=== PATIENT | female | born 1945 | race Hispanic/Latino ===

== ENCOUNTER 2017-12-24 01:28 | Inpatient (IN) | payer MEDICARE, OTHER ==
[2017-12-24 02:33] LABS: #Basophils 0.1 thou/uL (0.0-0.2); #Eosinphils 0.2 thou/uL (0.0-0.7); #Lymphocytes 1.8 thou/uL (1.20-3.40); #Monocytes 0.4 thou/uL (0.11-0.59); #Neutrophils 2.5 thou/uL (1.40-6.50); %Basophils 1.9 % (0.0-1.0); %Eosinophils 3.7 % (0.0-10.0); %Lymphocytes 36.5 % (21.0-51.0); %Monocytes 8.5 % (0.0-10.0); %Neutrophils 49.5 % (42.0-75.0); Hemoglobin 9.4 g/dL (12.0-16.0); Mean Corpuscular HGB CONC 31.2 g/dL (32.0-36.0); Mean Corpuscular Hemoglobin 26.5 pg (27.0-31.0); Mean Platelet Volume 8.2 fL (7.4-10.4); Platelet Count 305 thou/uL (130-400); RBC Distribution Width 16.6 % (11.5-14.5); Red Blood Cell (RBC) Count 3.54 mill/uL (4.20-5.40)
[2017-12-24 02:55] LABS: ALT (SGPT) 16 U/L (8-55); AST (SGOT) 25 U/L (5-34); Albumin 3.8 g/dL (3.4-4.8); Alkaline Phosphatase 61 U/L (40-150); Anion Gap 10 mmol/L (10-20); BUN (Urea Nitrogen) 20 mg/dL (9.8-20.1); Bilirubin, Total 0.5 mg/dL (0.2-1.2); CK (CPK) 26 U/L (29-168); Calc. Creatinine Clearance 0 mL/min (70-130); Calcium 9.4 mg/dL (7.8-10.44); Carbon Dioxide 34 mmol/L (23-31); Chloride 95 mmol/L (98-107); Estimated GFR-MDRD 44; Globulin 2.7 g/dL (2.4-3.5); Glucose 250 mg/dL (80-115); Lipase 6 U/L (8-78); Protein, Total 6.5 g/dL (6.0-8.3); Sodium 135 mmol/L (136-145)
[2017-12-24 02:57] LABS: CKMB 0.7 ng/mL (0-6.6); Troponin I 0.013 ng/mL (< 0.028)
[2017-12-24] MEDS ORDERED: Furosemide 40 MG/4 ML VIAL ONE (03:51)
[2017-12-24] MEDS ORDERED: Nitroglycerin 2% Ointment 1 INCH/1 GM Packet ONE (03:51)
[2017-12-24 05:57] LABS: Troponin I 0.018 ng/mL (< 0.028)
[2017-12-24] MEDS ORDERED: Dextrose 5% in Water 1,000 ML IV PRN (07:30)
[2017-12-24] MEDS ORDERED: Dextrose 50% Abboject 50 ML SYRINGE SLOW IVP PRN (07:30)
[2017-12-24] MEDS ORDERED: Milk Of Magnesia 30 ML UDCUP PO PRN (07:31)
--- NOTE | 2017-12-24 08:40 | RAD ---
CHEST 1 VIEW: Date: 12/24/17 HISTORY: Chest pain. COMPARISON: 08/22/16. FINDINGS: Cardiac silhouette is magnified and enlarged. Pulmonary vasculature is upper limits of normal with mi ld patchy bibasilar infiltrates. Mediastinum is midline with aortic calcification. No lobar consolida tion or evidence of pneumothorax. IMPRESSION: Cardiomegaly. Mild pulmonary vascular congestion. POS: OFF
[2017-12-24 09:01] LABS: Troponin I 0.016 ng/mL (< 0.028)
--- NOTE | 2017-12-24 11:18 | HP ---
PRIMARY CARE PHYSICIAN: Cait Osuna M.D. PRESENTING COMPLAINT: Chest pain. HISTORY OF PRESENT ILLNESS: Ms. Arvin Monroe is a 71-year-old female with a past medical history of diabetes mellitus, hypertension, hyperlipidemia, who presents to the emergency room with a 2-day history of intermittent chest pain, described as tightness, retrosternal, does not radiate, rated 8-10/10, and associated with diaphoresis and easy fatigability. Denies shortness of breath, nausea, or vomiting. She also reports lower extremity edema, for which she went to see her primary care physician. She was told to start taking diuretics and to reports to the emergency room if her symptoms persist. PAST MEDICAL HISTORY: Type 2 diabetes mellitus, hypertension, and hyperlipidemia. PAST SURGICAL HISTORY: None. FAMILY HISTORY: Both parents had "heart problems." The patient not really sure what type. SOCIAL HISTORY: She does not smoke cigarettes or drink alcohol or use illicit drugs. ALLERGIES: None. HOME MEDICATIONS: Acetaminophen with codeine 1-2 tablets p.o. q.6 hours, amitriptyline 25 mg daily, aspirin 325 mg daily, atenolol 25 mg daily, fenofibrate 48 mg daily, furosemide 20 mg daily, hydralazine 10 mg t.i.d., lisinopril/hydrochlorothiazide one tablet daily, multivitamin 1 daily, potassium chloride 10 mEq daily, pravastatin 40 mg daily, sertraline 50 mg at bedtime, sitagliptin/metformin 1 tablet b.i.d. with meals, and Zantac 150 mg daily. REVIEW OF SYSTEMS: Twelve-point review of systems conducted and negative except as stated in the HPI. PHYSICAL EXAMINATION: GENERAL: Not in acute distress, lying comfortably in bed. HEENT: Normocephalic, atraumatic, nonpale, anicteric. PERRLA. EOMI. Moist mucous membranes. NECK: Supple, no JVD. Full range of movement. RESPIRATORY: Vesicular breath sounds bilaterally with minimal. Bibasilar crackles. CARDIOVASCULAR: S1 and S2. No murmurs, rubs, or gallops. Regular rate and rhythm. No peripheral edema. ABDOMEN: Bowel sounds normoactive. Soft, nontender, nondistended. No hepatosplenomegaly. MUSCULOSKELETAL: Full range of movement in all extremities, moves them spontaneously. NEUROLOGIC: Alert and well oriented to time, place, and person. No focal deficits. SKIN: Warm, dry, well perfused. No rashes or lesion. PSYCHIATRIC: Normal mood and affect. LABORATORY DATA: CBC significant for mild normocytic anemia (9.4), serial chemistry with creatinine of 1.22, blood glucose of 250. Initial troponin 0.013. BNP 4800. Chest x-ray shows cardiomegaly with mild pulmonary vascular congestion. EKG: No signs of acute ischemia. ASSESSMENT AND PLAN: 1. Chest pain with easy fatigability: The patient likely has new onset heart failure causing her chest pain. She will be admitted to telemetry, started on IV furosemide, will also trend the cardiac enzymes, obtain Cardiology consult. Input/output will be monitored as well as daily weights. Home medications will be restarted. We will get an echocardiogram and TSH. Home atenolol will need to be switched for her beta chandler that improves mortality by carvedilol or metoprolol XL. We will defer to Cardiology. We will also continue lisinopril and hold hydrochlorothiazide for now. 2. Diabetes mellitus, type 2: Uncontrolled. We will hold sitagliptin/ metformin and placed on sliding scale insulin while in hospital, as well as a diabetic diet, fingerstick glucose before meals and at bedtime and hypoglycemia protocol, last A1c was 6.0 in 12/2017. 3. Hypertensive Urgency: No signs of end organ dysfunction. Has not been compliant with her medications and unsure what she takes at home. Will place on IV hydralazine PRN and start carvedilol. Continue Lisinopril. Hold atenolol and hydrochlorothiazide. Monitor BP closely. 4. Hyperlipidemia. We will resume statin and obtain a fasting lipid profile. [facility] CENTERMartha
[2017-12-24] MEDS: Acetaminophen 325 MG TAB PO PRN ×3 (11:24→21:22)
[2017-12-24] MEDS: Potassium Chloride 20 MEQ TAB PO SCH (11:24)
[2017-12-24] MEDS: Docusate 100 MG CAP PO SCH ×2 (11:24→17:02)
[2017-12-24] MEDS ORDERED: Lisinopril 20 MG TAB PO SCH (12:00)
[2017-12-24] MEDS ORDERED: hydrALAZINE 20 MG/ML VIAL SLOW IVP SCH (12:00)
[2017-12-24] MEDS ORDERED: hydrALAZINE 25 MG TAB PO SCH (13:30)
[2017-12-24] MEDS ORDERED: hydrALAZINE 20 MG/ML VIAL SLOW IVP PRN (14:45)
[2017-12-24] MEDS ORDERED: Carvedilol 25 MG TAB PO SCH (15:00)
[2017-12-24] MEDS ORDERED: Amlodipine 5 MG TAB PO SCH (17:00)
--- NOTE | 2017-12-24 17:01 | CON ---
DATE OF CONSULTATION: 12/24/2017 REASON FOR CONSULTATION: Acute systolic heart failure. HISTORY OF PRESENT ILLNESS: Ms. Sheridan is a 71-year-old woman, who I have seen and evaluated in t he past. She has missed several followups. She has been seen and evaluated as well in the hospital. Her last stress study was performed on 08/23/2016. At that time her LVEF was estimated at 55%. Sh e had no significant ischemia present. She has been lost to followup. She was last seen in the [facility] in 2014. She recently presented with chest pain. She states the pain lasted for 30 minutes. It was moderate- to-severe in nature. It then slowly improved and resolved. She then proceeded to the emergency room with the above. PAST MEDICAL HISTORY: Diabetes mellitus, hypertension, hyperlipidemia. SOCIAL HISTORY: No current tobacco or alcohol use. ALLERGIES: None. MEDICATIONS: Include codeine, amitriptyline, aspirin, atenolol, fenofibrate, Lasix, hydralazine, lis inopril/hydrochlorothiazide, multivitamin, potassium, pravastatin, sertraline, and Zantac. REVIEW OF SYSTEMS: Ten-point review of systems reviewed and as above, otherwise negative. PHYSICAL EXAMINATION: GENERAL: Patient is a pleasant female who is in no acute distress. The patient appears her stated a ge. VITAL SIGNS: Blood pressure 206/98, pulse 65, temperature afebrile. NEUROLOGIC: The patient is alert and oriented times 3 with no focal neurologic deficits. HEENT: Sclerae without icterus. Mouth has moist mucous membranes with normal pallor. NECK: No JVD. Carotid upstroke brisk. No bruits bilaterally. LUNGS: Clear to auscultation with unlabored respirations. BACK: No scoliosis or kyphosis. CARDIAC: Regular rate and rhythm with normal S1 and S2. No S3 or S4 noted. No significant rubs, mu rmurs, thrills, or gallops noted throughout the precordium. PMI is not displaced. There is no almaz ternal heave. ABDOMEN: Soft, nontender, nondistended. No peritoneal signs present. No hepatosplenomegaly. No ab normal striae. EXTREMITIES: 2+ femoral and 2+ dorsalis pedis pulses. No cyanosis, clubbing, or edema. SKIN: No gross abnormalities. PERTINENT LABORATORY DATA: Hemoglobin 9.4, creatinine 1.22 with [place]FR [place] 44. [place] 4809. Echo with Doppler shows LVEF 25%-30%. LV appears dilated. IMPRESSION: 1. Chest pain. 2. Malignant hypertension. 3. New onset cardiomyopathy of unknown etiology. 4. Chronic kidney disease. 5. Anemia. RECOMMENDATIONS: Ms. Sheridan' situation is currently complex. She does have renal insufficiency a s well as anemia. Her LVEF is markedly diminished with LVEF as described above. Given her anemia an d chronic kidney disease, I am recommending a noninvasive stress test to assess for any areas of isch emia. If this is felt to be negative or low risk, we would then recommend a LifeVest with continued medical therapy and aggressive blood pressure management. Her LVEF appears to have diminished over t he last 2 years and likely related, if nonischemic, to malignant hypertension. Final recommendation pending the above.
[2017-12-24] MEDS: Furosemide 40 MG/4 ML VIAL SLOW IVP SCH (17:02)
[2017-12-24] MEDS: hydrALAZINE 25 MG TAB PO SCH (21:15)
[2017-12-24] MEDS: HumaLOG 300 UNITS/3 ML VIAL SC PRN (21:18)
[2017-12-25 04:49] LABS: #Eosinphils 0.1 thou/uL (0.0-0.7); #Lymphocytes 1.3 thou/uL (1.20-3.40); #Monocytes 0.3 thou/uL (0.11-0.59); #Neutrophils 2.6 thou/uL (1.40-6.50); %Eosinophils 2.5 % (0.0-10.0); %Lymphocytes 30.3 % (21.0-51.0); %Monocytes 6.8 % (0.0-10.0); %Neutrophils 59.5 % (42.0-75.0); Hemoglobin 9.3 g/dL (12.0-16.0); Mean Corpuscular HGB CONC 31.9 g/dL (32.0-36.0); Mean Corpuscular Hemoglobin 26.8 pg (27.0-31.0); Mean Corpuscular Volume 84.1 fl (81.0-99.0); Mean Platelet Volume 8.3 fL (7.4-10.4); Platelet Count 271 thou/uL (130-400); RBC Distribution Width 16.3 % (11.5-14.5); Red Blood Cell (RBC) Count 3.46 mill/uL (4.20-5.40); White Blood Cell (WBC) Count 4.3 thou/uL (4.8-10.8)
[2017-12-25 05:01] LABS: Anion Gap 11 mmol/L (10-20); BUN (Urea Nitrogen) 19 mg/dL (9.8-20.1); Calc. Creatinine Clearance 64 mL/min (70-130); Calcium 9.7 mg/dL (7.8-10.44); Carbon Dioxide 35 mmol/L (23-31); Chloride 96 mmol/L (98-107); Estimated GFR-MDRD 55; Glucose 123 mg/dL (80-115); Potassium 3.2 mmol/L (3.5-5.1); Sodium 139 mmol/L (136-145)
[2017-12-25] MEDS: Furosemide 40 MG/4 ML VIAL SLOW IVP SCH ×2 (06:04→15:46)
[2017-12-25] MEDS ORDERED: Lidocaine 1% (PF) 30 ML VIAL ONE (07:28)
[2017-12-25] MEDS ORDERED: Nitroglycerin 100MG/250ML BOT 250 ML ONE (07:29)
[2017-12-25] MEDS ORDERED: Verapamil 5 MG/2 ML VIAL ONE (07:29)
[2017-12-25] MEDS ORDERED: Heparin 10,000 UNITS/1 ML VIAL ONE (07:29)
[2017-12-25] MEDS ORDERED: hydrALAZINE 20 MG/ML VIAL ONE (07:54)
[2017-12-25] MEDS ORDERED: Fentanyl 250 MCG/5 ML VIAL ONE (07:57)
[2017-12-25] MEDS ORDERED: Midazolam HCl 2 mg/2 ml Vial ONE (07:57)
--- NOTE | 2017-12-25 07:59 | PRG ---
DATE OF SERVICE: 12/25/2017 Ms. Sheridan is doing well. Blood pressure remains elevated. Her creatinine did improve and is now within normal limits. Hemoglobin remains low. Given that her creatinine has improved and her hemoglobin is stable, recommend coronary angiography o nly. I would like to assess her coronary anatomy. Her LVEF is diminished. We will not proceed with intervention if needed. We will need to stage the procedure. I have discussed the procedure in ful l detail with Ms. Sheridan. The risks include, but are not limited to the following; , stroke, LA, need for emergency surgery, loss of limb, bleeding and infection as well as reaction to medicati on. All questions were answered. Given the above, the patient agreed to proceed with the above proc edure. We will approach radially to minimize bleeding.
[2017-12-25] MEDS ORDERED: traMADol HCl 50 MG TAB PO PRN (08:09)
[2017-12-25] MEDS ORDERED: Acetaminophen/Codeine 30-300mg Tablet PO PRN ×2 (08:09)
[2017-12-25] MEDS ORDERED: Nitroglycerin 0.4 MG TAB (25 Tab Bottle) SL PRN (08:09)
[2017-12-25] MEDS ORDERED: Sodium Chloride 0.9% 200 ML IV SCH (08:15)
[2017-12-25] MEDS ORDERED: Sodium Chloride 0.9% 1,000 ML IV SCH (08:15)
[2017-12-25] MEDS ORDERED: Non-Formulary Item 1 EACH (Omeprazole [Omeprazole] 20 MG) PO SCH (09:00)
[2017-12-25] MEDS ORDERED: Non-Formulary Item 1 EACH (Zantac 150 MG) PO SCH (09:00)
[2017-12-25] MEDS ORDERED: Pravastatin Sodium 40 MG TAB PO SCH (09:00)
[2017-12-25] MEDS ORDERED: Non-Formulary Item 1 EACH (Insulin Glargine,Hum.Rec.Anlog 5 UNIT) SQ SCH (09:00)
[2017-12-25] MEDS ORDERED: Lisinopril 20 MG TAB PO SCH (09:00)
[2017-12-25] MEDS ORDERED: Non-Formulary Item 1 EACH (Sertraline Hcl [Zoloft] 50 MG) PO SCH (09:00)
[2017-12-25 09:17] VITALS: BMI 30.2
[2017-12-25] MEDS: cloNIDine 0.1 MG TAB PO SCH ×2 (09:22→20:01)
[2017-12-25] MEDS: hydrALAZINE 25 MG TAB PO SCH ×3 (09:22→20:00)
[2017-12-25] MEDS: Famotidine 20 MG TAB PO SCH ×2 (09:22→20:01)
[2017-12-25] MEDS: Amitriptyline HCl 25 MG TAB PO SCH (09:22)
[2017-12-25] MEDS: Carvedilol 25 MG TAB PO SCH ×3 (09:22→18:39)
[2017-12-25] MEDS: Fenofibrate Nanocrystallized 145 MG TAB PO SCH (09:23)
[2017-12-25] MEDS: Potassium Chloride 20 MEQ TAB PO SCH (09:23)
[2017-12-25] MEDS: Ferrous Sulfate 325 MG TAB PO SCH (09:23)
[2017-12-25] MEDS: Docusate 100 MG CAP PO SCH ×2 (09:23→20:01)
[2017-12-25] MEDS: Amlodipine 5 MG TAB PO SCH (09:24)
[2017-12-25] MEDS ORDERED: Iopamidol 370 76% 100 ML VIAL ONE (10:42)
[2017-12-25] MEDS: Insulin Detemir 100 UNITS/ML 5 UNITS in Pre-Filled Syringe 1 EACH SC SCH (12:41)
[2017-12-25] MEDS: HumaLOG 300 UNITS/3 ML VIAL SC PRN ×2 (12:42→18:33)
[2017-12-25] MEDS ORDERED: Potassium Chloride 20 MEQ TAB PO SCH (13:00)
--- NOTE | 2017-12-25 13:33 | PDOC.PN ---
- Subjective Encounter Start Date: 12/25/17 Encounter Start Time: 13:40 Subjective: No complaints today. She reports feeling well. -: No acute events overnight. - Objective Resuscitation Status: Resuscitation Status FULL:Full Resuscitation MAR Reviewed: Yes Vital Signs & Weight: Vital Signs (12 hours) Temp Pulse Resp BP BP Pulse Ox 12/25/17 12:00 97.2 F L 68 18 171/74 H 96 12/25/17 09:24 58 L 163/67 H 12/25/17 09:23 163/67 H 12/25/17 09:22 58 L 163/67 H 12/25/17 08:25 9.2 F L 51 L 19 170/72 H 96 12/25/17 07:58 96.4 F L 58 L 18 94 L 12/25/17 07:30 96.4 F L 58 L 18 195/89 H 94 L 12/25/17 04:00 98.5 F 47 L 20 187/80 H 97 Weight Admit Weight 169 lb 1.6 oz Weight 165 lb 6 oz I&O: 12/24/17 12/25/17 12/26/17 06:59 06:59 06:59 Intake Total 240 Output Total 1100 Balance -860 Result Diagrams: 12/25/17 04:19 12/25/17 04:19 Additional Labs: Accuchecks 12/25/17 12/25/17 12/24/17 12:19 06:08 20:27 POC Glucose 238 H 136 H 350 H Phys Exam - Physical Examination Constitutional: NAD HEENT: PERRLA, moist MMs, sclera anicteric, oral pharynx no lesions Neck: no JVD, supple, full ROM Respiratory: no wheezing, no rales, no rhonchi, clear to auscultation bilateral Cardiovascular: RRR, no significant murmur, no rub Gastrointestinal: soft, non-tender, no distention, positive bowel sounds Musculoskeletal: pulses present, edema present (minimal b/l lower extremities) Neurological: non-focal, moves all 4 limbs Psychiatric: normal affect, A&O x 3 Skin: no rash, normal turgor Dx/Plan (1) Acute systolic CHF (congestive heart failure), NYHA class 3 Code(s): I50.21 - ACUTE SYSTOLIC (CONGESTIVE) HEART FAILURE Status: Acute Comment: Likely 2/2 ischemic cardiomyopathy. EF 25-30% per ECHO. Scheduled for cath 12/25/17. (2) Hypertensive urgency Code(s): I16.0 - HYPERTENSIVE URGENCY Status: Acute Comment: Achieving better control. 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 -: Continue IV diuresis for today. * . Review of Systems - Medications/Allergies Allergies/Adverse Reactions: Allergies Allergy/AdvReac Type Severity Reaction Status Date / Time No Known Allergies Allergy Verified 11/09/16 06:10 Medications: Current Medications Acetaminophen (Tylenol) 650 mg PO Q4H PRN PRN Reason: Headache/Fever or Pain Last Admin: 12/24/17 21:22 Dose: 650 mg Acetaminophen/Codeine Phosphate (Tylenol #3) 1 tab PO Q4H PRN PRN Reason: Mild Pain (1-3) Acetaminophen/Codeine Phosphate (Tylenol #3) 2 tab PO Q4H PRN PRN Reason: Moderate Pain (4-6) Amitriptyline HCl (Elavil) 25 mg PO DAILY [facility] Last Admin: 12/25/17 09:22 Dose: 25 mg Amlodipine Besylate (Norvasc) 5 mg PO DAILY [facility] Last Admin: 12/25/17 09:24 Dose: 5 mg Atorvastatin Calcium (Lipitor) 10 mg PO HS [facility] Carvedilol (Coreg) 12.5 mg PO BID-[facility] Clonidine (Catapres) 0.1 mg PO BID [facility] Last Admin: 12/25/17 09:22 Dose: 0.1 mg Dextrose/Water (Dextrose 50%) 25 gm SLOW IVP PRN PRN PRN Reason: Hypoglycemia Docusate Sodium (Colace) 100 mg PO BID [facility] Last Admin: 12/25/17 09:23 Dose: 100 mg Famotidine (Pepcid) 20 mg PO BID [facility] Last Admin: 12/25/17 09:22 Dose: 20 mg Fenofibrate (Tricor) 145 mg PO DAILY [facility] Last Admin: 12/25/17 09:23 Dose: 145 mg Ferrous Sulfate (Feosol) 325 mg PO DAILY [facility] Last Admin: 12/25/17 09:23 Dose: 325 mg Furosemide (Lasix) 40 mg SLOW IVP 0600,1400 [facility] Last Admin: 12/25/17 06:04 Dose: 40 mg Glucagon (Glucagon) 1 mg IM PRN PRN PRN Reason: Hypoglycemia Hydralazine HCl (Apresoline) 25 mg PO BID [facility] Last Admin: 12/25/17 09:22 Dose: 25 mg Hydralazine HCl (Apresoline) 10 mg SLOW IVP Q4H PRN PRN Reason: Hypertension Dextrose/Water (D5w) 1,000 mls @ 0 mls/hr IV .Q0M PRN; As Directed PRN Reason: Hypoglycemia Insulin Detemir 5 units/ (Miscellaneous Medication) 0.05 mls @ 0 mls/hr SC DAILY [facility] Last Admin: 12/25/17 12:41 Dose: 0.05 mls Sodium Chloride (Normal Saline 0.9%) 1,000 mls @ 100 mls/hr IV .Q10H [facility] Stop: 12/25/17 14:16 Last Admin: 12/25/17 09:21 Dose: 1,000 mls Insulin Human Lispro (Humalog) 0 units SC .MILD SLIDING SCALE PRN PRN Reason: Mild Correctional Scale Last Admin: 12/25/17 12:42 Dose: 4 unit Lisinopril (Zestril) 40 mg PO DAILY [facility] Magnesium Hydroxide (Milk Of Magnesium) 30 ml PO DAILYPRN PRN PRN Reason: Constipation Nitroglycerin (Nitrostat) 0.4 mg SL Q5MIN PRN PRN Reason: Chest Pain Pantoprazole Sodium (Protonix) 40 mg PO DAILY [facility] Last Admin: 12/25/17 09:23 Dose: 40 mg Potassium Chloride (K-Dur) 20 meq PO QAM-WM [facility] Last Admin: 12/25/17 09:23 Dose: 20 meq Potassium Chloride (K-Dur) 40 meq PO 1300 [facility] Stop: 12/25/17 16:00 Last Admin: 12/25/17 12:39 Dose: 40 meq Sertraline HCl (Zoloft) 50 mg PO DAILY [facility] Last Admin: 12/25/17 09:23 Dose: 50 mg Sodium Chloride (Flush - Normal Saline) 10 ml IVF PRN PRN PRN Reason: Saline Flush Tramadol HCl (Ultram) 50 mg PO Q6H PRN PRN Reason: Moderate Pain (4-6)
[2017-12-25] MEDS: Atorvastatin Calcium 10 MG TAB PO SCH (20:02)
[2017-12-25] MEDS: Zolpidem Tartrate 5 MG TAB PO PRN (21:41)
[2017-12-26 05:18] LABS: Cardiac Risk 3.8 (Less than 4.5)
[2017-12-26] MEDS: Furosemide 40 MG/4 ML VIAL SLOW IVP SCH ×2 (05:34→13:33)
[2017-12-26] MEDS: Lisinopril 20 MG TAB PO SCH (09:22)
[2017-12-26] MEDS: Potassium Chloride 20 MEQ TAB PO SCH (09:22)
[2017-12-26] MEDS: Carvedilol 25 MG TAB PO SCH ×2 (09:23→21:04)
[2017-12-26] MEDS: cloNIDine 0.1 MG TAB PO SCH ×2 (09:24→21:05)
[2017-12-26] MEDS: hydrALAZINE 25 MG TAB PO SCH ×3 (09:24→21:05)
[2017-12-26] MEDS: Docusate 100 MG CAP PO SCH ×2 (09:24→21:06)
[2017-12-26] MEDS: Amitriptyline HCl 25 MG TAB PO SCH (09:24)
[2017-12-26] MEDS: Ferrous Sulfate 325 MG TAB PO SCH (09:24)
[2017-12-26] MEDS: Famotidine 20 MG TAB PO SCH (09:24)
[2017-12-26] MEDS: Fenofibrate Nanocrystallized 145 MG TAB PO SCH (09:24)
[2017-12-26] MEDS: Amlodipine 5 MG TAB PO SCH (09:25)
[2017-12-26] MEDS: Insulin Detemir 100 UNITS/ML 5 UNITS in Pre-Filled Syringe 1 EACH SC SCH (09:29)
[2017-12-26] MEDS: HumaLOG 300 UNITS/3 ML VIAL SC PRN ×2 (09:29→13:34)
--- NOTE | 2017-12-26 16:45 | PDOC.PN ---
- Subjective Encounter Start Date: 12/26/17 Encounter Start Time: 16:43 Ms. Sheridan was seen today in follow-up of CHF exacerbation. She says she is breathing better, and denies any chest pain. - Objective Resuscitation Status: Resuscitation Status FULL:Full Resuscitation MAR Reviewed: Yes Vital Signs & Weight: Vital Signs (12 hours) Temp Pulse Pulse Pulse Resp BP BP 12/26/17 15:16 98.2 F 61 17 12/26/17 15:15 61 153/69 H 12/26/17 12:35 65 63 153/69 H 12/26/17 12:00 98.4 F 63 19 12/26/17 09:25 62 12/26/17 09:24 62 196/88 H 12/26/17 09:22 196/88 H 12/26/17 09:00 98.2 F 62 18 12/26/17 08:00 98.2 F 62 18 BP BP Pulse Ox Pulse Ox Pulse Ox 12/26/17 15:16 153/69 H 96 12/26/17 15:15 12/26/17 12:35 140/66 98 98 12/26/17 12:00 140/66 97 12/26/17 09:25 12/26/17 09:24 12/26/17 09:22 12/26/17 09:00 196/88 H 96 12/26/17 08:00 96 Weight Admit Weight 169 lb 1.6 oz Weight 162 lb 0.636 oz I&O: 12/25/17 12/26/17 12/27/17 06:59 06:59 06:59 Intake Total 240 2640 480 Output Total 1100 900 Balance -860 1740 480 Result Diagrams: 12/25/17 04:19 12/25/17 04:19 Additional Labs: Accuchecks 12/26/17 12/26/17 12/25/17 10:57 05:43 22:06 POC Glucose 333 H 217 H 254 H 12/25/17 12/25/17 20:03 16:28 POC Glucose 319 H 230 H Phys Exam - Physical Examination HEENT: PERRLA, sclera anicteric Respiratory: no wheezing, no rales, no rhonchi, clear to auscultation bilateral Cardiovascular: RRR, no significant murmur, no rub Gastrointestinal: soft, non-tender, positive bowel sounds Musculoskeletal: no edema Dx/Plan (1) Acute systolic CHF (congestive heart failure), NYHA class 3 Code(s): I50.21 - ACUTE SYSTOLIC (CONGESTIVE) HEART FAILURE Status: Acute Comment: Likely 2/2 ischemic cardiomyopathy. EF 25-30% per ECHO. Scheduled for cath 12/25/17. (2) Diabetes type 2, controlled Code(s): E11.9 - TYPE 2 DIABETES MELLITUS WITHOUT COMPLICATIONS Status: Chronic (3) Dyslipidemia Code(s): E78.5 - HYPERLIPIDEMIA, UNSPECIFIED Status: Chronic (4) Hypertension Code(s): I10 - ESSENTIAL (PRIMARY) HYPERTENSION Status: Chronic Qualifiers: Hypertension type: essential hypertension Qualified Code(s): I10 - Essential (primary) hypertension - Plan * Acute on chronic systolic heart failure- continue to diurese- consider change to oral lasix in am * Still awaiting the Echo results * DM- blood glucose is not optimally controlled- will increase the dose of Levemir. * HTN- blood pressure continues to be elevated- will increase Amlodipine, and monitor over the next few days- Lisinopril, and Hydralazine have already been increased * Continue to monitor electrolytes while on Lasix
--- NOTE | 2017-12-26 18:28 | PRG ---
DATE OF SERVICE: 12/26/2017 SUBJECTIVE: Ms. Sheridan is doing well. No current complaints of chest pain, pressure or shortness of breath is improved. Her blood pressure also appears improved. PHYSICAL EXAMINATION: VITAL SIGNS: Blood pressure 170/69, pulse 61, temperature 98.2, weight 169 down to 162. LUNGS: Clear to auscultation. HEART: Regular rate and rhythm. ABDOMEN: Soft, nontender, nondistended. EXTREMITIES: No edema. PERTINENT LABORATORY DATA: Hemoglobin 9.3. IMPRESSION: Nonischemic cardiomyopathy. RECOMMENDATIONS: Ms. Sheridan symptom is likely related to malignant hypertension. Her blood press ure appears to be improving. Given her LVEF of 20%-30%, I would also recommend LifeVest. I have als o decreased her Lasix from IV dosing to p.o. dosing. Continue Coreg in addition to SOFI inhibitor the rapy. Anticipate discharge in a.m.
[2017-12-26] MEDS: Zolpidem Tartrate 5 MG TAB PO PRN (21:05)
[2017-12-26] MEDS: Atorvastatin Calcium 10 MG TAB PO SCH (21:06)
[2017-12-26] MEDS ORDERED: HumaLOG 300 UNITS/3 ML VIAL SC PRN (21:47)
[2017-12-27 05:08] LABS: Anion Gap 12 mmol/L (10-20); BUN (Urea Nitrogen) 21 mg/dL (9.8-20.1); Calc. Creatinine Clearance 51 mL/min (70-130); Calcium 9.3 mg/dL (7.8-10.44); Carbon Dioxide 32 mmol/L (23-31); Chloride 94 mmol/L (98-107); Estimated GFR-MDRD 45; Glucose 199 mg/dL (80-115); Potassium 3.1 mmol/L (3.5-5.1); Sodium 135 mmol/L (136-145)
[2017-12-27] MEDS: Lisinopril 20 MG TAB PO SCH (09:14)
[2017-12-27] MEDS: Docusate 100 MG CAP PO SCH ×2 (09:14→20:07)
[2017-12-27] MEDS: Ferrous Sulfate 325 MG TAB PO SCH (09:14)
[2017-12-27] MEDS: Fenofibrate Nanocrystallized 145 MG TAB PO SCH (09:14)
[2017-12-27] MEDS: cloNIDine 0.1 MG TAB PO SCH ×2 (09:14→20:03)
[2017-12-27] MEDS: Carvedilol 25 MG TAB PO SCH ×2 (09:15→17:28)
[2017-12-27] MEDS: hydrALAZINE 25 MG TAB PO SCH ×3 (09:15→20:03)
[2017-12-27] MEDS: Furosemide 40 MG TAB PO SCH ×2 (09:15→13:28)
[2017-12-27] MEDS: Potassium Chloride 20 MEQ TAB PO SCH (09:15)
[2017-12-27] MEDS: Amitriptyline HCl 25 MG TAB PO SCH (09:16)
[2017-12-27] MEDS: Insulin Detemir 100 UNITS/ML 10 UNITS in Pre-Filled Syringe 1 EACH SC SCH (09:16)
[2017-12-27] MEDS: Amlodipine 10 MG TAB PO SCH (09:16)
--- NOTE | 2017-12-27 10:00 | PDOC.CTH ---
Cardiology Progress Note - Subjective Patient without complaints. Feels much better. Denies any CP, SOB, KRUSE or edema. No PND or orthopnea. Still hypetensive, but improved overall. Pulse rate down to 48 while sleeping. - Objective Vital Signs Temp Pulse Resp BP BP BP Pulse Ox 12/27/17 09:16 64 12/27/17 09:15 64 12/27/17 09:14 186/79 H 12/27/17 08:00 98.4 F 64 18 186/79 H 96 12/27/17 04:00 98.8 F 53 L 18 161/70 H 94 L 12/27/17 00:00 98.5 F 72 18 168/71 H 96 Admit Weight 169 lb 1.6 oz Weight 158 lb 12/26/17 12/27/17 12/28/17 06:59 06:59 06:59 Intake Total 2640 1525 Output Total 900 800 Balance 1740 725 - Physical Examination General/Neuro: alert & oriented x3, NAD Neck: carotid US brisk Lungs: CTA Heart: PMI normal, RRR Abdomen: NT/ND, soft Extremities: other: (no edema) - Telemetry Telemetry Rhythm: SR; SBrady 48-50s - Labs Result Diagrams: 12/25/17 04:19 12/27/17 04:28 Troponin/CKMB CK-MB (CK-2) 0.7 ng/mL (0-6.6) 12/24/17 02:09 Troponin I 0.016 ng/mL (< 0.028) 12/24/17 08:05 - Assessment/Plan 1. Acute/chronic systolic and diastolic CHF - most likely related to malignant HTN. Improved after diuresis. Ok for d/c today. Needs f/u with CHF clinic and LifeVest. 2. malignant HTN - Improved. Continue to titrate meds as outpatient. 3. Bradycardia - would not increase Coreg further. 4. DM - II - Managed by PCP
[2017-12-27] MEDS ORDERED: Potassium Chloride 20 MEQ TAB PO SCH (11:30)
--- NOTE | 2017-12-27 11:31 | PDOC.PN ---
- Subjective Encounter Start Date: 12/27/17 Encounter Start Time: 11:30 Ms. Sheridan was seen today in follow-up. She does not have any complaints. She denies chest pain or shortness of breath. - Objective Resuscitation Status: Resuscitation Status FULL:Full Resuscitation MAR Reviewed: Yes Vital Signs & Weight: Vital Signs (12 hours) Temp Pulse Resp BP BP BP Pulse Ox 12/27/17 09:16 64 12/27/17 09:15 64 12/27/17 09:14 186/79 H 12/27/17 08:00 98.4 F 64 18 186/79 H 96 12/27/17 04:00 98.8 F 53 L 18 161/70 H 94 L 12/27/17 00:00 98.5 F 72 18 168/71 H 96 Weight Admit Weight 169 lb 1.6 oz Weight 158 lb I&O: 12/26/17 12/27/17 12/28/17 06:59 06:59 06:59 Intake Total 2640 1525 Output Total 900 800 Balance 1740 725 Result Diagrams: 12/25/17 04:19 12/27/17 04:28 Additional Labs: Accuchecks 12/27/17 12/26/17 12/26/17 06:09 20:55 16:34 POC Glucose 190 H 351 H 66 L 12/26/17 10:57 POC Glucose 333 H Phys Exam - Physical Examination HEENT: PERRLA Respiratory: no wheezing, no rales Cardiovascular: RRR, no significant murmur Gastrointestinal: soft, non-tender, positive bowel sounds Musculoskeletal: no edema Dx/Plan (1) Acute systolic CHF (congestive heart failure), NYHA class 3 Code(s): I50.21 - ACUTE SYSTOLIC (CONGESTIVE) HEART FAILURE Status: Acute Comment: Likely 2/2 ischemic cardiomyopathy. EF 25-30% per ECHO. Scheduled for cath 12/25/17. (2) Diabetes type 2, controlled Code(s): E11.9 - TYPE 2 DIABETES MELLITUS WITHOUT COMPLICATIONS Status: Chronic (3) Dyslipidemia Code(s): E78.5 - HYPERLIPIDEMIA, UNSPECIFIED Status: Chronic (4) Hypertension Code(s): I10 - ESSENTIAL (PRIMARY) HYPERTENSION Status: Chronic Qualifiers: Hypertension type: essential hypertension Qualified Code(s): I10 - Essential (primary) hypertension - Plan * Acute on chronic systolic heart failure- compensated * Patient will need a life vest- this will be arranged by Cardiology * Hypokalemia- replace- and check her magnesium level * DM- blood glucose is improved. * HTN- blood pressure is still elevated- she has had recent changes in the doses of her medications- will monitor, and it may take some time before she gets the full benefit from the antihypertensives * Home when life vest arranged
[2017-12-27] MEDS: HumaLOG 300 UNITS/3 ML VIAL SC PRN ×2 (13:27→17:27)
[2017-12-27] MEDS: Acetaminophen 325 MG TAB PO PRN (17:26)
[2017-12-27] MEDS ORDERED: HumaLOG 300 UNITS/3 ML VIAL SC PRN (18:26)
[2017-12-27] MEDS: Atorvastatin Calcium 10 MG TAB PO SCH (20:04)
[2017-12-27] MEDS: Zolpidem Tartrate 5 MG TAB PO PRN (20:04)
[2017-12-28] MEDS: Acetaminophen 325 MG TAB PO PRN (07:00)
[2017-12-28] MEDS: cloNIDine 0.1 MG TAB PO SCH (09:08)
[2017-12-28] MEDS: Carvedilol 25 MG TAB PO SCH ×2 (09:09→17:30)
[2017-12-28] MEDS: Docusate 100 MG CAP PO SCH (09:09)
[2017-12-28] MEDS: Fenofibrate Nanocrystallized 145 MG TAB PO SCH (09:09)
[2017-12-28] MEDS: Ferrous Sulfate 325 MG TAB PO SCH (09:10)
[2017-12-28] MEDS: hydrALAZINE 25 MG TAB PO SCH ×2 (09:10→15:32)
[2017-12-28] MEDS: Lisinopril 20 MG TAB PO SCH (09:10)
[2017-12-28] MEDS: Furosemide 40 MG TAB PO SCH ×2 (09:10→15:33)
[2017-12-28] MEDS: Amitriptyline HCl 25 MG TAB PO SCH (09:11)
[2017-12-28] MEDS: Insulin Detemir 100 UNITS/ML 10 UNITS in Pre-Filled Syringe 1 EACH SC SCH (09:11)
[2017-12-28] MEDS: Amlodipine 10 MG TAB PO SCH (09:11)
[2017-12-28] MEDS: Potassium Chloride 20 MEQ TAB PO SCH (09:13)
--- NOTE | 2017-12-28 11:55 | PDOC.PN ---
- Subjective Encounter Start Date: 12/28/17 Encounter Start Time: 11:54 Ms. Sheridan was seen today in follow-up of CHF exacerbation. She does not have any complaints this morning. She denies shortness of breath. She ambulated in the [place] some with assistance without difficulty. - Objective Resuscitation Status: Resuscitation Status FULL:Full Resuscitation MAR Reviewed: Yes Vital Signs & Weight: Vital Signs (12 hours) Temp Pulse Resp BP BP BP Pulse Ox 12/28/17 09:11 68 12/28/17 09:10 61 184/81 H 12/28/17 09:08 184/81 H 12/28/17 08:00 96.9 F L 68 18 184/81 H 95 12/28/17 07:17 98.3 F 61 18 95 12/28/17 03:48 98.3 F 61 18 163/73 H 99 12/28/17 00:00 98.7 F 62 20 138/61 98 Weight Admit Weight 169 lb 1.6 oz Weight 162 lb 11.2 oz I&O: 12/27/17 12/28/17 12/29/17 06:59 06:59 06:59 Intake Total 1525 1320 360 Output Total 800 1900 Balance 725 -580 360 Result Diagrams: 12/25/17 04:19 12/27/17 04:28 Additional Labs: Accuchecks 12/28/17 12/28/17 12/27/17 10:50 06:12 20:54 POC Glucose 267 H 162 H 329 H 12/27/17 16:43 POC Glucose 214 H Phys Exam - Physical Examination HEENT: PERRLA Respiratory: no wheezing, no rales, no rhonchi, clear to auscultation bilateral Cardiovascular: RRR, no significant murmur, no rub Gastrointestinal: soft, non-tender, no distention, positive bowel sounds Musculoskeletal: no edema Dx/Plan (1) Acute systolic CHF (congestive heart failure), NYHA class 3 Code(s): I50.21 - ACUTE SYSTOLIC (CONGESTIVE) HEART FAILURE Status: Acute Comment: Likely 2/2 ischemic cardiomyopathy. EF 25-30% per ECHO. Scheduled for cath 12/25/17. (2) Diabetes type 2, controlled Code(s): E11.9 - TYPE 2 DIABETES MELLITUS WITHOUT COMPLICATIONS Status: Chronic (3) Dyslipidemia Code(s): E78.5 - HYPERLIPIDEMIA, UNSPECIFIED Status: Chronic (4) Hypertension Code(s): I10 - ESSENTIAL (PRIMARY) HYPERTENSION Status: Chronic Qualifiers: Hypertension type: essential hypertension Qualified Code(s): I10 - Essential (primary) hypertension - Plan * Acute on chronic systolic heart failure- compensated * HTN- blood pressure is elevated- will monitor , it may take a few days for it to stabilize after the new BP medications were started * DM- also a bit labile- fine tuning can be done as an outpatient * Awaiting Life Vest.
[2017-12-28] MEDS: HumaLOG 300 UNITS/3 ML VIAL SC PRN ×2 (12:38→17:31)
--- NOTE | 2017-12-28 14:08 | PDOC.CTH ---
<Adela Hernandez - Last Filed: 12/28/17 15:18> Cardiology Progress Note - Subjective Awake, no overnight events. Awaiting lifevest fitting today, ready to go home. Denies chest pain, shortness of breath. Ambulating in halls without difficulty. Spoke with primary nurse re: lifevest, states [employer] is wanting EF to be dictated into cath report. Echocardiogram contains most updated EF, all required info sent to [employer]. - Objective Vital Signs Temp Pulse Pulse Pulse Resp BP BP 12/28/17 12:07 69 62 185/79 H 12/28/17 12:00 97.2 F L 59 L 17 12/28/17 09:11 68 12/28/17 09:10 61 184/81 H 12/28/17 09:08 184/81 H 12/28/17 08:00 96.9 F L 68 18 12/28/17 07:17 98.3 F 61 18 12/28/17 03:48 98.3 F 61 18 BP BP BP Pulse Ox Pulse Ox Pulse Ox 12/28/17 12:07 185/81 H 99 97 12/28/17 12:00 153/69 H 96 12/28/17 09:11 12/28/17 09:10 12/28/17 09:08 12/28/17 08:00 184/81 H 95 12/28/17 07:17 95 12/28/17 03:48 163/73 H 99 Admit Weight 169 lb 1.6 oz Weight 162 lb 11.2 oz 12/27/17 12/28/17 12/29/17 06:59 06:59 06:59 Intake Total 1525 1320 720 Output Total 800 1900 Balance 725 -580 720 - Physical Examination General/Neuro: alert & oriented x3, NAD Neck: no JVD present (supple) Lungs: CTA, unlabored respirations Heart: RRR Abdomen: NT/ND, soft - Telemetry Telemetry Rhythm: SR 60s - Labs Result Diagrams: 12/25/17 04:19 12/27/17 04:28 Troponin/CKMB CK-MB (CK-2) 0.7 ng/mL (0-6.6) 12/24/17 02:09 Troponin I 0.016 ng/mL (< 0.028) 12/24/17 08:05 - Assessment/Plan 1.Acute on chronic systolic heart failure- compensated. EF 25-30%, awaiting LifeVest placement, okay for discharge once fitted, home on furosemide 40mg BID 2.HTN, malignant-remains elevated, continue clonidine, amlodipine, lisinopril as ordered, titrate as outpatient 3.Bradycardia-stable now, would not increase carvedilol <Tim Garnica - Last Filed: 12/28/17 15:21> Cardiology Progress Note - Objective Vital Signs Temp Pulse Pulse Pulse Resp BP BP 12/28/17 12:07 69 62 185/79 H 12/28/17 12:00 97.2 F L 59 L 17 12/28/17 09:11 68 12/28/17 09:10 61 184/81 H 12/28/17 09:08 184/81 H 12/28/17 08:00 96.9 F L 68 18 12/28/17 07:17 98.3 F 61 18 12/28/17 03:48 98.3 F 61 18 BP BP BP Pulse Ox Pulse Ox Pulse Ox 12/28/17 12:07 185/81 H 99 97 12/28/17 12:00 153/69 H 96 12/28/17 09:11 12/28/17 09:10 12/28/17 09:08 12/28/17 08:00 184/81 H 95 12/28/17 07:17 95 12/28/17 03:48 163/73 H 99 Admit Weight 169 lb 1.6 oz Weight 162 lb 11.2 oz 12/27/17 12/28/17 12/29/17 06:59 06:59 06:59 Intake Total 1525 1320 720 Output Total 800 1900 Balance 725 -580 720 - Labs Result Diagrams: 12/25/17 04:19 12/27/17 04:28 Troponin/CKMB CK-MB (CK-2) 0.7 ng/mL (0-6.6) 12/24/17 02:09 Troponin I 0.016 ng/mL (< 0.028) 12/24/17 08:05 Attending Addendum - Attending Addendum Date/Time: 12/28/17 1521 I personally evaluated the patient and discussed the management with Dr. [] I agree with the History, Examination, Assessment and Plan documented above with any addition or exceptions noted below.
[2017-12-28 15:34] VITALS: BP 160/72
[2017-12-28 18:09] VITALS: TEMP 97
--- NOTE | 2017-12-28 21:16 | DIS ---
PRIMARY CARE PHYSICIAN: Dr. Osuna. DATE OF ADMISSION: 12/24/2017 DATE OF DISCHARGE: 12/28/2017 DISCHARGE DISPOSITION: Home. PRIMARY DISCHARGE DIAGNOSES: 1. Acute on chronic systolic heart failure. 2. Diabetes mellitus, type 2. 3. Hypertension. 4. Hyperlipidemia. DISCHARGE MEDICATIONS: Include Zantac 150 mg twice a day, Zoloft 50 mg daily, pravastatin 40 mg temi y, omeprazole 20 mg daily, multivitamin 1 tablet daily, lisinopril 40 mg daily, Lantus insulin 5 unit s daily, Apresoline 25 mg twice a day, Lasix 40 mg twice daily, iron sulfate 325 mg daily, fenofibrat e 145 mg daily, clonidine 0.1 mg twice daily, amlodipine 10 mg daily, amitriptyline 25 mg daily, Tyle nol No. 3 one to two tablets q.6 hours as needed. PROCEDURES DONE DURING ADMISSION: The patient had an echocardiogram in which the ejection fraction w as estimated at 25%-30%. There was some hypokinetic motion in the inferior wall of the left ventricl e and a restrictive filling pattern suggestive of restrictive diastolic function. There was severe m itral regurgitation present. CODE STATUS: FULL CODE. ALLERGIES: No known drug allergies. HOSPITAL COURSE: Ms. Sheridan is a pleasant 72-year-old female that presented to the emergency room with complaints of chest pain. She stated that it was about an 8-10/10 and was associated with some diaphoresis. She was admitted and ruled out. The patient had a repeat echocardiogram, which reveal ed a significant reduction in her left ventricular ejection fraction, it was estimated at 20% to 30%. She underwent cardiac catheterization and there was no evidence of any coronary artery disease. It was recommended that she go home with a LifeVest and then be reevaluated in the near future. During the hospital course, her antihypertensive medication was adjusted, as she did have blood pressure el evation and bordering on hypertensive urgency. When she was clinically stabilized, she was able to b e discharged home and to have close outpatient followup.
== END 2017-12-28 19:11 | disposition home or self-care (01) | DRG 286 ==
LOC: ERS 01:28 → 2NO 04:03
PROVIDERS: ADMIT Internal Medicine Infectious Disease; ATTEND Internal Medicine Infectious Disease
PROC: 4A023N7 Measurement of Cardiac Sampling and Pressure, Left Heart, Percutaneous Approach (ICD-10-PCS; principal; 2017-12-25)
PROC: B2111ZZ Fluoroscopy of Multiple Coronary Arteries using Low Osmolar Contrast (ICD-10-PCS; 2017-12-25)
PROC: B2151ZZ Fluoroscopy of Left Heart using Low Osmolar Contrast (ICD-10-PCS; 2017-12-25)
DX: I13.0 Hypertensive heart and chronic kidney disease with heart failure and stage 1 through stage 4 chronic kidney disease, or unspecified chronic kidney disease (principal); I50.23 Acute on chronic systolic (congestive) heart failure; E11.22 Type 2 diabetes mellitus with diabetic chronic kidney disease; I42.9 Cardiomyopathy, unspecified; N18.9 Chronic kidney disease, unspecified; E78.5 Hyperlipidemia, unspecified; E11.65 Type 2 diabetes mellitus with hyperglycemia; I16.0 Hypertensive urgency; I25.5 Ischemic cardiomyopathy; D64.9 Anemia, unspecified; E87.6 Hypokalemia
CPT/HCPCS: 36415; 36416; 71045; 80048; 80053; 80061; 82550; 82553; 83690; 83735; 83880; 84443; 84484; 85025; 93005; 93306; 93458; 93798; 94760; 96374; 99152; C1769; J0360; J1644; J1815; J1940; J2001; J2250; J3010

== ENCOUNTER 2018-04-08 10:41 | Emergency (ER) | payer MEDICARE ==
--- NOTE | 2018-04-08 11:23 | CT ---
HEAD CT WITHOUT CONTRAST: 04/08/2018 HISTORY: Headache for 2-3 days. COMPARISON: 11/09/2016 TECHNIQUE: Serial axial CT imaging at 5 mm intervals, from the vertex through the skull base, without contrast. FINDINGS: Stable, small, circumscribed, lytic lesion noted within the calvarium, laterally, on the right, on im age 19, suggesting a hemangioma, in the absence of known malignancy. The paranasal sinuses/mastoid a ir cells appear grossly unremarkable. There is atherosclerotic calcification involving the distal ri ght vertebral artery and the bilateral cavernous carotid arteries. There is no intracranial hemorrhage, midline shift, or mass effect seen. There is mild periventricular hypodensity, suggesting small vessel disease. IMPRESSION: No acute findings. POS: [facility]
[2018-04-08] MEDS ORDERED: diphenhydrAMINE 50 MG/ML VIAL ONE (11:53)
[2018-04-08] MEDS ORDERED: Metoclopramide HCl 10 MG/2 ML VIAL ONE (11:53)
[2018-04-08 11:59] LABS: #Eosinphils 0.2 thou/uL (0.0-0.7); #Lymphocytes 1.4 thou/uL (1.20-3.40); #Monocytes 0.5 thou/uL (0.11-0.59); #Neutrophils 4.5 thou/uL (1.40-6.50); %Basophils 0.7 % (0.0-1.0); %Eosinophils 2.4 % (0.0-10.0); %Lymphocytes 21.8 % (21.0-51.0); %Neutrophils 68.1 % (42.0-75.0); Hemoglobin 10.5 g/dL (12.0-16.0); Mean Corpuscular HGB CONC 33.8 g/dL (32.0-36.0); Mean Corpuscular Hemoglobin 28.4 pg (27.0-31.0); Mean Platelet Volume 8.7 fL (7.4-10.4); Platelet Count 289 thou/uL (130-400); RBC Distribution Width 16.8 % (11.5-14.5); Red Blood Cell (RBC) Count 3.72 mill/uL (4.20-5.40); White Blood Cell (WBC) Count 6.6 thou/uL (4.8-10.8)
[2018-04-08 12:25] LABS: ALT (SGPT) 8 U/L (8-55); AST (SGOT) 16 U/L (5-34); Albumin 3.5 g/dL (3.4-4.8); Alkaline Phosphatase 70 U/L (40-150); Anion Gap 12 mmol/L (10-20); BUN (Urea Nitrogen) 17 mg/dL (9.8-20.1); Bilirubin, Total 0.5 mg/dL (0.2-1.2); Calc. Creatinine Clearance 0 mL/min (70-130); Calcium 9.3 mg/dL (7.8-10.44); Carbon Dioxide 31 mmol/L (23-31); Chloride 101 mmol/L (98-107); Estimated GFR-MDRD 59; Glucose 181 mg/dL (80-115); Protein, Total 6.5 g/dL (6.0-8.3); Sodium 141 mmol/L (136-145)
[2018-04-08] MEDS ORDERED: Potassium Chloride 20 MEQ TAB ONE (13:03)
== END 2018-04-08 14:50 | disposition home or self-care (01) ==
LOC: ERS 10:41
DX: R51 Headache (principal); R03.0 Elevated blood-pressure reading, without diagnosis of hypertension; E87.6 Hypokalemia; I11.0 Hypertensive heart disease with heart failure; I50.9 Heart failure, unspecified; F03.90 Unspecified dementia, unspecified severity, without behavioral disturbance, psychotic disturbance, mood disturbance, and anxiety; K21.9 Gastro-esophageal reflux disease without esophagitis; E11.9 Type 2 diabetes mellitus without complications; F32.9 Major depressive disorder, single episode, unspecified; Z79.899 Other long term (current) drug therapy; Z79.84 Long term (current) use of oral hypoglycemic drugs
CPT/HCPCS: 70450; 80053; 85025; 96365; 96375; J1200; J2765

== ENCOUNTER 2018-09-19 14:54 | Outpatient (CLI) | payer MEDICARE, OTHER | END 2018-09-19 14:55 | disposition home or self-care (01) | LOC: BICMAMMO 14:54 | PROVIDERS: ATTEND Family Medicine | DX: Z12.31 Encounter for screening mammogram for malignant neoplasm of breast (principal); R92.1 Mammographic calcification found on diagnostic imaging of breast | CPT/HCPCS: 77063; 77067 ==

== ENCOUNTER 2018-12-31 13:20 | Emergency (ER) | payer MEDICARE ==
[2018-12-31] MEDS ORDERED: Acetaminophen 325 MG TAB ONE (16:12)
[2018-12-31] MEDS ORDERED: Ketorolac Tromethamine 60 MG/2 ML VIAL ONE (16:12)
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
== END 2018-12-31 17:06 | disposition home or self-care (01) ==
LOC: ERS 13:20
DX: S00.83XA Contusion of other part of head, initial encounter (principal); I50.9 Heart failure, unspecified; K21.9 Gastro-esophageal reflux disease without esophagitis; E11.9 Type 2 diabetes mellitus without complications; I11.0 Hypertensive heart disease with heart failure; F03.90 Unspecified dementia, unspecified severity, without behavioral disturbance, psychotic disturbance, mood disturbance, and anxiety; F32.9 Major depressive disorder, single episode, unspecified; Z79.899 Other long term (current) drug therapy; Z79.84 Long term (current) use of oral hypoglycemic drugs; W50.0XXA Accidental hit or strike by another person, initial encounter
CPT/HCPCS: 70110; 72040; 96372; J1885

== ENCOUNTER 2019-08-19 12:27 | Outpatient (CLI) | payer MEDICARE ==
--- NOTE | 2019-08-19 13:31 | RAD ---
2 views right knee: 08/19/2019 COMPARISON: None HISTORY: Acute right-sided knee pain FINDINGS: There is prominent patellofemoral joint space narrowing with posterior patellar osteophyte formation and enthesophyte formation at the insertion of the quadriceps tendon. Small knee joint effusion. There is atherosclerotic calcification posterior to the right knee. There is moderate/sever e lateral compartment narrowing with associated osteophyte formation involving the lateral femoral condyle and lateral tibial plateau. No displaced fracture or evidence of dislocation is seen. IMPRESSION: Prominent degenerative change. No acute fracture or dislocation.
--- NOTE | 2019-08-19 13:33 | RAD ---
Left knee 2 views: 08/19/2019 HISTORY: Pain FINDINGS: There is mild/moderate lateral compartment narrowing and moderate/severe medial compartment narrowing with osteophyte formation involving the medial and lateral femoral condyle as well as the medial and lateral tibial plateau. There is prominent patellofemoral joint space narrowing. There is atherosclerotic calcification posterior to the left knee. No knee joint effusion, displaced fracture, or evidence of dislocation. Round calcifications are seen overlying the soft tissues uke operator ior to the left knee which could represent intra-articular loose bodies within a Hilliard's cyst. IMPRESSION: Chronic findings as above. No acute fracture or dislocation.
== END 2019-08-19 12:28 | disposition home or self-care (01) ==
LOC: BICRAD 12:27
PROVIDERS: ATTEND Family Medicine
DX: M25.561 Pain in right knee (principal); M17.0 Bilateral primary osteoarthritis of knee; M25.762 Osteophyte, left knee; I70.90 Unspecified atherosclerosis

== ENCOUNTER 2019-09-16 12:58 | Outpatient (CLI) | payer MEDICARE ==
--- NOTE | 2019-09-16 13:22 | RAD ---
PA AND LATERAL CHEST: HISTORY: Bronchitis. Cough. COMPARISON: 12/24/2017 FINDINGS: The heart size is enlarged. The lungs are well expanded without lobar consolidation, pneumothoraces o r pleural effusions. There are degenerative changes in the spine. There is mild infiltrate in the rig ht lower lung. The possibility of pneumonia should be considered. POS: [facility]
== END 2019-09-16 12:59 | disposition home or self-care (01) ==
LOC: BICRAD 12:58
PROVIDERS: ATTEND Family Medicine
DX: J40 Bronchitis, not specified as acute or chronic (principal)
CPT/HCPCS: 71046

== ENCOUNTER 2019-11-18 18:17 | Emergency (ER) | payer MEDICARE ==
[2019-11-18] MEDS ORDERED: Ketorolac Tromethamine 30 MG/ML VIAL ONE (19:12)
[2019-11-18] MEDS ORDERED: diphenhydrAMINE 50 MG/ML VIAL ONE (19:12)
[2019-11-18] MEDS ORDERED: Metoclopramide HCl 10 MG/2 ML VIAL ONE (19:12)
--- NOTE | 2019-11-18 19:26 | RAD ---
PORTABLE CHEST: 11/18/19 HISTORY: Fall. Shoulder pain, hypertension. COMPARISON: 12/24/17 study. Heart size is enlarged. There are atherosclerotic changes of the aorta. The lungs are clear of infilt rates. The bones are demineralized. No signs of failure. IMPRESSION: Cardiomegaly. POS: [facility]
[2019-11-18 19:54] LABS: #Eosinphils 0.1 thou/uL (0.0-0.7); #Lymphocytes 1.6 thou/uL (1.20-3.40); #Monocytes 0.3 thou/uL (0.11-0.59); #Neutrophils 4.2 thou/uL (1.40-6.50); %Basophils 0.4 % (0.0-1.0); %Eosinophils 0.8 % (0.0-10.0); %Lymphocytes 25.1 % (21.0-51.0); %Monocytes 5.1 % (0.0-10.0); %Neutrophils 68.6 % (42.0-75.0); Hemoglobin 9.6 g/dL (12.0-16.0); Mean Corpuscular HGB CONC 33.7 g/dL (32.0-36.0); Mean Corpuscular Hemoglobin 30.8 pg (27.0-31.0); Mean Corpuscular Volume 91.4 fL (78.0-98.0); Mean Platelet Volume 8.4 fL (7.4-10.4); Platelet Count 287 thou/uL (130-400); RBC Distribution Width 13.3 % (11.5-14.5); Red Blood Cell (RBC) Count 3.12 mill/uL (4.20-5.40); White Blood Cell (WBC) Count 6.2 thou/uL (4.8-10.8)
[2019-11-18 20:15] LABS: ALT (SGPT) 8 U/L (8-55); AST (SGOT) 16 U/L (5-34); Albumin 3.9 g/dL (3.4-4.8); Alkaline Phosphatase 124 U/L (40-110); Anion Gap 15 mmol/L (10-20); BUN (Urea Nitrogen) 47 mg/dL (9.8-20.1); Bilirubin, Total 0.4 mg/dL (0.2-1.2); Calc. Creatinine Clearance 0 mL/min (70-130); Calcium 8.7 mg/dL (7.8-10.44); Carbon Dioxide 21 mmol/L (23-31); Chloride 104 mmol/L (98-107); Estimated GFR-MDRD 19; Globulin 2.7 g/dL (2.4-3.5); Glucose 243 mg/dL (83-110); Potassium 4.4 mmol/L (3.5-5.1); Protein, Total 6.6 g/dL (6.0-8.3); Sodium 136 mmol/L (136-145)
[2019-11-18] MEDS ORDERED: Acetaminophen 325 MG TAB ONE (21:28)
== END 2019-11-18 21:37 | disposition home or self-care (01) ==
LOC: ERS 18:17
DX: I11.0 Hypertensive heart disease with heart failure (principal); I50.9 Heart failure, unspecified; E11.9 Type 2 diabetes mellitus without complications; R07.9 Chest pain, unspecified; F03.90 Unspecified dementia, unspecified severity, without behavioral disturbance, psychotic disturbance, mood disturbance, and anxiety; K21.9 Gastro-esophageal reflux disease without esophagitis; F32.9 Major depressive disorder, single episode, unspecified; Z79.899 Other long term (current) drug therapy; Z79.4 Long term (current) use of insulin
CPT/HCPCS: 71045; 80053; 84484; 85025; 93005; 96365; 96366; 96375; J1200; J1885; J2765

== ENCOUNTER 2020-02-01 12:11 | Inpatient (IN) | payer MEDICARE ==
[2020-02-01 12:48] LABS: #Eosinphils 0.2 thou/uL (0.0-0.7); #Lymphocytes 0.9 thou/uL (1.20-3.40); #Monocytes 0.4 thou/uL (0.11-0.59); #Neutrophils 2.8 thou/uL (1.40-6.50); %Basophils 0.6 % (0.0-1.0); %Eosinophils 4.3 % (0.0-10.0); %Lymphocytes 21.5 % (21.0-51.0); %Monocytes 10.1 % (0.0-10.0); %Neutrophils 63.6 % (42.0-75.0); Hemoglobin 9.6 g/dL (12.0-16.0); Mean Corpuscular HGB CONC 31.1 g/dL (32.0-36.0); Mean Corpuscular Hemoglobin 30.8 pg (27.0-31.0); Mean Corpuscular Volume 99.1 fL (78.0-98.0); Platelet Count 225 thou/uL (130-400); Red Blood Cell (RBC) Count 3.12 mill/uL (4.20-5.40); White Blood Cell (WBC) Count 4.3 thou/uL (4.8-10.8)
[2020-02-01] MEDS ORDERED: Nitroglycerin 2% Ointment 1 INCH/1 GM Packet ONE (12:52)
[2020-02-01 12:57] LABS: ALT (SGPT) 12 U/L (8-55); AST (SGOT) 17 U/L (5-34); Albumin 3.2 g/dL (3.4-4.8); Alkaline Phosphatase 94 U/L (40-110); Anion Gap 14 mmol/L (10-20); BUN (Urea Nitrogen) 37 mg/dL (9.8-20.1); Bilirubin, Total 0.5 mg/dL (0.2-1.2); Calc. Creatinine Clearance 0 mL/min (70-130); Calcium 8.6 mg/dL (7.8-10.44); Carbon Dioxide 22 mmol/L (23-31); Chloride 106 mmol/L (98-107); Estimated GFR-MDRD 35; Globulin 2.6 g/dL (2.4-3.5); Glucose 189 mg/dL (83-110); Lipase 10 U/L (8-78); Potassium 3.8 mmol/L (3.5-5.1); Protein, Total 5.8 g/dL (6.0-8.3); Sodium 138 mmol/L (136-145)
--- NOTE | 2020-02-01 13:35 | RAD ---
Chest one view HISTORY: Chest pain. COMPARISON: 11/18/2019. FINDINGS: Cardiac silhouette is magnified and enlarged. Pulmonary vasculature is upper limits of normal and accentuated by shallow inspiration. Mediastinum is midline. No confluent airspace consolidation or evidence of pneumothorax. There is subtle irregularity of the far anterior margin of the right fifth rib. pvc monitor leads overlie the chest. IMPRESSION : Cardiomegaly with mild pulmonary vascular congestion. Subtle cortical irregularity involving the far anterior margin of the right fifth rib. Possibly an ac [place] injury.
[2020-02-01] MEDS ORDERED: Furosemide 40 MG/4 ML VIAL ONE (14:29)
[2020-02-01 16:08] LABS: Troponin I 0.021 ng/mL (< 0.028)
[2020-02-01 16:27] VITALS: BMI 33.1
[2020-02-01] MEDS ORDERED: Ondansetron PF 4 MG/2 ML Vial IVP PRN (16:58)
[2020-02-01] MEDS ORDERED: Dextrose 5% in Water 1,000 ML IV PRN (16:58)
[2020-02-01] MEDS ORDERED: Dextrose 50% Abboject 50 ML SYRINGE SLOW IVP PRN (16:58)
[2020-02-01] MEDS ORDERED: Bisacodyl 5 MG TAB PO PRN (16:58)
[2020-02-01] MEDS: Acetaminophen 325 MG TAB PO PRN ×2 (17:35→22:43)
[2020-02-01] MEDS: HumaLOG 300 UNITS/3 ML VIAL SC PRN (17:35)
--- NOTE | 2020-02-01 18:02 | HP ---
PRIMARY CARE PROVIDER: Dr. Cait Osuna. CHIEF COMPLAINT: Shortness of breath. HISTORY OF PRESENT ILLNESS: Ms. Sheridan is a pleasant 74-year-old lady, who was seen at [facility] on February 01, 2020. She was hospitalized at this facility from December 24, 2017 to December 28, 2017 for acute on chronic systolic heart failure. 2D echocardiogram showed left ventricular ejection fraction of 25% to 30% at that time. She also underwent cardiac catheterization, there was no evidence of any significant coronary artery disease. She reports that she has occasional shortness of breath. Yesterday, she started having shortness of breath. She had shortness of breath with exertion. She could not sleep because of shortness of breath. She also reports left-sided chest tightness that occurred last night as well as this morning. She describes it as a sensation of tightness, 7/10 at its worst, nonradiating, no known aggravating or relieving factors, accompanied by shortness of breath. She denies any cough or fevers. She reports that she has chronic bilateral lower extremity swelling. REVIEW OF SYSTEMS: All systems were reviewed and found to be negative except for the pertinent positives mentioned above. PAST MEDICAL HISTORY: Diabetes mellitus, hypertension, dyslipidemia, systolic congestive heart failure, gastroesophageal reflux disease, chronic kidney disease stage 3. PAST SURGICAL HISTORY: Pins in the right foot, tubal ligation. SOCIAL HISTORY: The patient denies tobacco use, alcohol use, or recreational drug use. FAMILY HISTORY: Cardiac disease in both parents. ALLERGIES: NO KNOWN DRUG ALLERGIES. CURRENT MEDICATIONS: 1. Tylenol No. 3 p.r.n. 2. Norvasc 5 mg daily. 3. Catapres 0.1 mg at bedtime. 4. Lasix 20 mg two times a day. 5. Hydralazine 50 mg two times a day. 6. Tresiba 100 units subcutaneously two times a day. 7. Lisinopril 20 mg daily. CODE STATUS: I discussed her code status. She is full code. PHYSICAL EXAMINATION: GENERAL: On examination, Ms. Sheridan is awake and alert, not in acute distress. She is obese, with a BMI of 33.1. VITAL SIGNS: Blood pressure is 171/74, pulse 76, respiratory rate 20, and oxygen saturations 98% on room air. She is afebrile. EYES: No scleral icterus, no conjunctival pallor. ENT: Moist mucosal membranes. No oropharyngeal erythema or exudates. NECK: Supple, nontender. She has jugular venous distention. Trachea is midline. RESPIRATORY: Accessory muscles of breathing are not active. Chest wall movements are symmetric bilaterally. She has bibasilar crackles. CARDIOVASCULAR: S1 and S2 are heard, regular. Peripheral pulses palpable. ABDOMEN: Soft, nontender, bowel sounds are heard. NEUROLOGIC: Cranial nerves 2 through 12 are intact, deep tendon reflexes 2+. MUSCULOSKELETAL: Power is 5/5 in all 4 extremities. SKIN: She has bilateral lower extremity pitting edema. LYMPHATIC: No cervical lymphadenopathy. PSYCHIATRIC: Normal mood, normal affect. The patient is oriented to person, place, and time. LABORATORY DATA: Ms. Angulo labs and investigations were reviewed. I reviewed her electrocardiogram, which shows normal sinus rhythm, no ST changes to suggest an acute coronary syndrome. I also reviewed her chest x-ray, which shows cardiomegaly and pulmonary vascular congestion. She has decreased WBC of 4300, macrocytic anemia with hemoglobin 9.6, normal platelet count. Normal sodium, normal potassium, elevated blood urea nitrogen of 37, elevated creatinine of 1.47, decreased albumin of 3.2. Elevated BNP of 2427 and normal troponin I x2. Lactic acid level is normal. ASSESSMENT AND PLAN: Ms. Angulo is a pleasant 74-year-old lady, who was seen at [facility] on February 01, 2020. Her problem list includes: 1. Acute on chronic systolic congestive heart failure, NYHA class 3: She is presenting with congestive heart failure exacerbation. She will be admitted to the hospital for further management. She will be treated with intravenous furosemide. We will check 2D echocardiogram. We will consult Cardiology Service for opinion and help with management. 2. Diabetes mellitus type 2: We will continue her on insulin, start Accu-Cheks and insulin sliding scale. 3. Hypertension: We will hold amlodipine given bilateral lower extremity swelling, also pending 2D echocardiogram report to evaluate cardiac function. We will continue the rest of her home medications, monitor vital signs and titrate antihypertensives as needed. 4. Chronic kidney disease stage 3: This appears to be stable. We will recheck electrolytes and creatinine since she will be receiving intravenous diuretics. Many thanks for allowing me to participate in your patient's care. Please feel free to contact me with any questions or concerns. LEVEL OF RISK: High. LEVEL OF COMPLEXITY: High. Job ID: [id number]
[2020-02-01 19:12] LABS: Troponin I 0.028 ng/mL (< 0.028)
[2020-02-01] MEDS ORDERED: Insulin Glargine 50 UNITS in Pre-Filled Syringe 1 EACH SC SCH (21:00)
[2020-02-01] MEDS ORDERED: Furosemide 40 MG/4 ML VIAL SLOW IVP SCH (21:00)
[2020-02-01] MEDS ORDERED: Non-Formulary Item 1 EACH (Insulin Degludec [Tresiba Flextouch U-100] 100 UNIT) SQ SCH (21:00)
[2020-02-01] MEDS: cloNIDine 0.1 MG TAB PO SCH (21:42)
[2020-02-01] MEDS: hydrALAZINE 25 MG TAB PO SCH (21:43)
[2020-02-01] MEDS: Insulin Glargine 5 UNITS in Pre-Filled Syringe 1 EACH SC SCH (21:46)
[2020-02-02 04:40] LABS: #Basophils 0.1 thou/uL (0.0-0.2); #Eosinphils 0.2 thou/uL (0.0-0.7); #Lymphocytes 1.3 thou/uL (1.20-3.40); #Monocytes 0.4 thou/uL (0.11-0.59); #Neutrophils 2.2 thou/uL (1.40-6.50); %Basophils 1.7 % (0.0-1.0); %Eosinophils 5.9 % (0.0-10.0); %Lymphocytes 30.2 % (21.0-51.0); %Monocytes 8.7 % (0.0-10.0); %Neutrophils 53.5 % (42.0-75.0); Hemoglobin 9.2 g/dL (12.0-16.0); Mean Corpuscular HGB CONC 31.1 g/dL (32.0-36.0); Mean Corpuscular Hemoglobin 30.8 pg (27.0-31.0); Mean Corpuscular Volume 99.2 fL (78.0-98.0); Mean Platelet Volume 9.2 fL (7.4-10.4); Platelet Count 212 thou/uL (130-400); RBC Distribution Width 15.9 % (11.5-14.5); Red Blood Cell (RBC) Count 2.99 mill/uL (4.20-5.40); White Blood Cell (WBC) Count 4.2 thou/uL (4.8-10.8)
[2020-02-02 04:54] LABS: Anion Gap 13 mmol/L (10-20); BUN (Urea Nitrogen) 40 mg/dL (9.8-20.1); Calc. Creatinine Clearance 45 mL/min (70-130); Calcium 8.4 mg/dL (7.8-10.44); Carbon Dioxide 26 mmol/L (23-31); Chloride 105 mmol/L (98-107); Estimated GFR-MDRD 35; Glucose 190 mg/dL (83-110); Potassium 4.1 mmol/L (3.5-5.1); Sodium 140 mmol/L (136-145)
[2020-02-02] MEDS: Furosemide 40 MG/4 ML VIAL SLOW IVP SCH ×2 (05:52→13:52)
[2020-02-02] MEDS: Acetaminophen 325 MG TAB PO PRN ×2 (05:55→13:59)
[2020-02-02] MEDS: HumaLOG 300 UNITS/3 ML VIAL SC PRN ×2 (06:03→17:07)
[2020-02-02] MEDS: hydrALAZINE 25 MG TAB PO SCH ×3 (08:20→20:57)
[2020-02-02] MEDS: Enoxaparin Sodium 30 MG/0.3 ML SYRINGE SC SCH (08:20)
[2020-02-02] MEDS: Insulin Glargine 5 UNITS in Pre-Filled Syringe 1 EACH SC SCH ×2 (08:21→21:01)
[2020-02-02] MEDS ORDERED: Non-Formulary Item 1 EACH (Insulin Glargine,Hum.Rec.Anlog [Lantus Solostar] 5 UNIT) SQ SCH (09:00)
[2020-02-02] MEDS ORDERED: Lisinopril 20 MG TAB PO SCH (09:00)
[2020-02-02] MEDS ORDERED: hydrALAZINE 25 MG TAB PO SCH (15:00)
[2020-02-02] MEDS: Carvedilol 3.125 MG TAB PO SCH (16:00)
[2020-02-02] MEDS ORDERED: Acetaminophen/Codeine 30-300mg Tablet PO PRN (17:17)
--- NOTE | 2020-02-02 18:11 | PDOC.HOSPP ---
- Subjective Encounter Date: 02/02/20 Encounter Time: 07:40 Subjective: Pt seen for followup re: CHF exacerbation. Feels better today. - Objective Vital Signs & Weight: Vital Signs (12 hours) Temp Pulse Pulse Pulse Resp BP BP 02/02/20 15:45 97.8 F 81 14 02/02/20 13:53 77 02/02/20 11:01 98.3 F 70 18 02/02/20 10:42 02/02/20 10:12 75 73 193/77 H 191/85 H 02/02/20 07:20 97.2 F L 63 18 BP BP Pulse Ox Pulse Ox Pulse Ox 02/02/20 15:45 169/72 H 98 02/02/20 13:53 178/82 H 02/02/20 11:01 171/77 H 97 02/02/20 10:42 97 02/02/20 10:12 96 97 02/02/20 07:20 165/64 H 97 Weight Weight 178 lb Result Diagrams: 02/02/20 04:06 02/02/20 04:06 Additional Labs: Accuchecks 02/02/20 02/02/20 02/02/20 17:06 10:51 05:32 POC Glucose 169 H 131 H 193 H 02/01/20 20:35 POC Glucose 110 Labs and MARs reviewed by me EKG Reviewed by me: Yes (Tele: NSR) Hospitalist ROS - Review of Systems Constitutional: denies: fever, chills, sweats, weakness, malaise Respiratory: reports: SOB with excertion. denies: cough, shortness of breath, pleuritic pain, wheezing Cardiovascular: reports: edema. denies: chest pain, palpitations, orthopnea, paroxysmal noc. dyspnea, light headedness Gastrointestinal: denies: nausea, vomiting, abdominal pain, diarrhea, constipation, melena, hematochezia Genitourinary: denies: dysuria, frequency, incontinence, hematuria, retention - Medication Medications: Active Medications Generic Name Dose Route Start Last Admin Trade Name Freq PRN Reason Stop Dose Admin Acetaminophen 650 mg 02/01/20 16:30 02/02/20 13:59 Tylenol PO 650 mg Q6H PRN Administration Pain Acetaminophen/Codeine Phosphate 1 tab 02/02/20 17:17 02/02/20 18:06 Tylenol #3 PO 1 tab Q6H PRN Administration Mild-Moderate Pain (1-5) Carvedilol 3.125 mg 02/02/20 17:00 02/02/20 16:00 Coreg PO 3.125 mg BID-WM ABHILASH Administration Clonidine 0.1 mg 02/01/20 21:00 02/01/20 21:42 Catapres PO 0.1 mg HS ABHILASH Administration Enoxaparin Sodium 30 mg 02/02/20 09:00 02/02/20 08:20 Lovenox SC 30 mg 0900 ABHILASH Administration Furosemide 40 mg 02/02/20 06:00 02/02/20 13:52 Lasix SLOW IVP 40 mg 0600,1400 ABHILASH Administration Hydralazine HCl 50 mg 02/02/20 15:00 02/02/20 12:33 Apresoline PO 50 mg TID ABHILASH Administration Insulin Glargine 5 units/ 0.05 mls @ 0 mls/hr 02/01/20 21:00 02/02/20 08:21 Miscellaneous Medication SC 0.05 mls BID ABHILASH Administration Insulin Human Lispro 0 units 02/01/20 16:58 02/02/20 17:07 Humalog SC 2 unit .MILD SLIDING SCALE PRN Administration Mild Correctional Scale - Exam General Appearance: awake alert Eye: anicteric sclera ENT: moist mucosa Neck: supple, symmetric, no thyromegaly, no lymphadenopathy, JVD Heart: RRR, no gallops, no rubs, normal peripheral pulses Respiratory: no wheezes, no ronchi, normal chest expansion Respiratory - other findings: Angel crackles Gastrointestinal: soft, non-tender, non-distended, normal bowel sounds Extremities: 2+ LE edema Psychiatric: normal affect, normal behavior, A&O x 3 Hosp A/P (1) Acute on chronic systolic and diastolic heart failure, NYHA class 3 Code(s): I50.43 - ACUTE ON CHRONIC COMBINED SYSTOLIC AND DIASTOLIC HRT FAIL Status: Acute (2) DM type 2 (diabetes mellitus, type 2) Status: Chronic Qualifiers: 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: without intermodal owner operator truck driver use Diabetes mellitus complication status: without complication Qualified Code(s): E11.9 - Type 2 diabetes mellitus without complications (3) Dyslipidemia Code(s): E78.5 - HYPERLIPIDEMIA, UNSPECIFIED Status: Chronic (4) Hypertension Code(s): I10 - ESSENTIAL (PRIMARY) HYPERTENSION Status: Chronic Qualifiers: Hypertension type: essential hypertension Qualified Code(s): I10 - Essential (primary) hypertension (5) Chronic kidney disease, stage 3 Code(s): N18.3 - CHRONIC KIDNEY DISEASE, STAGE 3 (MODERATE) Status: Chronic - Plan Pt started on Coreg and Entresto. CKD stable. Continue IV furosemide. Blood sugars high, switch to moderate insulin sliding scale. Cardiac Rehab.
--- NOTE | 2020-02-02 18:36 | CON ---
DATE OF CONSULTATION: 02/02/2020 REASON FOR CONSULTATION: Congestive heart failure. PRIMARY STAFF GENETIC COUNSELOR: Rohit Unger MD HISTORY OF PRESENT ILLNESS: Ms. Sheridan is a 74-year-old woman, who was admitted to the hospital with progressive difficulty breathing and chest discomfort. The patient has been having progressive trouble breathing for the last few days and finally came to the emergency room. She has been given intravenous diuretics and is breathing better. Her blood pressure is still very high. She does have a past history of diagnosis of nonischemic cardiomyopathy. She has not been following up in clinic with us. PAST MEDICAL HISTORY: 1. Diabetes. 2. Hypertension. 3. Dyslipidemia. 4. Systolic congestive heart failure. She had ejection fraction of 25% to 30% in 2018. SOCIAL HISTORY: No tobacco or alcohol. FAMILY HISTORY: Both parents had heart disease. MEDICATIONS: At home; 1. Norvasc 5 mg a day. 2. Catapres 0.1 mg a day. 3. Hydralazine 50 mg twice a day. 4. Lasix 20 mg twice a day. 5. Lisinopril 20 mg a day. 6. Tresiba. PHYSICAL EXAMINATION: GENERAL: This is a pleasant elderly woman, in no distress. She is hypertensive. VITAL SIGNS: Her blood pressure is 171/77, pulse 70. LUNGS: Clear. CARDIAC: Normal S1, normal S2. ABDOMEN: Obese, nontender. EXTREMITIES: There is moderate peripheral edema. LABORATORY DATA: Hemoglobin is 9.2, creatinine is 1.46. Chest x-ray shows marked cardiomegaly. BNP is 2427. ASSESSMENT: 1. Congestive heart failure, systolic, acute on chronic. 2. Hypertension, severe. 3. Renal insufficiency, stage III. 4. Diabetes. PLAN: 1. Start beta blockers in the form of carvedilol. 2. Consider changing from lisinopril to Entresto. 3. In view of anemia, check iron levels, may need intravenous iron. 4. Consideration for defibrillator implantation. 5. Repeat echocardiogram. 6. Dr. Unger will resume care tomorrow. Job ID: [id number]
[2020-02-02] MEDS: cloNIDine 0.1 MG TAB PO SCH (20:57)
[2020-02-02] MEDS ORDERED: Amlodipine 10 MG TAB PO SCH (23:15)
[2020-02-02] MEDS: Acetaminophen/Codeine 30-300mg Tablet PO PRN (23:37)
[2020-02-02] MEDS: diphenhydrAMINE 25 MG CAP PO PRN (23:38)
[2020-02-03 04:59] LABS: #Basophils 0.1 thou/uL (0.0-0.2); #Eosinphils 0.2 thou/uL (0.0-0.7); #Lymphocytes 1.5 thou/uL (1.20-3.40); #Monocytes 0.5 thou/uL (0.11-0.59); #Neutrophils 2.6 thou/uL (1.40-6.50); %Basophils 1.2 % (0.0-1.0); %Eosinophils 3.7 % (0.0-10.0); %Lymphocytes 31.5 % (21.0-51.0); %Monocytes 9.3 % (0.0-10.0); %Neutrophils 54.4 % (42.0-75.0); Hemoglobin 9.1 g/dL (12.0-16.0); Mean Corpuscular HGB CONC 31.2 g/dL (32.0-36.0); Mean Corpuscular Hemoglobin 30.6 pg (27.0-31.0); Mean Corpuscular Volume 97.9 fL (78.0-98.0); Mean Platelet Volume 8.7 fL (7.4-10.4); Platelet Count 201 thou/uL (130-400); RBC Distribution Width 15.6 % (11.5-14.5); Red Blood Cell (RBC) Count 2.96 mill/uL (4.20-5.40); White Blood Cell (WBC) Count 4.8 thou/uL (4.8-10.8)
[2020-02-03 05:19] LABS: Anion Gap 10 mmol/L (10-20); BUN (Urea Nitrogen) 37 mg/dL (9.8-20.1); Calc. Creatinine Clearance 50 mL/min (70-130); Calcium 8.6 mg/dL (7.8-10.44); Carbon Dioxide 29 mmol/L (23-31); Chloride 104 mmol/L (98-107); Estimated GFR-MDRD 41; Glucose 110 mg/dL (83-110); Potassium 3.8 mmol/L (3.5-5.1); Sodium 139 mmol/L (136-145)
[2020-02-03] MEDS: Furosemide 40 MG/4 ML VIAL SLOW IVP SCH ×2 (05:59→13:56)
[2020-02-03] MEDS: Amlodipine 10 MG TAB PO SCH (07:19)
[2020-02-03] MEDS: Carvedilol 3.125 MG TAB PO SCH ×2 (07:19→16:24)
[2020-02-03] MEDS: hydrALAZINE 25 MG TAB PO SCH ×4 (07:22→20:40)
[2020-02-03] MEDS: Enoxaparin Sodium 30 MG/0.3 ML SYRINGE SC SCH (07:22)
[2020-02-03] MEDS: Acetaminophen/Codeine 30-300mg Tablet PO PRN ×2 (07:23→13:52)
[2020-02-03] MEDS: Insulin Glargine 5 UNITS in Pre-Filled Syringe 1 EACH SC SCH ×2 (09:29→20:40)
[2020-02-03] MEDS ORDERED: Iron, Sodium Ferric Gluconate 250 MG, Admixture Fee 1 EACH in Sodium Chloride 0.9% 250 ... IVPB SCH (11:15)
[2020-02-03] MEDS ORDERED: Iron Sucrose Complex 200 MG in Sodium Chloride 0.9% 250 ML 250 ML IVPB SCH (11:15)
[2020-02-03] MEDS: HumaLOG 300 UNITS/3 ML VIAL SC PRN ×2 (11:57→17:13)
--- NOTE | 2020-02-03 14:09 | PDOC.HOSPP ---
- Subjective Encounter Date: 02/03/20 Encounter Time: 07:20 Subjective: Pt seen for followup re: CHF exacerbation. Feels better today. Lost 5 lb since admission. - Objective Vital Signs & Weight: Vital Signs (12 hours) Temp Pulse Pulse Pulse Resp BP BP 02/03/20 13:55 83 184/79 H 02/03/20 11:54 97.9 F 72 18 02/03/20 10:00 78 63 199/78 H 02/03/20 09:34 02/03/20 07:11 98.1 F 71 16 02/03/20 06:49 02/03/20 03:42 97.8 F 64 20 BP BP BP Pulse Ox Pulse Ox 02/03/20 13:55 02/03/20 11:54 171/76 H 97 02/03/20 10:00 162/61 H 97 02/03/20 09:34 156/70 H 02/03/20 07:11 183/80 H 96 02/03/20 06:49 96 02/03/20 03:42 188/77 H 96 Weight Weight 176 lb I&O: 02/02/20 02/03/20 02/04/20 06:59 06:59 06:59 Intake Total 1440 Output Total 800 Balance 640 Result Diagrams: 02/03/20 04:42 02/03/20 04:42 Additional Labs: Accuchecks 02/03/20 02/03/20 02/02/20 11:12 06:00 20:32 POC Glucose 201 H 117 H 177 H 02/02/20 17:06 POC Glucose 169 H Labs and MARs reviewed by me EKG Reviewed by me: Yes (Tele: NSR) Hospitalist ROS - Review of Systems Cardiovascular: reports: edema. denies: chest pain, palpitations, orthopnea, paroxysmal noc. dyspnea, light headedness Gastrointestinal: denies: nausea, vomiting, abdominal pain, diarrhea, constipation, melena, hematochezia - Medication Medications: Active Medications Generic Name Dose Route Start Last Admin Trade Name Freq PRN Reason Stop Dose Admin Acetaminophen 650 mg 02/01/20 16:30 02/02/20 13:59 Tylenol PO 650 mg Q6H PRN Administration Pain Acetaminophen/Codeine Phosphate 1 tab 02/02/20 17:17 02/02/20 18:06 Tylenol #3 PO 1 tab Q6H PRN Administration Mild-Moderate Pain (1-5) Acetaminophen/Codeine Phosphate 2 tab 02/02/20 17:17 02/03/20 13:52 Tylenol #3 PO 2 tab Q6H PRN Administration Moderate to Severe Pain (6-10) Amlodipine Besylate 5 mg 02/03/20 09:00 02/03/20 07:19 Norvasc PO 5 mg DAILY ABHILASH Administration Carvedilol 3.125 mg 02/02/20 17:00 02/03/20 07:19 Coreg PO 3.125 mg BID-WM ABHILASH Administration Clonidine 0.1 mg 02/01/20 21:00 02/02/20 20:57 Catapres PO 0.1 mg HS ABHILASH Administration Diphenhydramine HCl 25 mg 02/02/20 23:06 02/02/20 23:38 Benadryl PO 25 mg HSPRN PRN Administration Itching & Insomnia Enoxaparin Sodium 30 mg 02/02/20 09:00 02/03/20 07:22 Lovenox SC 30 mg 0900 ABHILASH Administration Furosemide 40 mg 02/02/20 06:00 02/03/20 13:56 Lasix SLOW IVP 40 mg 0600,1400 ABHILASH Administration Hydralazine HCl 50 mg 02/02/20 15:00 02/03/20 13:55 Apresoline PO 50 mg TID ABHILASH Administration Insulin Glargine 5 units/ 0.05 mls @ 0 mls/hr 02/01/20 21:00 02/03/20 09:29 Miscellaneous Medication SC 0.05 mls BID ABHILASH Administration Ferric Sodium Gluconate 270 mls @ 129.808 mls/hr 02/03/20 11:15 02/03/20 11: 57 Complex 250 mg/ Miscellaneous IVPB 02/03/20 15:00 270 mls Medication 1 each/ Sodium NOW ABHILASH Administration Chloride Insulin Human Lispro 0 units 02/02/20 18:18 02/03/20 11:57 Humalog SC 4 unit .MODERATE SLIDING SC PRN Administration Moderate Correctional Scale - Exam General - other findings: Obese Eye: anicteric sclera ENT: moist mucosa Neck: supple, no lymphadenopathy Heart: RRR Respiratory: CTAB Gastrointestinal: soft, non-tender Psychiatric: normal affect, normal behavior Hosp A/P (1) Acute on chronic systolic and diastolic heart failure, NYHA class 3 Code(s): I50.43 - ACUTE ON CHRONIC COMBINED SYSTOLIC AND DIASTOLIC HRT FAIL Status: Acute (2) Hypertension Code(s): I10 - ESSENTIAL (PRIMARY) HYPERTENSION Status: Chronic Qualifiers: Hypertension type: essential hypertension Qualified Code(s): I10 - Essential (primary) hypertension (3) DM type 2 (diabetes mellitus, type 2) Status: Chronic Qualifiers: Diabetes mellitus snf insulin use: without ferry terminal supervisor use Diabetes mellitus complication status: without complication Qualified Code(s): E11.9 - Type 2 diabetes mellitus without complications (4) Chronic kidney disease, stage 3 Code(s): N18.3 - CHRONIC KIDNEY DISEASE, STAGE 3 (MODERATE) Status: Chronic - Plan Pt started on Coreg and Entresto. BP still high, will increase hydralazine to 75 mg TID. Continue IV furosemide. CKD stable. Blood sugars reasonably controlled. Appreciate cardiology input.
[2020-02-03] MEDS ORDERED: hydrALAZINE 25 MG TAB PO SCH (14:30)
[2020-02-03] MEDS: Ferrous Sulfate 325 MG TAB PO SCH (16:24)
--- NOTE | 2020-02-03 17:44 | PRG ---
DATE OF SERVICE: 02/03/2020 SUBJECTIVE: Ms. Sheridan feels much better. She has less shortness of breath. She has been diuresed. Her LVEF is estimated at 35% to 40%. OBJECTIVE: VITAL SIGNS: Blood pressure 162/74, pulse 71, temperature 98. LUNGS: Clear to auscultation. HEART: Regular rate and rhythm. ABDOMEN: Soft, nontender, nondistended. EXTREMITIES: 2+ pitting edema. PERTINENT LABORATORY DATA: Hemoglobin 9.1. IMPRESSION: 1. Acute on chronic systolic heart failure. 2. Renal insufficiency. 3. Anemia. RECOMMENDATIONS: Ms. Sheridan likely has underlying coronary artery disease as the etiology to her cardiomyopathy. I discussed this in full detail with Ms. Sheridan. We have talked about proceeding with coronary angiography in the past. She has deferred in the past. Again, I discussed risks and benefits of proceeding with coronary angiography. She again has deferred. She would like to be treated with medical therapy. There is certainly an increased risk due to renal insufficiency. Ms. Sheridan is currently on amlodipine in addition to carvedilol. Avoid ARB and SOFI inhibitor therapy due to renal insufficiency. We will continue hydralazine. May also benefit from Imdur. Also continue Lasix. May switch to p.o. in a.m. Job ID: [id number]
[2020-02-03] MEDS: cloNIDine 0.1 MG TAB PO SCH (20:39)
[2020-02-03] MEDS: diphenhydrAMINE 25 MG CAP PO PRN (20:43)
[2020-02-03] MEDS: Acetaminophen 325 MG TAB PO PRN (20:51)
[2020-02-03] MEDS ORDERED: Sacubitril 24.5 MG/Valsartan 25.5 MG TABLET PO SCH (21:00)
[2020-02-04 04:44] LABS: Anion Gap 13 mmol/L (10-20); BUN (Urea Nitrogen) 34 mg/dL (9.8-20.1); Calc. Creatinine Clearance 49 mL/min (70-130); Carbon Dioxide 27 mmol/L (23-31); Chloride 99 mmol/L (98-107); Estimated GFR-MDRD 40; Glucose 108 mg/dL (83-110); Potassium 4.2 mmol/L (3.5-5.1); Sodium 135 mmol/L (136-145)
[2020-02-04 04:49] LABS: #Basophils 0.1 thou/uL (0.0-0.2); #Eosinphils 0.2 thou/uL (0.0-0.7); #Lymphocytes 1.7 thou/uL (1.20-3.40); #Monocytes 0.5 thou/uL (0.11-0.59); #Neutrophils 3.2 thou/uL (1.40-6.50); %Eosinophils 2.8 % (0.0-10.0); %Lymphocytes 30.5 % (21.0-51.0); %Monocytes 9.4 % (0.0-10.0); %Neutrophils 56.3 % (42.0-75.0); Hemoglobin 9.9 g/dL (12.0-16.0); Mean Corpuscular HGB CONC 30.5 g/dL (32.0-36.0); Mean Corpuscular Volume 98.4 fL (78.0-98.0); Mean Platelet Volume 9.2 fL (7.4-10.4); Platelet Count 220 thou/uL (130-400); RBC Distribution Width 15.5 % (11.5-14.5); White Blood Cell (WBC) Count 5.7 thou/uL (4.8-10.8)
[2020-02-04] MEDS: Furosemide 40 MG/4 ML VIAL SLOW IVP SCH ×2 (06:21→14:19)
[2020-02-04] MEDS: Acetaminophen 325 MG TAB PO PRN (06:26)
[2020-02-04] MEDS: hydrALAZINE 25 MG TAB PO SCH ×3 (08:42→21:08)
[2020-02-04] MEDS: Ferrous Sulfate 325 MG TAB PO SCH ×2 (08:43→17:24)
[2020-02-04] MEDS: Amlodipine 10 MG TAB PO SCH (08:43)
[2020-02-04] MEDS: Carvedilol 3.125 MG TAB PO SCH ×2 (08:44→17:23)
[2020-02-04] MEDS: Enoxaparin Sodium 30 MG/0.3 ML SYRINGE SC SCH (08:44)
[2020-02-04] MEDS: Insulin Glargine 5 UNITS in Pre-Filled Syringe 1 EACH SC SCH ×2 (08:46→21:08)
[2020-02-04] MEDS: Acetaminophen/Codeine 30-300mg Tablet PO PRN ×2 (10:49→17:29)
--- NOTE | 2020-02-04 15:59 | PDOC.HOSPP ---
- Subjective Encounter Date: 02/04/20 Encounter Time: 08:40 Subjective: Pt seen for followup re: CHF exacerbation. Feels better. Dyspnea has improved. - Objective Vital Signs & Weight: Vital Signs (12 hours) Temp Pulse Pulse Resp BP BP BP 02/04/20 14:18 67 152/68 H 02/04/20 12:01 97.9 F 67 20 02/04/20 10:13 68 174/71 H 155/68 H 02/04/20 09:55 90 02/04/20 08:43 70 183/81 H 02/04/20 08:42 70 183/81 H 02/04/20 08:00 02/04/20 07:00 97.9 F 70 16 02/04/20 06:56 BP BP Pulse Ox Pulse Ox 02/04/20 14:18 02/04/20 12:01 152/68 H 97 02/04/20 10:13 98 02/04/20 09:55 154/67 H 02/04/20 08:43 02/04/20 08:42 02/04/20 08:00 95 02/04/20 07:00 183/81 H 95 02/04/20 06:56 96 Weight Weight 173 lb 11.2 oz I&O: 02/03/20 02/04/20 02/05/20 06:59 06:59 06:59 Intake Total 1440 1440 Output Total 800 Balance 640 1440 Result Diagrams: 02/04/20 04:10 02/04/20 04:10 Additional Labs: Accuchecks 02/04/20 02/03/20 02/03/20 05:38 20:27 16:05 POC Glucose 107 224 H 156 H Labs and MARs reviewed by me EKG Reviewed by me: Yes (Tele; NSR) Hospitalist ROS - Review of Systems Cardiovascular: reports: edema. denies: chest pain, palpitations, orthopnea, paroxysmal noc. dyspnea, light headedness Gastrointestinal: denies: nausea, vomiting, abdominal pain, diarrhea, constipation, melena, hematochezia - Medication Medications: Active Medications Generic Name Dose Route Start Last Admin Trade Name Freq PRN Reason Stop Dose Admin Acetaminophen 650 mg 02/01/20 16:30 02/04/20 06:26 Tylenol PO 650 mg Q6H PRN Administration Pain Acetaminophen/Codeine Phosphate 1 tab 02/02/20 17:17 02/02/20 18:06 Tylenol #3 PO 1 tab Q6H PRN Administration Mild-Moderate Pain (1-5) Acetaminophen/Codeine Phosphate 2 tab 02/02/20 17:17 02/04/20 10:49 Tylenol #3 PO 2 tab Q6H PRN Administration Moderate to Severe Pain (6-10) Amlodipine Besylate 5 mg 02/03/20 09:00 02/04/20 08:43 Norvasc PO 5 mg DAILY ABHILASH Administration Carvedilol 3.125 mg 02/02/20 17:00 02/04/20 08:44 Coreg PO 3.125 mg BID-WM ABHILASH Administration Clonidine 0.1 mg 02/01/20 21:00 02/03/20 20:39 Catapres PO 0.1 mg HS ABHILASH Administration Diphenhydramine HCl 25 mg 02/02/20 23:06 02/03/20 20:43 Benadryl PO 25 mg HSPRN PRN Administration Itching & Insomnia Ferrous Sulfate 325 mg 02/03/20 17:00 02/04/20 08:43 Feosol PO 325 mg BID-WM ABHILASH Administration Hydralazine HCl 75 mg 02/03/20 15:00 02/04/20 14:18 Apresoline PO 75 mg TID ABHILASH Administration Insulin Glargine 5 units/ 0.05 mls @ 0 mls/hr 02/01/20 21:00 02/04/20 08:46 Miscellaneous Medication SC 0.05 mls BID ABHILASH Administration Insulin Human Lispro 0 units 02/02/20 18:18 02/03/20 17:13 Humalog SC 2 unit .MODERATE SLIDING SC PRN Administration Moderate Correctional Scale Sacubitril/Valsartan 1 tab 02/03/20 21:00 02/04/20 08:44 Entresto 24 Mg-26 Mg Tablet PO 1 tab BID ABHILASH Administration Sodium Chloride 10 ml 02/03/20 21:00 02/04/20 08:46 Flush - Normal Saline IVF Not Given Q12HR ABHILASH - Exam General Appearance: awake alert Eye: anicteric sclera ENT: moist mucosa Neck: supple Heart: RRR, no rubs Respiratory: CTAB Gastrointestinal: soft, non-tender Extremities: 2+ LE edema Psychiatric: normal affect, normal behavior Hosp A/P (1) Acute on chronic systolic and diastolic heart failure, NYHA class 3 Code(s): I50.43 - ACUTE ON CHRONIC COMBINED SYSTOLIC AND DIASTOLIC HRT FAIL Status: Acute (2) DM type 2 (diabetes mellitus, type 2) Status: Chronic Qualifiers: Diabetes mellitus half-way insulin use: without half-way use Diabetes mellitus complication status: without complication Qualified Code(s): E11.9 - Type 2 diabetes mellitus without complications (3) Chronic kidney disease, stage 3 Code(s): N18.3 - CHRONIC KIDNEY DISEASE, STAGE 3 (MODERATE) Status: Chronic (4) Hypertension Code(s): I10 - ESSENTIAL (PRIMARY) HYPERTENSION Status: Chronic Qualifiers: Hypertension type: essential hypertension Qualified Code(s): I10 - Essential (primary) hypertension - Plan BP still high, will increase Coreg to 6.25 mg BID. Switch to oral furosemide. CKD stable. Blood sugars reasonably controlled.
[2020-02-04] MEDS: Carvedilol 6.25 MG TAB PO SCH (17:23)
[2020-02-04] MEDS: cloNIDine 0.1 MG TAB PO SCH (21:08)
[2020-02-05] MEDS: diphenhydrAMINE 25 MG CAP PO PRN (00:34)
[2020-02-05] MEDS: Acetaminophen/Codeine 30-300mg Tablet PO PRN ×3 (01:23→17:07)
--- NOTE | 2020-02-05 08:08 | PRG ---
DATE OF SERVICE: 02/05/2020 SUBJECTIVE: Ms. Sheridan is doing better. She states she has less shortness of breath and lower extremity edema. She has not had significant diuresis. Her weight has gone from 178 to 175. She has been on IV Lasix, which was discontinued yesterday and switched to p.o. Lasix. Current CV medications include Coreg 6.25 b.i.d., Lasix. OBJECTIVE: LUNGS: Clear to auscultation with minimal crackles in the bases bilaterally. HEART: Regular rate and rhythm. ABDOMEN: Soft, nontender, nondistended. EXTREMITIES: No edema. LVEF has been 35% to 40%. IMPRESSION: 1. Cardiomyopathy of unknown etiology. 2. Renal insufficiency. RECOMMENDATIONS: 1. Discussed the importance of daily weights and decreased salt intake and decreased fluid intake. 2. Continue Coreg. 3. Avoid SOFI inhibitor therapy and ARB due to renal insufficiency. 4. Continue Lasix at 40 mg one p.o. q.a.m. and add potassium 10 mEq q.a.m. 5. Follow up with Dr. Unger in one week. 6. The patient not interested in proceeding with coronary angiography. There are increased risks due to renal insufficiency. She has been adamant in the past about not proceeding with coronary angiography and wanted to be treated medically. From my standpoint, I have no further recommendations. Job ID: [id number]
[2020-02-05] MEDS: hydrALAZINE 25 MG TAB PO SCH ×2 (08:56→14:42)
[2020-02-05] MEDS: Carvedilol 6.25 MG TAB PO SCH ×2 (08:56→17:07)
[2020-02-05] MEDS: Insulin Glargine 5 UNITS in Pre-Filled Syringe 1 EACH SC SCH (08:57)
[2020-02-05] MEDS: Ferrous Sulfate 325 MG TAB PO SCH ×2 (08:57→17:07)
[2020-02-05] MEDS: Furosemide 40 MG TAB PO SCH ×2 (08:57→13:16)
[2020-02-05] MEDS ORDERED: Enoxaparin Sodium 40 MG/0.4 ML SYRINGE SC SCH (09:00)
--- NOTE | 2020-02-05 12:56 | DIS ---
DATE OF ADMISSION: 02/01/2020 DATE OF DISCHARGE: 02/05/2020 PRIMARY CARE PROVIDER: Cait Osuna MD DISCHARGE DIAGNOSES: 1. Acute on chronic combined systolic and diastolic heart failure, [place] Heart Association class III. 2. Cardiomyopathy. 3. Hyponatremia. 4. Chronic kidney disease, stage 3. CONDITION: Condition of the patient on the day of discharge: Stable. I assessed Ms. Sheridan on the day of discharge. She denies any chest pain or shortness of breath. Vital signs are stable. S1 and S2 are heard, regular. Lungs are clear to auscultation bilaterally. DISCHARGE MEDICATIONS: Lisinopril was discontinued. Her discharge medications are; 1. Clonidine 0.1 mg at bedtime. 2. Lasix 20 mg 2 times a day. 3. Lantus insulin 5 units 2 times a day. 4. Coreg 6.25 mg 2 times a day. 5. Ferrous sulfate 325 mg 2 times a day. 6. Hydralazine 75 mg 3 times a day. 7. Entresto 24/26 mg one tablet 2 times a day. 8. Tylenol No. 3 p.r.n. CONSULTATIONS DURING THIS HOSPITALIZATION: Cardiology, Dr. Garnica. The patient was also seen by Dr. Unger. HOSPITAL COURSE: Ms. Sheridan is a pleasant 74-year-old lady, who was admitted to [facility] on February 01, 2020, for congestive heart failure exacerbation. Please refer to my history and physical note dated February 01, 2020, for further details. Amlodipine was discontinued. 2D echocardiogram showed left ventricular ejection fraction of 35% to 40%, mildly increased left ventricular size, mild paradoxical septal wall motion, [id number] dilated left atrium, [id number] mitral regurgitation, and mild tricuspid regurgitation. She was seen by Cardiology Service. She improved with intravenous diuretics and was subsequently transitioned to oral diuretics. Her renal function remained stable. She has been started on beta-chandler. SOFI inhibitor was discontinued and Entresto was started. She is being discharged home in a stable condition with home health. On January 31, she had sodium 135, potassium 4.2, creatinine 1.32, and blood urea nitrogen 34. White count 5700, hemoglobin 9.9, and platelet count 220,000. DISCHARGE DESTINATION: Home. DIET: Heart-healthy, low-sodium, and diabetic diet. ACTIVITY: No restrictions. TIME SPENT: Total amount of time spent in coordinating this discharge: 31 minutes. Job ID: [id number]
[2020-02-05] MEDS: Acetaminophen 325 MG TAB PO PRN (13:16)
[2020-02-05 18:37] VITALS: BP 148/67; TEMP 98.2
== END 2020-02-05 18:35 | disposition home health service (06) | DRG 291 ==
LOC: ERS 12:11 → 2NO 13:53
PROVIDERS: ADMIT Internal Medicine; ATTEND Internal Medicine
DX: I13.0 Hypertensive heart and chronic kidney disease with heart failure and stage 1 through stage 4 chronic kidney disease, or unspecified chronic kidney disease (principal); I50.43 Acute on chronic combined systolic (congestive) and diastolic (congestive) heart failure; E87.1 Hypo-osmolality and hyponatremia; N18.3 Chronic kidney disease, stage 3 (moderate); I42.9 Cardiomyopathy, unspecified; E11.22 Type 2 diabetes mellitus with diabetic chronic kidney disease; E78.5 Hyperlipidemia, unspecified; K21.9 Gastro-esophageal reflux disease without esophagitis; I25.10 Atherosclerotic heart disease of native coronary artery without angina pectoris; D63.1 Anemia in chronic kidney disease; Z79.4 Long term (current) use of insulin; Z79.899 Other long term (current) drug therapy
CPT/HCPCS: 36415; 36416; 71045; 80048; 80053; 82728; 83540; 83605; 83690; 83880; 84484; 85025; 93005; 93010; 93306; 93798; 94760; 96374; J1650; J1815; J1940; J2405; J2916; J7050; Q0163

== ENCOUNTER 2020-02-08 23:52 | Emergency (ER) | payer MEDICARE ==
[2020-02-09 00:25] LABS: #Basophils 0.1 thou/uL (0.0-0.2); #Eosinphils 0.2 thou/uL (0.0-0.7); #Lymphocytes 1.2 thou/uL (1.20-3.40); #Monocytes 0.5 thou/uL (0.11-0.59); #Neutrophils 3.3 thou/uL (1.40-6.50); %Basophils 1.2 % (0.0-1.0); %Lymphocytes 23.3 % (21.0-51.0); %Monocytes 9.9 % (0.0-10.0); %Neutrophils 62.7 % (42.0-75.0); Hemoglobin 8.9 g/dL (12.0-16.0); Mean Corpuscular HGB CONC 32.7 g/dL (32.0-36.0); Mean Corpuscular Volume 97.9 fL (78.0-98.0); Mean Platelet Volume 8.5 fL (7.4-10.4); Platelet Count 192 thou/uL (130-400); Red Blood Cell (RBC) Count 2.78 mill/uL (4.20-5.40); White Blood Cell (WBC) Count 5.3 thou/uL (4.8-10.8)
[2020-02-09 00:46] LABS: ALT (SGPT) 11 U/L (8-55); AST (SGOT) 18 U/L (5-34); Albumin 3.3 g/dL (3.4-4.8); Alkaline Phosphatase 99 U/L (40-110); Anion Gap 13 mmol/L (10-20); BUN (Urea Nitrogen) 53 mg/dL (9.8-20.1); Bilirubin, Total 0.3 mg/dL (0.2-1.2); Calc. Creatinine Clearance 0 mL/min (70-130); Calcium 8.5 mg/dL (7.8-10.44); Carbon Dioxide 27 mmol/L (23-31); Chloride 94 mmol/L (98-107); Estimated GFR-MDRD 24; Globulin 2.5 g/dL (2.4-3.5); Potassium 4.4 mmol/L (3.5-5.1); Protein, Total 5.8 g/dL (6.0-8.3); Sodium 130 mmol/L (136-145)
[2020-02-09 00:50] LABS: Glucose 57 mg/dL (83-110)
[2020-02-09] MEDS ORDERED: Dextrose 50% Abboject 50 ML SYRINGE ONE (00:53)
--- NOTE | 2020-02-09 08:38 | RAD ---
PORTABLE CHEST: Date: 02/09/2020 HISTORY: Shortness of breath. COMPARISON: 02/01/2020 exam. FINDINGS: Heart size is enlarged. Pulmonary vessels are slightly engorged. Overall appearance is similar to the prior examination. Minimally increased markings in the right base could be related to atelectasis. IMPRESSION: Essentially stable exam. POS: KATJA
--- NOTE | 2020-02-13 11:54 | EKG ---
Test Reason : Blood Pressure : / mmHG Vent. Rate : 077 BPM Atrial Rate : 077 BPM P-R Int : 160 ms QRS Dur : 102 ms QT Int : 376 ms P-R-T Axes : -14 -15 167 degrees QTc Int : 425 ms Normal sinus rhythm Abnormal ECG Confirmed by SOCORRO VERDE ([id number]), editor map KIRILL CHO ([id number]) on 02/13/2020 11:54:19 AM Referred By: Confirmed By:SOCORRO VERDE
== END 2020-02-09 02:46 | disposition home or self-care (01) ==
LOC: ERS 23:52
DX: E11.649 Type 2 diabetes mellitus with hypoglycemia without coma (principal); I11.0 Hypertensive heart disease with heart failure; I50.9 Heart failure, unspecified; K21.9 Gastro-esophageal reflux disease without esophagitis; F32.9 Major depressive disorder, single episode, unspecified; Z79.4 Long term (current) use of insulin; Z79.899 Other long term (current) drug therapy
CPT/HCPCS: 36415; 36416; 71045; 80053; 83880; 84484; 85025; 93005; 96374

== ENCOUNTER 2020-03-02 04:04 | Inpatient (IN) | payer MEDICARE ==
[2020-03-02] MEDS ORDERED: Nitroglycerin 2% Ointment 1 INCH/1 GM Packet ONE ×2 (04:36→05:44)
[2020-03-02 04:55] LABS: #Eosinphils 0.1 thou/uL (0.0-0.7); #Monocytes 0.5 thou/uL (0.11-0.59); #Neutrophils 8.7 thou/uL (1.40-6.50); %Basophils 0.2 % (0.0-1.0); %Eosinophils 0.7 % (0.0-10.0); %Lymphocytes 9.8 % (21.0-51.0); %Monocytes 4.7 % (0.0-10.0); %Neutrophils 84.7 % (42.0-75.0); Hemoglobin 9.5 g/dL (12.0-16.0); Mean Corpuscular HGB CONC 32.9 g/dL (32.0-36.0); Mean Corpuscular Volume 94.1 fL (78.0-98.0); Mean Platelet Volume 8.8 fL (7.4-10.4); Platelet Count 224 thou/uL (130-400); RBC Distribution Width 15.4 % (11.5-14.5); Red Blood Cell (RBC) Count 3.05 mill/uL (4.20-5.40); White Blood Cell (WBC) Count 10.2 thou/uL (4.8-10.8)
[2020-03-02 05:14] LABS: ALT (SGPT) 11 U/L (8-55); AST (SGOT) 16 U/L (5-34); Albumin 3.7 g/dL (3.4-4.8); Alkaline Phosphatase 107 U/L (40-110); Anion Gap 17 mmol/L (10-20); BUN (Urea Nitrogen) 31 mg/dL (9.8-20.1); Bilirubin, Total 0.7 mg/dL (0.2-1.2); Calc. Creatinine Clearance 0 mL/min (70-130); Calcium 9.5 mg/dL (7.8-10.44); Carbon Dioxide 19 mmol/L (23-31); Chloride 103 mmol/L (98-107); Estimated GFR-MDRD 37; Glucose 190 mg/dL (83-110); Potassium 4.1 mmol/L (3.5-5.1); Protein, Total 6.7 g/dL (6.0-8.3); Sodium 135 mmol/L (136-145)
[2020-03-02 05:37] LABS: CKMB 1.9 ng/mL (0-6.6)
[2020-03-02] MEDS ORDERED: Furosemide 40 MG/4 ML VIAL ONE (05:54)
[2020-03-02] MEDS ORDERED: HumaLOG 300 UNITS/3 ML VIAL SC PRN (06:41)
[2020-03-02] MEDS ORDERED: Ondansetron PF 4 MG/2 ML Vial IVP PRN (06:41)
[2020-03-02] MEDS ORDERED: Dextrose 50% Abboject 50 ML SYRINGE SLOW IVP PRN (06:41)
[2020-03-02] MEDS ORDERED: Guaifenesin DM 100-10/5 ML UDCUP PO PRN (06:41)
[2020-03-02] MEDS ORDERED: Bisacodyl 10 MG SUPP PR PRN (06:41)
[2020-03-02] MEDS ORDERED: Dextrose 5% in Water 1,000 ML IV PRN (06:41)
[2020-03-02] MEDS ORDERED: Senokot S 8.6-50 MG TAB PO PRN (06:41)
--- NOTE | 2020-03-02 07:19 | RAD ---
CHEST 1 VIEW: INDICATION: History of audible wheezing and dyspnea. COMPARISON: Prior exam dated 02/09/2020. FINDINGS: There is cardiomegaly with pulmonary vascular congestion and perihilar airspace opacities. There are tiny pleural effusions. No pneumothorax is evident. No acute osseous abnormality is noted. IMPRESSION: Findings suspicious for worsening congestive heart failure. POS: BH
--- NOTE | 2020-03-02 07:53 | HP ---
REASON FOR ADMISSION: CHF exacerbation. HISTORY OF PRESENTING ILLNESS: The patient gives history of having severe nausea and vomiting from yesterday evening. She also developed a frontal headache. She has been having shortness of breath, which has been progressively getting worse to the point she had to call EMS this branch service associate. She has had some left-sided chest pain, which is 2/10 with no radiation of this pain. Currently, it has resolved in the ER. No cough or expectoration. No fever. The patient says she is not exposed to COVID. No diarrhea. PAST MEDICAL AND SURGICAL HISTORY: History of nonischemic cardiomyopathy with EF of around 35%; diabetes mellitus, type 2; hypertension; GERD; right foot surgery; and tubal ligation. CURRENT MEDICATIONS: The patient is on, 1. Amitriptyline 25 mg p.o. at bedtime. 2. Amlodipine 5 mg p.o. daily. 3. Aspirin 81 mg p.o. daily. 4. Clonidine 0.1 mg twice daily. 5. Tresiba 5 units subcu daily. 6. Trazodone 50 mg p.o. at bedtime. 7. Carvedilol 6.25 mg twice daily. 8. Ferrous sulfate 325 mg twice daily. 9. Lasix 40 mg at 9 a.m. and 2 p.m. 10. Hydralazine 75 mg 3 times daily. 11. Entresto 24/26 mg one tablet twice daily. ALLERGIES: NO KNOWN DRUG ALLERGIES. PERSONAL HISTORY: Does not abuse alcohol or drugs. No history of smoking. FAMILY HISTORY: The patient is . Her boyfriend currently is in [facility]ci. Mother at the age of 72, she of diabetes and its complication. Father at the age of 69, he had history of coronary artery disease. CODE STATUS: Full. Power of state's attorney is her eldest daughter. REVIEW OF SYSTEMS: CONSTITUTIONAL: Negative for weight loss or gain, ability to conduct usual activities. SKIN: Negative for rash, itching. EYES: Negative for double vision, pain. ENT/MOUTH: Negative for nose bleeding, neck stiffness, pain, tenderness. CARDIOVASCULAR: Negative for palpitations, dyspnea on exertion, orthopnea. RESPIRATORY: Negative for shortness of breath, wheezing, cough, hemoptysis, fever or night sweats. GASTROINTESTINAL: Negative for poor appetite, abdominal pain, heartburn, nausea , vomiting, constipation, or diarrhea. GENITOURINARY: Negative for urgency, frequency, dysuria, nocturia. MUSCULOSKELETAL: Negative for pain, swelling. NEUROLOGIC/PSYCHIATRIC: Negative for anxiety, depression. ALLERGY/IMMUNOLOGIC: Negative for skin rash, bleeding tendency. PHYSICAL EXAMINATION: GENERAL: The patient is a 74-year-old female, who is currently in mild respiratory distress. VITAL SIGNS: Blood pressure 156/94, pulse 96 per minute, respiratory rate 22 per minute, temperature 98.3 degrees Fahrenheit, and saturating 97% on 2 L nasal cannula. NECK: Supple. There is elevated JVD. HEENT: Eyes; extraocular muscles are intact. Pupils are reacting to light. Oral cavity; mucous membranes are moist. No exudates or congestion. CARDIOVASCULAR SYSTEM: S1 and S2 heard. Regular rhythm. RESPIRATORY SYSTEM: Air entry 1+ bilateral. Scattered rales plus in the infrascapular area. ABDOMEN: Soft. Bowel sounds heard. No tenderness, rigidity, or guarding. EXTREMITIES: There is 2+ peripheral edema, worse in the left lower extremity than right. No calf tenderness. VASCULAR SYSTEM: Peripheral pulses are 1+ bilateral. No ischemic ulcerations or gangrene. CENTRAL NERVOUS SYSTEM: No gross focal deficits noted. The patient is alert, awake, and oriented well. PSYCHIATRIC: The patient's mood is euthymic. No hallucinations or delusions. LABORATORY DATA: EKG done shows sinus rhythm at 96 beats per minute. There is nonspecific ST-T wave changes. White count of 10, H and H of 9 and 28, platelet count 224, MCV is 94 with 84% neutrophils. Serum bicarb 19, BUN 31, creatinine 1.4, and serum glucose 190. Liver enzymes within normal limits. Troponin I 0.05. Albumin is 3.7. BNP is 9819. IMAGING DATA: Chest x-ray shows pulmonary vascular congestion with cardiomegaly. CLINICAL IMPRESSION AND PLAN: The patient will be admitted to telemetry for acute on chronic congestive heart failure exacerbation with systolic dysfunction. She is noncompliant with medication and fluid intake. She will be gently diuresed with Lasix 40 mg at 6 a.m. and 2 p.m. We will also continue her Entresto, Coreg, aspirin, Tresiba, trazodone, amitriptyline, and Norvasc as before. We will obtain consultation from Dr. Unger, her Ski Base Trimmer. Job ID: [id number] LILY
[2020-03-02] MEDS ORDERED: Carvedilol 6.25 MG TAB PO SCH (08:00)
[2020-03-02 08:06] LABS: Troponin I 0.081 ng/mL (< 0.028)
[2020-03-02] MEDS: Aspirin Chewable 81 MG TAB PO SCH (08:22)
[2020-03-02] MEDS: Acetaminophen 325 MG TAB PO PRN ×2 (08:22→11:58)
[2020-03-02] MEDS: Ferrous Sulfate 325 MG TAB PO SCH ×2 (08:22→16:39)
[2020-03-02] MEDS: Enoxaparin Sodium 40 MG/0.4 ML SYRINGE SC SCH (08:23)
[2020-03-02] MEDS ORDERED: INSULIN DEGLUDEC 5 UNIT SC SCH (09:00)
[2020-03-02] MEDS ORDERED: Amlodipine 5 MG TAB PO SCH (09:00)
[2020-03-02] MEDS ORDERED: Famotidine 20 MG TAB PO SCH (09:00)
[2020-03-02] MEDS: Insulin Glargine 5 UNITS in Pre-Filled Syringe 1 EACH SC SCH (09:47)
[2020-03-02 10:59] LABS: Troponin I 0.102 ng/mL (< 0.028)
[2020-03-02] MEDS: HumaLOG 300 UNITS/3 ML VIAL SC PRN (11:55)
[2020-03-02] MEDS: Furosemide 40 MG/4 ML VIAL SLOW IVP SCH (15:03)
--- NOTE | 2020-03-02 15:14 | CON ---
DATE OF CONSULTATION: HISTORY: Ms. Sheridan is a 74-year-old female, who has been seen and evaluated by Dr. Unger in the past in 06/2015. She was initially evaluated in the office and felt to have diastolic heart failure. She also had chest pain and underwent Cardiolite testing, which revealed mild anterior ischemia and it was felt best to treat her medically. She did not return to the office since that time for any followup. She also states that approximately 5 years ago, she underwent cardiac catheterization by Dr. Bray at [facility]. She states she was only told that her heart was enlarged and that her coronary arteries were normal. She was admitted here in December 2017 with chest discomfort. She also had an ejection fraction of 25% to 30% at that time. During that admission, she underwent cardiac catheterization, had a 40% mid LAD stenosis and a 60% distal right coronary artery stenosis. On the catheterization report, I do not see the ejection fraction, although a pigtail catheter was used during the catheterization. Her echo ejection fraction was 25% to 30%. She was sent home with a LifeVest. Again she has never returned to the office for followup, but somewhere along the line the LifeVest was discontinued. She then was again admitted here in January 2020. Echo ejection fraction was 35% to 40% with moderate to severe mitral regurgitation, mild tricuspid regurgitation, mild paradoxical septal wall motion. During that admission, lisinopril and amlodipine were discontinued and she was placed on Entresto. Her dyspnea improved. She now returns complaining of increased chest discomfort, increased shortness of breath as well as increased peripheral edema over the last 3 to 4 days. She denies running out of any of her medications. However, in looking through her medicines with her, she was taking lisinopril 40 mg as well as the Entresto 24/ b.i.d. She also is taking amlodipine 5 mg daily. Both the lisinopril and amlodipine were discontinued last admission. She received Lasix intravenously in the emergency room. Her breathing has improved. PAST MEDICAL HISTORY: Hypertension; diabetes; hypercholesterolemia, currently not on a statin, and in July 2018, her LDL was 263; GERD. PAST SURGICAL HISTORY: Right foot surgery and tubal ligation. SOCIAL HISTORY: She does not smoke or drink. FAMILY HISTORY: Father had coronary artery disease. MEDICATIONS: 1. Amlodipine 5 mg daily. 2. Lisinopril 20 mg two tablets q.a.m. (both of these should have been stopped after her last admission). 3. Amitriptyline 25 at bedtime. 4. Aspirin 81 daily. 5. Carvedilol 6.25 b.i.d. 6. Clonidine 0.1 b.i.d. 7. Iron sulfate 325 b.i.d. 8. Furosemide 40 mg b.i.d. 9. Hydralazine 75 mg t.i.d. 10. Tresiba. 11. KCl 10 mEq daily. 12. Entresto b.i.d. 13. Trazodone 50 at bedtime. ALLERGIES: NONE. REVIEW OF SYSTEMS: A 10-point review of systems is otherwise unremarkable. PHYSICAL EXAMINATION: Vital Signs: Blood pressure 176/83, pulse of 104. HEENT: PERRL. NECK: Supple. CHEST: Reveals crackles at the right base. CARDIOVASCULAR: S1 and S2 normal without any S3, S4, or murmurs. Carotid upstrokes normal without bruits. ABDOMEN: Normal bowel sounds without tenderness or organomegaly. ABDOMEN: Obese. EXTREMITIES: Reveal no clubbing or cyanosis. There is 2+ pretibial edema. NEUROLOGIC: Grossly intact. SKIN: Warm and dry. LABORATORY DATA: EKG reveals normal sinus rhythm with PVCs, nonspecific ST and T-wave changes. Troponin I 0.102. Sodium 135, potassium 4.1, chloride 103, carbon dioxide 19, BUN 31, and creatinine 1.40 (creatinine was as high as 2.05 last admission). BNP 9819.1. Liver function tests were normal. Hemoglobin 9.5, hematocrit 28.7, white count 03357, platelets 224,000. On February 12, COVID was negative. IMPRESSION: 1. Acute on chronic systolic heart failure. 2. Nonischemic cardiomyopathy with ejection fraction of 35% to 40% on last echo. 3. Mild coronary artery disease with catheterization in December 2017 revealing 40 % mid LAD, 60% distal RCA. 4. Noncompliance with medications-amlodipine and lisinopril were discontinued last admission and she is still taking them. 5. Hypertension, poorly controlled. 6. Hypercholesterolemia, currently not on a statin. 7. Diabetes. 8. Obesity. PLAN: Amlodipine will be discontinued. Her Entresto will be gradually increased, watching renal function closely. However, current creatinine is the best it has been in almost 18 months. Lisinopril also will be discontinued at home and this was reinforced to her. Carvedilol dose will also be increased to 12.5 mg b.i.d. Echocardiogram will be repeated. She will be treated with intravenous diuretics. Her TSH and fasting lipid profile will be obtained. Job ID: [id number] [id number]
[2020-03-02] MEDS ORDERED: Acetaminophen 500 MG TAB PO PRN (15:22)
[2020-03-02] MEDS: Carvedilol 6.25 MG TAB PO SCH (16:39)
[2020-03-02] MEDS ORDERED: HYDROcodone/Acetaminophen 5/325 mg Tablet PO SCH (21:15)
[2020-03-02] MEDS: Amitriptyline HCl 25 MG TAB PO SCH (21:25)
[2020-03-02] MEDS: traZODone HCl 50 MG TAB PO SCH (21:25)
[2020-03-03] MEDS: Acetaminophen 325 MG TAB PO PRN ×4 (02:56→21:23)
[2020-03-03 04:59] LABS: #Eosinphils 0.1 thou/uL (0.0-0.7); #Lymphocytes 1.4 thou/uL (1.20-3.40); #Monocytes 0.6 thou/uL (0.11-0.59); #Neutrophils 5.3 thou/uL (1.40-6.50); %Basophils 0.2 % (0.0-1.0); %Eosinophils 1.8 % (0.0-10.0); %Lymphocytes 19.1 % (21.0-51.0); %Monocytes 7.8 % (0.0-10.0); Hemoglobin 8.4 g/dL (12.0-16.0); Mean Corpuscular HGB CONC 32.6 g/dL (32.0-36.0); Mean Corpuscular Hemoglobin 30.9 pg (27.0-31.0); Mean Corpuscular Volume 94.7 fL (78.0-98.0); Mean Platelet Volume 8.8 fL (7.4-10.4); Platelet Count 202 thou/uL (130-400); RBC Distribution Width 15.4 % (11.5-14.5); Red Blood Cell (RBC) Count 2.72 mill/uL (4.20-5.40); White Blood Cell (WBC) Count 7.5 thou/uL (4.8-10.8)
[2020-03-03 05:24] LABS: Anion Gap 15 mmol/L (10-20); BUN (Urea Nitrogen) 40 mg/dL (9.8-20.1); Calc. Creatinine Clearance 39 mL/min (70-130); Calcium 8.9 mg/dL (7.8-10.44); Carbon Dioxide 21 mmol/L (23-31); Cardiac Risk 2.5 (Less than 4.5); Chloride 102 mmol/L (98-107); Cholesterol 155 mg/dl (< 200 Desired); Estimated GFR-MDRD 32; Glucose 104 mg/dL (83-110); HDL Cholesterol 63 mg/dL (>60 Neg Risk); LDL Cholesterol, Calculated 72 mg/dL; Potassium 4.3 mmol/L (3.5-5.1); Sodium 134 mmol/L (136-145); Triglycerides 98 mg/dL (Less than 150)
[2020-03-03] MEDS: Furosemide 40 MG/4 ML VIAL SLOW IVP SCH ×2 (05:45→14:57)
[2020-03-03] MEDS: Carvedilol 6.25 MG TAB PO SCH ×4 (08:03→21:23)
[2020-03-03] MEDS: Ferrous Sulfate 325 MG TAB PO SCH ×2 (08:03→17:11)
[2020-03-03] MEDS: Enoxaparin Sodium 40 MG/0.4 ML SYRINGE SC SCH (08:04)
[2020-03-03] MEDS: Aspirin Chewable 81 MG TAB PO SCH (08:04)
[2020-03-03] MEDS: Insulin Glargine 5 UNITS in Pre-Filled Syringe 1 EACH SC SCH (08:04)
[2020-03-03] MEDS: Sacubitril 49 MG/Valsartan 51 MG TABLET PO SCH ×2 (09:15→21:23)
[2020-03-03] MEDS ORDERED: Communication Order-Pharmacy FS SCH (09:30)
[2020-03-03] MEDS: HumaLOG 300 UNITS/3 ML VIAL SC PRN (11:01)
[2020-03-03] MEDS: Nitroglycerin 2% Ointment 1 INCH/1 GM Packet TOP SCH ×2 (11:04→17:10)
--- NOTE | 2020-03-03 11:54 | PDOC.HOSPP ---
- Subjective Encounter Date: 03/03/20 Encounter Time: 10:00 Subjective: no overnight events. this morning, headache improved, has no other complaints. - Objective Vital Signs & Weight: Vital Signs (12 hours) Temp Pulse Resp BP BP Pulse Ox 03/03/20 07:27 97.6 F 78 16 174/77 H 94 L 03/03/20 03:29 98.2 F 80 20 159/77 H 95 03/03/20 00:28 93 L Weight Weight 172 lb 1.6 oz I&O: 03/02/20 03/03/20 03/04/20 06:59 06:59 06:59 Intake Total 1560 Output Total 1250 Balance 310 Result Diagrams: 03/03/20 04:23 03/03/20 04:23 Additional Labs: Accuchecks 03/03/20 03/03/20 03/02/20 10:45 06:06 20:19 POC Glucose 160 H 119 H 140 H 03/02/20 16:51 POC Glucose 116 H Hospitalist ROS - Review of Systems Constitutional: denies: fever, chills, sweats, weakness, malaise, other Respiratory: denies: cough, dry, shortness of breath, hemoptysis, SOB with excertion, pleuritic pain, sputum, wheezing, other Cardiovascular: denies: chest pain, palpitations, orthopnea, paroxysmal noc. dyspnea, edema, light headedness, other Gastrointestinal: denies: nausea, vomiting, abdominal pain, diarrhea, constipation, melena, hematochezia, other Genitourinary: denies: dysuria, frequency, incontinence, hematuria, retention, other - Medication Medications: Active Medications Generic Name Dose Route Start Last Admin Trade Name Freq PRN Reason Stop Dose Admin Acetaminophen 650 mg 03/02/20 21:06 03/03/20 11:01 Tylenol PO 650 mg Q4H PRN Administration Headache/Fever/Mild Pain (1-3) Amitriptyline HCl 25 mg 03/02/20 21:00 03/02/20 21:25 Elavil PO 25 mg HS ABHILASH Administration Aspirin 81 mg 03/02/20 09:00 03/03/20 08:04 Aspirin Chewable PO 81 mg DAILY ABHILASH Administration Carvedilol 12.5 mg 03/03/20 09:00 03/03/20 09:14 Coreg PO Not Given TID ABHILASH Enoxaparin Sodium 40 mg 03/02/20 09:00 03/03/20 08:04 Lovenox SC 03/03/20 23:00 40 mg 0900 [facility] Administration Ferrous Sulfate 325 mg 03/02/20 08:00 03/03/20 08:03 Feosol PO 325 mg BID-WM ABHILASH Administration Furosemide 40 mg 03/02/20 14:00 03/03/20 05:45 Lasix SLOW IVP 40 mg 0600,1400 [facility] Administration Insulin Glargine 5 units/ 0.05 mls @ 0 mls/hr 03/02/20 09:00 03/03/20 08:04 Miscellaneous Medication SC 03/04/20 03:00 0.05 mls QAM [facility] Administration Insulin Human Lispro 0 units 03/02/20 06:41 03/03/20 11:01 Humalog SC 03/04/20 03:00 2 unit .MODERATE SLIDING SC PRN Administration Moderate Correctional Scale Nitroglycerin 1 inch 03/03/20 12:00 03/03/20 11:04 Nitro-Bid 2% Ointment TOP Not Given Q6HR [facility] Ondansetron HCl 4 mg 03/02/20 06:41 03/03/20 02:58 Zofran IVP 4 mg Q6H PRN Administration Nausea/Vomiting Sacubitril/Valsartan 1 tab 03/03/20 09:00 03/03/20 09:15 Entresto 49 Mg-51 Mg Tablet PO Not Given BID ABHILASH Senna/Docusate Sodium 2 tab 03/02/20 06:41 03/03/20 08:04 Senokot S PO 2 tab BID PRN Administration Constipation Sodium Chloride 10 ml 03/02/20 09:00 03/03/20 08:04 Flush - Normal Saline IVF 10 ml Q12HR [facility] Administration Trazodone HCl 50 mg 03/02/20 21:00 03/02/20 21:25 Desyrel PO 50 mg HS [facility] Administration - Exam General Appearance: NAD, awake alert Eye: PERRL Neck: no JVD Heart: RRR, no murmur, no rubs Heart - other findings: S3 appreciated Respiratory: CTAB, no wheezes, no ronchi, rales Respiratory - other findings: rales bibasilar Gastrointestinal: soft, non-tender, non-distended, normal bowel sounds Extremities: 2+ LE edema Extremities - other findings: unchanged Psychiatric: normal affect, normal behavior, A&O x 3 Hosp A/P - Plan #HFrEF NYHA III -EF <35%, QRS <150, used to have lifevest -pending [facility] -defer to cardiology #HTN -beta chandler and entresto increased per cardiology Dispo/ppx full code DVT PPx: lovenox GI PPx: no Ix
[2020-03-03] MEDS: Atorvastatin Calcium 10 MG TAB PO SCH (21:23)
[2020-03-03] MEDS: traZODone HCl 50 MG TAB PO SCH (21:23)
[2020-03-03] MEDS: Amitriptyline HCl 25 MG TAB PO SCH (21:23)
[2020-03-04] MEDS: Nitroglycerin 2% Ointment 1 INCH/1 GM Packet TOP SCH ×3 (00:20→11:55)
[2020-03-04] MEDS: Acetaminophen 325 MG TAB PO PRN ×2 (01:09→07:43)
[2020-03-04 04:39] LABS: Anion Gap 16 mmol/L (10-20); BUN (Urea Nitrogen) 50 mg/dL (9.8-20.1); Calc. Creatinine Clearance 33 mL/min (70-130); Calcium 8.6 mg/dL (7.8-10.44); Carbon Dioxide 18 mmol/L (23-31); Chloride 99 mmol/L (98-107); Estimated GFR-MDRD 26; Glucose 134 mg/dL (83-110); Iron 22 ug/dL (50-170); Iron Binding Capacity, Total 258 mcg/dL (265-497); Magnesium 1.8 mg/dL (1.6-2.6); Potassium 4.4 mmol/L (3.5-5.1); Sodium 129 mmol/L (136-145)
[2020-03-04] MEDS: Furosemide 40 MG/4 ML VIAL SLOW IVP SCH (05:46)
[2020-03-04] MEDS ORDERED: Sodium Chloride 0.9% 1,000 ML IV SCH ×2 (06:00→13:43)
[2020-03-04] MEDS: Aspirin Chewable 81 MG TAB PO SCH (07:46)
[2020-03-04] MEDS: Carvedilol 6.25 MG TAB PO SCH (07:46)
[2020-03-04] MEDS: Sacubitril 49 MG/Valsartan 51 MG TABLET PO SCH (07:46)
[2020-03-04] MEDS: Ferrous Sulfate 325 MG TAB PO SCH ×2 (07:46→20:52)
[2020-03-04] MEDS ORDERED: hydrALAZINE 25 MG TAB PO SCH (09:00)
[2020-03-04] MEDS ORDERED: Furosemide 40 MG/4 ML VIAL SLOW IVP SCH ×4 (09:43→14:00)
[2020-03-04] MEDS ORDERED: Iopamidol 370 76% 100 ML VIAL ONE (09:58)
[2020-03-04] MEDS ORDERED: Heparin 10,000 UNITS/1 ML VIAL ONE (11:49)
[2020-03-04] MEDS ORDERED: Midazolam HCl 2 mg/2 ml Vial ONE (12:31)
[2020-03-04] MEDS ORDERED: Fentanyl 100 MCG/2 ML VIAL ONE (12:31)
[2020-03-04] MEDS ORDERED: Adenosine 6 MG/2 ML VIAL ONE (13:05)
[2020-03-04] MEDS ORDERED: Bivalirudin 250 MG VIAL ONE (13:05)
[2020-03-04] MEDS ORDERED: Nitroglycerin 0.4 MG TAB (25 Tab Bottle) SL PRN (13:41)
[2020-03-04] MEDS ORDERED: Morphine 2 MG/ML SYRINGE SLOW IVP PRN (13:41)
--- NOTE | 2020-03-04 14:07 | PQF ---
CLINICAL DOCUMENTATION IMPROVEMENT CLARIFICATION FORM: ICD-10 Updated PLEASE DO AN ADDENDUM TO THE PROGRESS NOTE WITH ANY DOCUMENTATION UPDATES OR ADDITIONS AND CARRY THROUGH TO DC SUMMARY. THANK YOU. DATE: 03/04/20 ATTN: DR. WATERS Please exercise your independent, professional judgment in responding to the clarification form. Clinical indicators are provided on the bottom of this form for your review Please check appropriate box(s): [ ] Acute Renal Failure/WILIAM with Acute Tubular Necrosis (ATN) [ ] Acute Renal Failure/WILIAM without Acute Tubular Necrosis (ATN) [ x ] Acute on Chronic Renal Failure please specify Stage of CKD _III (see below) [ ] CKD without ARF/WILIAM please specify Stage of CKD [ ] ESRD [ ] Other diagnosis [ ] Unable to determine In addition, please specify: Present on Admission (POA): [ x ] Yes [ ] No [ ] Unable to determine National Kidney Foundation Guidelines for CKD Staging Stage I Kidney damage with normal or increased GFRGFR > 90 Stage IIKidney damage with mildly decreased GFRGFR 60-89 Stage III Kidney damage with moderately decreased GFRGFR 30-59 Stage IVKidney damage with severely decreased GFRGFR 16-29 Stage VKidney failureGFR<15 ESRDEnd Stage Renal DiseaseOn dialysis Acute Renal Failure/Acute Kidney Failure defined as: Increases in SCr by (>) 0.3 mg/dl within 48 hours OR- Increases in SCr by (>) 1.5 times baseline, known or presumed to have occurred within the prior 7 days OR- Urine volume < 0.5 ml/kg/hour for 6 hours (KDIGO supplement 2012 for RIFLE/CHRISTINE criteria) For continuity of documentation, please document condition throughout progress notes and discharge summary. Thank You. CLINICAL INDICATORS - SIGNS / SYMPTOMS / LABS / RESULTS AND LOCATION IN MR SAP Statistician Applied Crystal Reports Winform Viewer 03/02: BUN 31 / CREAT 1.40 03/03: BUN 40 / CREAT 1.60 03/04 BUN 50 / CREAT 1.91 RISKS: H/O CKD (ER) HYPERTENSION (H&P) TREATMENT: CARDIOLOGY NOTE 03/02: "WATCHING RENAL FUNCTION CLOSELY" / DC HOME LISINOPRIL IV LASIX (ER-PRESENT) SERIAL LABS (This form is maintained as a part of the permanent medical record) 2014 [employer]. All Rights Reserved SNEHAL [email or web address] [facility]
[2020-03-04] MEDS ORDERED: Acetaminophen 325 MG TAB ONE (14:41)
--- NOTE | 2020-03-04 15:04 | ULT ---
US Abdominal Aorta: 03/04/2020 1:55 PM CLINICAL HISTORY: Abdominal aortic aneurysm suspected on cardiac catheterization exam. STUDY: Limited abdominal ultrasound of the aorta. TECHNIQUE: A limited ultrasound of the abdominal aorta was performed. Spectral analysis of the Dopple r waveform was performed. COMPARISON: None. FINDINGS: The aorta is normal in caliber without evidence of aneurysmal dilatation and measures 2.1 cm in great est dimension. The common iliac arteries are unable to be seen secondary to bowel gas. IMPRESSION: No evidence of abdominal aortic aneurysm.
[2020-03-04] MEDS ORDERED: Morphine 2 MG/ML SYRINGE ONE ×2 (15:19→19:39)
[2020-03-04] MEDS ORDERED: HYDROcodone/Acetaminophen 5/325 mg Tablet PO SCH (16:30)
[2020-03-04] MEDS ORDERED: HYDROcodone/Acetaminophen 5/325 mg Tablet ONE (16:32)
[2020-03-04] MEDS: hydrALAZINE 25 MG TAB PO SCH ×2 (17:53→21:54)
[2020-03-04] MEDS: Atorvastatin Calcium 10 MG TAB PO SCH (20:39)
[2020-03-04] MEDS: Amitriptyline HCl 25 MG TAB PO SCH (20:39)
[2020-03-04] MEDS: traZODone HCl 50 MG TAB PO SCH (20:39)
[2020-03-04] MEDS: Carvedilol 25 MG TAB PO SCH (20:55)
--- NOTE | 2020-03-04 21:22 | CON ---
DATE OF CONSULTATION: 03/04/2020 Electrophysiology marketing consultant report. HISTORY OF PRESENT ILLNESS: I am seeing Mrs. Sheridan at our [facility] as an electrophysiology marketing consultant. Her problems are: 1. Chronic systolic congestive heart failure with acute exacerbation and fluid overload. a. History of nonischemic cardiomyopathy with LVEF 35% to 40% in January 2000, now worsening to 25% to 30% on echocardiogram on 03/02/2020. b. Also moderate left atrial enlargement, severe [id number] AI and pgnmvyud-wc-ilvmyp TR is seen. c. Current admission with markedly elevated BNP in 9000 range. 2. Nonocclusive coronary artery disease. a. Repeated left heart catheterization on 03/04/2020 shows 60% mid LAD with normal FFR, also nonocclusive RCA stenosis of 50% is noted. LVEF is reduced. b. Hypertension. c. Diabetes. d. Hypercholesteremia. ALLERGIES: NONE. MEDICATIONS: At home included: 1. Tylenol with codeine. 2. Clonidine. 3. Coreg 6.25 mg twice daily. 4. Feosol. 5. Entresto 24/26 mg twice daily. 6. Hydralazine 75 mg three times daily. 7. Amlodipine 5 mg daily. 8. Trazodone. 9. Aspirin. 10. Amitriptyline. 11. Insulin. 12. Furosemide. 13. Lisinopril. 14. Potassium. SUBJECTIVE: Mrs. Sheridan came, admitted on the with complaints of chest pains. She was noted to have borderline troponin levels and marked fluid overload on chest x-ray and with elevated BNP. She was evaluated by ab Low and eventually underwent left heart catheterization today. She was noted to have nonocclusive coronary artery disease with 60% mid LAD stenosis and distal RCA stenosis with normal FFR in the LAD noted. No intervention was necessary. I was consulted for consideration for ICD implant. She is doing well currently post heart catheterization. She has headaches, but denies angina. No CHF like symptoms. She is lying flat comfortably. No fever, chills, or cough, and rest of 12-point system otherwise unremarkable. PAST MEDICAL HISTORY: As above. Also includes GERD, prior right foot surgery, and tubal ligation. SOCIAL HISTORY: She is . Her had a pacemaker. Her significant other is in fci. Mother at age of 72 of diabetes. Father of age 69. She currently denies smoking, EtOH, or drug abuse. OBJECTIVE DATA: VITAL SIGNS: Blood pressure 165/78, heart rate 76, respirations 20, temperature 98.3 degrees Fahrenheit. GENERAL: Alert and oriented woman, with elevated BMI, in no apparent distress. NECK: Supple. Jugular veins are not distended. CHEST: Coarse without crackles. HEART: Sounds are regular to rate and rhythm. No murmur or gallop. ABDOMEN: Benign. Bowel sounds are positive. EXTREMITIES: Lower extremities without edema, clubbing, or cyanosis. Pulses are adequate. NEUROLOGIC: The patient is nonfocal. MUSCULOSKELETAL: Without joint swelling or deformities. SKIN: Without rash. DATABASE: The EKG is reviewed initially revealing sinus rhythm, rate of 96 beats per minute. Occasional PVCs, narrow QRS is noted at 98 milliseconds, QTc is 427 milliseconds, nonspecific ST changes are seen. Telemetry strips reveals sinus rhythm, sinus tachycardia with intermittent PVCs. No ventricular arrhythmia runs are seen. LABORATORY DATA: White count is 7.5, hemoglobin 8.4, platelet count is 202. Sodium 129, potassium 4.4, BUN is 50, creatinine 1.91. Her baseline creatinine is 1.4. ASSESSMENT AND PLAN: Mrs. Sheridan is a 74-year-old woman with history of congestive heart failure and likely nonischemic cardiomyopathy with nonocclusive coronary disease documented repeatedly on left heart catheterizations including this admit. No intervention was necessary for these lesions. Her borderline troponin elevations likely represents her cardiomyopathy process. She clearly was fluid overloaded significantly on admit and now improved with diuresis. She is already on adequate medical therapy and her LVEF has been noted in a severely decreased range. She transiently wore a LifeVest in the past, but has not been following up since 2 years ago. We have discussed the utility of pacemaker defibrillator in her case as a primary prevention device for sudden cardiac . She understands the concept, also understands its benefits in the decision-making process. She understands the risk of infection, bleeding, pneumothorax, tamponade, device malfunctions and recalls. She is interested in proceeding with ICD implant. We will consider for next week. Thank you for allowing me to participate in the care of your patient. Job ID: [id number]
--- NOTE | 2020-03-04 22:35 | PDOC.HOSPP ---
- Subjective Encounter Date: 03/04/20 Encounter Time: 09:00 Subjective: no overnight events. This morning, endorses some improvement in headache. lower extremity swelling improved. Has no complaints. Pending [facility] - Objective Vital Signs & Weight: Vital Signs (12 hours) Temp Pulse Resp BP BP Pulse Ox 03/04/20 21:54 76 161/70 H 03/04/20 20:15 98.6 F 75 18 131/59 L 95 Weight Admit Weight 172 lb 3.2 oz Weight 171 lb I&O: 03/03/20 03/04/20 03/05/20 06:59 06:59 06:59 Intake Total 1560 942.2 1800 Output Total 1250 700 850 Balance 310 242.2 950 Result Diagrams: 03/03/20 04:23 03/04/20 03:42 Additional Labs: Accuchecks 03/04/20 03/04/20 03/04/20 20:21 16:54 10:56 POC Glucose 125 H 160 H 131 H 03/04/20 05:25 POC Glucose 144 H Hospitalist ROS - Review of Systems Constitutional: denies: fever, chills, sweats, weakness, malaise, other Eyes: denies: vision change Respiratory: denies: cough, dry, shortness of breath, hemoptysis, SOB with excertion, pleuritic pain, sputum, wheezing, other Cardiovascular: denies: chest pain, palpitations, orthopnea, paroxysmal noc. dyspnea, edema, light headedness, other Gastrointestinal: denies: nausea, vomiting, abdominal pain, diarrhea, constipation, melena, hematochezia, other - Medication Medications: Active Medications Generic Name Dose Route Start Last Admin Trade Name Freq PRN Reason Stop Dose Admin Acetaminophen 650 mg 03/02/20 21:06 03/04/20 07:43 Tylenol PO 650 mg Q4H PRN Administration Headache/Fever/Mild Pain (1-3) Amitriptyline HCl 25 mg 03/02/20 21:00 03/04/20 20:39 Elavil PO 25 mg HS ABHILASH Administration Aspirin 81 mg 03/02/20 09:00 03/04/20 07:46 Aspirin Chewable PO 81 mg DAILY ABHILASH Administration Atorvastatin Calcium 10 mg 03/03/20 21:00 03/04/20 20:39 Lipitor PO 10 mg HS ABHILASH Administration Carvedilol 25 mg 03/04/20 17:00 03/04/20 20:55 Coreg PO 25 mg BID-WM ABHILASH Administration Ferrous Sulfate 325 mg 03/02/20 08:00 03/04/20 20:52 Feosol PO 325 mg BID-WM ABHILASH Administration Hydralazine HCl 75 mg 03/04/20 15:00 03/04/20 21:54 Apresoline PO 75 mg TID ABHILASH Administration Ondansetron HCl 4 mg 03/02/20 06:41 03/03/20 02:58 Zofran IVP 4 mg Q6H PRN Administration Nausea/Vomiting Sacubitril/Valsartan 1 tab 03/04/20 09:00 03/04/20 21:56 Entresto 24 Mg-26 Mg Tablet PO 1 tab BID ABHILASH Administration Senna/Docusate Sodium 2 tab 03/02/20 06:41 03/03/20 08:04 Senokot S PO 2 tab BID PRN Administration Constipation Sodium Chloride 10 ml 03/02/20 09:00 03/04/20 20:41 Flush - Normal Saline IVF 10 ml Q12HR ABHILASH Administration Trazodone HCl 50 mg 03/02/20 21:00 03/04/20 20:39 Desyrel PO 50 mg HS ABHILASH Administration - Exam General Appearance: NAD, awake alert Neck - other findings: 3rd heart sound appreciated Heart: RRR, no murmur, no rubs Respiratory: CTAB, no wheezes, no rales Gastrointestinal: soft, non-tender, non-distended, normal bowel sounds Extremities: 2+ LE edema Extremities - other findings: unchanged Psychiatric: normal affect, normal behavior, A&O x 3 Hosp A/P - Plan #HFrEF NYHA III -EF <35%, QRS <150, used to have lifevest -per nurse, output greater than that logged in EMR (as of around noon, 800cc output since 7am); apply strict I/O -pending [facility] #HTN -poorly controlled; defer to cardiology Dispo/ppx full code DVT PPx: lovenox GI PPx: no Ix ELOS: cardiology clearance
[2020-03-05] MEDS: Aspirin Chewable 81 MG TAB PO SCH (09:14)
[2020-03-05] MEDS: hydrALAZINE 25 MG TAB PO SCH ×3 (09:14→20:11)
[2020-03-05] MEDS: Furosemide 40 MG TAB PO SCH ×2 (09:14→15:59)
[2020-03-05] MEDS: Ferrous Sulfate 325 MG TAB PO SCH ×2 (09:15→16:00)
[2020-03-05] MEDS: Carvedilol 25 MG TAB PO SCH ×2 (09:19→15:56)
--- NOTE | 2020-03-05 11:23 | PDOC.HOSPP ---
- Subjective Encounter Date: 03/05/20 Encounter Time: 07:00 Subjective: Pt seen for followup re: CHF exacerbation. Feels better today. - Objective Vital Signs & Weight: Vital Signs (12 hours) Temp Pulse Resp BP BP Pulse Ox 03/05/20 09:14 71 185/79 H 03/05/20 08:45 98.1 F 71 16 185/79 H 94 L 03/05/20 03:00 98.0 F 63 16 162/73 H 94 L 03/04/20 23:45 71 18 155/68 H Weight Admit Weight 172 lb 3.2 oz Weight 174 lb 4.8 oz I&O: 03/04/20 03/05/20 03/06/20 06:59 06:59 06:59 Intake Total 942.2 2200 Output Total 700 1275 Balance 242.2 925 Result Diagrams: 03/03/20 04:23 03/04/20 03:42 Additional Labs: Accuchecks 03/05/20 03/05/20 03/04/20 10:57 05:32 20:21 POC Glucose 299 H 153 H 125 H 03/04/20 16:54 POC Glucose 160 H Labs and MARs reviewed by me EKG Reviewed by me: Yes (Tele: NSR) Hospitalist ROS - Review of Systems Cardiovascular: reports: edema. denies: chest pain, palpitations, orthopnea, paroxysmal noc. dyspnea, light headedness Gastrointestinal: denies: nausea, vomiting, abdominal pain, diarrhea, constipation, melena, hematochezia - Medication Medications: Active Medications Generic Name Dose Route Start Last Admin Trade Name Freq PRN Reason Stop Dose Admin Acetaminophen 650 mg 03/02/20 21:06 03/04/20 07:43 Tylenol PO 650 mg Q4H PRN Administration Headache/Fever/Mild Pain (1-3) Amitriptyline HCl 25 mg 03/02/20 21:00 03/04/20 20:39 Elavil PO 25 mg HS ABHILASH Administration Aspirin 81 mg 03/02/20 09:00 03/05/20 09:14 Aspirin Chewable PO 81 mg DAILY ABHILASH Administration Atorvastatin Calcium 10 mg 03/03/20 21:00 03/04/20 20:39 Lipitor PO 10 mg HS ABHILASH Administration Carvedilol 25 mg 03/04/20 17:00 06/27/20 09:19 Coreg PO 25 mg BID-WM ABHILASH Administration Ferrous Sulfate 325 mg 03/02/20 08:00 03/05/20 09:15 Feosol PO 325 mg BID-WM ABHILASH Administration Furosemide 40 mg 03/05/20 09:00 03/05/20 09:14 Lasix PO 40 mg 0900,1400 ABHILASH Administration Hydralazine HCl 75 mg 03/04/20 15:00 03/05/20 09:14 Apresoline PO 75 mg TID ABHILASH Administration Ondansetron HCl 4 mg 03/02/20 06:41 03/03/20 02:58 Zofran IVP 4 mg Q6H PRN Administration Nausea/Vomiting Sacubitril/Valsartan 1 tab 03/04/20 09:00 03/05/20 09:15 Entresto 24 Mg-26 Mg Tablet PO 1 tab BID ABHILASH Administration Senna/Docusate Sodium 2 tab 03/02/20 06:41 03/03/20 08:04 Senokot S PO 2 tab BID PRN Administration Constipation Sodium Chloride 10 ml 03/02/20 09:00 03/05/20 09:19 Flush - Normal Saline IVF 10 ml Q12HR ABHILASH Administration Trazodone HCl 50 mg 03/02/20 21:00 03/04/20 20:39 Desyrel PO 50 mg HS AB[facility]ILASH Administration - Exam General Appearance: awake alert Eye: anicteric sclera ENT: moist mucosa Neck: supple Heart: RRR Respiratory: rales Gastrointestinal: soft, non-tender, normal bowel sounds Extremities: 2+ LE edema Psychiatric: normal affect, normal behavior Hosp A/P - Plan Assessment/Plan: #acute on chronic systolic heart failure NYHA III -clinically improving - continue IV furosemide #HTN -monitor vital signs and titrate antihypertensives as needed -hydralazine dose increased yesterday #nonischemic cardiomyopathy -for ICD placement -EF < 35%
[2020-03-05] MEDS: HumaLOG 300 UNITS/3 ML VIAL SC PRN ×2 (12:26→18:48)
--- NOTE | 2020-03-05 16:27 | PDOC.CPN ---
- Subjective Date: 03/05/20 Time: 16:25 Interval history: No new issues. Breathing better. - Review of Systems General: denies: fever/chills, weight/appetite/sleep changes, night sweats, fatigue Respiratory: denies: cough, congestion, shortness of breath, exercise intolerance Cardiovascular: denies: chest pain, palpitation, edema, paroxysmal nocturnal dyspnea, orthopnea Gastrointestinal: denies: nausea, vomiting, diarrhea, constipation, abd pain, GI bleeding Musculoskeletal: denies: pain, tenderness, stiffness, swelling, arthritis/ arthralgias Neurological: denies: numbness, syncope, seizure, weakness - Objective Allergies/Adverse Reactions: Allergies Allergy/AdvReac Type Severity Reaction Status Date / Time No Known Allergies Allergy Verified 02/09/20 22:45 Visit Medications: Current Medications Acetaminophen (Tylenol) 650 mg PO Q4H PRN PRN Reason: Headache/Fever/Mild Pain (1-3) Last Admin: 03/04/20 07:43 Dose: 650 mg Amitriptyline HCl (Elavil) 25 mg PO [facility] Last Admin: 03/04/20 20:39 Dose: 25 mg Aspirin (Aspirin Chewable) 81 mg PO DAILY [facility] Last Admin: 03/05/20 09:14 Dose: 81 mg Atorvastatin Calcium (Lipitor) 10 mg PO [facility] Last Admin: 03/04/20 20:39 Dose: 10 mg Bisacodyl (Dulcolax) 10 mg MS DAILYPRN PRN PRN Reason: Constipation Carvedilol (Coreg) 25 mg PO BID-[facility] Last Admin: 03/05/20 15:56 Dose: 25 mg Dextrose/Water (Dextrose 50%) 25 gm SLOW IVP PRN PRN PRN Reason: Hypoglycemia Ferrous Sulfate (Feosol) 325 mg PO BID-[facility] Last Admin: 03/05/20 16:00 Dose: 325 mg Furosemide (Lasix) 40 mg PO 0900,1400 [facility] Last Admin: 03/05/20 15:59 Dose: 40 mg Glucagon (Glucagon) 1 mg IM PRN PRN PRN Reason: Hypoglycemia Guaifenesin/Dextromethorphan (Robitussin Dm) 15 ml PO Q4H PRN PRN Reason: Cough Hydralazine HCl (Apresoline) 75 mg PO TID [facility] Last Admin: 03/05/20 15:56 Dose: 75 mg Dextrose/Water (D5w) 1,000 mls @ 0 mls/hr IV .Q0M PRN PRN Reason: Hypoglycemia Insulin Human Lispro (Humalog) 0 units SC .MODERATE SLIDING SC PRN; Protocol PRN Reason: MODERATE SLIDING SCALE Last Admin: 03/05/20 12:26 Dose: 6 unit Morphine Sulfate (Morphine) 2 mg SLOW IVP Q4H PRN PRN Reason: Moderate Chest Pain (4-6) Nitroglycerin (Nitrostat) 0.4 mg SL Q5MIN PRN PRN Reason: Chest Pain Ondansetron HCl (Zofran) 4 mg IVP Q6H PRN PRN Reason: Nausea/Vomiting Last Admin: 03/03/20 02:58 Dose: 4 mg Sacubitril/Valsartan (Entresto 24 Mg-26 Mg Tablet) 1 tab PO BID [facility] Last Admin: 03/05/20 09:15 Dose: 1 tab Senna/Docusate Sodium (Senokot S) 2 tab PO BID PRN PRN Reason: Constipation Last Admin: 03/03/20 08:04 Dose: 2 tab Sodium Chloride (Flush - Normal Saline) 10 ml IVF Q12HR [facility] Last Admin: 03/05/20 09:19 Dose: 10 ml Sodium Chloride (Flush - Normal Saline) 10 ml IVF PRN PRN PRN Reason: Saline Flush Trazodone HCl (Desyrel) 50 mg PO HS [facility] Last Admin: 03/04/20 20:39 Dose: 50 mg Vital Signs & Weight: Vital Signs Temp Pulse Resp BP BP BP Pulse Ox 03/05/20 15:56 67 153/76 H 03/05/20 15:37 97.6 F 67 16 153/76 H 98 03/05/20 12:00 97.6 F 68 15 149/67 H 96 03/05/20 09:14 71 185/79 H 03/05/20 08:50 94 L 03/05/20 08:45 98.1 F 71 16 185/79 H 94 L Admit Weight 172 lb 3.2 oz Weight 174 lb 4.8 oz - Physical Exam General: alert & oriented x3 HEENT: mucus membranes moist Neck: supple neck Cardiac: regular rate and rhythm Lungs: clear to auscultation Neuro: grossly intact Abdomen: active bowel sounds Extremities: 2+ LE edema Skin: clear Musculoskeletal: no pain - Labs Result Diagrams: 03/03/20 04:23 03/04/20 03:42 Troponin/CKMB CK-MB (CK-2) 1.9 ng/mL (0-6.6) 03/02/20 04:31 Troponin I 0.170 ng/mL (< 0.028) H 03/02/20 13:38 - Telemetry Sinus rhythms and dysrhythmias: sinus rhythm - Assessment/Plan Assessment/Plan: 1. Non ischemic CM. 2. Moderate CAD. 3. Acute on chronic systolic heart failure. 4. Medication non compliance. 5. HTN 6. HLP 7. Type 2 DM PLAN: - Continue PO lasix - Continue other meds. - ICD next week. - Will increase Entresto as her BP still high.
[2020-03-05] MEDS: traZODone HCl 50 MG TAB PO SCH (20:11)
[2020-03-05] MEDS: Amitriptyline HCl 25 MG TAB PO SCH (20:11)
[2020-03-05] MEDS: Atorvastatin Calcium 10 MG TAB PO SCH (20:11)
[2020-03-05] MEDS: Sacubitril 49 MG/Valsartan 51 MG TABLET PO SCH (20:11)
[2020-03-05] MEDS: Melatonin 3 MG TAB PO PRN (22:37)
[2020-03-06] MEDS ORDERED: diphenhydrAMINE 25 MG CAP PO PRN (00:22)
[2020-03-06] MEDS ORDERED: ALPRAZolam 0.25 MG TAB PO SCH (03:45)
[2020-03-06] MEDS: HumaLOG 300 UNITS/3 ML VIAL SC PRN ×3 (06:10→17:48)
[2020-03-06] MEDS: Furosemide 40 MG TAB PO SCH ×2 (09:32→15:16)
[2020-03-06] MEDS: Ferrous Sulfate 325 MG TAB PO SCH ×2 (09:32→17:48)
[2020-03-06] MEDS: Carvedilol 25 MG TAB PO SCH ×2 (09:32→17:48)
[2020-03-06] MEDS: Aspirin Chewable 81 MG TAB PO SCH (09:32)
[2020-03-06] MEDS: hydrALAZINE 25 MG TAB PO SCH ×3 (09:33→20:03)
[2020-03-06] MEDS: Sacubitril 49 MG/Valsartan 51 MG TABLET PO SCH ×2 (09:33→20:04)
--- NOTE | 2020-03-06 10:17 | EKG ---
Test Reason : Blood Pressure : / mmHG Vent. Rate : 096 BPM Atrial Rate : 096 BPM P-R Int : 150 ms QRS Dur : 098 ms QT Int : 338 ms P-R-T Axes : -06 -14 185 degrees QTc Int : 427 ms Sinus rhythm with sinus arrhythmia with frequent Premature ventricular complexes Abnormal ECG Confirmed by SOCORRO VERDE ([id number]), editor & co founder KIRILL CHO ([id number]) on 03/06/2020 10:17:40 AM Referred By: Confirmed By:SOCORRO VERDE
[2020-03-06] MEDS: ALPRAZolam 0.25 MG TAB PO PRN ×2 (11:16→23:11)
--- NOTE | 2020-03-06 12:46 | PDOC.HOSPP ---
- Subjective Encounter Date: 03/06/20 Encounter Time: 07:20 Subjective: Pt seen for followup re: CHF exacerbation. Feels anxious. No chest pain or shortness of breath. - Objective Vital Signs & Weight: Vital Signs (12 hours) Temp Pulse Resp BP BP Pulse Ox 03/06/20 11:22 97.7 F 62 20 149/69 H 95 03/06/20 09:33 72 03/06/20 07:40 97 03/06/20 07:35 97.7 F 72 18 164/81 H 97 03/06/20 03:34 98.4 F 72 18 186/77 H 98 Weight Admit Weight 172 lb 3.2 oz Weight 178 lb 1.6 oz I&O: 03/05/20 03/06/20 03/07/20 06:59 06:59 06:59 Intake Total 2200 1410 Output Total 1275 1550 Balance 925 -140 Result Diagrams: 03/03/20 04:23 03/04/20 03:42 Additional Labs: Accuchecks 03/06/20 03/06/20 03/05/20 10:11 05:46 20:19 POC Glucose 259 H 195 H 232 H 03/05/20 16:46 POC Glucose 160 H Labs and MARs reviewed by me EKG Reviewed by me: Yes (Tele: NSR) Hospitalist ROS - Review of Systems Constitutional: reports: other (anxiety) Cardiovascular: denies: chest pain, palpitations, orthopnea, paroxysmal noc. dyspnea, edema, light headedness Gastrointestinal: denies: nausea, vomiting, abdominal pain, diarrhea, constipation, melena, hematochezia - Medication Medications: Active Medications Generic Name Dose Route Start Last Admin Trade Name Freq PRN Reason Stop Dose Admin Acetaminophen 650 mg 03/02/20 21:06 03/04/20 07:43 Tylenol PO 650 mg Q4H PRN Administration Headache/Fever/Mild Pain (1-3) Alprazolam 0.25 mg 03/06/20 07:33 03/06/20 11:16 Xanax PO 0.25 mg BIDPRN PRN Administration Anxiety Amitriptyline HCl 25 mg 03/02/20 21:00 03/05/20 20:11 Elavil PO 25 mg HS [facility] Administration Aspirin 81 mg 03/02/20 09:00 03/06/20 09:32 Aspirin Chewable PO 81 mg DAILY [facility] Administration Atorvastatin Calcium 10 mg 03/03/20 21:00 03/05/20 20:11 Lipitor PO 10 mg HS AB[facility]ILASH Administration Carvedilol 25 mg 03/04/20 17:00 03/06/20 09:32 Coreg PO 25 mg BID-WM [facility] Administration Diphenhydramine HCl 25 mg 03/06/20 00:22 03/06/20 00:35 Benadryl PO 25 mg HSPRN PRN Administration Itching & Insomnia Ferrous Sulfate 325 mg 03/02/20 08:00 03/06/20 09:32 Feosol PO 325 mg BID-WM [facility]ASH Administration Furosemide 40 mg 03/05/20 09:00 03/06/20 09:32 Lasix PO 40 mg 0900,1400 [facility] Administration Hydralazine HCl 75 mg 03/04/20 15:00 03/06/20 09:33 Apresoline PO 75 mg TID [facility] Administration Insulin Human Lispro 0 units 03/05/20 12:18 03/06/20 11:16 Humalog SC 6 unit .MODERATE SLIDING SC PRN Administration MODERATE SLIDING SCALE Protocol Melatonin 3 mg 03/05/20 22:18 03/05/20 22:37 Melatonin PO 3 mg HS PRN Administration Insomnia Ondansetron HCl 4 mg 03/02/20 06:41 03/03/20 02:58 Zofran IVP 4 mg Q6H PRN Administration Nausea/Vomiting Sacubitril/Valsartan 1 tab 03/05/20 21:00 03/06/20 09:33 Entresto 49 Mg-51 Mg Tablet PO 1 tab BID [facility] Administration Senna/Docusate Sodium 2 tab 03/02/20 06:41 03/03/20 08:04 Senokot S PO 2 tab BID PRN Administration Constipation Sodium Chloride 10 ml 03/02/20 09:00 03/06/20 09:33 Flush - Normal Saline IVF 10 ml Q12HR [facility] Administration Trazodone HCl 50 mg 03/02/20 21:00 03/05/20 20:11 Desyrel PO 50 mg HS [facility] Administration - Exam General Appearance: awake alert Eye: anicteric sclera ENT: normocephalic atraumatic Neck: supple Heart: RRR Respiratory: CTAB Gastrointestinal: soft, non-tender Extremities: 1+ LE edema Psychiatric: normal affect, normal behavior Hosp A/P - Plan Assessment/Plan: #acute on chronic systolic heart failure NYHA III -Improved - Pt is on PO furosemide 40 mg 2x/day #HTN -monitor vital signs and titrate antihypertensives as needed -hydralazine dose increased yesterday #nonischemic cardiomyopathy -for ICD placement -EP following
--- NOTE | 2020-03-06 14:39 | PDOC.CPN ---
- Subjective Date: 03/06/20 Time: 14:33 Interval history: She feels more tired today as she could not sleep well. She is still diuresing. - Review of Systems General: reports: weight/appetite/sleep changes, fatigue. denies: fever/chills , night sweats Respiratory: denies: cough, congestion, shortness of breath, exercise intolerance Cardiovascular: denies: chest pain, palpitation, edema, paroxysmal nocturnal dyspnea, orthopnea Gastrointestinal: denies: nausea, vomiting, diarrhea, constipation, abd pain, GI bleeding Musculoskeletal: denies: pain, tenderness, stiffness, swelling, arthritis/ arthralgias Neurological: denies: numbness, syncope, seizure, weakness - Objective Allergies/Adverse Reactions: Allergies Allergy/AdvReac Type Severity Reaction Status Date / Time No Known Allergies Allergy Verified 02/09/20 22:45 Visit Medications: Current Medications Acetaminophen (Tylenol) 650 mg PO Q4H PRN PRN Reason: Headache/Fever/Mild Pain (1-3) Last Admin: 03/04/20 07:43 Dose: 650 mg Alprazolam (Xanax) 0.25 mg PO BIDPRN PRN PRN Reason: Anxiety Last Admin: 03/06/20 11:16 Dose: 0.25 mg Amitriptyline HCl (Elavil) 25 mg PO [facility] Last Admin: 03/05/20 20:11 Dose: 25 mg Aspirin (Aspirin Chewable) 81 mg PO DAILY [facility] Last Admin: 03/06/20 09:32 Dose: 81 mg Atorvastatin Calcium (Lipitor) 10 mg PO [facility] Last Admin: 03/05/20 20:11 Dose: 10 mg Bisacodyl (Dulcolax) 10 mg [place] DAILYPRN PRN PRN Reason: Constipation Carvedilol (Coreg) 25 mg PO BID-[facility] Last Admin: 03/06/20 09:32 Dose: 25 mg Dextrose/Water (Dextrose 50%) 25 gm SLOW IVP PRN PRN PRN Reason: Hypoglycemia Diphenhydramine HCl (Benadryl) 25 mg PO HSPRN PRN PRN Reason: Itching & Insomnia Last Admin: 03/06/20 00:35 Dose: 25 mg Ferrous Sulfate (Feosol) 325 mg PO BID-[facility] Last Admin: 03/06/20 09:32 Dose: 325 mg Furosemide (Lasix) 40 mg PO 0900,1400 [facility] Last Admin: 03/06/20 09:32 Dose: 40 mg Glucagon (Glucagon) 1 mg IM PRN PRN PRN Reason: Hypoglycemia Guaifenesin/Dextromethorphan (Robitussin Dm) 15 ml PO Q4H PRN PRN Reason: Cough Hydralazine HCl (Apresoline) 75 mg PO TID [facility] Last Admin: 03/06/20 09:33 Dose: 75 mg Dextrose/Water (D5w) 1,000 mls @ 0 mls/hr IV .Q0M PRN PRN Reason: Hypoglycemia Insulin Human Lispro (Humalog) 0 units SC .MODERATE SLIDING SC PRN; Protocol PRN Reason: MODERATE SLIDING SCALE Last Admin: 03/06/20 11:16 Dose: 6 unit Melatonin (Melatonin) 3 mg PO HS PRN PRN Reason: Insomnia Last Admin: 03/05/20 22:37 Dose: 3 mg Morphine Sulfate (Morphine) 2 mg SLOW IVP Q4H PRN PRN Reason: Moderate Chest Pain (4-6) Nitroglycerin (Nitrostat) 0.4 mg SL Q5MIN PRN PRN Reason: Chest Pain Ondansetron HCl (Zofran) 4 mg IVP Q6H PRN PRN Reason: Nausea/Vomiting Last Admin: 03/03/20 02:58 Dose: 4 mg Sacubitril/Valsartan (Entresto 49 Mg-51 Mg Tablet) 1 tab PO BID [facility] Last Admin: 03/06/20 09:33 Dose: 1 tab Senna/Docusate Sodium (Senokot S) 2 tab PO BID PRN PRN Reason: Constipation Last Admin: 03/03/20 08:04 Dose: 2 tab Sodium Chloride (Flush - Normal Saline) 10 ml IVF Q12HR [facility] Last Admin: 03/06/20 09:33 Dose: 10 ml Sodium Chloride (Flush - Normal Saline) 10 ml IVF PRN PRN PRN Reason: Saline Flush Trazodone HCl (Desyrel) 50 mg PO HS [facility] Last Admin: 03/05/20 20:11 Dose: 50 mg Vital Signs & Weight: Vital Signs Temp Pulse Resp BP BP Pulse Ox 03/06/20 11:22 97.7 F 62 20 149/69 H 95 06/28/20 09:33 72 03/06/20 07:40 97 03/06/20 07:35 97.7 F 72 18 164/81 H 97 03/06/20 03:34 98.4 F 72 18 186/77 H 98 Admit Weight 172 lb 3.2 oz Weight 178 lb 1.6 oz - Physical Exam General: alert & oriented x3 HEENT: mucus membranes moist Neck: supple neck Cardiac: regular rate and rhythm Lungs: clear to auscultation Neuro: grossly intact Abdomen: active bowel sounds Extremities: 1+ LE edema Skin: clear Musculoskeletal: no pain - Labs Result Diagrams: 03/03/20 04:23 03/04/20 03:42 Troponin/CKMB CK-MB (CK-2) 1.9 ng/mL (0-6.6) 03/02/20 04:31 Troponin I 0.170 ng/mL (< 0.028) H 03/02/20 13:38 - Telemetry Sinus rhythms and dysrhythmias: sinus rhythm - Assessment/Plan Assessment/Plan: 1. Non ischemic CM. 2. Moderate CAD. 3. Acute on chronic systolic heart failure. 4. Medication non compliance. 5. HTN 6. HLP 7. Type 2 DM PLAN: - Continue PO lasix - Continue other meds. - ICD next week. - Will add isordil for BP and CHF. - Repeat BM to see renal function.
[2020-03-06] MEDS: Acetaminophen 325 MG TAB PO PRN (14:40)
[2020-03-06 17:55] LABS: Anion Gap 13 mmol/L (10-20); BUN (Urea Nitrogen) 55 mg/dL (9.8-20.1); Calc. Creatinine Clearance 29 mL/min (70-130); Calcium 8.6 mg/dL (7.8-10.44); Carbon Dioxide 23 mmol/L (23-31); Chloride 101 mmol/L (98-107); Estimated GFR-MDRD 21; Glucose 176 mg/dL (83-110); Potassium 4.3 mmol/L (3.5-5.1); Sodium 133 mmol/L (136-145)
[2020-03-06] MEDS: Atorvastatin Calcium 10 MG TAB PO SCH (20:03)
[2020-03-06] MEDS: Amitriptyline HCl 25 MG TAB PO SCH (20:03)
[2020-03-06] MEDS: Isosorbide Dinitrate 5 MG TAB PO SCH (20:04)
[2020-03-06] MEDS: traZODone HCl 50 MG TAB PO SCH (20:04)
[2020-03-07 03:57] LABS: #Eosinphils 0.2 thou/uL (0.0-0.7); #Lymphocytes 1.5 thou/uL (1.20-3.40); #Monocytes 0.4 thou/uL (0.11-0.59); #Neutrophils 1.5 thou/uL (1.40-6.50); %Basophils 1.4 % (0.0-1.0); %Eosinophils 4.3 % (0.0-10.0); %Lymphocytes 41.1 % (21.0-51.0); %Monocytes 11.4 % (0.0-10.0); %Neutrophils 41.8 % (42.0-75.0); Hemoglobin 7.6 g/dL (12.0-16.0); Mean Corpuscular HGB CONC 32.1 g/dL (32.0-36.0); Mean Corpuscular Hemoglobin 30.4 pg (27.0-31.0); Mean Corpuscular Volume 94.8 fL (78.0-98.0); Mean Platelet Volume 8.6 fL (7.4-10.4); Platelet Count 200 thou/uL (130-400); RBC Distribution Width 15.7 % (11.5-14.5); Red Blood Cell (RBC) Count 2.48 mill/uL (4.20-5.40); White Blood Cell (WBC) Count 3.5 thou/uL (4.8-10.8)
[2020-03-07 04:23] LABS: Anion Gap 11 mmol/L (10-20); BUN (Urea Nitrogen) 57 mg/dL (9.8-20.1); Calc. Creatinine Clearance 29 mL/min (70-130); Calcium 8.2 mg/dL (7.8-10.44); Carbon Dioxide 24 mmol/L (23-31); Chloride 103 mmol/L (98-107); Estimated GFR-MDRD 21; Glucose 184 mg/dL (83-110); Potassium 4.1 mmol/L (3.5-5.1); Sodium 134 mmol/L (136-145)
[2020-03-07] MEDS: Ferrous Sulfate 325 MG TAB PO SCH ×2 (08:17→17:48)
[2020-03-07] MEDS: Carvedilol 25 MG TAB PO SCH ×2 (08:17→17:48)
[2020-03-07] MEDS: Isosorbide Dinitrate 5 MG TAB PO SCH ×2 (08:18→20:17)
[2020-03-07] MEDS: hydrALAZINE 25 MG TAB PO SCH ×3 (08:18→20:17)
[2020-03-07] MEDS: Sacubitril 49 MG/Valsartan 51 MG TABLET PO SCH ×2 (08:18→20:17)
[2020-03-07] MEDS: Aspirin Chewable 81 MG TAB PO SCH (08:18)
[2020-03-07] MEDS: Furosemide 40 MG TAB PO SCH ×2 (08:18→13:01)
[2020-03-07] MEDS ORDERED: Iopamidol 370 76% 50 ML VIAL FS ONE (09:30)
[2020-03-07] MEDS ORDERED: hydrALAZINE 20 MG/ML VIAL SLOW IVP SCH (11:30)
[2020-03-07] MEDS: ALPRAZolam 0.25 MG TAB PO PRN ×2 (11:36→22:02)
[2020-03-07] MEDS ORDERED: PROPOFOL 200 MG/20 ML VIAL ONE (11:41)
[2020-03-07] MEDS ORDERED: Fentanyl 100 MCG/2 ML VIAL ONE (16:17)
[2020-03-07] MEDS ORDERED: Propofol 1,000 MG/100 ML VIAL IV ONE (16:17)
[2020-03-07] MEDS ORDERED: Gentamicin 80 MG/2 ML VIAL ONE (16:21)
[2020-03-07] MEDS ORDERED: CEFAZOLIN 1 GM VIAL ONE (16:21)
[2020-03-07] MEDS ORDERED: Midazolam HCl 2 mg/2 ml Vial ONE (16:51)
--- NOTE | 2020-03-07 17:45 | PDOC.HOSPP ---
- Subjective Encounter Date: 03/07/20 Encounter Time: 10:40 Subjective: Pt seen for followup for heart failure exacerbation. Reports anxiety is better. Feels better today. - Objective Vital Signs & Weight: Vital Signs (12 hours) Temp Pulse Resp BP Pulse Ox 03/07/20 12:35 168/71 H 03/07/20 11:00 97.6 F 62 20 173/81 H 96 03/07/20 07:31 97.5 F L 60 16 180/77 H 96 03/07/20 07:07 96 Weight Admit Weight 172 lb 3.2 oz Weight 176 lb 1.6 oz I&O: 03/06/20 03/07/20 03/08/20 06:59 06:59 06:59 Intake Total 1410 1170 300 Output Total 1550 2500 1550 Balance -140 -1330 -1250 Result Diagrams: 03/07/20 03:32 03/07/20 03:32 Additional Labs: Accuchecks 03/07/20 03/07/20 03/06/20 10:44 05:18 20:27 POC Glucose 230 H 205 H 189 H Labs and MARs reviewed by me EKG Reviewed by me: Yes (Tele: NSR) Hospitalist ROS - Review of Systems Constitutional: denies: fever, chills, sweats, weakness, malaise Cardiovascular: denies: chest pain, palpitations, orthopnea, paroxysmal noc. dyspnea, edema, light headedness - Medication Medications: Active Medications Generic Name Dose Route Start Last Admin Trade Name Freq PRN Reason Stop Dose Admin Acetaminophen 650 mg 03/02/20 21:06 03/06/20 14:40 Tylenol PO 650 mg Q4H PRN Administration Headache/Fever/Mild Pain (1-3) Alprazolam 0.25 mg 03/06/20 07:33 03/07/20 11:36 Xanax PO 0.25 mg BIDPRN PRN Administration Anxiety Amitriptyline HCl 25 mg 03/02/20 21:00 03/06/20 20:03 Elavil PO 25 mg HS [facility]ILASH Administration Aspirin 81 mg 03/02/20 09:00 03/07/20 08:18 Aspirin Chewable PO 81 mg DAILY [facility]ILASH Administration Atorvastatin Calcium 10 mg 03/03/20 21:00 03/06/20 20:03 Lipitor PO 10 mg HS [facility] Administration Carvedilol 25 mg 03/04/20 17:00 03/07/20 08:17 Coreg PO 25 mg BID-WM [facility] Administration Diphenhydramine HCl 25 mg 03/06/20 00:22 03/06/20 00:35 Benadryl PO 25 mg HSPRN PRN Administration Itching & Insomnia Ferrous Sulfate 325 mg 03/02/20 08:00 03/07/20 08:17 Feosol PO 325 mg BID-WM [facility] Administration Furosemide 40 mg 03/05/20 09:00 03/07/20 13:01 Lasix PO Not Given 0900,1400 [facility] Hydralazine HCl 75 mg 03/04/20 15:00 03/07/20 16:05 Apresoline PO Not Given TID [facility] Insulin Human Lispro 0 units 03/05/20 12:18 03/06/20 17:48 Humalog SC 4 unit .MODERATE SLIDING SC PRN Administration MODERATE SLIDING SCALE Protocol Isosorbide Dinitrate 5 mg 03/06/20 21:00 03/07/20 08:18 Isordil PO 5 mg BID [facility] Administration Melatonin 3 mg 03/05/20 22:18 03/05/20 22:37 Melatonin PO 3 mg HS PRN Administration Insomnia Ondansetron HCl 4 mg 03/02/20 06:41 03/03/20 02:58 Zofran IVP 4 mg Q6H PRN Administration Nausea/Vomiting Sacubitril/Valsartan 1 tab 03/05/20 21:00 03/07/20 08:18 Entresto 49 Mg-51 Mg Tablet PO 1 tab BID [facility] Administration Senna/Docusate Sodium 2 tab 03/02/20 06:41 03/03/20 08:04 Senokot S PO 2 tab BID PRN Administration Constipation Sodium Chloride 10 ml 03/02/20 09:00 03/07/20 08:18 Flush - Normal Saline IVF 10 ml Q12HR ABHILASH Administration Trazodone HCl 50 mg 03/02/20 21:00 03/06/20 20:04 Desyrel PO 50 mg HS ABHILASH Administration - Exam General - other findings: Obesity Eye: anicteric sclera ENT: normocephalic atraumatic, moist mucosa Neck: supple, no thyromegaly Heart: RRR, no rubs Respiratory: CTAB Gastrointestinal: soft, non-tender Musculoskeletal: no muscle wasting Psychiatric: normal affect, normal behavior Hosp A/P - Plan Assessment/Plan: #acute on chronic systolic heart failure NYHA III -Improved -Continue oral furosemide #HTN -monitor vital signs and titrate antihypertensives as needed -hydralazine dose increased to 100 mg TID today #nonischemic cardiomyopathy -for ICD placement today
--- NOTE | 2020-03-07 18:14 | RAD ---
ONE VIEW CHEST: Comparison: 03-02-2020 History: Status post defibrillator placement. FINDINGS: Portable upright chest radiograph demonstrates an enlarged cardiac silhouette. There is atheroscleros is of the aorta. Pulmonary vessels and hilum are normal. Costophrenic angles are clear. No consolidat ion or mass. Interval placement of a single lead left sided defibrillator with lead termination in the region of t he right ventricle. No pneumothorax. IMPRESSION: Interval placement of a left sided transvenous defibrillator. No pneumothorax. POS: PPP
[2020-03-07] MEDS: Amitriptyline HCl 25 MG TAB PO SCH (20:17)
[2020-03-07] MEDS: Atorvastatin Calcium 10 MG TAB PO SCH (20:17)
[2020-03-07] MEDS: traZODone HCl 50 MG TAB PO SCH (20:18)
[2020-03-07] MEDS: Acetaminophen 325 MG TAB PO PRN (20:18)
[2020-03-07] MEDS ORDERED: HumaLOG 300 UNITS/3 ML VIAL SC PRN (22:07)
[2020-03-08] MEDS: CEFAZOLIN 2 GM in Premix Bag 1 BAG IVPB SCH ×2 (00:53→08:54)
[2020-03-08] MEDS: Acetaminophen 325 MG TAB PO PRN ×3 (01:24→08:53)
[2020-03-08] MEDS: Ferrous Sulfate 325 MG TAB PO SCH ×2 (08:53→15:26)
[2020-03-08] MEDS: Isosorbide Dinitrate 5 MG TAB PO SCH ×2 (08:53→20:11)
[2020-03-08] MEDS: Aspirin Chewable 81 MG TAB PO SCH (08:53)
[2020-03-08] MEDS: Furosemide 40 MG TAB PO SCH ×2 (08:53→15:24)
[2020-03-08] MEDS: ALPRAZolam 0.25 MG TAB PO PRN (08:53)
[2020-03-08] MEDS: hydrALAZINE 25 MG TAB PO SCH ×3 (08:53→20:11)
[2020-03-08] MEDS: Carvedilol 25 MG TAB PO SCH ×2 (08:53→15:27)
[2020-03-08] MEDS: Sacubitril 49 MG/Valsartan 51 MG TABLET PO SCH (08:53)
--- NOTE | 2020-03-08 10:10 | PDOC.EP ---
- Subjective Date: 03/08/20 Time: 08:00 Interval History: Follow-up for ICD implant on 03/07/2020. Patient is reporting incision pain . Otherwise she voices no complaints. - Review of Systems Constitutional: denies: chills, fever, malaise, sweats, weakness Respiratory: denies: cough, pleuritic pain, shortness of breath Cardiology: denies: chest pain, heart racing, light headedness, palpitations, passing out Gastrointestinal: denies: abdominal pain, constipation Musculoskeletal: reports: unstable gait ( Using a walker while in the hospital) . denies: falls, neck pain, leg pain - Objective Allergies/Adverse Reactions: Allergies Allergy/AdvReac Type Severity Reaction Status Date / Time No Known Allergies Allergy Verified 02/09/20 22:45 Current Medications Acetaminophen (Tylenol) 650 mg PO Q4H PRN PRN Reason: Headache/Fever/Mild Pain (1-3) Last Admin: 03/08/20 08:53 Dose: 650 mg Alprazolam (Xanax) 0.25 mg PO BIDPRN PRN PRN Reason: Anxiety Last Admin: 03/08/20 08:53 Dose: 0.25 mg Amitriptyline HCl (Elavil) 25 mg PO [facility] Last Admin: 03/07/20 20:17 Dose: 25 mg Aspirin (Aspirin Chewable) 81 mg PO DAILY [facility] Last Admin: 03/08/20 08:53 Dose: 81 mg Atorvastatin Calcium (Lipitor) 10 mg PO [facility] Last Admin: 03/07/20 20:17 Dose: 10 mg Bisacodyl (Dulcolax) 10 mg [place] DAILYPRN PRN PRN Reason: Constipation Carvedilol (Coreg) 25 mg PO BID-[facility] Last Admin: 03/08/20 08:53 Dose: 25 mg Cephalexin (Keflex) 500 mg PO 0300,0900,1500,2100 [facility] Stop: 03/15/20 09:01 Dextrose/Water (Dextrose 50%) 25 gm SLOW IVP PRN PRN PRN Reason: Hypoglycemia Diphenhydramine HCl (Benadryl) 25 mg PO HSPRN PRN PRN Reason: Itching & Insomnia Last Admin: 03/06/20 00:35 Dose: 25 mg Ferrous Sulfate (Feosol) 325 mg PO BID-[facility] Last Admin: 03/08/20 08:53 Dose: 325 mg Furosemide (Lasix) 40 mg PO 0900,1400 [facility] Last Admin: 03/08/20 08:53 Dose: 40 mg Glucagon (Glucagon) 1 mg IM PRN PRN PRN Reason: Hypoglycemia Guaifenesin/Dextromethorphan (Robitussin Dm) 15 ml PO Q4H PRN PRN Reason: Cough Hydralazine HCl (Apresoline) 100 mg PO TID [facility] Last Admin: 03/08/20 08:53 Dose: 100 mg Dextrose/Water (D5w) 1,000 mls @ 0 mls/hr IV .Q0M PRN PRN Reason: Hypoglycemia Insulin Human Lispro (Humalog) 0 units SC .MODERATE SLIDING SC PRN; Protocol PRN Reason: MODERATE SLIDING SCALE Last Admin: 03/06/20 17:48 Dose: 4 unit Insulin Human Lispro (Humalog) 0 units [place] .BEDTIME SLIDING SC PRN PRN Reason: Bedtime Correctional Scale Last Admin: 03/07/20 22:20 Dose: 4 unit Isosorbide Dinitrate (Isordil) 5 mg PO BID [facility] Last Admin: 03/08/20 08:53 Dose: 5 mg Melatonin (Melatonin) 3 mg PO HS PRN PRN Reason: Insomnia Last Admin: 03/05/20 22:37 Dose: 3 mg Morphine Sulfate (Morphine) 2 mg SLOW IVP Q4H PRN PRN Reason: Moderate Chest Pain (4-6) Nitroglycerin (Nitrostat) 0.4 mg SL Q5MIN PRN PRN Reason: Chest Pain Ondansetron HCl (Zofran) 4 mg IVP Q6H PRN PRN Reason: Nausea/Vomiting Last Admin: 03/03/20 02:58 Dose: 4 mg Sacubitril/Valsartan (Entresto 49 Mg-51 Mg Tablet) 1 tab PO BID [facility] Last Admin: 03/08/20 08:53 Dose: 1 tab Senna/Docusate Sodium (Senokot S) 2 tab PO BID PRN PRN Reason: Constipation Last Admin: 03/03/20 08:04 Dose: 2 tab Sodium Chloride (Flush - Normal Saline) 10 ml IVF Q12HR [facility] Last Admin: 03/08/20 08:53 Dose: 10 ml Sodium Chloride (Flush - Normal Saline) 10 ml IVF PRN PRN PRN Reason: Saline Flush Trazodone HCl (Desyrel) 50 mg PO HS [facility] Last Admin: 03/07/20 20:18 Dose: 50 mg Vital Signs & Weight: Vital Signs Temp Pulse Resp BP Pulse Ox 03/08/20 08:52 98.2 F 70 17 172/75 H 95 03/08/20 08:33 94 L 03/08/20 03:42 98.1 F 58 L 18 150/67 H 94 L 03/08/20 00:53 56 L 133/56 L Admit Weight 172 lb 3.2 oz Weight 177 lb I/O: I/O 03/07/20 03/08/20 03/09/20 06:59 06:59 06:59 Intake Total 1170 720 Output Total 2500 2400 Balance -1330 -1680 - Physical Exam General: alert & oriented x3, appears well, no apparent distress, speech clear, affect appropriate HEENT: mucus membranes moist, normocephaly Neck: supple neck, midline trachea, no JVD/HJR, no masses, no bruit, no lymphadenopathy, no thromegaly Cardiology: regular rate and rhythm, PMI nondisplaced Lungs: clear to auscultation, normal breath sounds, no wheeze, rales, rhonchi Neurology: cranial nerve 2-12 intact, grossly intact, motor function intact, coordination normal, no lateralizing findings Abdomen: unremarkable, active bowel sounds, no pulsations/bruits Extremities: dry, strong pulses, warm Skin: device site stable w/o swelling, bruising, left sided device ( device implant site is stable with minimal bruising and swelling. Edges are well approximated.). negative: drainage, hematoma - Labs Result Diagrams: 03/07/20 03:32 03/07/20 03:32 - EKG Interpretation EKG Method: Telemetry EKG shows: Sinus rhythm - Assessment/Plan Assessment/Plan: 1. Single-chamber ICD, [employer] - post implant chest x-ray stable no evidence of pneumothorax - post implant device check is stable with normal device function - post implant incisional pain, no p.r.n. medications administered despite reporting 7/10 pain. 2. cardiomyopathy, severely reduced LVEF device function and chest x-ray are stable post implant. Will order p.r.n. pain medications and may also use intermittent ice pack to address her discomfort. She will require 7 days antibiotic post implant and when check in 2 weeks. Once her pain is controlled she is cleared to discharge by EP.
[2020-03-08] MEDS ORDERED: Acetaminophen/Codeine 30-300mg Tablet PO SCH (10:30)
[2020-03-08] MEDS: HumaLOG 300 UNITS/3 ML VIAL SC PRN (12:33)
[2020-03-08 13:19] VITALS: BMI 32.3
[2020-03-08] MEDS: Cephalexin 250 MG CAP PO SCH ×2 (15:24→20:11)
[2020-03-08 17:36] LABS: Anion Gap 11 mmol/L (10-20); BUN (Urea Nitrogen) 54 mg/dL (9.8-20.1); Calc. Creatinine Clearance 31 mL/min (70-130); Calcium 8.3 mg/dL (7.8-10.44); Carbon Dioxide 23 mmol/L (23-31); Chloride 104 mmol/L (98-107); Estimated GFR-MDRD 23; Glucose 123 mg/dL (83-110); Sodium 134 mmol/L (136-145)
[2020-03-08] MEDS: traZODone HCl 50 MG TAB PO SCH (20:11)
[2020-03-08] MEDS: Atorvastatin Calcium 10 MG TAB PO SCH (20:11)
[2020-03-08] MEDS: Amitriptyline HCl 25 MG TAB PO SCH (20:12)
[2020-03-08] MEDS: Acetaminophen/Codeine 30-300mg Tablet PO PRN ×2 (20:14→23:42)
[2020-03-08] MEDS: Melatonin 3 MG TAB PO PRN (23:42)
[2020-03-08] MEDS: Albumin 25% 25 GM/100 ML BOT IVPB SCH (23:43)
[2020-03-09] MEDS: Albumin 25% 25 GM/100 ML BOT IVPB SCH
[2020-03-09 00:42] LABS: Bacteria/HPF None Seen HPF (None Seen); Bilirubin Negative (Negative); Blood, Urine Negative (Negative); Clarity Clear (Clear); Glucose, Urine (Dipstick) Normal (Negative); Ketone, Urine Negative (Negative); Leukocyte Negative Leu/uL (Negative); Nitrite Negative (Negative); Protein, Urine (Dipstick) 50 mg/dL (Neg-Trace); RBC/HPF 0-3 HPF (0-3); Specific Gravity, Urine 1.008 (1.002-1.036); Squamous Epithelial None Seen HPF (0-3); Urobilinogen Normal mg/dL (Less than 2); WBC/HPF 0-3 HPF (0-3)
[2020-03-09 00:44] LABS: Urine Culture Reflex No No
[2020-03-09 01:03] LABS: Creatinine, Urine Less than 20.00 mg/dL (47-110); Protein, Urine Random Quant 52 mg/dL (1-14); Sodium, Urine 75 mmol/L (Not Available); Urea Nitrogen, Random Urine 191 mg/dl
[2020-03-09 04:14] LABS: #Eosinphils 0.3 thou/uL (0.0-0.7); #Lymphocytes 1.5 thou/uL (1.20-3.40); #Monocytes 0.6 thou/uL (0.11-0.59); #Neutrophils 1.7 thou/uL (1.40-6.50); %Eosinophils 7.4 % (0.0-10.0); %Lymphocytes 36.4 % (21.0-51.0); %Monocytes 14.4 % (0.0-10.0); %Neutrophils 40.8 % (42.0-75.0); Hemoglobin 7.8 g/dL (12.0-16.0); Mean Corpuscular HGB CONC 32.4 g/dL (32.0-36.0); Mean Corpuscular Hemoglobin 30.6 pg (27.0-31.0); Mean Corpuscular Volume 94.5 fL (78.0-98.0); Mean Platelet Volume 8.2 fL (7.4-10.4); Platelet Count 209 thou/uL (130-400); RBC Distribution Width 15.5 % (11.5-14.5); Red Blood Cell (RBC) Count 2.53 mill/uL (4.20-5.40); White Blood Cell (WBC) Count 4.1 thou/uL (4.8-10.8)
[2020-03-09 04:32] LABS: Anion Gap 13 mmol/L (10-20); BUN (Urea Nitrogen) 57 mg/dL (9.8-20.1); Calc. Creatinine Clearance 29 mL/min (70-130); Calcium 8.5 mg/dL (7.8-10.44); Carbon Dioxide 25 mmol/L (23-31); Chloride 103 mmol/L (98-107); Estimated GFR-MDRD 22; Glucose 172 mg/dL (83-110); Potassium 3.9 mmol/L (3.5-5.1); Sodium 137 mmol/L (136-145)
[2020-03-09] MEDS: Cephalexin 250 MG CAP PO SCH ×4 (05:15→21:04)
[2020-03-09] MEDS: HumaLOG 300 UNITS/3 ML VIAL SC PRN ×3 (06:25→18:08)
[2020-03-09] MEDS: Carvedilol 25 MG TAB PO SCH ×2 (08:07→18:08)
[2020-03-09] MEDS: Ferrous Sulfate 325 MG TAB PO SCH ×2 (08:07→18:09)
[2020-03-09] MEDS: Acetaminophen/Codeine 30-300mg Tablet PO PRN ×2 (08:08→21:06)
[2020-03-09] MEDS: Isosorbide Dinitrate 5 MG TAB PO SCH (08:08)
[2020-03-09] MEDS: Aspirin Chewable 81 MG TAB PO SCH (08:08)
[2020-03-09] MEDS: hydrALAZINE 25 MG TAB PO SCH ×3 (08:08→21:04)
[2020-03-09] MEDS: Furosemide 40 MG TAB PO SCH ×2 (08:08→14:08)
[2020-03-09] MEDS ORDERED: Albumin 25% 25 GM/100 ML BOT IVPB SCH (11:25)
--- NOTE | 2020-03-09 11:26 | PDOC.EP ---
- Subjective Date: 03/09/20 Time: 11:24 Interval History: Follow up s/p ICD implant. + headache, incision discomfort. - Review of Systems Respiratory: denies: cough, shortness of breath, wheezing Cardiology: denies: chest pain, heart racing, light headedness, palpitations, passing out Gastrointestinal: denies: abdominal pain, constipation, nausea, vomitting Musculoskeletal: denies: unstable gait, falls, neck pain, shoulder pain Neurological: reports: headache - Objective Allergies/Adverse Reactions: Allergies Allergy/AdvReac Type Severity Reaction Status Date / Time No Known Allergies Allergy Verified 02/09/20 22:45 Current Medications Acetaminophen (Tylenol) 650 mg PO Q4H PRN PRN Reason: Headache/Fever/Mild Pain (1-3) Last Admin: 03/08/20 08:53 Dose: 650 mg Acetaminophen/Codeine Phosphate (Tylenol #3) 1 tab PO Q4H PRN PRN Reason: Moderate to Severe Pain (6-10) Last Admin: 03/09/20 08:08 Dose: 1 tab Alprazolam (Xanax) 0.25 mg PO BIDPRN PRN PRN Reason: Anxiety Last Admin: 03/08/20 08:53 Dose: 0.25 mg Amitriptyline HCl (Elavil) 25 mg PO [facility] Last Admin: 03/08/20 20:12 Dose: 25 mg Aspirin (Aspirin Chewable) 81 mg PO DAILY [facility] Last Admin: 03/09/20 08:08 Dose: 81 mg Atorvastatin Calcium (Lipitor) 10 mg PO [facility] Last Admin: 03/08/20 20:11 Dose: 10 mg Bisacodyl (Dulcolax) 10 mg [place] DAILYPRN PRN PRN Reason: Constipation Carvedilol (Coreg) 25 mg PO BID-[facility] Last Admin: 03/09/20 08:07 Dose: 25 mg Cephalexin (Keflex) 500 mg PO 0300,0900,1500,2100 [facility] Stop: 03/15/20 09:01 Last Admin: 03/09/20 08:08 Dose: 500 mg Dextrose/Water (Dextrose 50%) 25 gm SLOW IVP PRN PRN PRN Reason: Hypoglycemia Diphenhydramine HCl (Benadryl) 25 mg PO HSPRN PRN PRN Reason: Itching & Insomnia Last Admin: 03/06/20 00:35 Dose: 25 mg Ferrous Sulfate (Feosol) 325 mg PO BID-[facility] Last Admin: 03/09/20 08:07 Dose: 325 mg Furosemide (Lasix) 40 mg PO 0900,1400 [facility] Last Admin: 03/09/20 08:08 Dose: 40 mg Glucagon (Glucagon) 1 mg IM PRN PRN PRN Reason: Hypoglycemia Guaifenesin/Dextromethorphan (Robitussin Dm) 15 ml PO Q4H PRN PRN Reason: Cough Hydralazine HCl (Apresoline) 100 mg PO TID [facility] Last Admin: 03/09/20 08:08 Dose: 100 mg Dextrose/Water (D5w) 1,000 mls @ 0 mls/hr IV .Q0M PRN PRN Reason: Hypoglycemia Insulin Human Lispro (Humalog) 0 units SC .MODERATE SLIDING SC PRN; Protocol PRN Reason: MODERATE SLIDING SCALE Last Admin: 03/09/20 06:25 Dose: 2 unit Insulin Human Lispro (Humalog) 0 units [place] .BEDTIME SLIDING SC PRN PRN Reason: Bedtime Correctional Scale Last Admin: 03/07/20 22:20 Dose: 4 unit Isosorbide Dinitrate (Isordil) 5 mg PO BID [facility] Last Admin: 03/09/20 08:08 Dose: 5 mg Melatonin (Melatonin) 3 mg PO HS PRN PRN Reason: Insomnia Last Admin: 03/08/20 23:42 Dose: 3 mg Morphine Sulfate (Morphine) 2 mg SLOW IVP Q4H PRN PRN Reason: Moderate Chest Pain (4-6) Nitroglycerin (Nitrostat) 0.4 mg SL Q5MIN PRN PRN Reason: Chest Pain Ondansetron HCl (Zofran) 4 mg IVP Q6H PRN PRN Reason: Nausea/Vomiting Last Admin: 03/03/20 02:58 Dose: 4 mg Senna/Docusate Sodium (Senokot S) 2 tab PO BID PRN PRN Reason: Constipation Last Admin: 03/03/20 08:04 Dose: 2 tab Sodium Chloride (Flush - Normal Saline) 10 ml IVF Q12HR [facility] Last Admin: 03/09/20 08:10 Dose: 10 ml Sodium Chloride (Flush - Normal Saline) 10 ml IVF PRN PRN PRN Reason: Saline Flush Trazodone HCl (Desyrel) 50 mg PO HS [facility] Last Admin: 03/08/20 20:11 Dose: 50 mg Vital Signs & Weight: Vital Signs Temp Pulse Resp BP BP Pulse Ox 03/09/20 08:08 67 168/73 H 03/09/20 08:06 98.5 F 67 16 168/73 H 98 03/09/20 07:37 96 03/09/20 03:31 98.6 F 70 18 161/66 H 96 Admit Weight 172 lb 3.2 oz Weight 178 lb 9.6 oz I/O: I/O 03/08/20 03/09/20 03/10/20 06:59 06:59 06:59 Intake Total 720 1820 Output Total 2400 1800 Balance -1680 20 - Physical Exam General: alert & oriented x3, appears well, no apparent distress, speech clear, affect appropriate, other (poor memory) HEENT: mucus membranes moist Neck: supple neck, midline trachea, no lymphadenopathy Cardiology: regular rate and rhythm, PMI nondisplaced Lungs: clear to auscultation, normal breath sounds, no wheeze, rales, rhonchi Neurology: cranial nerve 2-12 intact, grossly intact, no lateralizing findings Abdomen: unremarkable, active bowel sounds, no pulsations/bruits Skin: device site stable w/o swelling - Labs Result Diagrams: 03/09/20 04:04 03/09/20 04:04 - EKG Interpretation EKG Method: Telemetry EKG shows: Sinus rhythm - Assessment/Plan Assessment/Plan: 1. Single-chamber ICD, [employer] - post implant chest x-ray stable no evidence of pneumothorax - post implant device check is stable with normal device function - post implant incisional pain, no p.r.n. medications administered despite reporting 3/10 pain. 2. cardiomyopathy, severely reduced LVEF device function and chest x-ray are stable post implant. PRN pain meds while in hospital. Tylenol should be adequate upon DC. She will require 7 days antibiotic post implant and wound check in 2 weeks (appt in [place] paperwork). cleared to discharge by EP Signing off
--- NOTE | 2020-03-09 12:58 | PDOC.HOSPP ---
- Subjective Encounter Date: 03/09/20 Encounter Time: 07:00 Subjective: Pt seen for followup re: WILIAM. She denies chest pain. - Objective Vital Signs & Weight: Vital Signs (12 hours) Temp Pulse Resp BP BP Pulse Ox 03/09/20 08:08 67 168/73 H 03/09/20 08:06 98.5 F 67 16 168/73 H 98 03/09/20 07:37 96 03/09/20 03:31 98.6 F 70 18 161/66 H 96 Weight Admit Weight 172 lb 3.2 oz Weight 178 lb 9.6 oz I&O: 03/08/20 03/09/20 03/10/20 06:59 06:59 06:59 Intake Total 720 1820 Output Total 2400 1800 Balance -1679 20 Result Diagrams: 03/09/20 04:04 03/09/20 04:04 Additional Labs: Accuchecks 03/09/20 03/09/20 03/08/20 10:30 05:46 20:42 POC Glucose 235 H 180 H 292 H 03/08/20 16:32 POC Glucose 129 H Labs and MARs reviewed by me EKG Reviewed by me: Yes (Tele: NSR) Hospitalist ROS - Review of Systems Cardiovascular: denies: chest pain, palpitations, orthopnea, paroxysmal noc. dyspnea, edema, light headedness Gastrointestinal: denies: nausea, vomiting, abdominal pain, diarrhea, constipation, melena, hematochezia - Medication Medications: Active Medications Generic Name Dose Route Start Last Admin Trade Name Freq PRN Reason Stop Dose Admin Acetaminophen 650 mg 03/02/20 21:06 03/08/20 08:53 Tylenol PO 650 mg Q4H PRN Administration Headache/Fever/Mild Pain (1-3) Acetaminophen/Codeine Phosphate 1 tab 03/08/20 14:30 03/09/20 08:08 Tylenol #3 PO 1 tab Q4H PRN Administration Moderate to Severe Pain (6-10) Albumin Human 25 gm 03/09/20 11:25 03/09/20 12:09 Albumin 25% IVPB 03/09/20 13:35 25 gm NOW ABHILASH Administration Alprazolam 0.25 mg 03/06/20 07:33 03/08/20 08:53 Xanax PO 0.25 mg BIDPRN PRN Administration Anxiety Amitriptyline HCl 25 mg 03/02/20 21:00 03/08/20 20:12 Elavil PO 25 mg HS ABHILASH Administration Aspirin 81 mg 03/02/20 09:00 03/09/20 08:08 Aspirin Chewable PO 81 mg DAILY ABHILASH Administration Atorvastatin Calcium 10 mg 03/03/20 21:00 03/08/20 20:11 Lipitor PO 10 mg HS ABHILASH Administration Carvedilol 25 mg 03/04/20 17:00 03/09/20 08:07 Coreg PO 25 mg BID-WM ABHILASH Administration Cephalexin 500 mg 03/08/20 15:00 03/09/20 08:08 Keflex PO 03/15/20 09:01 500 mg 0300,0900,1500,2100 ABHILASH Administration Diphenhydramine HCl 25 mg 03/06/20 00:22 03/06/20 00:35 Benadryl PO 25 mg HSPRN PRN Administration Itching & Insomnia Ferrous Sulfate 325 mg 03/02/20 08:00 03/09/20 08:07 Feosol PO 325 mg BID-WM ABHILASH Administration Furosemide 40 mg 03/05/20 09:00 03/09/20 08:08 Lasix PO 40 mg 0900,1400 ABHILASH Administration Hydralazine HCl 100 mg 03/07/20 21:00 03/09/20 08:08 Apresoline PO 100 mg TID ABHILASH Administration Insulin Human Lispro 0 units 03/05/20 12:18 03/09/20 12:09 Humalog SC 4 unit .MODERATE SLIDING SC PRN Administration MODERATE SLIDING SCALE Protocol Insulin Human Lispro 0 units 03/07/20 22:07 03/07/20 22:20 Humalog SC 4 unit .BEDTIME SLIDING SC PRN Administration Bedtime Correctional Scale Melatonin 3 mg 03/05/20 22:18 03/08/20 23:42 Melatonin PO 3 mg HS PRN Administration Insomnia Ondansetron HCl 4 mg 03/02/20 06:41 03/03/20 02:58 Zofran IVP 4 mg Q6H PRN Administration Nausea/Vomiting Senna/Docusate Sodium 2 tab 03/02/20 06:41 03/03/20 08:04 Senokot S PO 2 tab BID PRN Administration Constipation Sodium Chloride 10 ml 03/02/20 09:00 03/09/20 08:10 Flush - Normal Saline IVF 10 ml Q12HR ABHILSAH Administration Trazodone HCl 50 mg 03/02/20 21:00 03/08/20 20:11 Desyrel PO 50 mg HS ABHILASH Administration - Exam General Appearance: NAD Eye: PERRL ENT: no oropharyngeal lesions Neck: supple Heart: RRR Respiratory: CTAB Gastrointestinal: soft, non-tender Skin: no rashes Psychiatric: normal affect, normal behavior Hosp A/P - Plan Assessment/Plan: #acute on chronic stage 3 renal failure -albumin infusion. -Hold Entresto #acute on chronic systolic heart failure NYHA III -Improved -Continue oral furosemide #HTN -monitor vital signs and titrate antihypertensives as needed -hydralazine dose increased to 100 mg TID today #nonischemic cardiomyopathy -for ICD placement today
[2020-03-09] MEDS: Isosorbide Dinitrate 20 MG TAB PO SCH ×2 (14:08→21:05)
[2020-03-09] MEDS ORDERED: Metolazone 5 MG TAB PO SCH (14:30)
--- NOTE | 2020-03-09 18:03 | CON ---
DATE OF CONSULTATION: 03/08/2020 SERVICE: Nephrology. REASON FOR CONSULTATION: Acute increase in creatinine and generalized edema. REQUESTING PHYSICIAN: Dr. Manny Pathak. CHIEF COMPLAINT: Worsening shortness of breath. HISTORY OF PRESENT ILLNESS: A 74-year-old female with known history of cardiomyopathy with chronic systolic heart failure, diabetes, and others, who was admitted on March 02 due to worsening shortness of breath associated with worsening edema as well as nausea and vomiting and chest pain. Impression of CHF exacerbation was made and the patient was started on diuretic therapy. She later also had a cardiac catheterization and ICD placement on March 04. The patient, with recurrent acute kidney injury in the past, had a creatinine of 1.40 on admission, which has increased to 2.26 hence Nephrology consult. The patient has been getting diuretics since admission and has good diuresis as well. She denied nausea or vomiting currently. There is also no history of fever. Of note, the patient was on lisinopril as well as Entresto prior to hospitalization, which was however a mistake that she was supposed to have stopped lisinopril. Lisinopril was discontinued since admission. PAST MEDICAL HISTORY: 1. Nonischemic cardiomyopathy with reduced systolic function. 2. Diabetes mellitus type 2. 3. Hypertension. 4. Gastroesophageal reflux disease. 5. Obesity. 6. Noncompliance. PAST SURGICAL HISTORY: 1. Right foot surgery. 2. Prior cardiac catheterization. 3. Tubal ligation. FAMILY HISTORY: Significant for diabetes in mother and coronary artery disease in father. SOCIAL HISTORY: The patient is . She denied recreational drug abuse or alcohol use. There is also no history of smoking. ALLERGIES: NO KNOWN DRUG ALLERGIES REPORTED. PRIOR TO HOSPITAL MEDICATIONS: 1. Acetaminophen with Codeine 300/30 mg tablet 1 to 2 q.6h p.r.n. for pain. 2. Amitriptyline 25 mg p.o. daily at bedtime. 3. Aspirin 81 mg p.o. daily. 4. Tresiba 5 units subcutaneously daily. 5. Potassium chloride 8 mEq tablet daily. 6. Trazodone 50 mg daily at bedtime. 7. Lipitor 10 mg p.o. daily. 8. Carvedilol 25 mg p.o. b.i.d. 9. .. 10. Ferrous sulfate 325 mg b.i.d. 11. Hydralazine 75 mg p.o. t.i.d. 12. Entresto b.i.d. 13. Clonidine 0.1 mg b.i.d. 14. Amlodipine 5 mg p.o. daily. CURRENT HOSPITAL MEDICATIONS: 1. Amitriptyline 25 mg p.o. daily at bedtime. 2. Aspirin 81 mg p.o. daily. 3. Lipitor 10 mg daily at bedtime. 4. Carvedilol 25 mg p.o. b.i.d. 5. Keflex 500 mg q.i.d. 6. Ferrous sulfate 325 p.o. b.i.d. 7. Furosemide 40 mg p.o. b.i.d. 8. Hydralazine 100 mg p.o. t.i.d. 9. Isosorbide mononitrate 5 mg p.o. b.i.d. 10. Trazodone 50 mg daily at bedtime. 11. Sublingual nitroglycerin as needed. 12. Acetaminophen as needed. 13. Xanax as needed. 14. The patient was on Entresto of . This was discontinued earlier today. REVIEW OF SYSTEMS: A 12-point review of systems performed was negative other than pertinent positives and negatives included in the history of present illness. PHYSICAL EXAMINATION: VITAL SIGNS: Temperature 98.7, pulse 72, respiratory rate 18, SpO2 of 97% on room air, and blood pressure is 155/67. I and O in the last 24 hours showed total intake of somewhere around with total output of 2400. The patient's weight is up from 174 on admission to 177 today. GENERAL: Obese female, in no obvious distress. Afebrile. Anicteric. Acyanotic. HEENT: Normocephalic and atraumatic. Oral mucosa is moist. NECK: Supple with no obvious JVD. CARDIOVASCULAR: Regular rhythm and rate with normal heart sounds one and two. RESPIRATORY: Fair air entry bilaterally with few transmitted breath sounds. No obvious crackle, rhonchi, or use of accessory muscles appreciated. GASTROINTESTINAL: Obese, soft, nontender, and nondistended with normal bowel sounds. MUSCULOSKELETAL: Left upper chest ICD noted with well-apposed surgical incision. [id number] bilateral lower extremity edema noted. Abdominal wall edema also is noted. 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 Cranial nerves 2 through 12 are grossly intact. DIAGNOSTIC DATA: CBC showed WBC count of 3.5, hemoglobin of 7.6, MCV of 94.8, and platelets of 200. Chemistry showed sodium 134, potassium 4.0, chloride 104, CO2 of 23, BUN 54, creatinine 2.09, glucose 123, and calcium 8.3. Most recent chest x-ray performed on March 07 showed interval placement of left-sided transvenous defibrillator with no pneumothorax. Pulmonary vessels and hilum are normal, and the costophrenic angles are clear with no consolidation or mass. ASSESSMENT: 1. Acute kidney injury: Due to hemodynamic factors related to cardiac decompensation and aggressive diuresis. Contribution from medication cannot be ruled out. Contrast-induced nephropathy is another concern. The patient had contrast study on March 04. However, creatinine trending down a little bit from peak of 2.26 to 2.06 is not consistent with contrast-induced nephropathy. 2. Chronic kidney disease, stage 3/4: Due to diabetes, cardiorenal syndrome, and hypertension. Baseline creatinine seems to range from 1.3 to 1.6. 3. Nonischemic cardiomyopathy with ejection fraction around 25 to 30. Status post ICD placement. 4. Anasarca/volume overload: Due to cardiac decompensation and fluid overload. 5. Hypertension: Control is suboptimal. 6. Obesity. 7. Diabetes mellitus. PLAN: 1. Agree with holding of Entresto at this point due to worsening renal function. 2. We will give a dose of albumin and continue with diuretics to help mobilize third-space fluid. 3. Mild hyponatremia also is consistent with intravascular contraction with appropriate ADH secretion. 4. We will also get urinalysis as well as urine electrolytes and urine protein-creatinine ratio. 5. We will monitor vitals overnight with a view to adjust antihypertensives medications. Many thanks for involving us in the care of this patient. We will follow along with you. Further treatment to follow depending on hospital course. Job ID: [id number]
--- NOTE | 2020-03-09 18:03 | PRG ---
DATE OF SERVICE: 03/09/2020 SERVICE: Nephrology. SUBJECTIVE: A 74-year-old female with CKD, diabetes, acute on chronic heart failure, seen in followup for acute on chronic kidney disease and volume overload. The patient reports feeling better. Still complaining of neck pain and edema. Denied shortness of breath, nausea, or vomiting. OBJECTIVE: VITAL SIGNS: Temperature 98.6, pulse 70, respiratory rate 18, SpO2 of 96% on room air, blood pressure is 161/66. I's and O's in the last 24 hours showed total intake of 1820 with total output of 1800. GENERAL: Obese female, in no obvious distress. Afebrile. Anicteric. Acyanotic. HEENT: Normocephalic, atraumatic. Oral mucosa is moist. NECK: Supple with no obvious JVD. CARDIOVASCULAR: Regular rhythm and rate with normal heart sounds. RESPIRATORY: Fair air entry bilaterally with few transmitted breath sounds. No obvious rhonchi or use of accessory muscles appreciated. GI: Obese, soft, nontender, nondistended with normal bowel sounds. MUSCULOSKELETAL: Mild to moderate edema of both lower extremity extending to the thigh noted. 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 DIAGNOSTIC DATA: CBC today showed WBC count of 4.1, hemoglobin of 7.8, platelet of 208. Chemistry showed serum creatinine 2.21, BUN 57, sodium 137, potassium 3.9, chloride 103, CO2 of 25, glucose 172, calcium 8.5. Urinalysis earlier today showed clear colorless urine with pH of 6.0, specific gravity of 1.008, urine protein 50, negative ketone, blood, nitrite, bilirubin, urobilinogen, and leukocyte esterase. Microscopy showed 0 to 3 rbc and 0 to 3 wbc. Urine protein to creatinine ratio is 2.5 g of protein per g of creatinine. Urine sodium is 75 and urine urea nitrogen is 191 with fractional excretion of sodium and urea, not suggestive of prerenal. ASSESSMENT: 1. Acute kidney injury: Due to cardiorenal syndrome with possible contribution from intravascular contraction. 2. Chronic kidney disease stage 3-4. 3. Volume overload: Due to CHF exacerbation with possible contribution from hypoalbuminemia. 4. Proteinuria with UPC of 2.5 g/g of creatinine. 5. Hypertension: Control is suboptimal. 6. Nonischemic cardiomyopathy with ejection fraction of about 25% to 30%, status post ICD placement. PLAN: 1. We will continue diuretics. We will however add another dose of albumin to help mobilize third-space fluid. We will also increase the isosorbide dinitrate to 20 to help get better BP control. 2. We will give a dose of metolazone. 3. We will recheck renal function in the morning. Further treatment to follow depending on hospital course. Job ID: [id number]
[2020-03-09] MEDS: Atorvastatin Calcium 10 MG TAB PO SCH (21:05)
[2020-03-09] MEDS: Amitriptyline HCl 25 MG TAB PO SCH (21:05)
[2020-03-09] MEDS: traZODone HCl 50 MG TAB PO SCH (21:05)
[2020-03-09] MEDS: Melatonin 3 MG TAB PO PRN (21:06)
[2020-03-10] MEDS: Acetaminophen 325 MG TAB PO PRN (00:36)
[2020-03-10] MEDS: Cephalexin 250 MG CAP PO SCH ×2 (03:59→08:27)
[2020-03-10 04:59] LABS: #Basophils 0.1 thou/uL (0.0-0.2); #Eosinphils 0.3 thou/uL (0.0-0.7); #Lymphocytes 1.6 thou/uL (1.20-3.40); #Monocytes 0.5 thou/uL (0.11-0.59); #Neutrophils 1.9 thou/uL (1.40-6.50); %Basophils 1.2 % (0.0-1.0); %Eosinophils 7.7 % (0.0-10.0); %Lymphocytes 36.2 % (21.0-51.0); %Monocytes 11.8 % (0.0-10.0); %Neutrophils 43.2 % (42.0-75.0); Hemoglobin 7.9 g/dL (12.0-16.0); Mean Corpuscular HGB CONC 32.7 g/dL (32.0-36.0); Mean Corpuscular Hemoglobin 30.9 pg (27.0-31.0); Mean Corpuscular Volume 94.4 fL (78.0-98.0); Mean Platelet Volume 8.7 fL (7.4-10.4); Platelet Count 216 thou/uL (130-400); RBC Distribution Width 15.2 % (11.5-14.5); Red Blood Cell (RBC) Count 2.56 mill/uL (4.20-5.40); White Blood Cell (WBC) Count 4.5 thou/uL (4.8-10.8)
[2020-03-10 05:22] LABS: Albumin 3.1 g/dL (3.4-4.8); Anion Gap 12 mmol/L (10-20); BUN (Urea Nitrogen) 56 mg/dL (9.8-20.1); BUN/Creatinine Ratio 30.11; Calc. Creatinine Clearance 35 mL/min (70-130); Calcium 8.8 mg/dL (7.8-10.44); Carbon Dioxide 25 mmol/L (23-31); Chloride 101 mmol/L (98-107); Estimated GFR-MDRD 27; Glucose 140 mg/dL (83-110); Phosphorus 3.9 mg/dL (2.3-4.7); Potassium 3.8 mmol/L (3.5-5.1); Sodium 134 mmol/L (136-145)
[2020-03-10] MEDS: HumaLOG 300 UNITS/3 ML VIAL SC PRN ×2 (06:14→12:09)
[2020-03-10] MEDS ORDERED: Metolazone 5 MG TAB PO SCH (07:00)
[2020-03-10] MEDS ORDERED: Albumin 25% 25 GM/100 ML BOT IVPB SCH (07:00)
[2020-03-10] MEDS: Carvedilol 25 MG TAB PO SCH (08:26)
[2020-03-10] MEDS: hydrALAZINE 25 MG TAB PO SCH (08:27)
[2020-03-10] MEDS: Isosorbide Dinitrate 20 MG TAB PO SCH (08:27)
[2020-03-10] MEDS: Furosemide 40 MG TAB PO SCH ×2 (08:27→14:48)
[2020-03-10] MEDS: Ferrous Sulfate 325 MG TAB PO SCH (08:27)
[2020-03-10] MEDS: Aspirin Chewable 81 MG TAB PO SCH (08:27)
[2020-03-10] MEDS ORDERED: Morphine 2 MG/ML VIAL SLOW IVP PRN (09:04)
[2020-03-10] MEDS ORDERED: Bisacodyl 5 MG TAB PO SCH (11:15)
[2020-03-10 11:50] VITALS: BP 144/65; TEMP 98.3
--- NOTE | 2020-03-10 14:23 | PRG ---
DATE OF SERVICE: SERVICE: Nephrology. SUBJECTIVE: A 74-year-old female, seen in followup for acute kidney injury and volume overload as well as anasarca. Patient with cardiomyopathy, was admitted due to worsening shortness of breath and edema. Clinically improved, off oxygen. Still complaining of leg pain, but also reported that swelling has improved. No fever, shortness of breath, or chest pain. OBJECTIVE: VITAL SIGNS: Temperature 98.2, pulse 99, respiratory rate 18, SpO2 of 96% on room air, and blood pressure is 166/73. I and O in the last 24 hours showed total intake of 1170 with total output of 1250. GENERAL: Obese female, in no obvious distress. Afebrile, anicteric, acyanotic. HEENT: Normocephalic, atraumatic. Oral mucosa is moist. CARDIOVASCULAR: Regular rhythm and rate with normal heart sounds 1 and 2. RESPIRATORY: Fair air entry bilaterally with few transmitted breath sounds. Air entry is mildly decreased at both bases. GI: Obese, soft, nontender with normal bowel sounds. EXTREMITIES: Mild bilateral leg edema noted. No erythema appreciated. 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 Cranial nerves 2 through 12 are grossly intact. DIAGNOSTIC DATA: CBC showed WBC count of 4.5, hemoglobin of 7.9, platelets of 216. Renal function panel showed sodium 134, potassium 3.8, chloride 101, CO2 of 25, BUN 56, creatinine 1.86, glucose 140, calcium 8.8, phosphorus 3.9, albumin 3.1. ASSESSMENT: 1. Acute kidney injury: Due to hemodynamic factors related to intravascular contraction as well as cardiorenal syndrome. Creatinine is trending down to 1.86 with mobilization of fluid with albumin and diuresis. 2. Volume overload/generalized edema: Improved with diuresis. Albumin addition helped. 3. Hypoalbuminemia. 4. Obesity. 5. Acute on chronic heart failure. 6. Ischemic cardiomyopathy, status post ICD placement. 7. Mild hyponatremia: Most likely due to congestive heart failure exacerbation. 8. Chronic kidney disease, stage 3-4. PLAN: 1. We will continue diuretics. 2. We will also expand intravascular space with albumin to help mobilize third space fluid. 3. We will give additional dose of metolazone for improved diuresis with furosemide. 4. We will recheck renal function test in the morning. 5. Discharge contemplated tomorrow. Job ID: [id number]
--- NOTE | 2020-03-10 15:21 | DIS ---
DATE OF ADMISSION: 03/02/2020 DATE OF DISCHARGE: 03/10/2020 PRIMARY CARE PROVIDER: [facility]. DISCHARGE DIAGNOSES: 1. Acute on chronic systolic congestive heart failure, [place] Heart Association class III. 2. Nonischemic cardiomyopathy. 3. Acute on chronic stage 3 renal failure. 4. Hyponatremia. CONDITION OF THE PATIENT ON THE DAY OF DISCHARGE: Stable. I assessed Ms. Sheridan on the day of discharge. She denies any chest pain. Vital signs are stable. S1 and S2 are heard, regular. Lungs are clear to auscultation bilaterally. CONSULTATIONS DURING THIS HOSPITALIZATION: Cardiology, Dr. Mehta. Electrophysiology, Dr. Ellis. Nephrology, Dr. Walker. DISCHARGE MEDICATIONS: 1. Tylenol No. 3 p.r.n. 2. Amitriptyline 25 mg at bedtime. 3. Aspirin 81 mg daily. 4. Tresiba 5 units daily. 5. Potassium chloride 8 mEq daily. 6. Trazodone 50 mg at bedtime. 7. Lipitor 10 mg at bedtime. 8. Coreg 25 mg 2 times a day. 9. Cephalexin 500 mg every 6 hours for 5 days. 10. Ferrous sulfate 325 mg 2 times a day. 11. Lasix 40 mg 2 times a day. 12. Hydralazine 100 mg 3 times a day. 13. Isosorbide dinitrate 20 mg 3 times a day. The patient has also been advised to follow up with her supervisor fiberglass boat assembly for consideration for Entresto once her renal function stabilizes. HOSPITAL COURSE: Ms. Sheridan is a pleasant 74-year-old lady who was admitted to [facility] on March 02, 2020, for congestive heart failure exacerbation. Please refer to Dr. Jacobson's history and physical note, dated March 02, 2020, for further details. She received intravenous diuretics. She was seen by Cardiology Service. 2D echocardiogram on March 02 showed a trivial pericardial effusion, mildly increased left ventricular size, left ventricular ejection fraction of 25% to 30%, moderately dilated left atrium, severe mitral regurgitation, [id number] aortic regurgitation and [id number]-[id number] tricuspid regurgitation. She had mild pulmonic regurgitation. She underwent cardiac catheterization on March 04, 2020. She was found to have 2-vessell coronary artery disease in LAD and RCA and normal mid LAD FFR. She had abdominal aortic ultrasound, which did not show any aortic aneurysm. She was seen by Electrophysiology Service and was recommended ICD placement. She underwent ICD placement on March 07, 2020. She developed acute on chronic renal insufficiency. She was seen by Nephrology Service. Entresto was held. Her renal function improved, and she is being discharged home in a stable condition. LABORATORY DATA: On the day of discharge, she has sodium 134, potassium 3.8, creatinine 1.86. White count 4500, hemoglobin 7.9, and platelet count 216,000. Many thanks for allowing me to participate in your patient's care. Please feel free to contact me with any questions or concerns. POST-ACUTE CARE FOLLOWUP: With primary care provider on March 15, 2020 at 1 p.m., with [facility] on March 24, 2020 at 2:20 p.m., with Cardiac Rehab on March 14, 2020 at 1:15 p.m., with her supervisor fiberglass boat assembly in 2 to 3 weeks, with body painter on March 24, 2020 at 10 a.m. DIET: Diabetic, heart healthy, low-sodium, and renal. ACTIVITY: No restrictions. Many thanks for allowing me to participate in your patient's care. Please feel free to contact me with any questions or concerns. DISCHARGE DESTINATION: Home. TIME SPENT: Total amount of time spent coordinating this discharge: 33 minutes. Job ID: [id number]
== END 2020-03-10 14:50 | disposition home or self-care (01) | DRG 222 ==
LOC: ERS 04:04 → 2NO 06:14
PROVIDERS: ADMIT Internal Medicine; ATTEND Internal Medicine
PROC: 4A023N7 Measurement of Cardiac Sampling and Pressure, Left Heart, Percutaneous Approach (ICD-10-PCS; 2020-03-04)
PROC: B2111ZZ Fluoroscopy of Multiple Coronary Arteries using Low Osmolar Contrast (ICD-10-PCS; 2020-03-04)
PROC: 0JH608Z Insertion of Defibrillator Generator into Chest Subcutaneous Tissue and Fascia, Open Approach (ICD-10-PCS; principal; 2020-03-07)
PROC: 02HK3KZ Insertion of Defibrillator Lead into Right Ventricle, Percutaneous Approach (ICD-10-PCS; 2020-03-07)
DX: I13.0 Hypertensive heart and chronic kidney disease with heart failure and stage 1 through stage 4 chronic kidney disease, or unspecified chronic kidney disease (principal); I50.23 Acute on chronic systolic (congestive) heart failure; N17.9 Acute kidney failure, unspecified; E87.1 Hypo-osmolality and hyponatremia; N18.3 Chronic kidney disease, stage 3 (moderate); I42.8 Other cardiomyopathies; I08.3 Combined rheumatic disorders of mitral, aortic and tricuspid valves; E11.22 Type 2 diabetes mellitus with diabetic chronic kidney disease; K21.9 Gastro-esophageal reflux disease without esophagitis; I25.10 Atherosclerotic heart disease of native coronary artery without angina pectoris; E66.9 Obesity, unspecified; E78.5 Hyperlipidemia, unspecified; Z91.14 Patient's other noncompliance with medication regimen; Z98.51 Tubal ligation status; Z79.82 Long term (current) use of aspirin; Z79.899 Other long term (current) drug therapy; Z68.31 Body mass index [BMI] 31.0-31.9, adult
CPT/HCPCS: 33249; 36005; 36415; 36416; 36600; 71045; 75820; 76775; 76942; 80048; 80053; 80061; 80069; 81001; 82553; 82570; 82607; 82746; 83540; 83550; 83735; 83880; 84156; 84300; 84443; 84484; 84540; 85025; 85347; 93005; 93306; 93454; 93571; 93641; 96374; 97139; 99152; 99153; C1722; C1769; C1777; J0153; J0360; J0583; J0690; J1580; J1644; J1650; J1815; J1940; J2250; J2270; J2405; J2704; J3010; P9047; Q0163; Q9967

== ENCOUNTER 2020-03-20 14:16 | Emergency (ER) | payer MEDICARE ==
[2020-03-20 15:03] LABS: #Eosinphils 0.1 thou/uL (0.0-0.7); #Monocytes 0.4 thou/uL (0.11-0.59); #Neutrophils 4.3 thou/uL (1.40-6.50); %Basophils 0.7 % (0.0-1.0); %Eosinophils 1.1 % (0.0-10.0); %Lymphocytes 17.3 % (21.0-51.0); %Neutrophils 73.9 % (42.0-75.0); Mean Corpuscular HGB CONC 32.6 g/dL (32.0-36.0); Mean Corpuscular Hemoglobin 30.2 pg (27.0-31.0); Mean Corpuscular Volume 92.5 fL (78.0-98.0); Mean Platelet Volume 8.6 fL (7.4-10.4); Platelet Count 236 thou/uL (130-400); Red Blood Cell (RBC) Count 2.97 mill/uL (4.20-5.40); White Blood Cell (WBC) Count 5.9 thou/uL (4.8-10.8)
[2020-03-20 15:23] LABS: ALT (SGPT) 97 U/L (8-55); AST (SGOT) 141 U/L (5-34); Albumin 3.7 g/dL (3.4-4.8); Alkaline Phosphatase 109 U/L (40-110); Anion Gap 14 mmol/L (10-20); BUN (Urea Nitrogen) 53 mg/dL (9.8-20.1); Bilirubin, Total 0.8 mg/dL (0.2-1.2); Calc. Creatinine Clearance 0 mL/min (70-130); Calcium 8.9 mg/dL (7.8-10.44); Carbon Dioxide 23 mmol/L (23-31); Chloride 100 mmol/L (98-107); Estimated GFR-MDRD 24; Globulin 2.3 g/dL (2.4-3.5); Glucose 153 mg/dL (83-110); Lipase 16 U/L (8-78); Potassium 3.4 mmol/L (3.5-5.1); Sodium 134 mmol/L (136-145)
[2020-03-20] MEDS ORDERED: Ondansetron PF 4 MG/2 ML Vial ONE ×2 (16:23→18:52)
[2020-03-20] MEDS ORDERED: Lidocaine Viscous Sol 2% 15 ml UD Cup ONE (16:28)
[2020-03-20] MEDS ORDERED: Mag-Al 1200 mg/1200 mg/30 ML UDCUP ONE (16:28)
--- NOTE | 2020-03-20 17:22 | RAD ---
CHEST ONE VIEW PORTABLE: History: Cough, nausea, abdominal pain, positive Covid test. FINDINGS: Cardiomegaly. Left ICD. Bilateral vascular congestion. No overt confluent pneumonia. IMPRESSION: Cardiomegaly with bilateral vascular congestion, stable from prior study. No evidence for overt pneum onia. POS: RRE
[2020-03-20] MEDS ORDERED: Furosemide 40 MG/4 ML VIAL ONE (18:52)
--- NOTE | 2020-03-20 19:02 | CT ---
CT OF THE ABDOMEN AND PELVIS: Date: 03-20-2020 Comparison: None History: Abdominal pain and vomiting. Technique: Axial CT imaging at 5 mm intervals from the lung bases through the pubic symphysis without contrast. Coronal and sagittal reformatted imaging obtained. FINDINGS: Evaluation of the viscera bowel vascular structures and for lymphadenopathy is limited on noncontrast enhanced imaging. There is a small right pleural effusion and a small pericardial effusion. Multicha mber cardiac enlargement present. There is a transvenous pacing device noted. No free intraperitoneal air. Diffuse stranding of the subcutaneous fat suggests a degree of diffuse a nasarca. Limited evaluation of the liver without contrast appears grossly unremarkable. The gallbladder is not optimally assessed on this examination. There is suggestion of possible gallbl adder wall thickening and small volume fluid adjacent to the gallbladder. Findings may be related to cholecystitis. The spleen, pancreas, adrenal glands, and kidneys demonstrate no acute findings. There is a vague hyperdensity within the anterior midpole of the left kidney measuring 5 mm, too small to characterize. No evidence for hydronephrosis is noted on either side. Limited assessment of the bowel without contrast media demonstrates no focal area of inflammatory radu nge or evidence of obstruction. The appendix appears grossly unremarkable. Evaluation of the vascular structures of the abdomen/pelvis demonstrates extensive atherosclerotic ca lcification of the arterial branches throughout the abdomen and pelvis. There is a small sliding type hiatal hernia present. Review of the osseous structures demonstrates multilevel lumbar spine degenerative change with multil evel disc space narrowing and vacuum disc formation as well as prominent lower lumbar spine facet hyp ertrophic change. IMPRESSION: 1. Small right pleural effusion and small pericardial effusion. 2. Diffuse atherosclerotic disease. 3. Findings suggesting anasarca. 4. The gallbladder demonstrates probable wall thickening and there is stranding adjacent to the gallb ladder within the pericholecystic fat. Findings are suspicious for possible cholecystitis. Correlatio n with right upper quadrant ultrasound is suggested. POS: MANUEL
== END 2020-03-20 19:30 | disposition home or self-care (01) ==
LOC: ERS 14:16
DX: E87.70 Fluid overload, unspecified (principal); R11.2 Nausea with vomiting, unspecified; R10.84 Generalized abdominal pain; I11.0 Hypertensive heart disease with heart failure; I50.9 Heart failure, unspecified; K21.9 Gastro-esophageal reflux disease without esophagitis; F32.9 Major depressive disorder, single episode, unspecified; Z79.899 Other long term (current) drug therapy; E11.9 Type 2 diabetes mellitus without complications; Z79.4 Long term (current) use of insulin
CPT/HCPCS: 36415; 71045; 74176; 80053; 83605; 83690; 83880; 84484; 85025; 93005; 96361; 96374; 96375; 96376; J1940; J2405

== ENCOUNTER 2020-03-25 13:48 | Observation (INO) | payer MEDICARE ==
[2020-03-25 14:18] LABS: #Eosinphils 0.1 thou/uL (0.0-0.7); #Lymphocytes 1.1 thou/uL (1.20-3.40); #Monocytes 0.3 thou/uL (0.11-0.59); #Neutrophils 2.7 thou/uL (1.40-6.50); %Eosinophils 1.6 % (0.0-10.0); %Lymphocytes 26.3 % (21.0-51.0); %Monocytes 7.4 % (0.0-10.0); %Neutrophils 64.7 % (42.0-75.0); Mean Corpuscular HGB CONC 31.5 g/dL (32.0-36.0); Mean Corpuscular Hemoglobin 29.4 pg (27.0-31.0); Mean Corpuscular Volume 93.5 fL (78.0-98.0); Mean Platelet Volume 8.1 fL (7.4-10.4); Platelet Count 226 thou/uL (130-400); RBC Distribution Width 16.3 % (11.5-14.5); Red Blood Cell (RBC) Count 3.06 mill/uL (4.20-5.40); White Blood Cell (WBC) Count 4.2 thou/uL (4.8-10.8)
--- NOTE | 2020-03-25 14:21 | RAD ---
EXAM: Single view of the chest HISTORY: Shortness of breath for one hour COMPARISON: 03/20/2020 FINDINGS: Single view of the chest shows an enlarged but stable cardiomediastinal silhouette. The pa cemaker is unchanged in position. There is no evidence of consolidation, mass, or pleural effusion. The bones are unremarkable IMPRESSION: Stable cardiomegaly
[2020-03-25] MEDS ORDERED: Nitroglycerin 2% Ointment 1 INCH/1 GM Packet ONE (14:25)
[2020-03-25 14:53] LABS: ALT (SGPT) 35 U/L (8-55); AST (SGOT) 15 U/L (5-34); Albumin 3.5 g/dL (3.4-4.8); Alkaline Phosphatase 85 U/L (40-110); Anion Gap 13 mmol/L (10-20); BUN (Urea Nitrogen) 42 mg/dL (9.8-20.1); Bilirubin, Total 0.5 mg/dL (0.2-1.2); Calc. Creatinine Clearance 0 mL/min (70-130); Calcium 9.1 mg/dL (7.8-10.44); Carbon Dioxide 23 mmol/L (23-31); Chloride 106 mmol/L (98-107); Estimated GFR-MDRD 30; Glucose 207 mg/dL (83-110); Lipase 13 U/L (8-78); Potassium 3.8 mmol/L (3.5-5.1); Protein, Total 5.5 g/dL (6.0-8.3); Sodium 138 mmol/L (136-145)
[2020-03-25 15:05] LABS: CKMB 1.3 ng/mL (0-6.6)
[2020-03-25] MEDS ORDERED: Aspirin Chewable 81 MG TAB ONE (15:19)
[2020-03-25] MEDS ORDERED: Furosemide 40 MG/4 ML VIAL ONE (15:57)
[2020-03-25] MEDS ORDERED: Lorazepam 2 MG/ML VIAL ONE (17:08)
[2020-03-25] MEDS ORDERED: Acetaminophen 325 MG TAB PO PRN (17:42)
[2020-03-25] MEDS ORDERED: Bisacodyl 5 MG TAB PO PRN ×2 (17:42→21:40)
[2020-03-25 17:52] LABS: Troponin I 0.054 ng/mL (< 0.028)
[2020-03-25] MEDS ORDERED: Dextrose 5% in Water 1,000 ML IV PRN ×2 (17:58→21:40)
[2020-03-25] MEDS ORDERED: Dextrose 50% Abboject 50 ML SYRINGE SLOW IVP PRN ×2 (17:58→21:40)
[2020-03-25] MEDS ORDERED: HumaLOG 300 UNITS/3 ML VIAL SC PRN ×2 (17:58→21:41)
[2020-03-25] MEDS ORDERED: hydrALAZINE 20 MG/ML VIAL SLOW IVP PRN (18:14)
--- NOTE | 2020-03-25 18:39 | HP ---
PRIMARY CARE PROVIDER: Dr. Erasmo Crawford. CHIEF COMPLAINT: Shortness of breath. HISTORY OF PRESENT ILLNESS: Ms. Sheridna is a pleasant 74-year-old lady, who was seen at [facility] on March 25, 2020. The patient was hospitalized at this facility from March 02 to March 10 of this year for acute on chronic systolic congestive heart failure. During that hospitalization, she also had a cardiac catheterization. She was found to have 2-vessel coronary artery disease and normal mid LAD FFR. The patient reports that she started having shortness of breath over the last day or so. She also reports chest discomfort, retrosternal, dull, radiating to the back, 9/10 at its worst, no known aggravating or relieving factors, accompanied by shortness of breath. The patient presented to the emergency room with above complaints. In the emergency room, she had an elevated troponin. Her troponins have always been elevated, but the last troponin done prior to today's number was in the normal range. REVIEW OF SYSTEMS: All systems were reviewed and found to be negative except for the pertinent positives mentioned above. PAST MEDICAL HISTORY: Nonischemic cardiomyopathy, diabetes mellitus type 2, hypertension, gastroesophageal reflux disease. SURGICAL HISTORY: Right foot surgery and tubal ligation. ALLERGIES: NO KNOWN DRUG ALLERGIES. CURRENT MEDICATIONS: As dictated in my discharge summary dated March 10, 2020. SOCIAL HISTORY: The patient denies tobacco use, alcohol use, or recreational drug use. FAMILY HISTORY: Coronary artery disease in her father, diabetes mellitus in her mother. CODE STATUS: I discussed her code status. She is full code. PHYSICAL EXAMINATION: GENERAL: On examination, Ms. Sheridan is awake and alert, not in acute distress. VITAL SIGNS: Blood pressure is 203/101, pulse 82, respiratory rate 18, and oxygen saturations 98% on room air. She is afebrile. EYES: No scleral icterus, no conjunctival pallor. ENT: Moist mucosal membranes. No oropharyngeal erythema or exudates. NECK: Supple, nontender, trachea is midline. RESPIRATORY: Accessory muscles of breathing are not active. Chest wall movements are symmetric bilaterally. Lung examination reveals bibasilar crackles. CARDIOVASCULAR: S1 and S2 are heard, regular. Peripheral pulses palpable. ABDOMEN: Soft, nontender, bowel sounds are heard. NEUROLOGIC: Cranial nerves 2 through 12 are intact. MUSCULOSKELETAL: Power is 5/5 in all 4 extremities. SKIN: Bilateral lower extremity edema. PSYCHIATRIC: Normal mood, normal affect, the patient is oriented to person, place, and time. LYMPHATIC: No cervical lymphadenopathy. LABORATORY DATA: Ms. Sheridan' labs and investigations were reviewed. I reviewed her electrocardiogram, which shows normal sinus rhythm, ST and T wave changes in the lateral leads. I also reviewed her chest x-ray, which shows cardiomegaly, no pulmonary infiltrates or interstitial edema. She has leukopenia with 4200 white cells, normocytic anemia with hemoglobin 9.0, normal platelet count. Normal sodium, normal potassium, elevated blood urea nitrogen of 42, elevated creatinine of 1.10, last known creatinine was 2.05 on March 20, 2020, unremarkable LFTs. Indeterminate troponin I x2, [place] [address].8. Last known BNP was 6733 on March 20, 2020. COVID-19 rapid PCR test was negative. ASSESSMENT AND PLAN: Ms. Sheridan is a pleasant 74-year-old lady, who was seen at [facility] on March 25, 2020. Her problem list includes: 1. Shortness of breath: Given her clinical picture, she appears to be presenting with acute on chronic systolic congestive heart failure exacerbation, [place] Heart Association class III. She will be admitted to the hospital and treated with intravenous diuretics. Further management depending on her clinical course. 2. Chest pain: The patient had recent cardiac catheterization, we will monitor on telemetry and trend troponins. Further management depending on clinical course. 3. Diabetes mellitus type 2: We will start the patient on Accu-Cheks and insulin sliding scale. 4. Hypertensive urgency: The patient is also presenting with hypertensive urgency. We will resume the patient's home medications, monitor vital signs and titrate antihypertensives as needed. Many thanks for allowing me to participate in your patient's care. Please feel free to contact me with any questions or concerns. LEVEL OF RISK: High. LEVEL OF COMPLEXITY: High. Job ID: [id number]
[2020-03-25] MEDS ORDERED: Isosorbide Dinitrate 20 MG TAB PO SCH ×2 (21:00→22:00)
[2020-03-25] MEDS ORDERED: hydrALAZINE 25 MG TAB PO SCH ×2 (21:00→22:00)
[2020-03-25] MEDS ORDERED: Atorvastatin Calcium 10 MG TAB PO SCH ×2 (21:00→22:00)
[2020-03-25] MEDS ORDERED: Heparin 5,000 UNITS/ML VIAL SC SCH ×2 (21:00→22:00)
[2020-03-25 21:27] VITALS: BMI 30.1
[2020-03-25] MEDS: Acetaminophen 325 MG TAB PO PRN (22:04)
[2020-03-26] MEDS: Melatonin 3 MG TAB PO PRN (00:21)
[2020-03-26] MEDS: hydrALAZINE 20 MG/ML VIAL SLOW IVP PRN ×2 (00:26→23:53)
[2020-03-26] MEDS: Furosemide 40 MG/4 ML VIAL SLOW IVP SCH ×2 (05:05→15:11)
[2020-03-26] MEDS ORDERED: Furosemide 40 MG/4 ML VIAL SLOW IVP SCH (06:00)
[2020-03-26] MEDS ORDERED: Furosemide 20 MG/2 ML VIAL SLOW IVP SCH (06:00)
[2020-03-26] MEDS ORDERED: Ferrous Sulfate 325 MG TAB PO SCH (08:00)
[2020-03-26] MEDS ORDERED: Carvedilol 25 MG TAB PO SCH (08:00)
[2020-03-26] MEDS: hydrALAZINE 25 MG TAB PO SCH ×3 (08:16→19:56)
[2020-03-26] MEDS: Carvedilol 25 MG TAB PO SCH ×2 (08:16→18:05)
[2020-03-26] MEDS: Isosorbide Dinitrate 20 MG TAB PO SCH ×3 (08:17→19:57)
[2020-03-26] MEDS: Ferrous Sulfate 325 MG TAB PO SCH ×2 (08:17→18:05)
[2020-03-26] MEDS: Heparin 5,000 UNITS/ML VIAL SC SCH ×3 (08:17→19:57)
[2020-03-26] MEDS: Aspirin 81 mg Enteric Coated Tablet PO SCH (08:17)
[2020-03-26] MEDS ORDERED: Insulin Glargine 5 UNITS in Pre-Filled Syringe 1 EACH SC SCH (09:00)
[2020-03-26] MEDS ORDERED: Aspirin 81 mg Enteric Coated Tablet PO SCH (09:00)
[2020-03-26] MEDS ORDERED: INSULIN DEGLUDEC 5 UNIT SC SCH (09:00)
[2020-03-26] MEDS: Acetaminophen 325 MG TAB PO PRN ×2 (15:18→23:39)
--- NOTE | 2020-03-26 15:39 | PDOC.HOSPP ---
- Subjective Encounter Date: 03/26/20 Encounter Time: 10:00 Subjective: no overnight events. this morning, feeling and breathing better on RA. Has no complaints. - Objective Vital Signs & Weight: Vital Signs (12 hours) Temp Pulse Pulse Pulse Resp BP BP 03/26/20 15:08 97.7 F 67 16 03/26/20 12:05 97.8 F 66 18 03/26/20 11:00 65 65 152/72 H 156/74 H 03/26/20 08:11 97.7 F 75 18 03/26/20 05:07 03/26/20 04:20 98.2 F 77 16 BP Pulse Ox Pulse Ox Pulse Ox 03/26/20 15:08 186/84 H 98 03/26/20 12:05 164/82 H 98 03/26/20 11:00 98 98 03/26/20 08:11 189/91 H 97 03/26/20 05:07 174/80 H 03/26/20 04:20 189/83 H 97 Weight Weight 265 lb 1.6 oz I&O: 03/25/20 03/26/20 03/27/20 06:59 06:59 06:59 Intake Total 400 Balance 400 Result Diagrams: 03/25/20 14:11 03/25/20 14:11 Hospitalist ROS - Review of Systems Constitutional: denies: fever, chills, sweats, weakness, malaise, other Respiratory: denies: cough, dry, shortness of breath, hemoptysis, SOB with excertion, pleuritic pain, sputum, wheezing, other Cardiovascular: denies: chest pain, palpitations, orthopnea, paroxysmal noc. dyspnea, edema, light headedness, other Gastrointestinal: denies: nausea, vomiting, abdominal pain, diarrhea, constipation, melena, hematochezia, other Genitourinary: denies: dysuria, frequency, incontinence, hematuria, retention, other - Medication Medications: Active Medications Generic Name Dose Route Start Last Admin Trade Name Freq PRN Reason Stop Dose Admin Acetaminophen 650 mg 03/25/20 21:40 03/26/20 15:18 Tylenol PO 650 mg Q4H PRN Administration Headache/Fever/Mild Pain (1-3) Aspirin 81 mg 03/26/20 09:00 03/26/20 08:17 Ecotrin PO 81 mg DAILY ABHILASH Administration Carvedilol 25 mg 03/26/20 08:00 03/26/20 08:16 Coreg PO 25 mg BID-WM ABHILASH Administration Ferrous Sulfate 325 mg 03/26/20 08:00 03/26/20 08:17 Feosol PO 325 mg BID-WM ABHILASH Administration Furosemide 40 mg 03/26/20 06:00 03/26/20 15:11 Lasix SLOW IVP 40 mg 0600,1400 ABHILASH Administration Heparin Sodium (Porcine) 5,000 units 03/26/20 09:00 03/26/20 15:11 Heparin SC 5,000 units TID ABHILASH Administration Hydralazine HCl 100 mg 03/26/20 09:00 03/26/20 15:11 Apresoline PO 100 mg TID ABHILASH Administration Hydralazine HCl 10 mg 03/25/20 21:42 03/26/20 00:26 Apresoline SLOW IVP 10 mg Q6H PRN Administration SBP Greater Than 170 Insulin Glargine 5 units/ 0.05 mls @ 0 mls/hr 03/26/20 09:00 03/26/20 09:18 Miscellaneous Medication SC 0.05 mls QAM ABHILASH Administration Isosorbide Dinitrate 20 mg 03/26/20 09:00 03/26/20 15:11 Isordil PO 20 mg TID ABHILASH Administration Melatonin 3 mg 03/26/20 00:00 03/26/20 00:21 Melatonin PO 3 mg HSPRN PRN Administration Insomnia Sacubitril/Valsartan 1 tab 03/26/20 09:00 03/26/20 09:18 Entresto 24 Mg-26 Mg Tablet PO 1 tab BID ABHILASH Administration - Exam General Appearance: NAD, awake alert Eye: PERRL Neck: no JVD Heart: RRR, no murmur, no gallops, no rubs Respiratory: CTAB, no wheezes, no ronchi Respiratory - other findings: inspiratory rales up to midfields bilaterally Gastrointestinal: soft, non-tender, non-distended, normal bowel sounds Extremities: 2+ LE edema Extremities - other findings: pitting, midtibial level bilaterally Psychiatric: normal affect, normal behavior, A&O x 3 Hosp A/P - Plan # acute on chronic systolic congestive heart failure exacerbation, [place] Heart Association class III. clinically improving; continue diuresis started entresto #HTN -poorly controlled -added entresto; IVP PRN antiHTN > 180/120 #T2DM poorly controlled; increased lantus to 10u ELOS: 1 night
[2020-03-26] MEDS ORDERED: Isosorbide Dinitrate 20 MG TAB PO SCH (15:50)
[2020-03-26] MEDS ORDERED: Mirtazapine 15 MG TAB PO SCH (21:00)
[2020-03-26] MEDS ORDERED: Amitriptyline HCl 25 MG TAB PO SCH (21:00)
[2020-03-26] MEDS ORDERED: traZODone HCl 50 MG TAB PO SCH (21:00)
[2020-03-26] MEDS ORDERED: Atorvastatin Calcium 10 MG TAB PO SCH (21:00)
[2020-03-27] MEDS: Melatonin 3 MG TAB PO PRN (01:12)
[2020-03-27] MEDS ORDERED: cloNIDine 0.1 MG TAB PO PRN (01:48)
[2020-03-27] MEDS ORDERED: traMADol HCl 50 MG TAB PO PRN (01:55)
[2020-03-27 05:04] LABS: Anion Gap 14 mmol/L (10-20); BUN (Urea Nitrogen) 41 mg/dL (9.8-20.1); Calc. Creatinine Clearance 57 mL/min (70-130); Calcium 8.7 mg/dL (7.8-10.44); Carbon Dioxide 20 mmol/L (23-31); Chloride 103 mmol/L (98-107); Estimated GFR-MDRD 30; Glucose 261 mg/dL (83-110); Magnesium 1.6 mg/dL (1.6-2.6); Potassium 3.4 mmol/L (3.5-5.1); Sodium 134 mmol/L (136-145)
[2020-03-27] MEDS: Furosemide 40 MG/4 ML VIAL SLOW IVP SCH (05:16)
[2020-03-27] MEDS: Isosorbide Dinitrate 20 MG TAB PO SCH (08:02)
[2020-03-27] MEDS: Heparin 5,000 UNITS/ML VIAL SC SCH (08:02)
[2020-03-27] MEDS: hydrALAZINE 25 MG TAB PO SCH (08:02)
[2020-03-27] MEDS: Ferrous Sulfate 325 MG TAB PO SCH (08:02)
[2020-03-27] MEDS: Aspirin 81 mg Enteric Coated Tablet PO SCH (08:03)
[2020-03-27] MEDS: Carvedilol 25 MG TAB PO SCH (08:03)
[2020-03-27] MEDS ORDERED: Insulin Glargine 10 UNITS in Pre-Filled Syringe 1 EACH SC SCH (09:00)
[2020-03-27] MEDS ORDERED: Chlorthalidone 25 MG TAB PO SCH (09:00)
[2020-03-27 11:29] VITALS: BP 164/77; TEMP 97.4
[2020-03-27] MEDS: Acetaminophen 325 MG TAB PO PRN (11:33)
--- NOTE | 2020-03-27 22:58 | DIS ---
DATE OF ADMISSION: 03/25/2020 DATE OF DISCHARGE: 03/27/2020 HOSPITAL COURSE: Ms. Sheridan is a 74-year-old female with a medical history of heart failure with reduced ejection fraction, who presented with shortness of breath. She was diagnosed with decompensated heart failure due to dietary nonadherence and hypertensive urgency. She was started on diuresis and improved promptly. As for hypertensive urgency, the patient required addition of chlorthalidone as well as Entresto for heart failure and hypertension. On the day of discharge, the patient's blood pressure was better controlled despite antihypertensive not reaching full affect. She was discharged home with followup appointments with Cardiology and her primary care physician. PHYSICAL EXAMINATION: VITAL SIGNS: Blood pressure was 164/77, pulse 58, respiratory rate 15, oxygen saturation 98% on room air, and temperature 97.4 Fahrenheit. GENERAL: Lying comfortably in bed, in no apparent distress. HEENT: PERRL. EOMI. NECK: No JVD. HEART: Regular rate and rhythm. No murmurs, gallops, or rubs. RESPIRATORY: Clear to auscultation bilaterally. No wheezing or rhonchi and she had expiratory rales in the lower field which has improved considering compared to admission. GI: Soft, nontender, and nondistended. Normal bowel sounds. EXTREMITIES: Bilateral equal pitting edema up to mid tibial level, which has improved compared to admission. PSYCHIATRIC: Proper mood and affect. Alert and oriented x3. MEDICATION LIST: New medications; 1. Entresto. 2. Chlorthalidone. Continued medications; 1. Ferrous sulfate. 2. Trazodone. 3. Aspirin. 4. Amitriptyline. 5. Potassium chloride. 6. Hydralazine. 7. Lasix. 8. Isosorbide dinitrate. 9. Mirtazapine. Discontinued medications, Keflex. The patient was extensively educated regarding her medications, as well as lifestyle modifications in order to adhere to optimal management of heart failure. Job ID: [id number]
== END 2020-03-27 12:34 | disposition home or self-care (01) ==
LOC: ERS 13:48 → 2NO 16:19 → ERS 19:32
PROVIDERS: ADMIT Internal Medicine; ATTEND Internal Medicine
DX: I11.0 Hypertensive heart disease with heart failure (principal); I50.23 Acute on chronic systolic (congestive) heart failure; I16.0 Hypertensive urgency; I42.8 Other cardiomyopathies; E11.9 Type 2 diabetes mellitus without complications; K21.9 Gastro-esophageal reflux disease without esophagitis; Z79.82 Long term (current) use of aspirin; Z79.899 Other long term (current) drug therapy
CPT/HCPCS: 71045; 80048; 80053; 82553; 82962 ×3; 83690; 83735; 83880; 84484 ×2; 85025; 93005; 93798; 94760; 96374; 96375; 99285; U0002; 36415; 36416; 96372; 96376; G0378; J0360; J1644; J1815; J1940; J2060

== ENCOUNTER 2020-03-28 12:31 | Emergency (ER) | payer MEDICARE ==
--- NOTE | 2020-03-28 12:51 | RAD ---
Chest one view HISTORY: Chest pain. Weakness. COMPARISON: 03/25/2020. FINDINGS: Cardiac silhouette is magnified and projection and enlarged. Mediastinum is midline. Single lead left subclavian cardiac electronic device in place. Pulmonary vas culature is upper limits of normal and accentuated by shallow inspiration. No lobar consolidation or evidence of pneumothorax. IMPRESSION : Cardiomegaly. No active cardiopulmonary abnormalities are demonstrated.
[2020-03-28 13:14] LABS: #Eosinphils 0.1 thou/uL (0.0-0.7); #Lymphocytes 1.3 thou/uL (1.20-3.40); #Monocytes 0.3 thou/uL (0.11-0.59); #Neutrophils 2.5 thou/uL (1.40-6.50); %Basophils 0.7 % (0.0-1.0); %Eosinophils 1.4 % (0.0-10.0); %Lymphocytes 31.2 % (21.0-51.0); %Monocytes 8.1 % (0.0-10.0); %Neutrophils 58.6 % (42.0-75.0); Hemoglobin 9.6 g/dL (12.0-16.0); Mean Corpuscular Hemoglobin 30.3 pg (27.0-31.0); Mean Corpuscular Volume 94.7 fL (78.0-98.0); Mean Platelet Volume 8.4 fL (7.4-10.4); Platelet Count 231 thou/uL (130-400); RBC Distribution Width 16.4 % (11.5-14.5); Red Blood Cell (RBC) Count 3.17 mill/uL (4.20-5.40); White Blood Cell (WBC) Count 4.2 thou/uL (4.8-10.8)
[2020-03-28 13:37] LABS: ALT (SGPT) 19 U/L (8-55); AST (SGOT) 15 U/L (5-34); Albumin 3.4 g/dL (3.4-4.8); Alkaline Phosphatase 84 U/L (40-110); Anion Gap 15 mmol/L (10-20); BUN (Urea Nitrogen) 49 mg/dL (9.8-20.1); Bilirubin, Total 0.5 mg/dL (0.2-1.2); Calc. Creatinine Clearance 0 mL/min (70-130); Calcium 8.7 mg/dL (7.8-10.44); Carbon Dioxide 21 mmol/L (23-31); Chloride 101 mmol/L (98-107); Estimated GFR-MDRD 26; Globulin 2.1 g/dL (2.4-3.5); Glucose 114 mg/dL (83-110); Protein, Total 5.5 g/dL (6.0-8.3); Sodium 133 mmol/L (136-145)
[2020-03-28 13:56] LABS: CKMB 1.7 ng/mL (0-6.6)
[2020-03-28] MEDS ORDERED: Acetaminophen 500 MG TAB ONE (14:17)
[2020-03-28] MEDS ORDERED: Ondansetron ODT 4 MG TAB ONE (14:17)
== END 2020-03-28 14:57 | disposition home or self-care (01) ==
LOC: ERS 12:31
DX: R07.89 Other chest pain (principal); I13.0 Hypertensive heart and chronic kidney disease with heart failure and stage 1 through stage 4 chronic kidney disease, or unspecified chronic kidney disease; E11.22 Type 2 diabetes mellitus with diabetic chronic kidney disease; N18.9 Chronic kidney disease, unspecified; I50.9 Heart failure, unspecified; K21.9 Gastro-esophageal reflux disease without esophagitis; Z79.82 Long term (current) use of aspirin; Z79.899 Other long term (current) drug therapy
CPT/HCPCS: 36415; 71045; 80053; 82553; 84484; 85025; 93005; 94760; Q0162

== ENCOUNTER 2020-05-26 21:52 | Observation (INO) | payer MEDICARE, OTHER ==
[2020-05-26 22:35] LABS: #Eosinphils 0.1 thou/uL (0.0-0.7); #Lymphocytes 1.5 thou/uL (1.20-3.40); #Monocytes 0.3 thou/uL (0.11-0.59); #Neutrophils 2.6 thou/uL (1.40-6.50); %Basophils 0.4 % (0.0-1.0); %Eosinophils 2.3 % (0.0-10.0); %Lymphocytes 33.1 % (21.0-51.0); %Monocytes 7.1 % (0.0-10.0); %Neutrophils 57.2 % (42.0-75.0); Hemoglobin 10.1 g/dL (12.0-16.0); Mean Corpuscular HGB CONC 32.4 g/dL (32.0-36.0); Mean Corpuscular Hemoglobin 28.7 pg (27.0-31.0); Mean Corpuscular Volume 88.9 fL (78.0-98.0); Mean Platelet Volume 8.6 fL (7.4-10.4); Platelet Count 235 thou/uL (130-400); RBC Distribution Width 17.1 % (11.5-14.5); Red Blood Cell (RBC) Count 3.52 mill/uL (4.20-5.40); White Blood Cell (WBC) Count 4.5 thou/uL (4.8-10.8)
[2020-05-26 22:56] LABS: ALT (SGPT) 9 U/L (8-55); AST (SGOT) 11 U/L (5-34); Albumin 3.7 g/dL (3.4-4.8); Alkaline Phosphatase 103 U/L (40-110); Anion Gap 14 mmol/L (10-20); BUN (Urea Nitrogen) 104 mg/dL (9.8-20.1); Bilirubin, Total 0.3 mg/dL (0.2-1.2); CK (CPK) 50 U/L (29-168); Calc. Creatinine Clearance 0 mL/min (70-130); Calcium 8.3 mg/dL (7.8-10.44); Carbon Dioxide 17 mmol/L (23-31); Chloride 108 mmol/L (98-107); Estimated GFR-MDRD 20; Globulin 2.5 g/dL (2.4-3.5); Glucose 152 mg/dL (83-110); Potassium 4.6 mmol/L (3.5-5.1); Protein, Total 6.2 g/dL (6.0-8.3); Sodium 134 mmol/L (136-145)
[2020-05-26] MEDS ORDERED: Morphine 2 MG/ML SYRINGE ONE (23:10)
[2020-05-26] MEDS ORDERED: Ondansetron PF 4 MG/2 ML Vial ONE (23:10)
--- NOTE | 2020-05-26 23:20 | RAD ---
Portable frontal chest radiograph: 05/26/2020 COMPARISON: 05/03/2020 HISTORY: Central chest pain FINDINGS: Stable prominence of the cardiac silhouette. Stable single lead transvenous pacing device. No pneumothorax, focal consolidation, or alveolar edema. IMPRESSION: No significant interval change.
[2020-05-27 01:29] LABS: Troponin I 0.051 ng/mL (< 0.028)
[2020-05-27 03:42] VITALS: BMI 29.6
--- NOTE | 2020-05-27 04:05 | PDOC.HHP ---
Hospitalist HPI - History of Present Illness Chest pain History of Present Illness: Patient is a 74 year old female with PMH chronic systolic CHF, CKD III who presents to ED for chest pain. Pain is central, substernal, nonradiating, worse with movement, tender to palpation, pleuritic in nature. No alleviating factors. Denies cough, fever, palpitations. Occasional dyspnea. In ED, CXR did not show acute findings, EKG did not show acute changes or STEMI, troponin trended and increased from 0.015 to 0.05, patient admitted for further workup and rule out of SD. Patient was recently admitted from 05/04 to 05/08 for chest pain of similar nature, seen by cardiology at that time and recommended to hold entresto until reevaluated as outpatient, cleared for discharge. She was also seen by nephrology Dr Walker for hyponatremia, improved with albumin and fluid restriction. Echocardiogram in February 2020 showed LVEF of 25-30%, she also had heart catheterization at that time with nonobstructive CAD in LAD and RCA. She had an ICD placed in February as well. Hospitalist ROS - Review of Systems Constitutional: denies: fever, chills, sweats, weakness, malaise, other Eyes: denies: pain, vision change, conjunctivae inflammation, eyelid inflammation, redness, other ENT: denies: ear pain, ear discharge, nose pain, nose discharge, nose congestion, mouth pain, mouth swelling, throat pain, throat swelling, other Respiratory: denies: cough, dry, shortness of breath, hemoptysis, SOB with excertion, pleuritic pain, sputum, wheezing, other Cardiovascular: reports: chest pain. denies: palpitations, orthopnea, paroxysmal noc. dyspnea, edema, light headedness, other Gastrointestinal: denies: nausea, vomiting, abdominal pain, diarrhea, constipation, melena, hematochezia, other Genitourinary: denies: dysuria, frequency, incontinence, hematuria, retention, other Musculoskeletal: denies: neck pain, shoulder pain, arm pain, back pain, hand pain, leg pain, foot pain, other Skin: denies: rash, lesions, pooja, bruising, other Neurological: denies: weakness, numbness, incoordination, change in speech, confusion, seizures, other All other systems reviewed; all pertinent +/- noted in HPI/Subj - Medication Medications: furosemide oral [facility] May 26, 2020 21:56 SNEHAL Mehta Miranda TABLET : Strength - 40 mg : ORAL Patient Dose: 40 mg Oral 2 times a day. hydrALAZINE oral [facility] May 26, 2020 21:56 SNEHAL Mehta Miranda TABLET : Strength - 25 mg : ORAL Patient Dose: 100 mg Oral 3 times a day (with meals). potassium chloride oral [facility] May 26, 2020 21:56 SNEHAL Mehta Miranda tablet extended release : Strength - 8 mEq : ORAL Patient Dose: 1 tab(s) Oral once a day. mirtazapine [facility] May 26, 2020 21:56 SNEHAL Mehta Miranda tablet : Strength - 15 mg : ORAL Patient Dose: 15 mg Oral once a day (at bedtime). isosorbide dinitrate oral [facility] May 26, 2020 21:56 SNEHAL Mehta Miranda tablet : Strength - 20 mg : ORAL Patient Dose: 20 mg Oral 3 times a day. traZODone [facility] May 26, 2020 21:56 SNEHAL Mehta Miranda tablet : Strength - 50 mg : ORAL Patient Dose: 50 mg Oral once a day (at bedtime). amitriptyline oral [facility] May 26, 2020 21:56 SNEHAL Mehta Miranda tablet : Strength - 25 mg : ORAL Patient Dose: 25 mg Oral once a day. aspirin oral [facility] May 26, 2020 21:56 SNEHAL Mehta Miranda tablet : Strength - 81 mg : ORAL Patient Dose: 81 mg Oral once a day. ferrous sulfate [facility] May 26, 2020 21:57 SNEHAL Mehta Miranda tablet : Strength - 325 mg (65 mg iron) : ORAL Patient Dose: 1 tab(s) Oral once a day. Hospitalist History - Past Medical History Other Medical History: CAD chronic systolic CHF CKD III T2DM HTN GERD - Past Surgical History Other Surgical History: tubal ligation, ICD, cardiac catheterization, R foot surgery - Family History Other Family History: CAD in father, DM in mother - Social History Smoking Status: Never smoker Alcohol: reports: None Drugs: reports: none - Exam General Appearance: NAD, awake alert Eye: PERRL, anicteric sclera ENT: normocephalic atraumatic, no oropharyngeal lesions, moist mucosa Neck: supple, symmetric, no JVD, no thyromegaly, no lymphadenopathy, no carotid bruit Heart: RRR, no murmur, no gallops, no rubs, normal peripheral pulses Respiratory: CTAB, no wheezes, no rales, no ronchi, normal chest expansion, no tachypnea, normal percussion Gastrointestinal: soft, non-tender, non-distended, normal bowel sounds, no palpa ble masses, no hepatomegaly, no splenomegaly, no bruit Extremities: no cyanosis, no clubbing, no edema Skin: normal turgor, no lesions, no rashes Neurological: cranial nerve grossly intact, normal sensation to touch, no weakn ess, no focal deficits, no new deficit Musculoskeletal: normal tone, normal strength, no muscle wasting Psychiatric: normal affect, normal behavior, A&O x 3 Hospitalist Results - Labs Result Diagrams: 05/26/20 22:16 05/26/20 22:16 Lab results: WBC 4.5 thou/uL (4.8-10.8) L 05/26/20 22:16 Hgb 10.1 g/dL (12.0-16.0) L 05/26/20 22:16 Hct 31.3 % (36.0-47.0) L 05/26/20 22:16 MCV 88.9 fL (78.0-98.0) 05/26/20 22:16 Plt Count 235 thou/uL (130-400) 05/26/20 22:16 Neutrophils % 57.2 % (42.0-75.0) 05/26/20 22:16 Sodium 134 mmol/L (136-145) L 05/26/20 22:16 Potassium 4.6 mmol/L (3.5-5.1) 05/26/20 22:16 Chloride 108 mmol/L (98-107) H 05/26/20 22:16 Carbon Dioxide 17 mmol/L (23-31) L 05/26/20 22:16 BUN 104 mg/dL (9.8-20.1) H 05/26/20 22:16 Creatinine 2.37 mg/dL (0.6-1.1) H 05/26/20 22:16 Glucose 152 mg/dL (83-110) H 05/26/20 22:16 Calcium 8.3 mg/dL (7.8-10.44) 05/26/20 22:16 Total Bilirubin 0.3 mg/dL (0.2-1.2) 05/26/20 22:16 AST 11 U/L (5-34) 05/26/20 22:16 ALT 9 U/L (8-55) 05/26/20 22:16 Alkaline Phosphatase 103 U/L (40-110) 05/26/20 22:16 Creatine Kinase 50 U/L (29-168) 05/26/20 22:16 Troponin I 0.051 ng/mL (< 0.028) H 05/27/20 00:53 Serum Total Protein 6.2 g/dL (6.0-8.3) 05/26/20 22:16 Albumin 3.7 g/dL (3.4-4.8) 05/26/20 22:16 Additional comment: ED documents, labs, imaging reports, EKG reviewed by me. - EKG Interpretation EKG: NSR [address] changes, nonspecific T wave changes, LVH. Hospitalist H&P A/P - Plan Plan: Patient is a 74 year old female with PMH chronic systolic CHF, CKD III who presents to ED for chest pain. # chest pain # history of nonobstructive CAD # chronic systolic CHF # CKD III # T2DM # HTN # GERD Patient was recently admitted from 05/04 to 05/08 for chest pain of similar nature, seen by cardiology at that time and recommended to hold entresto until reevaluated as outpatient, cleared for discharge. She was also seen by nephrology for hyponatremia, improved with albumin and fluid restriction. Echocardiogram in February 2020 showed LVEF of 25-30%, she also had heart catheterization at that time with nonobstructive CAD in LAD and RCA. She had an ICD placed in February as well. Pain is central, substernal, nonradiating, worse with movement, tender to palpation, pleuritic, occasional dyspnea. In ED, CXR/EKG similar to previous, troponin increased on second draw, patient admitted for further workup and rule out of SD. - admit to telemetry - consult cardiology - given tenderness of chest wall and recurrent symptoms with negative cardiac workups, will schedule tylenol and order lidocaine patch - start empiric PPI - continue home meds, SSI ordered - consider titration of nitrate medications or addition of ranexa if no other cause of chest pain found DVT/GI ppx full code
[2020-05-27] MEDS ORDERED: Labetalol HCl 100 MG/20 ML VIAL SLOW IVP PRN (04:20)
[2020-05-27] MEDS ORDERED: cloNIDine 0.1 MG TAB PO PRN (04:20)
[2020-05-27] MEDS ORDERED: Ondansetron PF 4 MG/2 ML Vial IVP PRN (04:20)
[2020-05-27] MEDS ORDERED: Guaifenesin DM 100-10/5 ML UDCUP PO PRN (04:20)
[2020-05-27] MEDS ORDERED: hydrALAZINE 20 MG/ML VIAL SLOW IVP PRN (04:20)
[2020-05-27] MEDS ORDERED: Promethazine HCl 12.5 MG in Sodium Chloride 0.9% 50 ML IVPB PRN (04:20)
[2020-05-27] MEDS ORDERED: HYDROcodone/Acetaminophen 5/325 mg Tablet PO PRN (04:20)
[2020-05-27] MEDS ORDERED: Electrolyte Replacement Protoc 1 EACH EACH FS SCH (04:30)
[2020-05-27 05:21] LABS: Troponin I 0.023 ng/mL (< 0.028)
[2020-05-27] MEDS ORDERED: Magnesium 2 GM/50 ML 2 GM in Premix Bag 1 BAG IVPB SCH (06:30)
[2020-05-27] MEDS ORDERED: Electrolyte Replacement Protocol FS PRN (06:30)
[2020-05-27 08:04] VITALS: TEMP 98.2
--- NOTE | 2020-05-27 08:59 | CON ---
DATE OF CONSULTATION: 05/27/2020 REASON FOR CONSULTATION: Atypical chest pain. HISTORY OF PRESENT ILLNESS: Ms. Sheridan is a very pleasant 74-year-old woman, whom I have seen and evaluated in the past. She recently underwent coronary angiography in February 2020. Her most significant lesion was estimated at 60%. She underwent flow wire of the LAD and not felt to be significant. The patient recently presented with chest pain. This was acute in onset. This lasted for several minutes. She presented to the emergency room with the above. She is currently pain free. Her CKs, troponins were negative. Her EKG was nonspecific. PAST MEDICAL HISTORY: 1. CAD. 2. Chronic kidney disease. 3. Diabetes mellitus. 4. Hypertension. 5. Acid reflux. 6. Chronic systolic failure. PAST SURGICAL HISTORY: BTL, ICD with surgery. SOCIAL HISTORY: No current tobacco or alcohol use. REVIEW OF SYSTEMS: A 10-point review of systems is reviewed as above. PHYSICAL EXAMINATION: VITAL SIGNS: Blood pressure 156/68, pulse 60, temperature 98.2. GENERAL: Patient is a pleasant woman, who is in no acute distress. The patient appears their stated age. NEUROLOGIC: The patient is alert and oriented x3 with no focal neurologic deficits. HEENT: Sclerae without icterus. Mouth has moist mucous membranes with normal pallor. NECK: No JVD. Carotid upstroke brisk. No bruits bilaterally. LUNGS: Clear to auscultation with unlabored respirations. BACK: No scoliosis or kyphosis. CARDIAC: Regular rate and rhythm with normal S1 and S2. No S3 or S4 noted. No significant rubs, murmurs, thrills, or gallops noted throughout the precordium. PMI is not displaced. There is no parasternal heave. ABDOMEN: Soft, nontender, nondistended. No peritoneal signs present. No hepatosplenomegaly. No abnormal striae. EXTREMITIES: 2+ femoral and 2+ dorsalis pedis pulses. No cyanosis, clubbing, or edema. SKIN: No gross abnormalities. PERTINENT LABORATORY DATA: Hemoglobin 10.1. Creatinine 2.37. Peak troponin 0.051. IMPRESSION: 1. Atypical chest pain. 2. Coronary artery disease. 3. Chronic kidney disease. 4. Diabetes mellitus. RECOMMENDATIONS: Ms. Sheridan symptoms are not felt to be due to underlying coronary artery disease. This is her 2nd admission in the last month for the above. She states she has had significant stressors. This may be playing a part. Unfortunately, Ms. Sheridan has had some issues with compliance. She continues to not follow up in the office. From a medication standpoint, I would recommend to continue medical therapy. We will change her Isordil to isosorbide dinitrate. She was on Coreg, but not currently on Coreg here. We will also recommend continued aspirin. SOFI inhibitor therapy and ARB are contraindicated due to renal insufficiency. I have no further recommendations. Plan is to follow up in the office. Job ID: [id number]
[2020-05-27] MEDS ORDERED: Acetaminophen 500 MG TAB PO SCH (09:00)
[2020-05-27] MEDS: Lidocaine 5% Patch TD SCH ×2 (09:07→11:01)
[2020-05-27 10:59] LABS: Anion Gap 14 mmol/L (10-20); BUN (Urea Nitrogen) 101 mg/dL (9.8-20.1); Calc. Creatinine Clearance 25 mL/min (70-130); Calcium 8.8 mg/dL (7.8-10.44); Carbon Dioxide 18 mmol/L (23-31); Chloride 107 mmol/L (98-107); Estimated GFR-MDRD 20; Glucose 155 mg/dL (83-110); Potassium 4.5 mmol/L (3.5-5.1); Sodium 134 mmol/L (136-145)
[2020-05-27 12:11] VITALS: BP 168/73
[2020-05-27 12:50] LABS: SARS-CoV-2 MS2 Positive; SARS-CoV-2 N Gene Negative; SARS-CoV-2 S Gene Negative; SARS-CoV-2 by NAA Not Detected (NotDetected); SARS-CoV-2 orf1ab Negative
[2020-05-27] MEDS ORDERED: Enoxaparin Sodium 30 MG/0.3 ML SYRINGE SC SCH (21:00)
[2020-05-27] MEDS ORDERED: Lidocaine Patch Removal 1 EACH TOP SCH (21:00)
--- NOTE | 2020-05-28 03:40 | DIS ---
DATE OF ADMISSION: 05/27/2020 DATE OF DISCHARGE: 05/27/2020 DISCHARGE DIAGNOSIS: Atypical chest pain. HOSPITAL COURSE: Patient is a 74-year-old female with past medical history of systolic heart failure, CKD stage 3, who recently underwent coronary angiogram in February 2020. Patient presented to the ED for chest pain. She reports that it was central, substernal, nonradiating, worse with movements and pleuritic in nature. Nothing improved pain. Denies cough, fevers, or palpitations. Troponins were trended and bumped at 0.5. The patient was admitted for further workup and rule out TN. Cardiology was consulted and did not feel the chest pain was cardiac in nature. They recommended continuation of her current medication and followup in outpatient clinic. Troponins trended down PHYSICAL EXAMINATION: GENERAL: On exam, patient was resting comfortably in bed. NEURO: She was alert and oriented x3. No focal neurological deficits. LUNGS: Clear to auscultation bilaterally. HEART: She had regular rate and rhythm with no murmur appreciated. ABDOMEN: Soft, nontender, nondistended. EXTREMITIES: No edema bilaterally lower extremities. She was moving all extremities spontaneously. ACTIVITY: As tolerated. DIET: Heart health diet. MEDICATIONS: No new medications were started in the hospital. She was continued on; 1. Aspirin. 2. Amitriptyline. 3. Lasix. 4. Carvedilol. 5. Mirtazapine. 6. Isosorbide dinitrate. 7. Trazodone. 8. Hydralazine. 9. Clonidine. 10. [facility]. FOLLOWUP: Patient is to follow up with her PCP within the week and Cardiology as scheduled. CONDITION ON DISCHARGE: Patient was stable for discharge and discharged home. Return precautions were given. TIME SPENT: Time spent to discharge this patient was greater than 30 minutes. Job ID: [id number] MTDD
--- NOTE | 2020-05-28 14:08 | EKG ---
Test Reason : Blood Pressure : / mmHG Vent. Rate : 071 BPM Atrial Rate : 071 BPM P-R Int : 172 ms QRS Dur : 102 ms QT Int : 420 ms P-R-T Axes : 009 -16 119 degrees QTc Int : 456 ms Normal sinus rhythm Voltage criteria for left ventricular hypertrophy T wave abnormality, consider lateral ischemia Abnormal ECG Confirmed by SOCORRO VERDE ([id number]), editorial director KIRILL CHO ([id number]) on 05/28/2020 2:08:04 PM Referred By: Confirmed By:SOCORRO VERDE
--- NOTE | 2020-05-28 14:08 | EKG ---
Test Reason : Blood Pressure : / mmHG Vent. Rate : 071 BPM Atrial Rate : 071 BPM P-R Int : 176 ms QRS Dur : 100 ms QT Int : 414 ms P-R-T Axes : 022 -17 116 degrees QTc Int : 449 ms Normal sinus rhythm with sinus arrhythmia Moderate voltage criteria for LVH, may be normal variant T wave abnormality, consider lateral ischemia Abnormal ECG Confirmed by SOCORRO VERDE ([id number]), photography editor KIRILL CHO ([id number]) on 05/28/2020 2:08:03 PM Referred By: Confirmed By:SOCORRO VERDE
== END 2020-05-27 13:20 | disposition home or self-care (01) ==
LOC: ERS 21:52 → 2SW 05-27 02:33
PROVIDERS: ADMIT Internal Medicine; ATTEND Internal Medicine
DX: R07.89 Other chest pain (principal); I12.9 Hypertensive chronic kidney disease with stage 1 through stage 4 chronic kidney disease, or unspecified chronic kidney disease; E11.22 Type 2 diabetes mellitus with diabetic chronic kidney disease; N18.3 Chronic kidney disease, stage 3 (moderate); I50.22 Chronic systolic (congestive) heart failure; I25.10 Atherosclerotic heart disease of native coronary artery without angina pectoris; K21.9 Gastro-esophageal reflux disease without esophagitis; Z79.82 Long term (current) use of aspirin; Z79.899 Other long term (current) drug therapy; Z95.810 Presence of automatic (implantable) cardiac defibrillator; Z20.828 Contact with and (suspected) exposure to other viral communicable diseases
CPT/HCPCS: 71045; 80048; 80053; 82550; 84484 ×3; 85025; 93005; 96374; 96375; 99285; U0003; 36415; 87635; 96365; G0378; J2270; J2405; J3475

== ENCOUNTER 2020-09-14 11:06 | Observation (INO) | payer MEDICARE ==
[2020-09-14 11:39] LABS: #Eosinphils 0.1 thou/uL (0.0-0.7); #Lymphocytes 1.3 thou/uL (1.20-3.40); #Monocytes 0.4 thou/uL (0.11-0.59); #Neutrophils 3.4 thou/uL (1.40-6.50); %Basophils 0.6 % (0.0-1.0); %Eosinophils 1.8 % (0.0-10.0); %Lymphocytes 25.2 % (21.0-51.0); %Monocytes 7.4 % (0.0-10.0); %Neutrophils 65.1 % (42.0-75.0); Hemoglobin 10.9 g/dL (12.0-16.0); Mean Corpuscular Hemoglobin 30.4 pg (27.0-31.0); Mean Corpuscular Volume 94.9 fL (78.0-98.0); Mean Platelet Volume 8.5 fL (7.4-10.4); Platelet Count 207 thou/uL (130-400); RBC Distribution Width 14.8 % (11.5-14.5); White Blood Cell (WBC) Count 5.2 thou/uL (4.8-10.8)
[2020-09-14] MEDS ORDERED: Acetaminophen 500 MG TAB ONE (11:47)
[2020-09-14] MEDS ORDERED: diphenhydrAMINE 12.5 MG/5 ML UDCUP ONE ×2 (11:47→11:57)
[2020-09-14] MEDS ORDERED: Aspirin 325 MG TAB ONE (11:47)
[2020-09-14] MEDS ORDERED: Metoclopramide HCl 10 MG/2 ML VIAL ONE (11:47)
[2020-09-14] MEDS ORDERED: diphenhydrAMINE 50 MG/ML VIAL ONE (11:59)
[2020-09-14 12:00] LABS: ALT (SGPT) 8 U/L (8-55); AST (SGOT) 12 U/L (5-34); Albumin 3.7 g/dL (3.4-4.8); Alkaline Phosphatase 131 U/L (40-110); Anion Gap 15 mmol/L (10-20); BUN (Urea Nitrogen) 47 mg/dL (9.8-20.1); Bilirubin, Total 0.5 mg/dL (0.2-1.2); Calc. Creatinine Clearance 0 mL/min (70-130); Calcium 9.1 mg/dL (7.8-10.44); Carbon Dioxide 23 mmol/L (23-31); Chloride 107 mmol/L (98-107); Globulin 3.1 g/dL (2.4-3.5); Glucose 161 mg/dL (83-110); Potassium 4.4 mmol/L (3.5-5.1); Protein, Total 6.8 g/dL (6.0-8.3); Sodium 141 mmol/L (136-145)
[2020-09-14 12:24] LABS: CKMB 1.6 ng/mL (0-6.6)
--- NOTE | 2020-09-14 12:24 | CT ---
CT BRAIN NONCONTRAST: DATE: 09/14/2020 HISTORY: 74-year-old female FINDINGS: There is no evidence of acute intra-axial or extra-axial hemorrhage. There is no midline shift or any other mass effect. There is no extra-axial fluid collection. There is no evidence of obstructive hydrocephalus. IMPRESSION: No acute intracranial findings. CT BRAIN NONCONTRAST: DATE: 09/14/2020 HISTORY: 74-year-old female with left frontal headache FINDINGS: There is no evidence of acute intra-axial or extra-axial hemorrhage. There is no midline shift or any other mass effect. There is no extra-axial fluid collection. There is no evidence of obstructive hydrocephalus. There is an approximately 1.5 cm osteolytic lesion in the right parietal bone which is unchanged since 09/30/2003 CT, consistent with a hemangioma (venous malformation of bone). Calvarium is otherwise intact. The frontal, ethmoid, and sphenoid sinuses, and the bilateral tympanom astoid cavities, are grossly clear. There is diffuse brain parenchymal volume loss. There are low attenuation areas in the white matter. These are nonspecific, but in a patient of this age, they are probably chronic ischemic white matter changes due to microvascular atherosclerosis. IMPRESSION: 1) No acute intracranial findings. 2) involutional changes and chronic ischemic white matter changes.
[2020-09-14 12:38] LABS: Bacteria/HPF 3+ HPF (None Seen); Bilirubin Negative (Negative); Blood, Urine Negative (Negative); Clarity Clear (Clear); Glucose, Urine (Dipstick) Normal (Negative); Ketone, Urine Negative (Negative); Leukocyte 250 Leu/uL (Negative); Nitrite Negative (Negative); Protein, Urine (Dipstick) 300 mg/dL (Neg-Trace); RBC/HPF 0-3 HPF (0-3); Specific Gravity, Urine 1.011 (1.002-1.036); Urobilinogen Normal mg/dL (Less than 2)
[2020-09-14] MEDS ORDERED: hydrALAZINE 20 MG/ML VIAL ONE (14:19)
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
[2020-09-14] MEDS ORDERED: cloNIDine 0.2mg/24 Hour PATCH TD SCH (15:15)
[2020-09-14 15:20] LABS: Troponin I 0.053 ng/mL (< 0.028)
--- NOTE | 2020-09-14 15:33 | RAD ---
EXAM: CHEST ONE VIEW HISTORY: Chest pain. Pacemaker placed 2 months ago. COMPARISON: 05/26/2020 FINDINGS: Single lead left subclavian AICD remains in place. Cardiac silhouette is mildly enlarged. Pulmonary v asculature is within normal limits. Linear and minimal patchy density in the right infrahilar region is likely related to vascular structures and overlying rib. Lungs are otherwise clear. Vascula r calcifications are seen in the thoracic aorta. Degenerative changes are again seen in the spine. IMPRESSION: 1. Cardiomegaly without overt CHF. 2. No acute cardiopulmonary process.
[2020-09-14] MEDS ORDERED: Furosemide 40 MG TAB ONE (17:15)
[2020-09-14] MEDS ORDERED: hydrALAZINE 25 MG TAB ONE (17:16)
[2020-09-14 18:03] VITALS: BMI 32.6
[2020-09-14] MEDS ORDERED: cloNIDine 0.1 MG TAB PO PRN (18:11)
[2020-09-14] MEDS ORDERED: Dextrose 5% in Water 1,000 ML IV PRN (18:11)
[2020-09-14] MEDS ORDERED: traZODone HCl 50 MG TAB PO PRN (18:11)
[2020-09-14] MEDS ORDERED: Dextrose 50% Abboject 50 ML SYRINGE SLOW IVP PRN (18:11)
[2020-09-14 18:41] LABS: Troponin I 0.049 ng/mL (< 0.028)
[2020-09-14] MEDS: hydrALAZINE 25 MG TAB PO SCH (21:06)
[2020-09-14] MEDS: Magnesium Oxide 400 MG TAB PO SCH (21:06)
[2020-09-14] MEDS: Ubidecarenone 50 MG CAP PO SCH (21:06)
[2020-09-14] MEDS: Isosorbide Dinitrate 20 MG TAB PO SCH (21:07)
[2020-09-14] MEDS: Carvedilol 6.25 MG TAB PO SCH (21:07)
[2020-09-14] MEDS: HumaLOG 300 UNITS/3 ML VIAL SC PRN (21:14)
[2020-09-14] MEDS ORDERED: hydrALAZINE 25 MG TAB PO SCH (23:30)
[2020-09-14] MEDS: Acetaminophen 325 MG TAB PO PRN (23:40)
[2020-09-15 01:38] LABS: SARS-CoV-2 MS2 Positive; SARS-CoV-2 N Gene Negative; SARS-CoV-2 S Gene Negative; SARS-CoV-2 by NAA Not Detected (NotDetected); SARS-CoV-2 orf1ab Negative
[2020-09-15] MEDS: hydrALAZINE 20 MG/ML VIAL SLOW IVP PRN ×3 (04:23→23:30)
[2020-09-15 04:33] LABS: #Eosinphils 0.1 thou/uL (0.0-0.7); #Lymphocytes 1.6 thou/uL (1.20-3.40); #Monocytes 0.4 thou/uL (0.11-0.59); #Neutrophils 2.3 thou/uL (1.40-6.50); %Basophils 1.1 % (0.0-1.0); %Eosinophils 2.9 % (0.0-10.0); %Lymphocytes 36.3 % (21.0-51.0); %Monocytes 8.7 % (0.0-10.0); Hemoglobin 9.7 g/dL (12.0-16.0); Mean Corpuscular HGB CONC 34.3 g/dL (32.0-36.0); Mean Corpuscular Hemoglobin 32.3 pg (27.0-31.0); Mean Corpuscular Volume 94.1 fL (78.0-98.0); Mean Platelet Volume 8.7 fL (7.4-10.4); Platelet Count 189 thou/uL (130-400); RBC Distribution Width 14.8 % (11.5-14.5); Red Blood Cell (RBC) Count 2.99 mill/uL (4.20-5.40); White Blood Cell (WBC) Count 4.5 thou/uL (4.8-10.8)
[2020-09-15 04:51] LABS: Anion Gap 15 mmol/L (10-20); BUN (Urea Nitrogen) 46 mg/dL (9.8-20.1); Calc. Creatinine Clearance 34 mL/min (70-130); Calcium 8.5 mg/dL (7.8-10.44); Carbon Dioxide 20 mmol/L (23-31); Chloride 108 mmol/L (98-107); Glucose 150 mg/dL (83-110); Potassium 4.2 mmol/L (3.5-5.1); Sodium 139 mmol/L (136-145)
[2020-09-15] MEDS: Acetaminophen 325 MG TAB PO PRN ×4 (06:23→23:29)
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
[2020-09-15] MEDS: hydrALAZINE 25 MG TAB PO SCH ×3 (07:52→21:21)
[2020-09-15] MEDS: Ubidecarenone 50 MG CAP PO SCH ×3 (07:53→21:21)
[2020-09-15] MEDS: Carvedilol 6.25 MG TAB PO SCH (07:53)
[2020-09-15] MEDS: Magnesium Oxide 400 MG TAB PO SCH ×2 (07:53→21:21)
[2020-09-15] MEDS: Furosemide 20 MG TAB PO SCH ×2 (07:54→14:14)
[2020-09-15] MEDS: Isosorbide Dinitrate 20 MG TAB PO SCH ×3 (07:54→21:21)
[2020-09-15] MEDS ORDERED: cloNIDine 0.1 MG TAB PO SCH (09:00)
[2020-09-15] MEDS: HumaLOG 300 UNITS/3 ML VIAL SC PRN ×2 (11:00→21:22)
[2020-09-15] MEDS: cloNIDine 0.1 MG TAB PO SCH ×2 (14:14→21:21)
--- NOTE | 2020-09-15 15:50 | ULT ---
EXAM: BILATERAL RENAL ULTRASOUND COMPLETE INCLUDING COLOR AND SPECTRAL DOPPLER IMAGIN09/15/20 HISTORY: Stenosis, headache, dyspnea, septic joint. Right kidney measures 10.1 x 5.4 x 5.4 cm. Left kidney measures 10.1 x 5.2 x 4.4 cm. Left renal cyst, 2.0 cm. Urinary bladder appears unremarkable. exam was somewhat limited technically because of bowel gas. Pat ient was not n.p.o. prior to the exam. Right and left renal artery/aortic ratios are well within normal limits measuring less than 0.5. Righ t and left arcuate resistive indices are minimally elevated at 0.77 on the right side and 0.74 on the left side. No significant abnormal renal artery velocities demonstrated. IMPRESSION: Minimally elevated right and left arcuate resistive indices with normal right and left renal artery/a ortic ratios. No abnormal peak systolic velocity to suggest associated stenosis. Depending upon concern, follow-up abdominal aorta/renal artery CT angiogram for further assessment. POS: AH
[2020-09-15] MEDS ORDERED: Amlodipine 5 MG TAB PO SCH (16:15)
[2020-09-15] MEDS: Carvedilol 25 MG TAB PO SCH (16:54)
[2020-09-15] MEDS ORDERED: Atorvastatin Calcium 40 MG TAB PO SCH (21:00)
[2020-09-16] MEDS: hydrALAZINE 20 MG/ML VIAL SLOW IVP PRN (03:40)
[2020-09-16 04:33] LABS: #Eosinphils 0.1 thou/uL (0.0-0.7); #Lymphocytes 1.5 thou/uL (1.20-3.40); #Monocytes 0.3 thou/uL (0.11-0.59); #Neutrophils 2.6 thou/uL (1.40-6.50); %Basophils 0.3 % (0.0-1.0); %Eosinophils 2.1 % (0.0-10.0); %Lymphocytes 32.6 % (21.0-51.0); %Monocytes 7.1 % (0.0-10.0); %Neutrophils 57.8 % (42.0-75.0); Hemoglobin 10.3 g/dL (12.0-16.0); Mean Corpuscular HGB CONC 31.8 g/dL (32.0-36.0); Mean Corpuscular Hemoglobin 30.4 pg (27.0-31.0); Mean Corpuscular Volume 95.7 fL (78.0-98.0); Mean Platelet Volume 8.7 fL (7.4-10.4); Platelet Count 201 thou/uL (130-400); RBC Distribution Width 14.9 % (11.5-14.5); Red Blood Cell (RBC) Count 3.39 mill/uL (4.20-5.40); White Blood Cell (WBC) Count 4.5 thou/uL (4.8-10.8)
[2020-09-16 04:52] LABS: Anion Gap 16 mmol/L (10-20); BUN (Urea Nitrogen) 44 mg/dL (9.8-20.1); Calc. Creatinine Clearance 31 mL/min (70-130); Carbon Dioxide 20 mmol/L (23-31); Chloride 104 mmol/L (98-107); Glucose 159 mg/dL (83-110); Potassium 4.2 mmol/L (3.5-5.1); Sodium 136 mmol/L (136-145)
[2020-09-16] MEDS: Acetaminophen 325 MG TAB PO PRN (06:13)
--- NOTE | 2020-09-16 06:54 | CON ---
DATE OF CONSULTATION: CONSULTING PHYSICIAN: Shellie Jean MD REQUESTING PHYSICIAN: Dr. Tadeo with [facility]. REASON FOR CONSULTATION: Uncontrolled hypertension/multidrug-resistant hypertension. IMPRESSION: 1. Multidrug-resistant hypertension, on multiple antihypertensive medications. 2. Chronic kidney disease stage 4 in the context of problem #3. 3. Diabetic nephropathy plus or minus hypertensive nephrosclerosis. 4. Anemia, query cause. PLAN: 1. The patient currently on multiple antihypertensive medications. Some of them introduced and will allow these medications to show their effect within the next 24 hours. Otherwise, we will begin to work towards streamlining this patient's blood pressure medications. 2. I will prefer to use medications that are dosed daily as opposed to the ones that are dosed multiple times a day in order to improve compliance in this patient. 3. Renally dose all medications and avoid potentially nephrotoxic agents. 4. Must include some form of diuretics in this patient's antihypertensive regimen. HISTORY OF PRESENT ILLNESS: History is that of a 74-year-old female patient, known to me from previous hospitalization when I was consulted for acute on chronic kidney disease and the patient noted to have evidence of nephrotic range proteinuria, likely in the context of diabetic nephropathy. This time around, the patient presented with headache and noted with systolic blood pressure has always been above 200, despite being on multiple antihypertensive medications and claiming to be compliant with these medications. As a result of this, the patient has undergone all renal ultrasounds, which did not show any clear-cut evidence of renal artery stenosis. As a result, Renal has now been consulted to participate in the management of this case. PAST MEDICAL HISTORY: Significant for hypertension; diabetic nephropathy; diabetes mellitus type 2, insulin dependent; anemia; hyponatremia; congestive heart failure with EF in the systolic heart failure range. MEDICATIONS: Reviewed as documented on [employer]. PAST SURGICAL HISTORY: Status post AICD. SOCIAL HISTORY: Remote tobacco use. No alcohol. No illicit drug use. FAMILY HISTORY: Not significantly related to present illness. REVIEW OF SYSTEMS: As documented in the body of the history. All other systems were reviewed and found not to be significantly related to present illness. PHYSICAL EXAMINATION: VITAL SIGNS: The patient noted with the following vital signs; blood pressure of 204/93, afebrile, temperature 98, pulse 65, respiratory rate of 16, O2 saturation of 95%. HEENT: Unremarkable. CARDIOVASCULAR SYSTEM: First and second heart sounds were heard. RESPIRATORY SYSTEM: Clear to auscultation. DIGESTIVE SYSTEM: Revealed an obese abdomen. EXTREMITIES: No peripheral edema. LYMPHATIC: No peripheral lymphadenopathy. SUMMARY: A 74-year-old female patient with multidrug-resistant hypertension. Thank you for this consultation. We will follow with you. Job ID: [id number]
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
[2020-09-16] MEDS: Carvedilol 25 MG TAB PO SCH (08:24)
[2020-09-16] MEDS: cloNIDine 0.1 MG TAB PO SCH (08:24)
[2020-09-16] MEDS: Ubidecarenone 50 MG CAP PO SCH (08:25)
[2020-09-16] MEDS: Furosemide 20 MG TAB PO SCH (08:25)
[2020-09-16] MEDS: Magnesium Oxide 400 MG TAB PO SCH (08:25)
[2020-09-16] MEDS: hydrALAZINE 25 MG TAB PO SCH (08:25)
[2020-09-16] MEDS: Isosorbide Dinitrate 20 MG TAB PO SCH (08:25)
[2020-09-16] MEDS ORDERED: Amlodipine 5 MG TAB PO SCH (09:00)
[2020-09-16 11:09] VITALS: BP 150/71; TEMP 97.7
[2020-09-16] MEDS: HumaLOG 300 UNITS/3 ML VIAL SC PRN (11:10)
--- NOTE | 2020-09-17 12:10 | DIS ---
DATE OF ADMISSION: 09/14/2020 DATE OF DISCHARGE: 09/16/2020 CONSULTS: Nephrology, Shellie Jean MD. PROCEDURES: None. PRIMARY DIAGNOSIS: Resistant hypertension. SECONDARY DIAGNOSES: Chronic kidney disease, stage 4; type 2 diabetes; normocytic anemia; coronary artery disease; chronic headaches; heart failure with reduced ejection fraction; major depression; gastroesophageal reflux disease; obesity; dementia. DISCHARGE MEDICATIONS: 1. Trazodone 50 mg p.o. at bedtime p.r.n. 2. Aspirin 81 mg daily. 3. Potassium chloride 8 mEq tablet extended release one tab p.o. daily. 4. Tresiba 5 units subcu daily. 5. Omeprazole 10 mg p.o. daily. 6. Hydralazine 50 mg p.o. t.i.d. 7. Clonidine 0.1 mg tab p.o. t.i.d. 8. Coenzyme Q10 100 mg p.o. t.i.d. 9. Coreg 25 mg p.o. b.i.d. with meals. 10. Atorvastatin 40 mg p.o. at bedtime. 11. Amlodipine 5 mg p.o. daily. 12. Isosorbide dinitrate 20 mg p.o. t.i.d. 13. Lasix 20 mg p.o. b.i.d. Discontinued medications: 1. Clonidine 0.1 mg p.o. b.i.d. p.r.n. 2. Coreg 12.5 mg p.o. b.i.d. HISTORY OF PRESENT ILLNESS AND HOSPITAL COURSE: Ms Sheridan is a 74-year-old female with the past medical history significant for type 2 diabetes, uncontrolled hypertension, heart failure with reduced ejection fraction of 25% to 30%, chronic headaches, and CKD 4, who presented for dyspnea, chest discomfort, and chronic headaches. She has suffered with chronic headaches for many years, but they are worse when her blood pressure is elevated. At the time of admission, her chest discomfort that was present when she came to the ER, had been alleviated as well as her shortness of breath. She reported compliance with medications using blister packs. Her blood pressure in the emergency department was 206/85, the rest of her vital signs were within normal limits. Her EKG was normal sinus rhythm with T- wave inversions in V3 to V6 with no ST elevation. She had a CT of her head, which showed no acute abnormality. She was admitted for resistant hypertension with hypertensive urgency. At the time of admission, it was unclear if she has had any kind of workup for secondary hypertension. A renal ultrasound to evaluate renal artery stenosis was performed, which revealed patent renal arteries bilaterally. Nephrology was consulted during this admission due to her resistant hypertension and unclear if she has had any kind of secondary hypertension workup outpatient. Dr. Hensley, who is her outpatient continuous miner operator helper saw her while she was here in the hospital. He recommended including diuretics in her antihypertensive regimen, renally dosing all medications and to try to dose medications daily as opposed to multiple times per day due to suspected issues with compliance in this patient. During this admission, the major medication changes that were made to her blood pressure were increasing her Coreg from 12.5 to 25 mg b.i.d. as well as adding amlodipine 5 mg and changing her clonidine to 0.1 mg three times a day scheduled instead of 0.1 mg twice daily as needed. With these changes, her blood pressure was brought under better control. Notably, she had several blood pressures that were documented in the 190s over 80s or even higher than this; however, these were performed with an automatic cuff, and when this was rechecked manually, her blood pressure was in a more acceptable range of the 140s to 160s systolic. She tolerated the blood pressure medication changes well. There is no further inpatient workup that was necessary. She was discharged with instructions to follow up closely with both her PCP, Dr. Conrad at [facility] as well as her continuous miner operator helper, Dr. Hensley. Due to this resistant hypertension and body habitus, it is recommended that she follow up outpatient for workup for obstructive sleep apnea as it may be the contributing factor to her hypertension, if present. DISPOSITION: Stable. DISCHARGE INSTRUCTIONS: 1. Location, home. 2. Diet, diabetic diet. 3. Activity as tolerated. 4. Follow up with PCP, Dr. Conrad within 3 days and with Nephrology, Dr. Hensley within the next 2 weeks. Job ID: [id number] MTDD
== END 2020-09-16 13:12 | disposition home or self-care (01) ==
LOC: ERS 11:06 → INTOOBSV 14:30 → ERHOLD 14:30 → 2NO 17:52
PROVIDERS: ADMIT Student in an Organized Health Care Education/Training Program; ATTEND Student in an Organized Health Care Education/Training Program
DX: I16.0 Hypertensive urgency (principal); I13.0 Hypertensive heart and chronic kidney disease with heart failure and stage 1 through stage 4 chronic kidney disease, or unspecified chronic kidney disease; E11.21 Type 2 diabetes mellitus with diabetic nephropathy; E11.22 Type 2 diabetes mellitus with diabetic chronic kidney disease; N18.4 Chronic kidney disease, stage 4 (severe); I50.20 Unspecified systolic (congestive) heart failure; D50.9 Iron deficiency anemia, unspecified; I25.10 Atherosclerotic heart disease of native coronary artery without angina pectoris; G89.29 Other chronic pain; R51.9 Headache, unspecified; F32.9 Major depressive disorder, single episode, unspecified; K21.9 Gastro-esophageal reflux disease without esophagitis; F03.90 Unspecified dementia, unspecified severity, without behavioral disturbance, psychotic disturbance, mood disturbance, and anxiety; I70.1 Atherosclerosis of renal artery; G47.33 Obstructive sleep apnea (adult) (pediatric); E66.9 Obesity, unspecified; Z68.31 Body mass index [BMI] 31.0-31.9, adult; Z79.4 Long term (current) use of insulin; Z79.82 Long term (current) use of aspirin; Z79.899 Other long term (current) drug therapy; Z95.810 Presence of automatic (implantable) cardiac defibrillator; Z20.822 Contact with and (suspected) exposure to COVID-19
CPT/HCPCS: 70450; 71045; 76770; 80048 ×2; 80053; 82553; 82962 ×3; 84484 ×2; 85025 ×3; 85652; 93005; 93975; U0003; 36415; 36416; 81003; 81015; 87635; 96365; 96375; 96376; G0378; J0360; J1200; J2765; Q0163

== ENCOUNTER 2020-10-10 15:51 | Emergency (ER) | payer MEDICARE ==
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
[2020-10-10 17:50] LABS: #Eosinphils 0.1 thou/uL (0.0-0.7); #Lymphocytes 1.1 thou/uL (1.20-3.40); #Monocytes 0.3 thou/uL (0.11-0.59); #Neutrophils 2.9 thou/uL (1.40-6.50); %Basophils 0.5 % (0.0-1.0); %Monocytes 6.3 % (0.0-10.0); %Neutrophils 65.2 % (42.0-75.0); Hemoglobin 11.2 g/dL (12.0-16.0); Mean Corpuscular HGB CONC 32.7 g/dL (32.0-36.0); Mean Corpuscular Hemoglobin 32.1 pg (27.0-31.0); Mean Corpuscular Volume 98.4 fL (78.0-98.0); Mean Platelet Volume 8.4 fL (7.4-10.4); Platelet Count 221 thou/uL (130-400); RBC Distribution Width 15.3 % (11.5-14.5); Red Blood Cell (RBC) Count 3.48 mill/uL (4.20-5.40); White Blood Cell (WBC) Count 4.4 thou/uL (4.8-10.8)
[2020-10-10 18:04] LABS: ALT (SGPT) 9 U/L (8-55); AST (SGOT) 14 U/L (5-34); Albumin 3.7 g/dL (3.4-4.8); Alkaline Phosphatase 125 U/L (40-110); Anion Gap 13 mmol/L (10-20); BUN (Urea Nitrogen) 35 mg/dL (9.8-20.1); Bilirubin, Total 0.5 mg/dL (0.2-1.2); Calc. Creatinine Clearance 0 mL/min (70-130); Calcium 8.4 mg/dL (7.8-10.44); Carbon Dioxide 23 mmol/L (23-31); Chloride 109 mmol/L (98-107); Globulin 2.6 g/dL (2.4-3.5); Glucose 170 mg/dL (83-110); Potassium 4.3 mmol/L (3.5-5.1); Protein, Total 6.3 g/dL (5.8-8.1); Sodium 141 mmol/L (136-145)
== END 2020-10-10 18:59 | disposition home or self-care (01) ==
LOC: ERS 15:51 → EEVIPCON 15:51 → ERS 18:59
DX: R07.89 Other chest pain (principal); I11.0 Hypertensive heart disease with heart failure; I50.9 Heart failure, unspecified; E11.9 Type 2 diabetes mellitus without complications; Z79.899 Other long term (current) drug therapy; Y04.8XXA Assault by other bodily force, initial encounter
CPT/HCPCS: 36415; 71045; 80053; 83880; 84484; 85025; 93005

== ENCOUNTER 2020-11-02 10:23 | Inpatient (IN) | payer MEDICARE ==
--- NOTE | 2020-11-02 10:51 | RAD ---
EXAM: Single view of the chest HISTORY: Shortness of breath COMPARISON: 10/10/2020 FINDINGS: Single view of the chest shows an enlarged but stable cardiomediastinal silhouette. The pa cemaker is unchanged in position. There is no evidence of consolidation, mass, or pleural effusion. Degenerative changes are seen in the spine. IMPRESSION: Cardiomegaly without evidence of acute cardiopulmonary disease
[2020-11-02] MEDS ORDERED: Nitroglycerin 50 MG/250 ML BOT 250 ML ONE (10:59)
[2020-11-02] MEDS ORDERED: Aspirin Chewable 81 MG TAB ONE ×2 (10:59→11:01)
[2020-11-02] MEDS ORDERED: Furosemide 20 MG/2 ML VIAL ONE (10:59)
[2020-11-02 11:07] LABS: #Eosinphils 0.1 thou/uL (0.0-0.7); #Lymphocytes 0.9 thou/uL (1.20-3.40); #Monocytes 0.4 thou/uL (0.11-0.59); #Neutrophils 4.5 thou/uL (1.40-6.50); %Basophils 0.2 % (0.0-1.0); %Eosinophils 1.1 % (0.0-10.0); %Lymphocytes 14.9 % (21.0-51.0); %Monocytes 6.9 % (0.0-10.0); Hemoglobin 9.6 g/dL (12.0-16.0); Mean Corpuscular HGB CONC 32.7 g/dL (32.0-36.0); Mean Corpuscular Hemoglobin 32.2 pg (27.0-31.0); Mean Corpuscular Volume 98.4 fL (78.0-98.0); Mean Platelet Volume 9.1 fL (7.4-10.4); Platelet Count 188 thou/uL (130-400); RBC Distribution Width 14.7 % (11.5-14.5); Red Blood Cell (RBC) Count 2.97 mill/uL (4.20-5.40); White Blood Cell (WBC) Count 5.9 thou/uL (4.8-10.8)
[2020-11-02 11:36] LABS: ALT (SGPT) 33 U/L (8-55); AST (SGOT) 32 U/L (5-34); Albumin 3.5 g/dL (3.4-4.8); Alkaline Phosphatase 147 U/L (40-110); Anion Gap 16 mmol/L (10-20); BUN (Urea Nitrogen) 54 mg/dL (9.8-20.1); Bilirubin, Total 0.8 mg/dL (0.2-1.2); CK (CPK) 52 U/L (29-168); Calc. Creatinine Clearance 0 mL/min (70-130); Calcium 9.1 mg/dL (7.8-10.44); Carbon Dioxide 21 mmol/L (23-31); Chloride 107 mmol/L (98-107); Glucose 208 mg/dL (83-110); Lipase 11 U/L (8-78); Potassium 4.2 mmol/L (3.5-5.1); Protein, Total 6.5 g/dL (5.8-8.1); Sodium 140 mmol/L (136-145)
[2020-11-02 11:50] LABS: SARS-CoV-2 NAA Rapid Test Not Detected (NotDetected)
[2020-11-02] MEDS ORDERED: Ondansetron PF 4 MG/2 ML Vial IVP PRN (13:06)
[2020-11-02] MEDS ORDERED: Dextrose 5% in Water 1,000 ML IV PRN (13:12)
[2020-11-02] MEDS ORDERED: Dextrose 50% Abboject 50 ML SYRINGE SLOW IVP PRN (13:12)
--- NOTE | 2020-11-02 14:24 | PDOC.HHP ---
Hospitalist MAGY SOUZA History of Present Illness: Patient is 74-year-old female with PMH of chronic systolic CHF, HTN, DM type II, CKD stage IV, chronic anemia, chronic BRENNAN, and obesity who presents to the ED with shortness of breath that started last night. She also reports pressure- like, nonradiating substernal chest pain earlier this morning, no pain now. She has orthopnea and leg swelling, but denies PND. She had a headache yesterday but not today. She says she has been taking all her medications as prescribed, including this morning. Patient has hx of multidrug resistance HTN. She was admitted here in 09/2020 for hypertensive urgency, renal ultrasound done at that time showed no renal artery stenosis. Medications were adjusted at that time prior to her discharge, sleep study for BERT also was recommended, and unknown if this was done. ED Course: On arrival to the ED, initial BP: 233/108, this did not improved much with Nitro paste so patient was started on Nitro drip while in the ED. Allergies/Adverse Reactions: Allergy/AdvReac Type Severity Reaction Status Date / Time No Known Allergies Allergy Verified 05/27/20 03:29 Home Medications: Medication Instructions Recorded Confirmed Type Aspirin [Ecotrin Low Strength] 81 mg PO DAILY 02/09/20 09/14/20 History traZODone HCl [Trazodone HCl] 50 mg PO HS PRN 02/09/20 09/14/20 History Potassium Chloride 1 tab PO DAILY 03/02/20 09/15/20 History Insulin Degludec [Tresiba 5 unit SQ DAILY 05/03/20 09/15/20 History Flextouch U-100] Omeprazole 10 mg PO DAILY 09/14/20 09/14/20 History Amlodipine [Norvasc] 5 mg PO DAILY #30 tab 09/16/20 Rx Atorvastatin Calcium [Lipitor] 40 mg PO HS #30 tab 09/16/20 Rx Carvedilol [Coreg] 25 mg PO BID-WM #60 tab 09/16/20 Rx Furosemide [Lasix] 20 mg PO 0900,1400 #60 tab 09/16/20 Rx Isosorbide Dinitrate [Isordil] 20 mg PO TID #90 tab 09/16/20 Rx Ubidecarenone [Coenzyme Q10] 100 mg PO TID cap 09/16/20 Rx cloNIDine [Catapres] 0.1 mg PO TID #90 tab 09/16/20 Rx hydrALAZINE [Apresoline] 50 mg PO TID #90 tab 09/16/20 Rx Past History: PMHx: chronic systolic CHF, HTN, DM type II, CKD stage IV, chronic anemia, chronic BRENNAN, and obesity Past surgical hx: tubal ligation, AICD placement Social hx: former smoker. Denies alcohol or drug use. Hospitalist HPI ROS Constitutional: reports: chills. denies: fever Eyes: reports: vision change (mild blury vision) ENT: reports: throat pain Respiratory: reports: shortness of breath Cardiovascular: reports: chest pain Gastrointestinal: denies: nausea, vomiting, diarrhea Genitourinary: denies: dysuria Musculoskeletal: reports: other (negative for joint pain) Skin: denies: rash Other: Negative for BRENNAN. Hospitalist Exam General Appearance: NAD, awake alert Eye: PERRL ENT: moist mucosa Neck: no JVD Heart: RRR, no murmur Respiratory: no tachypnea Respiratory - other findings: crackles on the mid and bilateral lower lobs Gastrointestinal: soft, non-tender, non-distended, normal bowel sounds Extremities - other findings: 3+ edema on the LE bilaterally Skin - other findings: Ecchymosis on the right side of her abdomen Neurological: normal sensation to touch, no weakness Musculoskeletal: normal strength Psychiatric: normal affect, oriented to person, oriented to place Hospitalist Results Result Diagrams: 11/02/20 10:49 11/02/20 10:49 Lab results: Laboratory Last Values WBC 5.9 thou/uL (4.8-10.8) 11/02/20 10:49 RBC 2.97 mill/uL (4.20-5.40) L 11/02/20 10:49 Hgb 9.6 g/dL (12.0-16.0) L 11/02/20 10:49 Hct 29.2 % (36.0-47.0) L 11/02/20 10:49 MCV 98.4 fL (78.0-98.0) H 11/02/20 10:49 MCH 32.2 pg (27.0-31.0) H 11/02/20 10:49 MCHC 32.7 g/dL (32.0-36.0) 11/02/20 10:49 RDW 14.7 % (11.5-14.5) H 11/02/20 10:49 Plt Count 188 thou/uL (130-400) 11/02/20 10:49 MPV 9.1 fL (7.4-10.4) 11/02/20 10:49 Neutrophils % 77.0 % (42.0-75.0) H 11/02/20 10:49 Lymphocytes % 14.9 % (21.0-51.0) L 11/02/20 10:49 Monocytes % 6.9 % (0.0-10.0) 11/02/20 10:49 Eosinophils % 1.1 % (0.0-10.0) 11/02/20 10:49 Basophils % 0.2 % (0.0-1.0) 11/02/20 10:49 Neutrophils # 4.5 thou/uL (1.40-6.50) 11/02/20 10:49 Lymphocytes # 0.9 thou/uL (1.20-3.40) L 11/02/20 10:49 Monocytes # 0.4 thou/uL (0.11-0.59) 11/02/20 10:49 Eosinophils # 0.1 thou/uL (0.0-0.7) 11/02/20 10:49 Basophils # 0.0 thou/uL (0.0-0.2) 11/02/20 10:49 Sodium 140 mmol/L (136-145) 11/02/20 10:49 Potassium 4.2 mmol/L (3.5-5.1) 11/02/20 10:49 Chloride 107 mmol/L (98-107) 11/02/20 10:49 Carbon Dioxide 21 mmol/L (23-31) L 11/02/20 10:49 Anion Gap 16 mmol/L (10-20) 11/02/20 10:49 BUN 54 mg/dL (9.8-20.1) H 11/02/20 10:49 Creatinine 1.85 mg/dL (0.6-1.1) H 11/02/20 10:49 Estimated GFR (MDRD) 27 11/02/20 10:49 Glucose 208 mg/dL (83-110) H 11/02/20 10:49 Calcium 9.1 mg/dL (7.8-10.44) 11/02/20 10:49 Total Bilirubin 0.8 mg/dL (0.2-1.2) 11/02/20 10:49 AST 32 U/L (5-34) 11/02/20 10:49 ALT 33 U/L (8-55) 11/02/20 10:49 Alkaline Phosphatase 147 U/L (40-110) H 11/02/20 10:49 Creatine Kinase 52 U/L (29-168) 11/02/20 10:49 Troponin I 0.026 ng/mL (< 0.028) 11/02/20 10:49 B-Natriuretic Peptide 3972.0 pg/mL (0-100) H 11/02/20 10:49 Serum Total Protein 6.5 g/dL (5.8-8.1) 11/02/20 10:49 Albumin 3.5 g/dL (3.4-4.8) 11/02/20 10:49 Globulin 3.0 g/dL (2.4-3.5) 11/02/20 10:49 Albumin/Globulin Ratio 1.2 g/dL (1.2-2.2) 11/02/20 10:49 Lipase 11 U/L (8-78) 11/02/20 10:49 Influenza A RNA INAAT Not Detected (NotDetected) 11/02/20 10:46 Influenza B RNA INAAT Not Detected (NotDetected) 11/02/20 10:46 SARS-CoV-2 Rap RNA(RT-PCR) Not Detected (NotDetected) 11/02/20 10:46 Chest x-ray Status: image reviewed by in Hospitalist H&P A/P (1) Hypertensive urgency Code(s): I16.0 - HYPERTENSIVE URGENCY Status: Acute Assessment and Plan: Patient presented with elevated BP. She has history of multidrug resistance HTN. Recent renal ultrasound showed no renal stenosis. Plan: -cont Nitro drip. Keep SBP 160-170's -cont home meds except Isosorbide -patient's petrology teacher Dr. Hensley consulted (2) Acute on chronic systolic CHF (congestive heart failure) Code(s): I50.23 - ACUTE ON CHRONIC SYSTOLIC (CONGESTIVE) HEART FAILURE Status: Acute Assessment and Plan: Patient has signs of volume overload on exam. Plan: -Lasix 40 mg iv bid -Strict I&O, daily weight (3) DM type 2 (diabetes mellitus, type 2) Status: Chronic Qualifiers: Diabetes mellitus detention insulin use: without longwall headgate operator use Diabetes mellitus complication status: without complication Qualified Code(s): E11.9 - Type 2 diabetes mellitus without complications Assessment and Plan: Plan: -SS insulin ACHS (4) CKD (chronic kidney disease) stage 4, GFR 15-29 ml/min Code(s): N18.4 - CHRONIC KIDNEY DISEASE, STAGE 4 (SEVERE) Status: Chronic Assessment and Plan: stable. Plan: -treat hypertensive urgency as above
[2020-11-02] MEDS: Furosemide 40 MG/4 ML VIAL SLOW IVP SCH (14:44)
[2020-11-02] MEDS ORDERED: cloNIDine 0.1 MG TAB ONE (14:58)
[2020-11-02] MEDS ORDERED: Isosorbide Mononitrate 20 MG TAB PO SCH (15:00)
[2020-11-02] MEDS: cloNIDine 0.1 MG TAB PO SCH ×2 (15:02→21:06)
[2020-11-02] MEDS ORDERED: Nitroglycerin 25 mg/250 ml BOT IV SCH (17:15)
[2020-11-02] MEDS: Carvedilol 25 MG TAB PO SCH (17:35)
[2020-11-02 17:42] VITALS: BMI 34.8
[2020-11-02] MEDS: Heparin 5,000 UNITS/ML VIAL SC SCH ×2 (18:01→21:06)
[2020-11-02] MEDS: hydrALAZINE 25 MG TAB PO SCH (21:06)
[2020-11-02] MEDS: Acetaminophen 325 MG TAB PO PRN (21:06)
[2020-11-02] MEDS: Atorvastatin Calcium 40 MG TAB PO SCH (21:06)
[2020-11-02] MEDS: HumaLOG 300 UNITS/3 ML VIAL SC PRN (21:07)
[2020-11-03] MEDS: Nitroglycerin 50 MG/250 ML BOT 250 ML IVPB SCH ×3 (01:40→17:05)
[2020-11-03] MEDS: Acetaminophen 325 MG TAB PO PRN (03:15)
[2020-11-03 04:09] LABS: #Eosinphils 0.1 thou/uL (0.0-0.7); #Lymphocytes 0.9 thou/uL (1.20-3.40); #Monocytes 0.4 thou/uL (0.11-0.59); #Neutrophils 3.3 thou/uL (1.40-6.50); %Basophils 0.5 % (0.0-1.0); %Eosinophils 2.8 % (0.0-10.0); %Lymphocytes 18.4 % (21.0-51.0); %Monocytes 8.7 % (0.0-10.0); %Neutrophils 69.7 % (42.0-75.0); Hemoglobin 8.7 g/dL (12.0-16.0); Mean Corpuscular HGB CONC 32.2 g/dL (32.0-36.0); Mean Corpuscular Hemoglobin 31.5 pg (27.0-31.0); Mean Corpuscular Volume 97.9 fL (78.0-98.0); Mean Platelet Volume 9.4 fL (7.4-10.4); Platelet Count 192 thou/uL (130-400); RBC Distribution Width 14.6 % (11.5-14.5); Red Blood Cell (RBC) Count 2.75 mill/uL (4.20-5.40); White Blood Cell (WBC) Count 4.8 thou/uL (4.8-10.8)
[2020-11-03 04:34] LABS: Anion Gap 13 mmol/L (10-20); BUN (Urea Nitrogen) 52 mg/dL (9.8-20.1); Calc. Creatinine Clearance 40 mL/min (70-130); Calcium 8.8 mg/dL (7.8-10.44); Carbon Dioxide 24 mmol/L (23-31); Chloride 107 mmol/L (98-107); Glucose 151 mg/dL (83-110); Potassium 3.7 mmol/L (3.5-5.1); Sodium 140 mmol/L (136-145)
[2020-11-03] MEDS: Furosemide 40 MG/4 ML VIAL SLOW IVP SCH ×2 (06:02→14:28)
[2020-11-03] MEDS: HumaLOG 300 UNITS/3 ML VIAL SC PRN ×4 (06:02→22:15)
[2020-11-03] MEDS ORDERED: Electrolyte Replacement Protocol 1 EACH FS SCH (07:47)
--- NOTE | 2020-11-03 08:25 | CON ---
DATE OF CONSULTATION: 11/03/2020 TIME SPENT: 75 minutes of time. REASON FOR CONSULTATION: Hypertensive emergency with resultant diastolic congestive heart failure. HISTORY OF PRESENT ILLNESS: Ms. Sheridan is a pleasant 74-year-old female, who came to the hospital yesterday with complaints of shortness of breath, chest pain, and leg swelling. She was found to have an extremely elevated blood pressure of about 233/108. She has been placed on a nitroglycerin drip. She initially had chest pain, but she says that is now resolved. She says she has had problems with blood pressure for many, many years. PAST MEDICAL HISTORY: 1. Chronic systolic heart failure. 2. Hypertension. 3. Type 2 diabetes mellitus. 4. Chronic kidney disease stage 4. 5. Anemia. 6. Obesity. PAST SURGICAL HISTORY: 1. Tubal ligation. 2. AICD placement. SOCIAL HISTORY: Quit smoking many years ago. Does not consume alcohol. Does not use illicit drugs. MEDICATIONS PRIOR TO ADMISSION: 1. Aspirin 81 mg daily. 2. Trazodone 50 mg nightly. 3. Coenzyme Q10 of 100 mg 3 times daily. 4. Potassium chloride unknown dose daily. 5. Tresiba insulin 5 units subcu daily. 6. Omeprazole 10 mg daily. 7. Hydralazine 50 mg t.i.d. 8. Isordil 20 mg t.i.d. 9. Lasix 40 mg b.i.d. 10. Clonidine 0.1 mg t.i.d. 11. Coreg 25 mg b.i.d. 12. Atorvastatin 40 mg daily. 13. Amlodipine 5 mg daily. REVIEW OF SYSTEMS: See history of present illness. Additionally, no nausea, vomiting, hematemesis, melena, hematochezia, hematuria, or dysuria. She does have a headache. PHYSICAL EXAMINATION: VITAL SIGNS: Temperature 98.2, pulse 54, blood pressure 181/68, O2 saturation 98%. GENERAL: The patient is awake, alert, and in no distress. HEENT: Pupils reactive to light. Sclerae anicteric. Oropharynx clear. NECK: No adenopathy or JVD. LUNGS: She has inspiratory crackles at both bases. CARDIOVASCULAR: S1 and S2, regular, with a 2/6 holosystolic murmur. ABDOMEN: Soft and nontender to palpation. EXTREMITIES: No clubbing or cyanosis. She has trace edema of her ankles and legs. LABORATORY DATA: White blood cell count 4.8, hemoglobin 8.7, hematocrit 26.9, and platelet count 192. Sodium 140, potassium 3.7, chloride 107, CO2 of 24, BUN 52, creatinine 1.69, and glucose 151. BNP 3972. Troponin 0.026. COVID test was negative. X-ray shows cardiomegaly and bilateral vascular infiltrates. Previous echocardiogram in February of 2020 showed EF of 25% to 30% with [id number] aortic regurgitation and small pericardial effusion. ASSESSMENT: 1. Hypertensive emergency. 2. Exacerbation of chronic systolic heart failure. 3. Angina at the time of admission. 4. Chronic kidney disease. 5. Diabetes mellitus. PLAN: 1. She needs better control of her blood pressure. Nephrology has been consulted. I would also recommend consulting the patient's bitumen plant operator. 2. Wean off the nitroglycerin drip as tolerated. If nitroglycerin proves ineffective, then I would switch her to Cardene. 3. Continue diuresis. 4. Replace potassium as needed. 5. Pepcid for GI prophylaxis. 6. Heparin for DVT prophylaxis. Job ID: [id number]
[2020-11-03] MEDS: Carvedilol 25 MG TAB PO SCH ×2 (08:37→17:10)
[2020-11-03] MEDS: hydrALAZINE 25 MG TAB PO SCH ×2 (08:37→20:42)
[2020-11-03] MEDS: Heparin 5,000 UNITS/ML VIAL SC SCH ×3 (08:38→20:42)
[2020-11-03] MEDS: Aspirin 81 mg Enteric Coated Tablet PO SCH (08:39)
[2020-11-03] MEDS: Famotidine 20 MG TAB PO SCH (08:39)
[2020-11-03] MEDS: cloNIDine 0.1 MG TAB PO SCH ×2 (08:46→20:41)
[2020-11-03] MEDS ORDERED: Amlodipine 5 MG TAB PO SCH (09:00)
[2020-11-03] MEDS: Acetaminophen/Codeine 30-300mg Tablet PO PRN (09:30)
--- NOTE | 2020-11-03 13:52 | CON ---
DATE OF CONSULTATION: CONSULTING PHYSICIAN: Shellie Jean MD REQUESTING PHYSICIAN: Frieda Marina MD REASON FOR CONSULTATION: Hypertensive emergency. IMPRESSION: 1. Hypertensive emergency with cardiac decompensation, query cause. 2. Acute on chronic kidney disease. 3. Diastolic congestive heart failure. PLAN: 1. The goal of management of this patient is to simplify her antihypertensive medications. The patient currently on Cardene drip. Will focus on seeing if we can wean this patient off clonidine and optimize other cardiac friendly antihypertensive medications. The whole idea of trying to wean this patient off clonidine is because of the unforgiving nature of this medication of clonidine with resultant rebound hypertension just by skipping a dose of this medication, which I would not be surprised if that played a role in the presentation of this patient, who can easily have missed a couple of doses of clonidine inadvertently. 2. In order to augment the antihypertensive effect of whatever blood pressure medication this patient will be on, the patient will need some form of diuretics. 3. Renally dose all medications. Follow GFR. Avoid potentially nephrotoxic agents. HISTORY OF PRESENT ILLNESS: History is that of a 74-year-old female patient, who presented here with shortness of breath and noted to have blood pressure above 230 with cardiac decompensation. The patient noted with an elevated BNP of 3972 with a creatinine of 1.85. The patient has been on multiple antihypertensive medications including hydralazine, clonidine, and amlodipine. PAST MEDICAL HISTORY: Significant for systolic congestive heart failure, hypertension, type 2 diabetes, CKD stage 3, chronic anemia. SOCIAL HISTORY: Remote tobacco use. No current alcohol or drug use. REVIEW OF SYSTEMS: As documented in the body of history. All the other systems were reviewed and found not to be significantly related to present illness. LABORATORY INVESTIGATION: Showed a creatinine of 1.85, BUN of 54, bicarb of 21. Hemoglobin of 9.6. PHYSICAL EXAMINATION: GENERAL: The patient was found not to be in any obvious distress. VITAL SIGNS: Noted with the following vital signs; blood pressure is drifted down to above 160 to 180 systolic. HEENT: Unremarkable. CARDIOVASCULAR SYSTEM: First and second heart sounds were heard. RESPIRATORY SYSTEM: Clear to auscultation. DIGESTIVE SYSTEM: Revealed a benign abdomen. Positive bowel sounds. EXTREMITIES: No peripheral edema. SKIN: No new gross rash. LYMPHATICS: No peripheral lymphadenopathy. SUMMARY: A 74-year-old female patient, who presented here with hypertensive emergency in the context of uncontrolled hypertension. Thank you for this consultation. We will follow with you. Job ID: [id number]
--- NOTE | 2020-11-03 14:28 | PDOC.HOSPP ---
- Subjective Encounter Date: 11/03/20 Encounter Time: 09:15 Subjective: no c/o chest pain or sob now, feels good - Objective Vital Signs & Weight: Vital Signs (12 hours) Temp Pulse BP 11/03/20 14:00 97.9 F 11/03/20 12:00 98.5 F 11/03/20 11:00 98.5 F 11/03/20 10:00 98.4 F 11/03/20 09:00 98.5 F 11/03/20 08:46 182/83 H 11/03/20 08:39 62 161/60 H 11/03/20 08:37 68 161/60 H 11/03/20 07:00 98.5 F 11/03/20 04:00 98.2 F Weight Weight 184 lb 8.43 oz Most Recent Monitor Data Heart Rate from ECG 55 NIBP 143/67 NIBP BP-Mean 92 Respiration from ECG 17 SpO2 100 I&O: 11/02/20 11/03/20 11/04/20 06:59 06:59 06:59 Intake Total 668.3 Output Total 560 515 Balance 108.3 -515 Result Diagrams: 11/03/20 03:12 11/03/20 03:12 Additional Labs: Accuchecks 11/03/20 11/02/20 06:00 20:59 POC Glucose 156 H 206 H Hospitalist ROS - Medication Medications: Active Medications Generic Name Dose Route Start Last Admin Trade Name Freq PRN Reason Stop Dose Admin Acetaminophen 650 mg 11/02/20 13:06 11/03/20 03:15 Acetaminophen 325 Mg Tab PO 650 mg Q4H PRN Administration Headache/Fever/Mild Pain (1-3) Acetaminophen/Codeine Phosphate 1 tab 11/03/20 08:10 11/03/20 09:30 Acetaminophen/Codeine 30-300mg Tablet PO 1 tab Q6H PRN Administration Headache Aspirin 81 mg 11/03/20 09:00 11/03/20 08:39 Aspirin 81 Mg Enteric Coated Tablet PO 81 mg DAILY ABHILASH Administration Atorvastatin Calcium 40 mg 11/02/20 21:00 11/02/20 21:06 Atorvastatin Calcium 40 Mg Tab PO 40 mg HS ABHILASH Administration Carvedilol 25 mg 11/02/20 17:00 11/03/20 08:37 Carvedilol 25 Mg Tab PO 25 mg BID-WM ABHILASH Administration Famotidine 20 mg 11/03/20 09:00 11/03/20 08:39 Famotidine 20 Mg Tab PO 20 mg DAILY ABHILASH Administration Furosemide 40 mg 11/02/20 14:00 11/03/20 06:02 Furosemide 40 Mg/4 Ml Vial SLOW IVP 40 mg 0600,1400 ABHILASH Administration Heparin Sodium (Porcine) 5,000 units 11/02/20 15:00 11/03/20 08:38 Heparin 5,000 Units/Ml Vial SC 5,000 units TID ABHILASH Administration Hydralazine HCl 75 mg 11/02/20 21:00 11/03/20 08:37 Hydralazine 25 Mg Tab PO 75 mg BID ABHILASH Administration Nitroglycerin/Dextrose 250 mls @ 0 mls/hr 11/02/20 17:30 11/03/20 09:13 Nitroglycerin 50 Mg/250 Ml Bot IVPB 11/04/20 17:31 250 mls INF ABHILASH Administration Protocol As Directed Insulin Human Lispro 0 units 11/02/20 13:12 11/03/20 11:14 Humalog 300 Units/3 Ml Vial SC 3 units .MILD SLIDING SCALE PRN Administration Mild Correctional Scale Hospitalist Exam Vitals: Vital Signs (12 hours) Temp Pulse BP 11/03/20 14:00 97.9 F 11/03/20 12:00 98.5 F 11/03/20 11:00 98.5 F 11/03/20 10:00 98.4 F 11/03/20 09:00 98.5 F 11/03/20 08:46 182/83 H 11/03/20 08:39 62 161/60 H 11/03/20 08:37 68 161/60 H 11/03/20 07:00 98.5 F 11/03/20 04:00 98.2 F Weight Weight 184 lb 8.43 oz Most Recent Monitor Data Heart Rate from ECG 55 NIBP 143/67 NIBP BP-Mean 92 Respiration from ECG 17 SpO2 100 General Appearance: awake alert Eye: PERRL, anicteric sclera ENT: no oropharyngeal lesions, moist mucosa Neck: supple, JVD Heart: RRR, no murmur Respiratory: no wheezes, no ronchi, rales, rhonchi Gastrointestinal: soft, non-tender, non-distended, normal bowel sounds Extremities: no cyanosis, no edema Neurological: cranial nerve grossly intact, no focal deficits Psychiatric: normal affect, A&O x 3 Hosp A/P (1) Acute on chronic systolic CHF (congestive heart failure) Code(s): I50.23 - ACUTE ON CHRONIC SYSTOLIC (CONGESTIVE) HEART FAILURE Status: Acute (2) Chest pain Code(s): R07.9 - CHEST PAIN, UNSPECIFIED Status: Acute Qualifiers: Ischemic chest pain type: stable angina pectoris (3) Acute worsening of stage 3 chronic kidney disease Code(s): N18.3 - CHRONIC KIDNEY DISEASE, STAGE 3 (MODERATE) * DO NOT USE * Status: Acute (4) Hypertensive urgency Code(s): I16.0 - HYPERTENSIVE URGENCY Status: Acute (5) Anemia, normocytic normochromic Code(s): D64.9 - ANEMIA, UNSPECIFIED Status: Chronic (6) DM type 2 (diabetes mellitus, type 2) Status: Chronic Qualifiers: Diabetes mellitus terminal operations supervisor insulin use: with terminal operations supervisor use Diabetes mellitus complication status: with kidney complications Diabetes mellitus complication detail: with chronic kidney disease Chronic kidney disease stage: stage 3 (moderate) (7) Dyslipidemia Code(s): E78.5 - HYPERLIPIDEMIA, UNSPECIFIED Status: Chronic (8) Obesity (BMI 30.0-34.9) Code(s): E66.9 - OBESITY, UNSPECIFIED Status: Chronic (9) CAD (coronary artery disease) Code(s): I25.10 - ATHSCL HEART DISEASE OF [place] CORONARY ARTERY W/O ANG PCTRS Status: Chronic Qualifiers: Coronary Disease-Associated Artery/Lesion type: [place] artery [place] vs. transplanted heart: [place] heart Associated angina: without angina Qualified Code(s): I25.10 - Atherosclerotic heart disease of [place] coronary artery without angina pectoris - Plan taper and dc nitroglycerin drip start oral antihtn meds including coreg, clonidine, hydralazine continue asp, lipitor echo for current ef prior cath in 02/2020 showed 60% mid lad and rca lesion with flow being ok and no intervention done prior echo 02/26 showed ef of 25% cardiology consultation hemostable may tx to tele if she is off nitroglycerin drip
[2020-11-03] MEDS: NIFEdipine XL 60 MG TAB PO SCH (17:59)
[2020-11-03] MEDS: Atorvastatin Calcium 40 MG TAB PO SCH (20:41)
[2020-11-04] MEDS: Nitroglycerin 50 MG/250 ML BOT 250 ML IVPB SCH ×2 (00:16→05:53)
[2020-11-04] MEDS: Acetaminophen/Codeine 30-300mg Tablet PO PRN (04:03)
[2020-11-04 04:45] LABS: #Eosinphils 0.1 thou/uL (0.0-0.7); #Lymphocytes 1.1 thou/uL (1.20-3.40); #Monocytes 0.5 thou/uL (0.11-0.59); #Neutrophils 3.6 thou/uL (1.40-6.50); %Basophils 0.7 % (0.0-1.0); %Eosinophils 2.6 % (0.0-10.0); %Lymphocytes 20.2 % (21.0-51.0); %Monocytes 9.8 % (0.0-10.0); %Neutrophils 66.7 % (42.0-75.0); Hemoglobin 8.6 g/dL (12.0-16.0); Mean Corpuscular HGB CONC 32.2 g/dL (32.0-36.0); Mean Corpuscular Hemoglobin 31.3 pg (27.0-31.0); Mean Corpuscular Volume 97.2 fL (78.0-98.0); Mean Platelet Volume 8.9 fL (7.4-10.4); Platelet Count 188 thou/uL (130-400); RBC Distribution Width 14.7 % (11.5-14.5); Red Blood Cell (RBC) Count 2.73 mill/uL (4.20-5.40); White Blood Cell (WBC) Count 5.4 thou/uL (4.8-10.8)
[2020-11-04 05:02] LABS: Iron 27 ug/dL (50-170); Iron Binding Capacity, Total 256 mcg/dL (265-497)
[2020-11-04 05:07] LABS: Anion Gap 14 mmol/L (10-20); BUN (Urea Nitrogen) 54 mg/dL (9.8-20.1); Calc. Creatinine Clearance 34 mL/min (70-130); Calcium 8.1 mg/dL (7.8-10.44); Carbon Dioxide 21 mmol/L (23-31); Chloride 103 mmol/L (98-107); Glucose 170 mg/dL (83-110); Iron 27 ug/dL (50-170); Potassium 3.8 mmol/L (3.5-5.1); Sodium 134 mmol/L (136-145)
[2020-11-04] MEDS: Furosemide 40 MG/4 ML VIAL SLOW IVP SCH ×2 (05:53→16:43)
--- NOTE | 2020-11-04 07:28 | CON ---
DATE OF CONSULTATION: 11/04/2020 REASON FOR CONSULTATION: Chest pain and hypertensive urgency. HISTORY OF PRESENT ILLNESS: Ms. Sheridan is a 74-year-old woman last seen and evaluated in the past. She has a history of nonischemic cardiomyopathy. She underwent coronary angiography in February 2020. These films were reviewed. She had a moderate disease with an FFR of the LAD of 0.88. She recently presented with increased shortness of breath and chest pain. Blood pressure was markedly elevated, requiring IV nitroglycerin for control. Upon my evaluation, patient was on 120 mcg of nitroglycerin for blood pressure management. She is currently stable without any symptoms. PAST MEDICAL HISTORY: Nonischemic cardiomyopathy, chronic kidney disease, diabetes mellitus, hypertension, anemia, obesity, AICD placement, BTL. SOCIAL HISTORY: No current tobacco or alcohol use. CURRENT MEDICATIONS: Include: 1. Aspirin. 2. Trazodone. 3. Coenzyme. 4. Potassium. 5. Tresiba. 6. Omeprazole. 7. Hydralazine. 8. Isosorbide. 9. Lasix. 10. Clonidine. 11. Coreg. 12. Atorvastatin. 13. Amlodipine. REVIEW OF SYSTEMS: A 10-point review of systems is reviewed and is as above, otherwise negative. PHYSICAL EXAMINATION: GENERAL: Patient is a pleasant female who is in no acute distress. The patient appears their stated age. VITAL SIGNS: Blood pressure 148/51, pulse 57, temperature afebrile. NEUROLOGIC: The patient is alert and oriented x3 with no focal neurologic deficits. HEENT: Sclerae without icterus. Mouth has moist mucous membranes with normal pallor. NECK: No JVD. Carotid upstroke brisk. No bruits bilaterally. LUNGS: Clear to auscultation with unlabored respirations. BACK: No scoliosis or kyphosis. CARDIAC: Regular rate and rhythm with normal S1 and S2. No S3 or S4 noted. No significant rubs, murmurs, thrills, or gallops noted throughout the precordium. PMI is not displaced. There is no parasternal heave. ABDOMEN: Soft, nontender, nondistended. No peritoneal signs present. No hepatosplenomegaly. No abnormal striae. EXTREMITIES: 2+ femoral and 2+ dorsalis pedis pulses. No cyanosis, clubbing, or edema. SKIN: No gross abnormalities. PERTINENT LABORATORY DATA: Hemoglobin 8.7, down from 9.6, hematocrit 26.9, creatinine 1.69 with a GFR of 30. IMPRESSION: 1. Hypertensive urgency. 2. Chest pain. 3. Shortness of breath. RECOMMENDATIONS: 1. Ms. Sheridan' troponin was negative for coronary disease and OR. Her symptoms are most likely related to hypertensive urgency. 2. Would recommend titrating off IV nitroglycerin. Continue carvedilol 25 b.i.d. Would recommend adding calcium channel chandler such as Norvasc or nifedipine. Would not recommend hydrochlorothiazide. Would also benefit from hydralazine and continue nitrites. Job ID: [id number]
--- NOTE | 2020-11-04 07:49 | PRG ---
DATE OF SERVICE: 11/04/2020 SUBJECTIVE: The patient feels much better today. Had no acute complaints. She remains on nitroglycerin drip, but I am not sure there has really been much attempt to wean this. OBJECTIVE: VITAL SIGNS: Temperature 98.6, pulse 57, blood pressure 148/51. HEENT: Unremarkable. NECK: No adenopathy, JVD. LUNGS: Fairly clear anteriorly. CARDIAC: S1, S2 regular. ABDOMEN: Soft and nontender. EXTREMITIES: No clubbing, cyanosis, edema. LABORATORY DATA: Sodium 134, potassium 3.8, chloride 103, CO2 of 21, BUN 54, creatinine 2.0, glucose 170. White blood cell count 5.4, hematocrit 26.5, and platelet count 188. ASSESSMENT: 1. Hypertensive emergency. 2. Systolic heart failure with exacerbation. 3. Angina at time of admission. 4. Chronic kidney disease. 5. Diabetes mellitus. PLAN: At this point, the nitroglycerin is probably not doing much to help her blood pressure. It should be emphasized she has not been on a Cardene drip and notes too often get confused. I will stop the nitroglycerin drip, put her on nitroglycerin paste. Hopefully, we can do this without any associated drips. Something has to be added back, then we will add Cardene. My feeling is if she can be controlled without the drips then she could be transferred to telemetry. Job ID: [id number]
[2020-11-04] MEDS: Carvedilol 25 MG TAB PO SCH ×2 (08:07→16:43)
[2020-11-04] MEDS: Nitroglycerin 2% Ointment 1 INCH/1 GM Packet TOP SCH ×2 (08:08→20:37)
[2020-11-04] MEDS: HumaLOG 300 UNITS/3 ML VIAL SC PRN ×4 (08:57→21:13)
[2020-11-04] MEDS ORDERED: NIFEdipine XL 60 MG TAB PO SCH (09:00)
[2020-11-04] MEDS: Famotidine 20 MG TAB PO SCH (09:14)
[2020-11-04] MEDS: hydrALAZINE 25 MG TAB PO SCH ×2 (09:14→20:36)
[2020-11-04] MEDS: Aspirin 81 mg Enteric Coated Tablet PO SCH (09:14)
[2020-11-04] MEDS: Enoxaparin Sodium 30 MG/0.3 ML SYRINGE SC SCH (12:05)
[2020-11-04] MEDS: cloNIDine 0.1 MG TAB PO SCH ×2 (12:06→20:36)
--- NOTE | 2020-11-04 14:42 | PRG ---
DATE OF SERVICE: 11/04/2020 SUBJECTIVE: Ms. Sheridan continues to be on IV nitroglycerin. She appears to be stable. No current complaints of shortness of breath. Her blood pressure is currently managed by Nephrology given renal insufficiency. OBJECTIVE: VITAL SIGNS: 139/51, pulse 67, temperature afebrile. LUNGS: Clear to auscultation. HEART: Regular rate and rhythm. ABDOMEN: Soft, nontender, nondistended. EXTREMITIES: No edema. IMPRESSION: 1. Acute on chronic systolic heart failure. 2. Hypertensive urgency. 3. Renal insufficiency. 4. Moderate coronary artery disease. RECOMMENDATIONS: 1. Patient's current symptom is likely related to hypertensive urgency. Given her renal insufficiency, her blood pressure is currently being managed by Nephrology. 2. Continue aspirin in addition to carvedilol and Lasix. Job ID: [id number]
--- NOTE | 2020-11-04 15:14 | PDOC.HOSPP ---
- Subjective Encounter Date: 11/04/20 Encounter Time: 09:20 Subjective: no sob or chest pain is sitting in chair and eating breakfast - Objective Vital Signs & Weight: Vital Signs (12 hours) Temp Pulse BP 11/04/20 12:06 139/51 L 11/04/20 12:00 98 F 11/04/20 09:14 69 159/67 H 11/04/20 08:00 98.2 F 11/04/20 04:00 98.6 F Weight Weight 184 lb 8.43 oz Most Recent Monitor Data Heart Rate from ECG 62 NIBP 125/77 NIBP BP-Mean 93 Respiration from ECG 17 SpO2 100 I&O: 11/03/20 11/04/20 11/05/20 06:59 06:59 06:59 Intake Total 668.3 1428 485 Output Total 560 1480 340 Balance 108.3 -52 145 Result Diagrams: 11/04/20 04:34 11/04/20 04:34 Additional Labs: Accuchecks 11/04/20 11/03/20 11/03/20 11:45 21:51 16:33 POC Glucose 207 H 214 H 278 H 11/03/20 11/03/20 11:09 08:22 POC Glucose 219 H 124 H Hospitalist ROS - Medication Medications: Active Medications Generic Name Dose Route Start Last Admin Trade Name Freq PRN Reason Stop Dose Admin Acetaminophen 650 mg 11/02/20 13:06 11/03/20 03:15 Acetaminophen 325 Mg Tab PO 650 mg Q4H PRN Administration Headache/Fever/Mild Pain (1-3) Acetaminophen/Codeine Phosphate 1 tab 11/03/20 08:10 11/04/20 04:03 Acetaminophen/Codeine 30-300mg Tablet PO 1 tab Q6H PRN Administration Headache Aspirin 81 mg 11/03/20 09:00 11/04/20 09:14 Aspirin 81 Mg Enteric Coated Tablet PO 81 mg DAILY ABHILASH Administration Atorvastatin Calcium 40 mg 11/02/20 21:00 11/03/20 20:41 Atorvastatin Calcium 40 Mg Tab PO 40 mg HS ABHILASH Administration Carvedilol 25 mg 11/02/20 17:00 11/04/20 08:07 Carvedilol 25 Mg Tab PO 25 mg BID-WM ABHILASH Administration Clonidine 0.1 mg 11/03/20 21:00 11/04/20 12:06 Clonidine 0.1 Mg Tab PO 0.1 mg BID ABHILASH Administration Enoxaparin Sodium 30 mg 11/04/20 09:00 11/04/20 12:05 Enoxaparin Sodium 30 Mg/0.3 Ml Syringe SC 30 mg 0900 ABHILASH Administration Famotidine 20 mg 11/03/20 09:00 11/04/20 09:14 Famotidine 20 Mg Tab PO 20 mg DAILY ABHILASH Administration Furosemide 40 mg 11/02/20 14:00 11/04/20 05:53 Furosemide 40 Mg/4 Ml Vial SLOW IVP 40 mg 0600,1400 ABHILASH Administration Hydralazine HCl 75 mg 11/02/20 21:00 11/04/20 09:14 Hydralazine 25 Mg Tab PO 75 mg BID ABHILASH Administration Insulin Human Lispro 0 units 11/02/20 13:12 11/04/20 12:06 Humalog 300 Units/3 Ml Vial SC 3 units .MILD SLIDING SCALE PRN Administration Mild Correctional Scale Nifedipine 60 mg 11/03/20 18:00 11/03/20 17:59 Nifedipine Xl 60 Mg Tab PO 60 mg 1800 ON LICENSE OF [facility] Administration Nitroglycerin 1 inch 11/04/20 09:00 11/04/20 08:08 Nitroglycerin 2% Ointment 1 Inch/1 Gm Packet TOP 1 inch BID ABHILASH Administration Hospitalist Exam Vitals: Vital Signs (12 hours) Temp Pulse BP 11/04/20 12:06 139/51 L 11/04/20 12:00 98 F 11/04/20 09:14 69 159/67 H 11/04/20 08:00 98.2 F 11/04/20 04:00 98.6 F Weight Weight 184 lb 8.43 oz Most Recent Monitor Data Heart Rate from ECG 62 NIBP 125/77 NIBP BP-Mean 93 Respiration from ECG 17 SpO2 100 General Appearance: awake alert Eye: PERRL, anicteric sclera ENT: no oropharyngeal lesions, moist mucosa Neck: supple, no JVD Heart: RRR, no murmur Respiratory: no wheezes, no rales Gastrointestinal: soft, non-tender, non-distended, normal bowel sounds Extremities: no cyanosis, no edema Neurological: cranial nerve grossly intact, no focal deficits Psychiatric: normal affect, A&O x 3 Hosp A/P (1) Acute on chronic systolic CHF (congestive heart failure) Code(s): I50.23 - ACUTE ON CHRONIC SYSTOLIC (CONGESTIVE) HEART FAILURE Status: Acute (2) Chest pain Code(s): R07.9 - CHEST PAIN, UNSPECIFIED Status: Resolved Qualifiers: Ischemic chest pain type: stable angina pectoris (3) Acute worsening of stage 3 chronic kidney disease Code(s): N18.3 - CHRONIC KIDNEY DISEASE, STAGE 3 (MODERATE) * DO NOT USE * Status: Acute (4) Hypertensive urgency Code(s): I16.0 - HYPERTENSIVE URGENCY Status: Resolved (5) Anemia, normocytic normochromic Code(s): D64.9 - ANEMIA, UNSPECIFIED Status: Chronic (6) DM type 2 (diabetes mellitus, type 2) Status: Chronic Qualifiers: Diabetes mellitus exterminator insulin use: with longterm use Diabetes mellitus complication status: with kidney complications Diabetes mellitus complication detail: with chronic kidney disease Chronic kidney disease stage: stage 3 (moderate) (7) Dyslipidemia Code(s): E78.5 - HYPERLIPIDEMIA, UNSPECIFIED Status: Chronic (8) Obesity (BMI 30.0-34.9) Code(s): E66.9 - OBESITY, UNSPECIFIED Status: Chronic (9) CAD (coronary artery disease) Code(s): I25.10 - ATHSCL HEART DISEASE OF [place] CORONARY ARTERY W/O ANG PCTRS Status: Chronic Qualifiers: Coronary Disease-Associated Artery/Lesion type: [place] artery [place] vs. transplanted heart: [place] heart Associated angina: without angina Qualified Code(s): I25.10 - Atherosclerotic heart disease of [place] coronary artery without angina pectoris - Plan off nitro drip, is on nitropaste now continue coreg, clonidine, hydralazine continue asp, lipitor echo for current ef prior cath in 02/2020 showed 60% mid lad and rca lesion with flow being ok and no intervention done prior echo 02/26 showed ef of 25% hemostable may tx to medical, she prefers to go home in am. may need HH with nursing and PT
[2020-11-04] MEDS: NIFEdipine XL 60 MG TAB PO SCH (16:57)
--- NOTE | 2020-11-04 18:42 | PRG ---
DATE OF SERVICE: 11/04/2020 SUBJECTIVE: The patient is seen, noted with the following vital signs. OBJECTIVE: VITAL SIGNS: Blood pressure 141/68, pulse 64, respiratory rate of 17, O2 saturations of 100%. HEENT: Unremarkable. CARDIOVASCULAR SYSTEM: First and second heart sounds were heard. RESPIRATORY SYSTEM: Clear to auscultation. DIGESTIVE SYSTEM: Revealed a benign abdomen. EXTREMITIES: No peripheral edema. SKIN: No new gross rash. LYMPHATICS: No peripheral lymphadenopathy. IMPRESSION: 1. Acute on chronic kidney disease. This is likely hemodynamically mediated because of the improved blood pressure renal perfusion. 2. Hypertensive emergency, much improved on current regimen. 3. Chronic kidney disease, stage 3. PLAN: 1. The patient to continue on current management with the plan to continue to adjust the antihypertensive medication, especially as it relates to weaning this patient off clonidine and maintaining this patient on more antihypertensive medication. 2. Further management to be dependent on the clinical course. Job ID: [id number]
[2020-11-04] MEDS: Atorvastatin Calcium 40 MG TAB PO SCH (20:36)
[2020-11-04] MEDS: Acetaminophen 325 MG TAB PO PRN (20:37)
[2020-11-05] MEDS: Acetaminophen 325 MG TAB PO PRN (05:16)
[2020-11-05] MEDS: Furosemide 40 MG/4 ML VIAL SLOW IVP SCH (05:17)
[2020-11-05] MEDS: HumaLOG 300 UNITS/3 ML VIAL SC PRN ×2 (05:17→12:52)
[2020-11-05 06:35] LABS: #Eosinphils 0.1 thou/uL (0.0-0.7); #Monocytes 0.4 thou/uL (0.11-0.59); #Neutrophils 2.8 thou/uL (1.40-6.50); %Basophils 0.2 % (0.0-1.0); %Eosinophils 2.6 % (0.0-10.0); %Lymphocytes 23.4 % (21.0-51.0); %Monocytes 9.6 % (0.0-10.0); %Neutrophils 64.2 % (42.0-75.0); Hemoglobin 8.9 g/dL (12.0-16.0); Mean Corpuscular HGB CONC 32.3 g/dL (32.0-36.0); Mean Corpuscular Hemoglobin 31.1 pg (27.0-31.0); Mean Corpuscular Volume 96.4 fL (78.0-98.0); Platelet Count 200 thou/uL (130-400); RBC Distribution Width 15.1 % (11.5-14.5); Red Blood Cell (RBC) Count 2.86 mill/uL (4.20-5.40); White Blood Cell (WBC) Count 4.3 thou/uL (4.8-10.8)
[2020-11-05 07:00] LABS: Anion Gap 15 mmol/L (10-20); BUN (Urea Nitrogen) 59 mg/dL (9.8-20.1); Calc. Creatinine Clearance 31 mL/min (70-130); Calcium 8.2 mg/dL (7.8-10.44); Carbon Dioxide 22 mmol/L (23-31); Chloride 101 mmol/L (98-107); Glucose 201 mg/dL (83-110); Potassium 3.9 mmol/L (3.5-5.1); Sodium 134 mmol/L (136-145)
[2020-11-05] MEDS: Famotidine 20 MG TAB PO SCH (08:52)
[2020-11-05] MEDS: hydrALAZINE 25 MG TAB PO SCH (08:52)
[2020-11-05] MEDS: Nitroglycerin 2% Ointment 1 INCH/1 GM Packet TOP SCH (08:52)
[2020-11-05] MEDS: Aspirin 81 mg Enteric Coated Tablet PO SCH (08:52)
[2020-11-05] MEDS: Enoxaparin Sodium 30 MG/0.3 ML SYRINGE SC SCH (08:53)
[2020-11-05] MEDS: Carvedilol 25 MG TAB PO SCH (08:53)
[2020-11-05] MEDS ORDERED: cloNIDine 0.1 MG TAB PO SCH (09:00)
--- NOTE | 2020-11-05 11:04 | PDOC.CPN ---
- Subjective Date: 11/05/20 Time: 11:02 Interval history: She is doing well. Feels back to baseline. Wants to go home. - Review of Systems General: denies: fever/chills, weight/appetite/sleep changes, night sweats, fatigue Respiratory: denies: cough, congestion, shortness of breath, exercise intolerance Cardiovascular: denies: chest pain, palpitation, edema, paroxysmal nocturnal dyspnea, orthopnea Gastrointestinal: denies: nausea, vomiting, diarrhea, constipation, abd pain, GI bleeding Musculoskeletal: denies: pain, tenderness, stiffness, swelling, arthritis/arthralgias Neurological: denies: numbness, syncope, seizure, weakness - Objective Allergies/Adverse Reactions: Allergies Allergy/AdvReac Type Severity Reaction Status Date / Time No Known Allergies Allergy Verified 05/27/20 03:29 Visit Medications: Current Medications Acetaminophen (Acetaminophen 325 Mg Tab) 650 mg PO Q4H PRN PRN Reason: Headache/Fever/Mild Pain (1-3) Last Admin: 11/05/20 05:16 Dose: 650 mg Documented by: Acetaminophen/Codeine Phosphate (Acetaminophen/Codeine 30-300mg Tablet) 1 tab PO Q6H PRN PRN Reason: Headache Last Admin: 11/04/20 04:03 Dose: 1 tab Documented by: Aspirin (Aspirin 81 Mg Enteric Coated Tablet) 81 mg PO DAILY [facility] Last Admin: 11/05/20 08:52 Dose: 81 mg Documented by: Atorvastatin Calcium (Atorvastatin Calcium 40 Mg Tab) 40 mg PO [facility] Last Admin: 11/04/20 20:36 Dose: 40 mg Documented by: Carvedilol (Carvedilol 25 Mg Tab) 25 mg PO [facility] Last Admin: 11/05/20 08:53 Dose: 25 mg Documented by: Dextrose/Water (Dextrose 50% Abboject 50 Ml Syringe) 25 gm SLOW IVP PRN PRN PRN Reason: Hypoglycemia Enoxaparin Sodium (Enoxaparin Sodium 30 Mg/0.3 Ml Syringe) 30 mg SC 0900 [facility] Last Admin: 11/05/20 08:53 Dose: 30 mg Documented by: Famotidine (Famotidine 20 Mg Tab) 20 mg PO DAILY [facility] Last Admin: 11/05/20 08:52 Dose: 20 mg Documented by: Furosemide (Furosemide 40 Mg/4 Ml Vial) 40 mg SLOW IVP 0600,1400 [facility] Last Admin: 11/05/20 05:17 Dose: 40 mg Documented by: Glucagon (Glucagon 1 Mg/Ml Vial) 1 mg IM PRN PRN PRN Reason: Hypoglycemia Hydralazine HCl (Hydralazine 25 Mg Tab) 75 mg PO BID [facility] Last Admin: 11/05/20 08:52 Dose: 75 mg Documented by: Dextrose/Water (D5w) 1,000 mls @ 0 mls/hr IV .Q0M PRN PRN Reason: Hypoglycemia Insulin Human Lispro (Humalog 300 Units/3 Ml Vial) 0 units SC .MILD SLIDING SCALE PRN PRN Reason: Mild Correctional Scale Last Admin: 11/05/20 05:17 Dose: 3 units Documented by: Miscellaneous Medication (Electrolyte Replacement Protocol 1 Each) 1 each FS ASDIR [facility] Nifedipine (Nifedipine Xl 60 Mg Tab) 60 mg PO 1800 [facility] Last Admin: 11/04/20 16:57 Dose: 60 mg Documented by: Nitroglycerin (Nitroglycerin 2% Ointment 1 Inch/1 Gm Packet) 1 inch TOP BID [facility] Last Admin: 11/05/20 08:52 Dose: 1 inch Documented by: Ondansetron HCl (Ondansetron Pf 4 Mg/2 Ml Vial) 4 mg IVP Q6H PRN PRN Reason: Nausea/Vomiting Vital Signs & Weight: Vital Signs Temp Pulse Resp BP Pulse Ox 11/05/20 07:00 97.8 F 64 20 151/74 H 97 11/05/20 04:00 97.9 F 61 18 136/69 97 11/05/20 00:00 97.8 F 60 18 117/54 L 95 Weight 184 lb 8.43 oz - Physical Exam General: alert & oriented x3 HEENT: mucus membranes moist Neck: supple neck Cardiac: regular rate and rhythm Lungs: clear to auscultation Neuro: no lateralizing findings Abdomen: active bowel sounds Extremities: no edema Skin: clear Musculoskeletal: no pain - Labs Result Diagrams: 11/05/20 06:15 11/05/20 06:15 Troponin/CKMB Troponin I 0.026 ng/mL (< 0.028) 11/02/20 10:49 - Assessment/Plan Assessment/Plan: 1. Acute on chronic systolic heart failure,. Improved 2. HTN urgency 3. Renal insufficiency 4. Moderate CAD. 5. Non ischemic CM 6. AICD in place PLAN: - BP well controlled on current regimen - Creatinine slight bump today likely from diuresis, followed by Nephrology - CV stable.
[2020-11-05 13:04] VITALS: BP 152/89; TEMP 97.5
--- NOTE | 2020-11-05 16:11 | DIS ---
DATE OF ADMISSION: 11/02/2020 DATE OF DISCHARGE: 11/05/2020 DISCHARGE DISPOSITION: Home. PRIMARY DISCHARGE DIAGNOSES: 1. Hypertensive urgency. 2. Acute on chronic congestive heart failure exacerbation with systolic dysfunction. 3. Acute kidney injury with history of chronic kidney disease. 4. Chest pain on arrival resolved. 5. Chronic anemia. 6. Diabetes mellitus type 2. 7. Dyslipidemia. 8. Obesity. 9. Coronary artery disease. PROCEDURES DONE DURING HOSPITALIZATION: Chest x-ray done on the day of admission showed cardiomegaly, no acute infiltrate. H and H of 9 and 27, platelet count 200, MCV 96, white count of 4.3. BUN and creatinine on the day of discharge, 59 and 2.1. Ferritin 76. Serum iron 27, TIBC 256, percent saturation 11. BNP 3972. COVID-19 PCR was not detected on 11/02/2020. DISCHARGE MEDICATIONS: 1. Aspirin 81 mg p.o. daily. 2. Lasix 40 mg twice daily. 3. Omeprazole 10 mg p.o. daily. 4. Potassium chloride 80 mEq p.o. daily. 5. Trazodone 50 mg p.o. at bedtime p.r.n. for insomnia. 6. Tresiba 5 units subcu daily. 7. Hydralazine 50 mg three times daily. 8. CoQ10 of 100 mg daily. 9. Carvedilol 25 mg twice daily. 10. Isordil 20 mg three times daily. 11. Atorvastatin 40 mg p.o. at bedtime. ALLERGIES: NO KNOWN DRUG ALLERGIES. DISCHARGE PLAN: The patient to follow up with her primary care physician in 1 week. She needs to follow up with Dr. Unger in 2 to 3 weeks, Dr. Shellie Jean, her blanket inspector in 2 weeks. BRIEF COURSE DURING HOSPITALIZATION: The patient initially got admitted on the with complaints of chest pain and shortness of breath. Her systolic blood pressures on arrival were 233/108, and she was placed on nitroglycerin drip and admitted to ICU. The patient's chest pain slowly resolved. Her nitroglycerin drip was discontinued. She was placed on Isordil along with hydralazine and her medications were optimized. The patient claims that she is compliant with medications and diet and is unclear the reason why she had hypertensive emergency on arrival. Prior to discharge she is tolerating oral solid diet and ambulating. She has been cleared for discharge by Dr. Vela. The patient was counseled with regard to compliance with medications, diet, and followups with specialists and primary care physician. She is advised to check blood pressure and pulse twice daily and record for 10 days to follow up with her primary care physician. Please note, I have seen and examined the patient on the day of discharge. Job ID: [id number] [id number]
== END 2020-11-05 13:06 | disposition home or self-care (01) | DRG 291 ==
LOC: ERS 10:23 → ERHOLD 12:47 → OBSVTOIN 12:47 → CCU 17:12 → T4-B 11-04 17:17
PROVIDERS: ADMIT Internal Medicine; ATTEND Internal Medicine
DX: I13.0 Hypertensive heart and chronic kidney disease with heart failure and stage 1 through stage 4 chronic kidney disease, or unspecified chronic kidney disease (principal); I50.23 Acute on chronic systolic (congestive) heart failure; N18.4 Chronic kidney disease, stage 4 (severe); N17.9 Acute kidney failure, unspecified; Z20.822 Contact with and (suspected) exposure to COVID-19; K21.9 Gastro-esophageal reflux disease without esophagitis; I16.0 Hypertensive urgency; D63.1 Anemia in chronic kidney disease; E66.9 Obesity, unspecified; I25.110 Atherosclerotic heart disease of native coronary artery with unstable angina pectoris; E11.22 Type 2 diabetes mellitus with diabetic chronic kidney disease; I42.8 Other cardiomyopathies; Z95.810 Presence of automatic (implantable) cardiac defibrillator; Z98.51 Tubal ligation status; Z79.4 Long term (current) use of insulin; Z79.899 Other long term (current) drug therapy; Z87.891 Personal history of nicotine dependence; Z68.34 Body mass index [BMI] 34.0-34.9, adult; Z79.82 Long term (current) use of aspirin
CPT/HCPCS: 0240U; 36415; 36416; 51702; 71045; 80048; 80053; 82550; 82728; 83540; 83550; 83690; 83880; 84484; 85025; 93005; 93306; 94760; 96365; 96366; 96375; J1644; J1650; J1815; J1940

== ENCOUNTER 2020-11-07 09:26 | Inpatient (IN) | payer MEDICARE ==
[2020-11-07] MEDS ORDERED: Aspirin Chewable 81 MG TAB ONE (09:43)
[2020-11-07] MEDS ORDERED: Furosemide 40 MG/4 ML VIAL ONE (09:43)
[2020-11-07] MEDS ORDERED: Nitroglycerin 2% Ointment 1 INCH/1 GM Packet ONE (09:43)
[2020-11-07 09:56] LABS: #Eosinphils 0.1 thou/uL (0.0-0.7); #Lymphocytes 0.9 thou/uL (1.20-3.40); #Monocytes 0.5 thou/uL (0.11-0.59); #Neutrophils 5.9 thou/uL (1.40-6.50); %Basophils 0.2 % (0.0-1.0); %Eosinophils 1.4 % (0.0-10.0); %Lymphocytes 12.6 % (21.0-51.0); %Monocytes 6.5 % (0.0-10.0); %Neutrophils 79.4 % (42.0-75.0); Hemoglobin 10.2 g/dL (12.0-16.0); Mean Corpuscular HGB CONC 31.9 g/dL (32.0-36.0); Mean Corpuscular Hemoglobin 31.7 pg (27.0-31.0); Mean Corpuscular Volume 99.5 fL (78.0-98.0); Mean Platelet Volume 8.6 fL (7.4-10.4); Platelet Count 238 thou/uL (130-400); RBC Distribution Width 14.8 % (11.5-14.5); Red Blood Cell (RBC) Count 3.21 mill/uL (4.20-5.40); White Blood Cell (WBC) Count 7.4 thou/uL (4.8-10.8)
[2020-11-07 10:22] LABS: ALT (SGPT) 29 U/L (8-55); AST (SGOT) 28 U/L (5-34); Albumin 3.6 g/dL (3.4-4.8); Alkaline Phosphatase 140 U/L (40-110); Anion Gap 15 mmol/L (10-20); BUN (Urea Nitrogen) 57 mg/dL (9.8-20.1); Bilirubin, Total 0.6 mg/dL (0.2-1.2); CK (CPK) 39 U/L (29-168); Calc. Creatinine Clearance 0 mL/min (70-130); Carbon Dioxide 23 mmol/L (23-31); Chloride 105 mmol/L (98-107); Globulin 2.8 g/dL (2.4-3.5); Glucose 202 mg/dL (83-110); Lipase 9 U/L (8-78); Potassium 4.3 mmol/L (3.5-5.1); Protein, Total 6.4 g/dL (5.8-8.1); Sodium 139 mmol/L (136-145)
[2020-11-07 10:41] LABS: CKMB 0.8 ng/mL (0-6.6)
[2020-11-07] MEDS ORDERED: Nitroglycerin 0.4 MG TAB 1 EACH ONE (11:10)
[2020-11-07] MEDS ORDERED: Enoxaparin Sodium 100 MG/ML SYRINGE ONE ×2 (11:10→11:18)
[2020-11-07] MEDS ORDERED: hydrALAZINE 20 MG/ML VIAL SLOW IVP PRN (11:50)
[2020-11-07] MEDS ORDERED: Dextrose 50% Abboject 50 ML SYRINGE SLOW IVP PRN (12:00)
[2020-11-07] MEDS ORDERED: Dextrose 5% in Water 1,000 ML IV PRN (12:00)
[2020-11-07] MEDS ORDERED: hydrALAZINE 25 MG TAB PO SCH ×2 (12:45→15:00)
[2020-11-07] MEDS ORDERED: Furosemide 100 MG/10 ML VIAL SLOW IVP SCH (12:45)
[2020-11-07] MEDS: Magnesium 2 GM/50 ML 2 GM in Premix Bag 1 BAG IVPB SCH ×2 (14:18→17:22)
[2020-11-07 14:45] LABS: Troponin I 0.025 ng/mL (< 0.028)
[2020-11-07] MEDS ORDERED: Isosorbide Dinitrate 20 MG TAB PO SCH (15:00)
[2020-11-07] MEDS: Furosemide 100 MG/10 ML VIAL SLOW IVP SCH (15:02)
[2020-11-07] MEDS ORDERED: Labetalol HCl 100 MG/20 ML VIAL ONE (15:22)
[2020-11-07] MEDS ORDERED: cloNIDine 0.1 MG TAB PO SCH ×2 (15:45→21:00)
[2020-11-07] MEDS ORDERED: Labetalol HCl 100 MG/20 ML VIAL SLOW IVP PRN (15:57)
[2020-11-07 16:25] LABS: Troponin I 0.031 ng/mL (< 0.028)
[2020-11-07 16:36] LABS: Actual Bicarbonate (HCO3a) 24.9 mEq/L (22-28); Base Excess (BEa) 0.5 mEq/L (-2.0 to +3.0); CO2 Tension 39.5 mmHg (35.0-45.0); Calcium, Ionized (arterial) 1.17 mmol/L (1.12-1.30); Carboxyhemoglobin (COHb) 1.6 gm% (0.0-3.0); Hemoglobin (Hb) 9.8 g/dL (12.0-16.0); O2 Tension (PaO2), arterial 64.5 mmHg (> 70.0); Potassium - ABG Lab 3.75 mmol/L (3.70-5.30); pH, Arterial 7.42 (7.35-7.45)
[2020-11-07 16:40] LABS: ALV-art Gradient 114.285 mmHg (0-20); Puncture Site RRA
[2020-11-07] MEDS ORDERED: Magnesium 2 GM/50 ML 2 GM in Premix Bag 1 BAG IVPB SCH (16:45)
[2020-11-07] MEDS: Carvedilol 25 MG TAB PO SCH (17:23)
[2020-11-07] MEDS: HumaLOG 300 UNITS/3 ML VIAL SC PRN (18:08)
[2020-11-07] MEDS ORDERED: Electrolyte Replacement Protocol FS PRN (20:00)
[2020-11-07] MEDS ORDERED: Electrolyte Replacement Protocol 1 EACH FS SCH (20:00)
[2020-11-07] MEDS ORDERED: Isosorbide Dinitrate 5 MG TAB PO SCH (21:00)
[2020-11-07] MEDS: traZODone HCl 50 MG TAB PO PRN (21:31)
[2020-11-07] MEDS: Potassium Chloride 10 MEQ TAB PO SCH (21:31)
[2020-11-07] MEDS: Atorvastatin Calcium 40 MG TAB PO SCH (21:31)
[2020-11-07] MEDS: hydrALAZINE 25 MG TAB PO SCH (21:31)
[2020-11-07] MEDS: Isosorbide Dinitrate 20 MG TAB PO SCH (21:33)
[2020-11-07] MEDS: Heparin 5,000 UNITS/ML VIAL SC SCH (21:34)
[2020-11-08] MEDS: Isosorbide Dinitrate 20 MG TAB PO SCH ×3 (05:26→22:46)
[2020-11-08] MEDS: hydrALAZINE 25 MG TAB PO SCH ×3 (05:27→22:44)
[2020-11-08 05:32] LABS: #Basophils 0.1 thou/uL (0.0-0.2); #Eosinphils 0.1 thou/uL (0.0-0.7); #Lymphocytes 1.2 thou/uL (1.20-3.40); #Monocytes 0.4 thou/uL (0.11-0.59); #Neutrophils 3.5 thou/uL (1.40-6.50); %Eosinophils 2.8 % (0.0-10.0); %Monocytes 8.3 % (0.0-10.0); %Neutrophils 65.8 % (42.0-75.0); Mean Corpuscular HGB CONC 32.4 g/dL (32.0-36.0); Mean Corpuscular Volume 98.8 fL (78.0-98.0); Mean Platelet Volume 8.6 fL (7.4-10.4); Platelet Count 201 thou/uL (130-400); RBC Distribution Width 14.8 % (11.5-14.5); Red Blood Cell (RBC) Count 2.81 mill/uL (4.20-5.40); White Blood Cell (WBC) Count 5.3 thou/uL (4.8-10.8)
[2020-11-08 05:54] LABS: Anion Gap 17 mmol/L (10-20); BUN (Urea Nitrogen) 53 mg/dL (9.8-20.1); Calc. Creatinine Clearance 35 mL/min (70-130); Calcium 8.5 mg/dL (7.8-10.44); Carbon Dioxide 21 mmol/L (23-31); Chloride 106 mmol/L (98-107); Glucose 128 mg/dL (83-110); Magnesium 1.9 mg/dL (1.6-2.6); Potassium 3.7 mmol/L (3.5-5.1); Sodium 140 mmol/L (136-145)
[2020-11-08] MEDS ORDERED: Magnesium 2 GM/50 ML 2 GM in Premix Bag 1 BAG IVPB SCH (06:30)
[2020-11-08] MEDS: Furosemide 100 MG/10 ML VIAL SLOW IVP SCH ×2 (09:06→09:47)
[2020-11-08] MEDS: Acetaminophen 325 MG TAB PO PRN ×4 (09:41→22:49)
[2020-11-08] MEDS: Heparin 5,000 UNITS/ML VIAL SC SCH ×2 (09:46→22:46)
[2020-11-08] MEDS: Potassium Chloride 10 MEQ TAB PO SCH ×2 (09:47→22:45)
[2020-11-08] MEDS: Carvedilol 25 MG TAB PO SCH ×2 (09:47→17:25)
[2020-11-08] MEDS: Aspirin 81 mg Enteric Coated Tablet PO SCH (09:48)
[2020-11-08] MEDS: HumaLOG 300 UNITS/3 ML VIAL SC PRN ×3 (12:13→22:48)
[2020-11-08 13:30] LABS: Bacteria/HPF 4+ HPF (None Seen); Bilirubin Negative (Negative); Blood, Urine Negative (Negative); Clarity Turbid (Clear); Glucose, Urine (Dipstick) Normal (Negative); Ketone, Urine Negative (Negative); Leukocyte 500 Leu/uL (Negative); Nitrite Negative (Negative); Protein, Urine (Dipstick) 200 mg/dL (Neg-Trace); RBC/HPF 0-3 HPF (0-3); Specific Gravity, Urine 1.011 (1.002-1.036); Urobilinogen Normal mg/dL (Less than 2); WBC/HPF Greater than 50 HPF (0-3)
[2020-11-08 13:31] LABS: Urine Culture Reflex No No
[2020-11-08] MEDS: cefTRIAXone\\ROCEPHIN 1 GM in Sodium Chloride 0.9% 100 ML IVPB SCH (14:52)
[2020-11-08] MEDS: Atorvastatin Calcium 40 MG TAB PO SCH (22:44)
[2020-11-08] MEDS: traZODone HCl 50 MG TAB PO PRN (22:48)
[2020-11-09] MEDS: Acetaminophen 325 MG TAB PO PRN (02:05)
[2020-11-09] MEDS: hydrALAZINE 25 MG TAB PO SCH ×3 (06:30→21:46)
[2020-11-09] MEDS: Isosorbide Dinitrate 20 MG TAB PO SCH ×3 (06:31→21:45)
[2020-11-09 07:15] LABS: #Eosinphils 0.2 thou/uL (0.0-0.7); #Monocytes 0.5 thou/uL (0.11-0.59); #Neutrophils 2.8 thou/uL (1.40-6.50); %Basophils 0.5 % (0.0-1.0); %Eosinophils 5.2 % (0.0-10.0); %Lymphocytes 22.1 % (21.0-51.0); %Monocytes 10.7 % (0.0-10.0); %Neutrophils 61.5 % (42.0-75.0); Hemoglobin 8.9 g/dL (12.0-16.0); Mean Corpuscular HGB CONC 31.5 g/dL (32.0-36.0); Mean Corpuscular Hemoglobin 31.3 pg (27.0-31.0); Mean Corpuscular Volume 99.5 fL (78.0-98.0); Mean Platelet Volume 8.6 fL (7.4-10.4); Platelet Count 222 thou/uL (130-400); RBC Distribution Width 14.6 % (11.5-14.5); Red Blood Cell (RBC) Count 2.84 mill/uL (4.20-5.40); White Blood Cell (WBC) Count 4.6 thou/uL (4.8-10.8)
[2020-11-09 07:39] LABS: Anion Gap 13 mmol/L (10-20); BUN (Urea Nitrogen) 51 mg/dL (9.8-20.1); Calc. Creatinine Clearance 38 mL/min (70-130); Calcium 8.1 mg/dL (7.8-10.44); Carbon Dioxide 22 mmol/L (23-31); Chloride 105 mmol/L (98-107); Glucose 185 mg/dL (83-110); Magnesium 2.1 mg/dL (1.6-2.6); Potassium 3.8 mmol/L (3.5-5.1); Sodium 136 mmol/L (136-145)
[2020-11-09] MEDS ORDERED: Spironolactone 25 MG TAB PO SCH (08:30)
[2020-11-09] MEDS: Sacubitril 49 MG/Valsartan 51 MG TABLET PO SCH ×2 (09:57→20:36)
[2020-11-09] MEDS: Aspirin 81 mg Enteric Coated Tablet PO SCH (09:57)
[2020-11-09] MEDS: Carvedilol 25 MG TAB PO SCH ×2 (09:57→16:38)
[2020-11-09] MEDS: Potassium Chloride 10 MEQ TAB PO SCH ×2 (09:57→20:36)
[2020-11-09] MEDS: Acetaminophen/Codeine 30-300mg Tablet PO PRN ×2 (09:58→16:38)
[2020-11-09] MEDS: Heparin 5,000 UNITS/ML VIAL SC SCH ×2 (10:01→20:33)
[2020-11-09] MEDS: Furosemide 100 MG/10 ML VIAL SLOW IVP SCH (10:06)
[2020-11-09] MEDS: HumaLOG 300 UNITS/3 ML VIAL SC PRN ×2 (12:13→17:09)
[2020-11-09] MEDS: cefTRIAXone\\ROCEPHIN 1 GM in Sodium Chloride 0.9% 100 ML IVPB SCH (15:45)
[2020-11-09] MEDS: Atorvastatin Calcium 40 MG TAB PO SCH (20:33)
[2020-11-09] MEDS: traZODone HCl 50 MG TAB PO PRN (20:37)
[2020-11-10] MEDS: Acetaminophen/Codeine 30-300mg Tablet PO PRN ×3 (01:58→17:25)
[2020-11-10] MEDS: hydrALAZINE 25 MG TAB PO SCH ×3 (06:02→21:06)
[2020-11-10] MEDS: Isosorbide Dinitrate 20 MG TAB PO SCH ×3 (06:03→21:07)
[2020-11-10] MEDS: HumaLOG 300 UNITS/3 ML VIAL SC PRN ×3 (06:37→17:29)
[2020-11-10 07:20] LABS: Anion Gap 12 mmol/L (10-20); BUN (Urea Nitrogen) 43 mg/dL (9.8-20.1); Calc. Creatinine Clearance 43 mL/min (70-130); Calcium 8.4 mg/dL (7.8-10.44); Carbon Dioxide 25 mmol/L (23-31); Chloride 104 mmol/L (98-107); Glucose 189 mg/dL (83-110); Magnesium 1.9 mg/dL (1.6-2.6); Sodium 137 mmol/L (136-145)
[2020-11-10 07:24] LABS: #Eosinphils 0.2 thou/uL (0.0-0.7); #Lymphocytes 1.1 thou/uL (1.20-3.40); #Monocytes 0.5 thou/uL (0.11-0.59); %Basophils 0.4 % (0.0-1.0); %Eosinophils 4.9 % (0.0-10.0); %Lymphocytes 23.3 % (21.0-51.0); %Monocytes 10.1 % (0.0-10.0); %Neutrophils 61.2 % (42.0-75.0); Hemoglobin 9.2 g/dL (12.0-16.0); Mean Corpuscular HGB CONC 31.1 g/dL (32.0-36.0); Mean Corpuscular Hemoglobin 31.5 pg (27.0-31.0); Mean Platelet Volume 9.1 fL (7.4-10.4); Platelet Count 251 thou/uL (130-400); RBC Distribution Width 14.6 % (11.5-14.5); Red Blood Cell (RBC) Count 2.92 mill/uL (4.20-5.40); White Blood Cell (WBC) Count 4.9 thou/uL (4.8-10.8)
[2020-11-10] MEDS ORDERED: Magnesium 2 GM/50 ML 2 GM in Premix Bag 1 BAG IVPB SCH (07:45)
[2020-11-10] MEDS ORDERED: Spironolactone 25 MG TAB PO SCH ×2 (08:00→10:00)
[2020-11-10] MEDS ORDERED: Labetalol HCl 100 MG/20 ML VIAL SLOW IVP PRN (08:27)
[2020-11-10] MEDS ORDERED: Bumetanide 1 MG TAB PO SCH (08:30)
[2020-11-10] MEDS ORDERED: Sacubitril 49 MG/Valsartan 51 MG TABLET PO SCH (08:30)
[2020-11-10] MEDS: Aspirin 81 mg Enteric Coated Tablet PO SCH (09:51)
[2020-11-10] MEDS: Magnesium Oxide 400 MG TAB PO SCH ×2 (09:51→20:33)
[2020-11-10] MEDS: Carvedilol 25 MG TAB PO SCH ×2 (09:51→17:25)
[2020-11-10] MEDS: Sacubitril 49 MG/Valsartan 51 MG TABLET PO SCH ×2 (09:52→22:17)
[2020-11-10] MEDS: Potassium Chloride 10 MEQ TAB PO SCH ×2 (09:53→20:34)
[2020-11-10] MEDS: Heparin 5,000 UNITS/ML VIAL SC SCH ×2 (09:55→20:33)
[2020-11-10] MEDS: Insulin Glargine 5 UNITS in Pre-Filled Syringe 1 EACH SC SCH (09:55)
[2020-11-10] MEDS: Bumetanide 1 MG TAB PO SCH (17:24)
[2020-11-10] MEDS: Spironolactone 25 MG TAB PO SCH (17:25)
[2020-11-10] MEDS: cefTRIAXone\\ROCEPHIN 1 GM in Sodium Chloride 0.9% 100 ML IVPB SCH ×2 (18:02→20:34)
[2020-11-10] MEDS: Atorvastatin Calcium 40 MG TAB PO SCH (20:33)
[2020-11-10] MEDS ORDERED: diphenhydrAMINE 25 MG CAP PO SCH (22:00)
[2020-11-10] MEDS: Acetaminophen 325 MG TAB PO PRN (22:17)
[2020-11-11 05:31] LABS: #Eosinphils 0.2 thou/uL (0.0-0.7); #Lymphocytes 1.3 thou/uL (1.20-3.40); #Monocytes 0.5 thou/uL (0.11-0.59); #Neutrophils 2.6 thou/uL (1.40-6.50); %Basophils 0.2 % (0.0-1.0); %Eosinophils 4.4 % (0.0-10.0); %Monocytes 9.9 % (0.0-10.0); %Neutrophils 56.4 % (42.0-75.0); Hemoglobin 9.3 g/dL (12.0-16.0); Mean Corpuscular HGB CONC 32.1 g/dL (32.0-36.0); Mean Corpuscular Hemoglobin 31.3 pg (27.0-31.0); Mean Corpuscular Volume 97.4 fL (78.0-98.0); Platelet Count 251 thou/uL (130-400); RBC Distribution Width 14.7 % (11.5-14.5); Red Blood Cell (RBC) Count 2.98 mill/uL (4.20-5.40); White Blood Cell (WBC) Count 4.6 thou/uL (4.8-10.8)
[2020-11-11 05:54] LABS: Anion Gap 13 mmol/L (10-20); BUN (Urea Nitrogen) 40 mg/dL (9.8-20.1); Calc. Creatinine Clearance 43 mL/min (70-130); Calcium 8.5 mg/dL (7.8-10.44); Carbon Dioxide 24 mmol/L (23-31); Chloride 102 mmol/L (98-107); Glucose 149 mg/dL (83-110); Magnesium 2.3 mg/dL (1.6-2.6); Potassium 4.3 mmol/L (3.5-5.1); Sodium 135 mmol/L (136-145)
[2020-11-11] MEDS: hydrALAZINE 25 MG TAB PO SCH ×3 (06:06→20:50)
[2020-11-11] MEDS: Isosorbide Dinitrate 20 MG TAB PO SCH ×3 (06:07→20:51)
[2020-11-11] MEDS: Bumetanide 1 MG TAB PO SCH (08:03)
[2020-11-11] MEDS: Carvedilol 25 MG TAB PO SCH ×2 (08:04→16:38)
[2020-11-11] MEDS: Aspirin 81 mg Enteric Coated Tablet PO SCH (08:04)
[2020-11-11] MEDS: Magnesium Oxide 400 MG TAB PO SCH ×2 (08:04→20:50)
[2020-11-11] MEDS: Heparin 5,000 UNITS/ML VIAL SC SCH ×2 (08:04→20:51)
[2020-11-11] MEDS: Spironolactone 25 MG TAB PO SCH (08:04)
[2020-11-11] MEDS: Sacubitril 49 MG/Valsartan 51 MG TABLET PO SCH ×2 (08:19→20:53)
[2020-11-11] MEDS: Acetaminophen 325 MG TAB PO PRN (08:19)
[2020-11-11] MEDS: Potassium Chloride 10 MEQ TAB PO SCH ×2 (08:19→20:52)
[2020-11-11] MEDS ORDERED: Amlodipine 10 MG TAB PO SCH (09:00)
[2020-11-11] MEDS: Insulin Glargine 5 UNITS in Pre-Filled Syringe 1 EACH SC SCH (09:22)
[2020-11-11] MEDS ORDERED: Empagliflozin 10 MG TAB PO SCH (09:30)
[2020-11-11] MEDS: HumaLOG 300 UNITS/3 ML VIAL SC PRN ×2 (11:42→16:58)
[2020-11-11] MEDS ORDERED: Furosemide 100 MG/10 ML VIAL SLOW IVP SCH (15:00)
[2020-11-11] MEDS: Acetaminophen/Codeine 30-300mg Tablet PO PRN ×2 (16:36→22:42)
[2020-11-11 18:32] LABS: Anion Gap 13 mmol/L (10-20); BUN (Urea Nitrogen) 44 mg/dL (9.8-20.1); Calc. Creatinine Clearance 0 mL/min (70-130); Calcium 8.6 mg/dL (7.8-10.44); Carbon Dioxide 25 mmol/L (23-31); Chloride 100 mmol/L (98-107); Glucose 267 mg/dL (83-110); Potassium 4.4 mmol/L (3.5-5.1); Sodium 134 mmol/L (136-145)
[2020-11-11] MEDS: cefTRIAXone\\ROCEPHIN 1 GM in Sodium Chloride 0.9% 100 ML IVPB SCH (20:49)
[2020-11-11] MEDS: Atorvastatin Calcium 40 MG TAB PO SCH (20:50)
[2020-11-11] MEDS: traZODone HCl 50 MG TAB PO PRN (22:43)
[2020-11-12] MEDS ORDERED: diphenhydrAMINE 25 MG CAP PO SCH (02:15)
[2020-11-12 05:19] LABS: #Eosinphils 0.2 thou/uL (0.0-0.7); #Lymphocytes 1.2 thou/uL (1.20-3.40); #Monocytes 0.5 thou/uL (0.11-0.59); %Basophils 1.1 % (0.0-1.0); %Eosinophils 4.6 % (0.0-10.0); %Lymphocytes 30.5 % (21.0-51.0); %Monocytes 12.3 % (0.0-10.0); %Neutrophils 51.4 % (42.0-75.0); Hemoglobin 9.1 g/dL (12.0-16.0); Mean Corpuscular HGB CONC 31.9 g/dL (32.0-36.0); Mean Corpuscular Hemoglobin 31.1 pg (27.0-31.0); Mean Corpuscular Volume 97.6 fL (78.0-98.0); Mean Platelet Volume 8.1 fL (7.4-10.4); Platelet Count 267 thou/uL (130-400); RBC Distribution Width 14.5 % (11.5-14.5); Red Blood Cell (RBC) Count 2.93 mill/uL (4.20-5.40); White Blood Cell (WBC) Count 3.9 thou/uL (4.8-10.8)
[2020-11-12] MEDS: Isosorbide Dinitrate 20 MG TAB PO SCH ×3 (05:26→22:13)
[2020-11-12] MEDS: hydrALAZINE 25 MG TAB PO SCH ×3 (05:26→22:14)
[2020-11-12 05:43] LABS: Anion Gap 12 mmol/L (10-20); BUN (Urea Nitrogen) 41 mg/dL (9.8-20.1); Calc. Creatinine Clearance 38 mL/min (70-130); Calcium 8.3 mg/dL (7.8-10.44); Carbon Dioxide 25 mmol/L (23-31); Chloride 101 mmol/L (98-107); Glucose 154 mg/dL (83-110); Magnesium 2.3 mg/dL (1.6-2.6); Potassium 4.4 mmol/L (3.5-5.1); Sodium 134 mmol/L (136-145)
[2020-11-12] MEDS ORDERED: Amlodipine 5 MG TAB PO SCH (09:00)
[2020-11-12 09:28] LABS: SARS-CoV-2 PCR NAA for Saliva Not Detected (NotDetected)
[2020-11-12] MEDS: Spironolactone 25 MG TAB PO SCH (10:13)
[2020-11-12] MEDS: Sacubitril 49 MG/Valsartan 51 MG TABLET PO SCH ×2 (10:13→20:35)
[2020-11-12] MEDS: Heparin 5,000 UNITS/ML VIAL SC SCH ×2 (10:14→20:33)
[2020-11-12] MEDS ORDERED: Carvedilol 6.25 MG TAB PO SCH (10:15)
[2020-11-12] MEDS: Insulin Glargine 5 UNITS in Pre-Filled Syringe 1 EACH SC SCH (10:15)
[2020-11-12] MEDS: Magnesium Oxide 400 MG TAB PO SCH ×2 (10:16→20:35)
[2020-11-12] MEDS: Aspirin 81 mg Enteric Coated Tablet PO SCH (10:17)
[2020-11-12] MEDS: Carvedilol 25 MG TAB PO SCH ×2 (10:18→20:36)
[2020-11-12] MEDS: Empagliflozin 10 MG TAB PO SCH (10:27)
[2020-11-12] MEDS: Potassium Chloride 10 MEQ TAB PO SCH (12:18)
[2020-11-12] MEDS ORDERED: Sodium Chloride 0.9% 500 ML IVPB ONE (13:45)
[2020-11-12] MEDS: Acetaminophen 325 MG TAB PO PRN (15:58)
[2020-11-12] MEDS: HumaLOG 300 UNITS/3 ML VIAL SC PRN (20:31)
[2020-11-12] MEDS: Acetaminophen/Codeine 30-300mg Tablet PO PRN (20:35)
[2020-11-12] MEDS: Atorvastatin Calcium 40 MG TAB PO SCH (20:35)
[2020-11-12] MEDS: cefTRIAXone\\ROCEPHIN 1 GM in Sodium Chloride 0.9% 100 ML IVPB SCH (20:37)
[2020-11-12] MEDS: traZODone HCl 50 MG TAB PO PRN (22:14)
[2020-11-13 05:12] LABS: Anion Gap 12 mmol/L (10-20); BUN (Urea Nitrogen) 39 mg/dL (9.8-20.1); Calc. Creatinine Clearance 37 mL/min (70-130); Calcium 8.1 mg/dL (7.8-10.44); Carbon Dioxide 27 mmol/L (23-31); Chloride 102 mmol/L (98-107); Glucose 170 mg/dL (83-110); Magnesium 2.4 mg/dL (1.6-2.6); Potassium 4.5 mmol/L (3.5-5.1); Sodium 136 mmol/L (136-145)
[2020-11-13] MEDS: HumaLOG 300 UNITS/3 ML VIAL SC PRN ×3 (05:43→16:08)
[2020-11-13] MEDS: Isosorbide Dinitrate 20 MG TAB PO SCH ×3 (05:44→21:57)
[2020-11-13] MEDS: hydrALAZINE 25 MG TAB PO SCH ×3 (05:44→21:56)
[2020-11-13] MEDS: Empagliflozin 10 MG TAB PO SCH (07:46)
[2020-11-13] MEDS: Magnesium Oxide 400 MG TAB PO SCH ×2 (07:47→20:14)
[2020-11-13] MEDS: Aspirin 81 mg Enteric Coated Tablet PO SCH (07:47)
[2020-11-13] MEDS: Heparin 5,000 UNITS/ML VIAL SC SCH ×2 (07:48→20:11)
[2020-11-13] MEDS: Sacubitril 49 MG/Valsartan 51 MG TABLET PO SCH ×2 (07:48→20:15)
[2020-11-13] MEDS: Spironolactone 25 MG TAB PO SCH (07:48)
[2020-11-13] MEDS: Carvedilol 25 MG TAB PO SCH ×2 (07:49→20:13)
[2020-11-13] MEDS: Insulin Glargine 5 UNITS in Pre-Filled Syringe 1 EACH SC SCH (07:54)
[2020-11-13] MEDS ORDERED: Potassium Chloride 10 MEQ TAB PO SCH (09:00)
[2020-11-13] MEDS: Acetaminophen 325 MG TAB PO PRN (09:29)
[2020-11-13] MEDS ORDERED: Sodium Chloride 0.9% 250 ML IVPB SCH ×2 (09:30→11:00)
[2020-11-13] MEDS ORDERED: Carvedilol 25 MG TAB PO SCH (09:30)
[2020-11-13] MEDS: Acetaminophen/Codeine 30-300mg Tablet PO PRN (20:13)
[2020-11-13] MEDS: Atorvastatin Calcium 40 MG TAB PO SCH (20:14)
[2020-11-13] MEDS: cefTRIAXone\\ROCEPHIN 1 GM in Sodium Chloride 0.9% 100 ML IVPB SCH (20:52)
[2020-11-13] MEDS: traZODone HCl 50 MG TAB PO PRN (22:00)
[2020-11-14 05:13] LABS: Anion Gap 12 mmol/L (10-20); BUN (Urea Nitrogen) 38 mg/dL (9.8-20.1); Calc. Creatinine Clearance 31 mL/min (70-130); Calcium 8.2 mg/dL (7.8-10.44); Carbon Dioxide 25 mmol/L (23-31); Chloride 103 mmol/L (98-107); Glucose 230 mg/dL (83-110); Magnesium 2.4 mg/dL (1.6-2.6); Potassium 4.6 mmol/L (3.5-5.1); Sodium 135 mmol/L (136-145)
[2020-11-14] MEDS: Isosorbide Dinitrate 20 MG TAB PO SCH ×5 (05:42→20:29)
[2020-11-14] MEDS: hydrALAZINE 25 MG TAB PO SCH ×5 (05:43→20:28)
[2020-11-14] MEDS: HumaLOG 300 UNITS/3 ML VIAL SC PRN ×3 (05:46→18:15)
[2020-11-14] MEDS: Sacubitril 49 MG/Valsartan 51 MG TABLET PO SCH (08:15)
[2020-11-14] MEDS: Carvedilol 25 MG TAB PO SCH ×2 (08:57→20:19)
[2020-11-14] MEDS: Aspirin 81 mg Enteric Coated Tablet PO SCH (08:57)
[2020-11-14] MEDS: Heparin 5,000 UNITS/ML VIAL SC SCH ×2 (08:58→20:19)
[2020-11-14] MEDS: Empagliflozin 10 MG TAB PO SCH (08:58)
[2020-11-14] MEDS: Insulin Glargine 5 UNITS in Pre-Filled Syringe 1 EACH SC SCH (08:59)
[2020-11-14] MEDS: Magnesium Oxide 400 MG TAB PO SCH ×2 (09:01→21:20)
[2020-11-14 13:11] LABS: Thyroid Stimulating Hormone 0.6729 uIU/mL (0.35-4.94)
[2020-11-14] MEDS: Acetaminophen 325 MG TAB PO PRN (13:30)
[2020-11-14] MEDS: Acetaminophen/Codeine 30-300mg Tablet PO PRN (16:19)
[2020-11-14] MEDS: Atorvastatin Calcium 40 MG TAB PO SCH (20:19)
[2020-11-14] MEDS: cefTRIAXone\\ROCEPHIN 1 GM in Sodium Chloride 0.9% 100 ML IVPB SCH (20:19)
[2020-11-15] MEDS: hydrALAZINE 25 MG TAB PO SCH ×3 (05:24→21:38)
[2020-11-15] MEDS: Isosorbide Dinitrate 20 MG TAB PO SCH ×3 (05:25→21:38)
[2020-11-15 05:37] LABS: Anion Gap 14 mmol/L (10-20); BUN (Urea Nitrogen) 42 mg/dL (9.8-20.1); Calc. Creatinine Clearance 35 mL/min (70-130); Calcium 8.4 mg/dL (7.8-10.44); Carbon Dioxide 23 mmol/L (23-31); Chloride 102 mmol/L (98-107); Glucose 163 mg/dL (83-110); Magnesium 2.6 mg/dL (1.6-2.6); Potassium 4.3 mmol/L (3.5-5.1); Sodium 135 mmol/L (136-145)
[2020-11-15] MEDS: HumaLOG 300 UNITS/3 ML VIAL SC PRN ×2 (05:59→12:55)
[2020-11-15] MEDS: Acetaminophen 325 MG TAB PO PRN (06:46)
[2020-11-15] MEDS: Acetaminophen/Codeine 30-300mg Tablet PO PRN ×2 (08:09→18:48)
[2020-11-15] MEDS: Aspirin 81 mg Enteric Coated Tablet PO SCH (08:09)
[2020-11-15] MEDS: Carvedilol 25 MG TAB PO SCH ×2 (08:09→20:40)
[2020-11-15] MEDS: Magnesium Oxide 400 MG TAB PO SCH ×2 (08:09→20:39)
[2020-11-15] MEDS: Empagliflozin 10 MG TAB PO SCH (08:10)
[2020-11-15] MEDS: Heparin 5,000 UNITS/ML VIAL SC SCH ×2 (08:11→20:39)
[2020-11-15] MEDS ORDERED: Bumetanide 1 MG TAB PO SCH (10:45)
[2020-11-15] MEDS: Fioricet 325/50/40 mg Tablet PO PRN (12:25)
[2020-11-15] MEDS: Insulin Glargine 5 UNITS in Pre-Filled Syringe 1 EACH SC SCH (12:56)
[2020-11-15] MEDS: Ondansetron ODT 4 MG TAB PO PRN (13:57)
[2020-11-15] MEDS ORDERED: Promethazine HCl 25 MG/ML VIAL IM/IV PRN (16:01)
[2020-11-15] MEDS ORDERED: hydrALAZINE 25 MG TAB PO SCH (17:30)
[2020-11-15] MEDS ORDERED: Isosorbide Dinitrate 5 MG TAB PO SCH (17:30)
[2020-11-15] MEDS: Atorvastatin Calcium 40 MG TAB PO SCH (20:39)
[2020-11-15] MEDS: cefTRIAXone\\ROCEPHIN 1 GM in Sodium Chloride 0.9% 100 ML IVPB SCH (20:40)
[2020-11-16] MEDS: hydrALAZINE 25 MG TAB PO SCH ×3 (05:23→22:25)
[2020-11-16] MEDS: Isosorbide Dinitrate 20 MG TAB PO SCH ×3 (05:23→22:25)
[2020-11-16 05:30] LABS: Anion Gap 13 mmol/L (10-20); BUN (Urea Nitrogen) 46 mg/dL (9.8-20.1); Calc. Creatinine Clearance 33 mL/min (70-130); Calcium 8.3 mg/dL (7.8-10.44); Carbon Dioxide 24 mmol/L (23-31); Chloride 101 mmol/L (98-107); Glucose 136 mg/dL (83-110); Magnesium 2.7 mg/dL (1.6-2.6); Potassium 5.3 mmol/L (3.5-5.1); Sodium 133 mmol/L (136-145)
[2020-11-16] MEDS ORDERED: Bumetanide 1 MG TAB PO SCH (09:00)
[2020-11-16] MEDS: Acetaminophen 325 MG TAB PO PRN (09:27)
[2020-11-16] MEDS: Heparin 5,000 UNITS/ML VIAL SC SCH ×2 (09:27→21:20)
[2020-11-16] MEDS: Carvedilol 25 MG TAB PO SCH ×2 (09:27→21:20)
[2020-11-16] MEDS: Insulin Glargine 5 UNITS in Pre-Filled Syringe 1 EACH SC SCH (09:27)
[2020-11-16] MEDS: Empagliflozin 10 MG TAB PO SCH (09:27)
[2020-11-16] MEDS: Aspirin 81 mg Enteric Coated Tablet PO SCH (09:27)
[2020-11-16] MEDS ORDERED: Sodium Chloride 0.9% 250 ML 250 ML IVPB SCH (09:30)
[2020-11-16] MEDS: Magnesium Oxide 400 MG TAB PO SCH (09:38)
[2020-11-16] MEDS: HumaLOG 300 UNITS/3 ML VIAL SC PRN ×2 (11:36→17:20)
[2020-11-16] MEDS ORDERED: Insulin Regular 300 UNITS/3 ML VIAL IVP SCH (18:15)
[2020-11-16] MEDS ORDERED: Albuterol Sulfate 2.5 mg/3 ml Neb NEB SCH (18:15)
[2020-11-16] MEDS ORDERED: Dextrose 50% Abboject 50 ML SYRINGE SLOW IVP SCH (18:15)
[2020-11-16] MEDS: Acetaminophen/Codeine 30-300mg Tablet PO PRN (18:39)
[2020-11-16] MEDS: Atorvastatin Calcium 40 MG TAB PO SCH (21:20)
[2020-11-16] MEDS: cefTRIAXone\\ROCEPHIN 1 GM in Sodium Chloride 0.9% 100 ML IVPB SCH (21:21)
[2020-11-16] MEDS: traZODone HCl 50 MG TAB PO PRN (23:42)
[2020-11-17] MEDS: hydrALAZINE 25 MG TAB PO SCH ×3 (05:17→22:28)
[2020-11-17] MEDS: Isosorbide Dinitrate 20 MG TAB PO SCH ×3 (05:17→22:29)
[2020-11-17 06:05] LABS: Anion Gap 12 mmol/L (10-20); BUN (Urea Nitrogen) 45 mg/dL (9.8-20.1); Calc. Creatinine Clearance 34 mL/min (70-130); Calcium 8.2 mg/dL (7.8-10.44); Carbon Dioxide 25 mmol/L (23-31); Chloride 102 mmol/L (98-107); Glucose 198 mg/dL (83-110); Magnesium 2.7 mg/dL (1.6-2.6); Potassium 4.8 mmol/L (3.5-5.1); Sodium 134 mmol/L (136-145)
[2020-11-17] MEDS: HumaLOG 300 UNITS/3 ML VIAL SC PRN ×3 (06:06→18:16)
[2020-11-17] MEDS: Acetaminophen/Codeine 30-300mg Tablet PO PRN ×2 (06:10→18:12)
[2020-11-17] MEDS: Insulin Glargine 5 UNITS in Pre-Filled Syringe 1 EACH SC SCH (08:35)
[2020-11-17] MEDS: Aspirin 81 mg Enteric Coated Tablet PO SCH (08:36)
[2020-11-17] MEDS: Carvedilol 25 MG TAB PO SCH ×2 (08:36→20:25)
[2020-11-17] MEDS: Heparin 5,000 UNITS/ML VIAL SC SCH ×2 (08:36→20:26)
[2020-11-17] MEDS: Empagliflozin 10 MG TAB PO SCH (08:36)
[2020-11-17] MEDS: Atorvastatin Calcium 40 MG TAB PO SCH (20:26)
[2020-11-17] MEDS: Acetaminophen 325 MG TAB PO PRN (20:26)
[2020-11-17] MEDS: cefTRIAXone\\ROCEPHIN 1 GM in Sodium Chloride 0.9% 100 ML IVPB SCH (20:27)
[2020-11-17] MEDS: Fioricet 325/50/40 mg Tablet PO PRN (22:31)
[2020-11-18] MEDS: Acetaminophen/Codeine 30-300mg Tablet PO PRN ×3 (00:17→22:49)
[2020-11-18] MEDS: hydrALAZINE 25 MG TAB PO SCH ×3 (05:25→21:17)
[2020-11-18] MEDS: Isosorbide Dinitrate 20 MG TAB PO SCH ×3 (05:26→21:17)
[2020-11-18 05:28] LABS: Anion Gap 13 mmol/L (10-20); BUN (Urea Nitrogen) 46 mg/dL (9.8-20.1); Calc. Creatinine Clearance 31 mL/min (70-130); Calcium 8.3 mg/dL (7.8-10.44); Carbon Dioxide 24 mmol/L (23-31); Chloride 103 mmol/L (98-107); Glucose 183 mg/dL (83-110); Magnesium 2.4 mg/dL (1.6-2.6); Sodium 135 mmol/L (136-145)
[2020-11-18] MEDS: HumaLOG 300 UNITS/3 ML VIAL SC PRN ×4 (06:30→21:15)
[2020-11-18] MEDS: Aspirin 81 mg Enteric Coated Tablet PO SCH (08:23)
[2020-11-18] MEDS: Carvedilol 25 MG TAB PO SCH ×2 (08:24→21:18)
[2020-11-18] MEDS: Empagliflozin 10 MG TAB PO SCH (08:24)
[2020-11-18] MEDS: Insulin Glargine 5 UNITS in Pre-Filled Syringe 1 EACH SC SCH (08:25)
[2020-11-18] MEDS: Heparin 5,000 UNITS/ML VIAL SC SCH ×2 (08:25→21:16)
[2020-11-18] MEDS ORDERED: Sodium Chloride 0.9% 250 ML 250 ML IVPB SCH (09:45)
[2020-11-18] MEDS: Fioricet 325/50/40 mg Tablet PO PRN ×2 (10:21→17:55)
[2020-11-18] MEDS: Atorvastatin Calcium 40 MG TAB PO SCH (21:18)
[2020-11-18] MEDS: cefTRIAXone\\ROCEPHIN 1 GM in Sodium Chloride 0.9% 100 ML IVPB SCH (21:18)
[2020-11-19] MEDS: Ondansetron ODT 4 MG TAB PO PRN (04:14)
[2020-11-19 04:55] LABS: Anion Gap 15 mmol/L (10-20); BUN (Urea Nitrogen) 39 mg/dL (9.8-20.1); Calc. Creatinine Clearance 38 mL/min (70-130); Calcium 8.5 mg/dL (7.8-10.44); Carbon Dioxide 18 mmol/L (23-31); Chloride 105 mmol/L (98-107); Glucose 102 mg/dL (83-110); Magnesium 2.3 mg/dL (1.6-2.6); Potassium 4.7 mmol/L (3.5-5.1); Sodium 133 mmol/L (136-145)
[2020-11-19] MEDS: Acetaminophen/Codeine 30-300mg Tablet PO PRN (05:14)
[2020-11-19] MEDS: hydrALAZINE 25 MG TAB PO SCH ×3 (05:14→21:48)
[2020-11-19] MEDS: Isosorbide Dinitrate 20 MG TAB PO SCH ×3 (05:15→21:48)
[2020-11-19] MEDS: Acetaminophen 325 MG TAB PO PRN (06:27)
[2020-11-19] MEDS ORDERED: Senokot S 8.6-50 MG TAB PO PRN (08:19)
[2020-11-19] MEDS ORDERED: Cepastat Lozenges 1 LOZ PO PRN (08:19)
[2020-11-19] MEDS ORDERED: Loperamide HCl 2 MG CAP PO PRN (08:19)
[2020-11-19] MEDS ORDERED: Loratadine 10 MG TAB PO PRN (08:19)
[2020-11-19] MEDS ORDERED: Bisacodyl 5 MG TAB PO PRN (08:19)
[2020-11-19] MEDS ORDERED: Calcium Carbonate 500 MG ChewTAB PO PRN (08:19)
[2020-11-19] MEDS ORDERED: Zolpidem Tartrate 5 MG TAB PO PRN (08:19)
[2020-11-19] MEDS ORDERED: Ondansetron PF 4 MG/2 ML Vial IVP PRN (08:19)
[2020-11-19] MEDS ORDERED: Sodium Chloride 0.65% Nasal 44 ML BOT EA NARE PRN (08:19)
[2020-11-19] MEDS ORDERED: GUAIFENESIN SF SOLN 200 MG/10 ML UDCUP PO PRN (08:19)
[2020-11-19] MEDS: Empagliflozin 10 MG TAB PO SCH (09:16)
[2020-11-19] MEDS: Heparin 5,000 UNITS/ML VIAL SC SCH ×2 (09:16→21:47)
[2020-11-19] MEDS: Carvedilol 25 MG TAB PO SCH ×2 (09:16→21:48)
[2020-11-19] MEDS: Aspirin 81 mg Enteric Coated Tablet PO SCH (09:16)
[2020-11-19] MEDS: Insulin Glargine 5 UNITS in Pre-Filled Syringe 1 EACH SC SCH (09:18)
[2020-11-19] MEDS ORDERED: SODIUM BICARBONATE FS SCH (10:00)
[2020-11-19] MEDS ORDERED: WATER FS SCH (10:00)
[2020-11-19] MEDS ORDERED: DEXTROSE 5% FS SCH (10:00)
[2020-11-19] MEDS ORDERED: Bumetanide 1 MG TAB PO SCH (10:00)
[2020-11-19] MEDS ORDERED: Sodium Bicarbonate 150 MEQ in Dextrose 5% in Water 1,000 ML FS SCH (10:00)
[2020-11-19] MEDS: HumaLOG 300 UNITS/3 ML VIAL SC PRN ×2 (11:22→16:11)
[2020-11-19] MEDS: Fioricet 325/50/40 mg Tablet PO PRN ×2 (11:25→16:06)
[2020-11-19] MEDS ORDERED: Acetaminophen/Codeine 30-300mg Tablet PO PRN (12:57)
[2020-11-19] MEDS: Atorvastatin Calcium 40 MG TAB PO SCH (21:56)
[2020-11-20] MEDS: hydrALAZINE 25 MG TAB PO SCH ×3 (05:16→20:30)
[2020-11-20] MEDS: Isosorbide Dinitrate 20 MG TAB PO SCH ×3 (05:16→20:30)
[2020-11-20] MEDS: Aspirin 81 mg Enteric Coated Tablet PO SCH (08:47)
[2020-11-20] MEDS: Bumetanide 1 MG TAB PO SCH (08:47)
[2020-11-20] MEDS: Carvedilol 25 MG TAB PO SCH ×2 (08:49→20:30)
[2020-11-20] MEDS: Fioricet 325/50/40 mg Tablet PO PRN (08:50)
[2020-11-20] MEDS: Insulin Glargine 5 UNITS in Pre-Filled Syringe 1 EACH SC SCH (08:50)
[2020-11-20] MEDS: Heparin 5,000 UNITS/ML VIAL SC SCH ×2 (08:50→20:30)
[2020-11-20 10:09] LABS: Anion Gap 14 mmol/L (10-20); BUN (Urea Nitrogen) 42 mg/dL (9.8-20.1); Calc. Creatinine Clearance 33 mL/min (70-130); Calcium 8.3 mg/dL (7.8-10.44); Carbon Dioxide 26 mmol/L (23-31); Chloride 100 mmol/L (98-107); Glucose 197 mg/dL (83-110); Magnesium 1.9 mg/dL (1.6-2.6); Potassium 4.8 mmol/L (3.5-5.1); Sodium 135 mmol/L (136-145)
[2020-11-20] MEDS ORDERED: Magnesium Oxide 400 MG TAB PO SCH (11:15)
[2020-11-20 11:25] LABS: #Basophils 0.1 thou/uL (0.0-0.2); #Eosinphils 0.2 thou/uL (0.0-0.7); #Monocytes 0.4 thou/uL (0.11-0.59); #Neutrophils 2.4 thou/uL (1.40-6.50); %Basophils 1.2 % (0.0-1.0); %Eosinophils 4.9 % (0.0-10.0); %Lymphocytes 23.8 % (21.0-51.0); %Monocytes 10.5 % (0.0-10.0); %Neutrophils 59.6 % (42.0-75.0); Hemoglobin 9.5 g/dL (12.0-16.0); Mean Corpuscular HGB CONC 32.4 g/dL (32.0-36.0); Mean Corpuscular Hemoglobin 31.5 pg (27.0-31.0); Mean Corpuscular Volume 97.2 fL (78.0-98.0); Mean Platelet Volume 8.4 fL (7.4-10.4); Platelet Count 244 thou/uL (130-400); RBC Distribution Width 14.1 % (11.5-14.5)
[2020-11-20] MEDS: HumaLOG 300 UNITS/3 ML VIAL SC PRN (12:06)
[2020-11-20] MEDS ORDERED: Bumetanide 1 MG TAB PO SCH (15:00)
[2020-11-20] MEDS: Labetalol HCl 100 MG/20 ML VIAL SLOW IVP PRN ×2 (15:57→21:14)
[2020-11-20] MEDS ORDERED: Amlodipine 5 MG TAB PO SCH (18:00)
[2020-11-20] MEDS: Acetaminophen 325 MG TAB PO PRN (18:52)
[2020-11-20] MEDS: Atorvastatin Calcium 40 MG TAB PO SCH (20:30)
[2020-11-20] MEDS: traZODone HCl 50 MG TAB PO PRN (21:14)
[2020-11-20] MEDS ORDERED: Acetaminophen/Codeine 30-300mg Tablet PO SCH (22:30)
[2020-11-21] MEDS: hydrALAZINE 25 MG TAB PO SCH ×3 (05:24→20:57)
[2020-11-21] MEDS: Isosorbide Dinitrate 20 MG TAB PO SCH ×3 (05:25→20:57)
[2020-11-21 05:27] LABS: Anion Gap 13 mmol/L (10-20); BUN (Urea Nitrogen) 40 mg/dL (9.8-20.1); Calc. Creatinine Clearance 35 mL/min (70-130); Calcium 8.8 mg/dL (7.8-10.44); Carbon Dioxide 26 mmol/L (23-31); Chloride 103 mmol/L (98-107); Glucose 104 mg/dL (83-110); Magnesium 1.9 mg/dL (1.6-2.6); Potassium 4.7 mmol/L (3.5-5.1); Sodium 137 mmol/L (136-145)
[2020-11-21] MEDS: Acetaminophen 325 MG TAB PO PRN (06:04)
[2020-11-21] MEDS: Carvedilol 25 MG TAB PO SCH ×2 (08:38→20:56)
[2020-11-21] MEDS: Aspirin 81 mg Enteric Coated Tablet PO SCH (08:39)
[2020-11-21] MEDS: Magnesium Oxide 400 MG TAB PO SCH ×2 (08:39→20:56)
[2020-11-21] MEDS: Bumetanide 1 MG TAB PO SCH (08:39)
[2020-11-21] MEDS: Amlodipine 5 MG TAB PO SCH (08:39)
[2020-11-21] MEDS: Heparin 5,000 UNITS/ML VIAL SC SCH ×2 (08:39→20:56)
[2020-11-21] MEDS: Insulin Glargine 5 UNITS in Pre-Filled Syringe 1 EACH SC SCH (08:40)
[2020-11-21] MEDS: HumaLOG 300 UNITS/3 ML VIAL SC PRN (17:49)
[2020-11-21] MEDS: Atorvastatin Calcium 40 MG TAB PO SCH (20:55)
[2020-11-22] MEDS: Labetalol HCl 100 MG/20 ML VIAL SLOW IVP PRN (04:01)
[2020-11-22 05:05] LABS: Anion Gap 12 mmol/L (10-20); BUN (Urea Nitrogen) 43 mg/dL (9.8-20.1); Calc. Creatinine Clearance 35 mL/min (70-130); Calcium 8.9 mg/dL (7.8-10.44); Carbon Dioxide 26 mmol/L (23-31); Chloride 103 mmol/L (98-107); Glucose 122 mg/dL (83-110); Magnesium 1.9 mg/dL (1.6-2.6); Potassium 4.7 mmol/L (3.5-5.1); Sodium 136 mmol/L (136-145)
[2020-11-22] MEDS: Isosorbide Dinitrate 20 MG TAB PO SCH ×3 (05:27→21:08)
[2020-11-22] MEDS: hydrALAZINE 25 MG TAB PO SCH ×3 (05:27→21:07)
[2020-11-22] MEDS: Aspirin 81 mg Enteric Coated Tablet PO SCH (09:01)
[2020-11-22] MEDS: Carvedilol 25 MG TAB PO SCH ×2 (09:01→21:08)
[2020-11-22] MEDS: Heparin 5,000 UNITS/ML VIAL SC SCH ×2 (09:02→21:06)
[2020-11-22] MEDS: Bumetanide 1 MG TAB PO SCH (09:02)
[2020-11-22] MEDS: Magnesium Oxide 400 MG TAB PO SCH ×2 (09:02→21:08)
[2020-11-22] MEDS: Amlodipine 5 MG TAB PO SCH (09:02)
[2020-11-22] MEDS: Insulin Glargine 5 UNITS in Pre-Filled Syringe 1 EACH SC SCH (09:58)
[2020-11-22] MEDS: Empagliflozin 10 MG TAB PO SCH (09:58)
[2020-11-22] MEDS: Acetaminophen 325 MG TAB PO PRN ×3 (13:20→21:08)
[2020-11-22] MEDS: Atorvastatin Calcium 40 MG TAB PO SCH (21:09)
[2020-11-23] MEDS: Labetalol HCl 100 MG/20 ML VIAL SLOW IVP PRN ×2 (00:26→05:11)
[2020-11-23] MEDS: Isosorbide Dinitrate 20 MG TAB PO SCH ×3 (05:11→21:20)
[2020-11-23 05:14] LABS: Anion Gap 14 mmol/L (10-20); BUN (Urea Nitrogen) 38 mg/dL (9.8-20.1); Calc. Creatinine Clearance 39 mL/min (70-130); Carbon Dioxide 22 mmol/L (23-31); Chloride 105 mmol/L (98-107); Glucose 117 mg/dL (83-110); Magnesium 1.9 mg/dL (1.6-2.6); Potassium 4.7 mmol/L (3.5-5.1); Sodium 136 mmol/L (136-145)
[2020-11-23] MEDS ORDERED: hydrALAZINE 20 MG/ML VIAL SLOW IVP PRN (06:53)
[2020-11-23] MEDS: Bumetanide 1 MG TAB PO SCH (09:13)
[2020-11-23] MEDS: Hydrochlorothiazide 25 MG TAB PO SCH (09:13)
[2020-11-23] MEDS: Heparin 5,000 UNITS/ML VIAL SC SCH ×2 (09:13→20:27)
[2020-11-23] MEDS: Carvedilol 25 MG TAB PO SCH ×2 (09:13→20:29)
[2020-11-23] MEDS: Aspirin 81 mg Enteric Coated Tablet PO SCH (09:13)
[2020-11-23] MEDS: hydrALAZINE 25 MG TAB PO SCH ×3 (09:13→20:29)
[2020-11-23] MEDS: Magnesium Oxide 400 MG TAB PO SCH ×2 (09:13→20:28)
[2020-11-23] MEDS: Empagliflozin 10 MG TAB PO SCH (09:14)
[2020-11-23] MEDS: Amlodipine 10 MG TAB PO SCH (09:14)
[2020-11-23] MEDS: Insulin Glargine 5 UNITS in Pre-Filled Syringe 1 EACH SC SCH (09:52)
[2020-11-23 14:41] VITALS: BMI 32.5
[2020-11-23] MEDS: Acetaminophen 325 MG TAB PO PRN ×2 (15:25→20:28)
[2020-11-23] MEDS: HumaLOG 300 UNITS/3 ML VIAL SC PRN (17:33)
[2020-11-23] MEDS ORDERED: Metoclopramide HCl 10 MG/2 ML VIAL IVP SCH (18:15)
[2020-11-23] MEDS ORDERED: diphenhydrAMINE 50 MG/ML VIAL IVP SCH (18:15)
[2020-11-23] MEDS: Atorvastatin Calcium 40 MG TAB PO SCH (20:29)
[2020-11-23] MEDS: traZODone HCl 50 MG TAB PO PRN (21:20)
[2020-11-24] MEDS: Isosorbide Dinitrate 20 MG TAB PO SCH ×3 (05:25→21:41)
[2020-11-24 05:41] LABS: Anion Gap 12 mmol/L (10-20); BUN (Urea Nitrogen) 45 mg/dL (9.8-20.1); Calc. Creatinine Clearance 30 mL/min (70-130); Calcium 8.6 mg/dL (7.8-10.44); Carbon Dioxide 24 mmol/L (23-31); Chloride 104 mmol/L (98-107); Glucose 119 mg/dL (83-110); Magnesium 1.9 mg/dL (1.6-2.6); Potassium 4.2 mmol/L (3.5-5.1); Sodium 136 mmol/L (136-145)
[2020-11-24] MEDS ORDERED: Lantus 1000 UNITS/10 ML VIAL SC SCH (09:00)
[2020-11-24] MEDS: Bumetanide 1 MG TAB PO SCH (09:57)
[2020-11-24] MEDS: Aspirin 81 mg Enteric Coated Tablet PO SCH (09:57)
[2020-11-24] MEDS: Magnesium Oxide 400 MG TAB PO SCH ×2 (09:57→21:41)
[2020-11-24] MEDS: Amlodipine 10 MG TAB PO SCH (09:58)
[2020-11-24] MEDS: Carvedilol 25 MG TAB PO SCH ×2 (09:58→21:42)
[2020-11-24] MEDS: Empagliflozin 10 MG TAB PO SCH (10:01)
[2020-11-24] MEDS: hydrALAZINE 25 MG TAB PO SCH ×3 (10:01→21:40)
[2020-11-24] MEDS: Hydrochlorothiazide 25 MG TAB PO SCH (10:01)
[2020-11-24] MEDS: Insulin Glargine 5 UNITS in Pre-Filled Syringe 1 EACH SC SCH (10:02)
[2020-11-24] MEDS: Heparin 5,000 UNITS/ML VIAL SC SCH ×2 (10:02→21:40)
[2020-11-24] MEDS: HumaLOG 300 UNITS/3 ML VIAL SC PRN ×3 (12:15→21:43)
[2020-11-24] MEDS: Atorvastatin Calcium 40 MG TAB PO SCH (21:41)
[2020-11-24] MEDS: Acetaminophen 325 MG TAB PO PRN (22:26)
[2020-11-24] MEDS: traZODone HCl 50 MG TAB PO PRN (22:27)
[2020-11-25 05:16] LABS: Anion Gap 14 mmol/L (10-20); BUN (Urea Nitrogen) 56 mg/dL (9.8-20.1); Calc. Creatinine Clearance 26 mL/min (70-130); Calcium 8.7 mg/dL (7.8-10.44); Carbon Dioxide 24 mmol/L (23-31); Chloride 103 mmol/L (98-107); Glucose 147 mg/dL (83-110); Magnesium 2.1 mg/dL (1.6-2.6); Potassium 4.8 mmol/L (3.5-5.1); Sodium 136 mmol/L (136-145)
[2020-11-25] MEDS: Isosorbide Dinitrate 20 MG TAB PO SCH (05:54)
[2020-11-25] MEDS: hydrALAZINE 25 MG TAB PO SCH ×2 (05:55→14:03)
[2020-11-25] MEDS: Acetaminophen 325 MG TAB PO PRN ×2 (08:12→14:03)
[2020-11-25] MEDS: Amlodipine 10 MG TAB PO SCH (08:13)
[2020-11-25] MEDS: Aspirin 81 mg Enteric Coated Tablet PO SCH (08:13)
[2020-11-25] MEDS: Carvedilol 25 MG TAB PO SCH (08:13)
[2020-11-25] MEDS: Magnesium Oxide 400 MG TAB PO SCH (08:13)
[2020-11-25] MEDS: Heparin 5,000 UNITS/ML VIAL SC SCH (08:13)
[2020-11-25] MEDS: Bumetanide 1 MG TAB PO SCH (08:13)
[2020-11-25] MEDS: Empagliflozin 10 MG TAB PO SCH (08:13)
[2020-11-25] MEDS ORDERED: Lantus 1000 UNITS/10 ML VIAL SC SCH (09:00)
[2020-11-25] MEDS ORDERED: Hydrochlorothiazide 25 MG TAB PO SCH (09:00)
[2020-11-25] MEDS ORDERED: Sodium Chloride 0.9% 250 ML 250 ML IVPB SCH (10:00)
[2020-11-25] MEDS: HumaLOG 300 UNITS/3 ML VIAL SC PRN (11:47)
[2020-11-25 12:23] VITALS: BP 165/74; TEMP 98.5
[2020-11-25] MEDS ORDERED: Isosorbide Dinitrate 20 MG TAB PO SCH (14:00)
[2020-11-25] MEDS ORDERED: Amlodipine 5 MG TAB PO SCH (21:00)
== END 2020-11-25 14:57 | disposition hospice, inpatient (51) | DRG 291 ==
LOC: ERS 09:26 → 3SE 11:08 → 2NO 11-17 16:49
PROVIDERS: ADMIT Internal Medicine; ATTEND Internal Medicine
PROC: 4B02XTZ Measurement of Cardiac Defibrillator, External Approach (ICD-10-PCS; principal; 2020-11-08)
DX: I13.0 Hypertensive heart and chronic kidney disease with heart failure and stage 1 through stage 4 chronic kidney disease, or unspecified chronic kidney disease (principal); J96.01 Acute respiratory failure with hypoxia; Z51.5 Encounter for palliative care; Z66 Do not resuscitate; Z20.822 Contact with and (suspected) exposure to COVID-19; I50.43 Acute on chronic combined systolic (congestive) and diastolic (congestive) heart failure; I47.1 Supraventricular tachycardia; N39.0 Urinary tract infection, site not specified; N18.4 Chronic kidney disease, stage 4 (severe); N17.9 Acute kidney failure, unspecified; E87.1 Hypo-osmolality and hyponatremia; K21.9 Gastro-esophageal reflux disease without esophagitis; E11.22 Type 2 diabetes mellitus with diabetic chronic kidney disease; D63.1 Anemia in chronic kidney disease; I16.0 Hypertensive urgency; R77.8 Other specified abnormalities of plasma proteins; I25.10 Atherosclerotic heart disease of native coronary artery without angina pectoris; E78.5 Hyperlipidemia, unspecified; I08.3 Combined rheumatic disorders of mitral, aortic and tricuspid valves; I25.5 Ischemic cardiomyopathy; E78.00 Pure hypercholesterolemia, unspecified; I42.8 Other cardiomyopathies; I95.1 Orthostatic hypotension; G30.9 Alzheimer's disease, unspecified; F02.80 Dementia in other diseases classified elsewhere, unspecified severity, without behavioral disturbance, psychotic disturbance, mood disturbance, and anxiety; E66.01 Morbid (severe) obesity due to excess calories; E87.5 Hyperkalemia; R62.7 Adult failure to thrive; Z68.32 Body mass index [BMI] 32.0-32.9, adult; Z98.51 Tubal ligation status; Z95.810 Presence of automatic (implantable) cardiac defibrillator; Z79.82 Long term (current) use of aspirin; Z79.4 Long term (current) use of insulin; Z79.899 Other long term (current) drug therapy
CPT/HCPCS: 36415; 36416; 36600; 70450; 71045; 78451; 80048; 80053; 81001; 82550; 82553; 82607; 82746; 82805; 83690; 83735; 83880; 84300; 84443; 84484; 85025; 85379; 86141; 87635; 93005; 93798; 93970; 94640; 95712; 95819; 95957; 96372; 96374; 97139; A9540; J0360; J0696; J1200; J1644; J1650; J1815; J1940; J2260; J2550; J2765; J3475; J3490; J7030; J7050; J7070; J7611; Q0162; Q0163; U0003; U0005